=== PATIENT | male | born 1945 | race Caucasian/White ===

== ENCOUNTER 2022-09-25 13:14 | Outpatient (OUT) | payer MEDICARE, SELFPAY ==
--- NOTE | 2022-09-25 13:17 | XR_ITS ---
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 KIDNEY/URETER - LEFT: No visible renal or ureteral calcifications. PELVIS: No visible ureteral stone. Stable small pelvic calcifications compatible with phleboliths. BOWEL: No abnormal dilation or deviation. BONES: No acute abnormality. OTHER: Negative. No abnormal gaseous collections. XR/XR abdomen 1V IMPRESSION: 1. No appreciable urinary tract calculi. Electronically authenticated by: TANIA SAXENA Date: 09/26/2022 07:18
== END 2022-09-25 13:15 | disposition home or self-care (01) ==
LOC: RAD 13:14
PROVIDERS: PCP Family Medicine; Visit Provider Urology
DX: N40.1 Benign prostatic hyperplasia with lower urinary tract symptoms (principal); N20.0 Calculus of kidney; R31.29 Other microscopic hematuria
CPT/HCPCS: 74018

== ENCOUNTER 2022-10-09 09:36 | Outpatient (OUT) | payer MEDICARE, SELFPAY ==
[2022-10-09 09:55] LABS: Estimated GFR (African America >60 (>=60); Estimated GFR (Non-African Ame >60 (>=60)
--- NOTE | 2022-10-09 09:56 | CT_ITS ---
[address] [address] Patient Name: JD APODACA MRN: [id number] date: 1945 Sex: M Assigned Patient Location: LAB Current Patient Location: LAB Accession/Order Number: [id number] Exam Date: 10/09/2022 10:06 Report Date: 10/09/2022 11:46 At the request of: JANET OSCAR Procedure: CT abdomen pelvis wo/w con EXAM: CT abdomen pelvis wo/w con HISTORY: BPH With Urinary Obstruction N40.1, Kidney Stone N20.0 COMPARISON: None. TECHNIQUE: Axial CT images were obtained of the abdomen and pelvis without and with intravenous contrast. Postcontrast images were obtained in the delayed phase. Multiplanar reconstructions were performed. ABDOMEN/PELVIS FINDINGS: Lower Chest: Unremarkable. Liver: Hepatic steatosis is present. The liver is enlarged measuring 20 cm in craniocaudal dimension. Biliary/Gallbladder: Unremarkable. Pancreas: Unremarkable. Spleen: Unremarkable. Adrenal Glands: Unremarkable. Kidneys: A couple tiny cystic lesions are present in the kidneys bilaterally that are too small to characterize, but most likely represent small cysts. No renal calculus or hydronephrosis is identified. Gastrointestinal/Peritoneum: No acute abnormality. Moderate colonic diverticulosis is present. The appendix is unremarkable. No free air or free fluid. Vascular: Mild scattered atherosclerotic calcifications are present. Lymph Nodes: No enlarged lymph nodes by CT size criteria. Pelvic Organs: Unremarkable. Bladder: The bladder appears diffusely thick-walled, however, evaluation is limited due to nondistention. Bones: No acute osseous abnormality. Moderate degenerative disc disease is present at L5-S1. Otherwise mild multilevel degenerative changes are present. Soft tissues: Unremarkable. CT/CT abdomen pelvis wo/w con IMPRESSION: 1. Mild diffuse bladder wall thickening, which is limited in evaluation due to nondistention. Cystitis or chronic bladder outlet obstruction are possible considerations. 2. Hepatic steatosis and hepatomegaly. 3. Moderate colonic diverticulosis. Electronically authenticated by: LOI HAINES Date: 10/09/2022 11:46
== END 2022-10-09 09:37 | disposition home or self-care (01) ==
LOC: LAB 09:37
PROVIDERS: PCP Family Medicine; Visit Provider Urology
DX: N40.1 Benign prostatic hyperplasia with lower urinary tract symptoms (principal); N20.0 Calculus of kidney; R31.29 Other microscopic hematuria
CPT/HCPCS: 36415; 74178; 82565; 84520; Q9967

== ENCOUNTER 2022-10-22 15:47 | Emergency (ER) | payer MEDICARE, SELFPAY ==
[2022-10-22 15:54] VITALS: BP 171/96; PULSE 102; RESP 20; TEMP 36.6; O2SAT 98; BMI 24.3
--- NOTE | 2022-10-22 15:57 | PC.NURSE ---
Pt has a dried area of blood to scrotum that he noticed started bleeding in the shower. Pt state this has happened in the past. States no known injury. Pt had a paper towel in underwear to catch blood and none was noted on towel.
--- NOTE | 2022-10-22 16:01 | ED.GENADUL1 ---
HPI - General Adult General Chief complaint: Skin/Abscess/Foreign Body Stated complaint: RECTAL BLEED Time Seen by Provider: 10/22/22 15:52 Source: patient Mode of arrival: walk-in Limitations: no limitations History of Present Illness HPI narrative: patient is a 77-year-old male who presents to the emergency department for bleeding from his scrotum that he noted in the shower just prior to arrival. He denies any pain, he is able to urinate normally. He has no abdominal pain, fevers, vomiting. He states he has not had any injuries that he is aware of. Bleeding has stopped at this time. Related Data Home Medications Medication Instructions Recorded Confirmed amlodipine 2.5 mg tablet 2.5 mg PO DAILY 10/22/22 10/22/22 hydrochlorothiazide 12.5 mg tablet 12.5 mg PO DAILY 10/22/22 10/22/22 lisinopril 20 mg tablet 20 mg PO DAILY 10/22/22 10/22/22 potassium citrate 15 mEq (1,620 15 meq PO BID 10/22/22 10/22/22 mg) tablet,extended release Previous Rx's Medication Instructions Recorded mupirocin 2 % topical ointment 1 applic topical BID #15 grams 10/22/22 Allergies Allergy/AdvReac Type Severity Reaction Status Date / Time No Known Drug Allergies Allergy Verified 10/22/22 15:50 Review of Systems ROS Constitutional Denies: fever or chills Ears, nose, mouth, and throat Denies: throat pain Cardiovascular Denies: chest pain Respiratory Denies: shortness of breath or cough Gastrointestinal Denies: nausea or vomiting Genitourinary Denies: painful urination Musculoskeletal Denies: back pain Integumentary/Breast Denies: rash Allergic/Immunologic Denies: hives Exam Narrative Exam Narrative: Gen.: Awake, alert, in no distress Head: Normocephalic, atraumatic ENT: Moist mucous membranes Respiratory: No respiratory distress Gastrointestinal: Abdomen is soft, nondistended and nontender to palpation : scrotum examined with Arsen giang RN at bedside throughout the duration of the exam. Small scabbed area noted to the scrotum, inferior aspect on the right. No deep lacerations or active bleeding noted. Scrotum with multiple skin tags and skin moles Extremities: Moves extremities equally, no injuries noted Psych: Normal mood and affect Neuro: No focal neuro deficit Skin: Warm, dry, intact Constitutional Vital Signs, click to edit/add: Last Vital Signs Temp 97.9 F 10/22/22 15:54 Pulse 102 H 10/22/22 15:54 Resp 20 10/22/22 15:54 BP 171/96 H 10/22/22 15:54 Pulse Ox 98 10/22/22 15:54 O2 Del Method Room Air 10/22/22 15:54 Course Vital Signs Vital signs: Vital Signs Temperature 97.9 F 10/22/22 15:54 Pulse Rate 102 H 10/22/22 15:54 Respiratory Rate 20 10/22/22 15:54 Blood Pressure 171/96 H 10/22/22 15:54 Pulse Oximetry 98 10/22/22 15:54 Oxygen Delivery Method Room Air 10/22/22 15:54 Temperature 97.9 F 10/22/22 15:54 Pulse Rate 102 H 10/22/22 15:54 Respiratory Rate 20 10/22/22 15:54 Blood Pressure 171/96 H 10/22/22 15:54 Pulse Oximetry 98 10/22/22 15:54 Oxygen Delivery Method Room Air 10/22/22 15:54 Medical Decision Making MDM Narrative Medical decision making narrative: wound care encouraged for home with antibiotic ointment prescribed. No indication for suture repair, no active bleeding in the Emergency Room. Patient given education and reassurance. Reexamined by attending physician prior to discharge. Medical Records Medical records reviewed: Yes I reviewed the patient's medical records Discharge Plan Discharge Chief Complaint: Skin/Abscess/Foreign Body Clinical Impression: Scrotal bleeding Patient Disposition: Home, Self-Care Time of Disposition Decision: 16:05 Condition: Good Prescriptions / Home Meds: New mupirocin 2 % ointment 1 applic topical BID Qty: 15 0RF No Action amlodipine 2.5 mg tablet 2.5 mg PO DAILY hydrochlorothiazide 12.5 mg tablet 12.5 mg PO DAILY lisinopril 20 mg tablet 20 mg PO DAILY potassium citrate 15 mEq tablet extended release 15 meq PO BID Instructions: Abrasion (ED) Stand Alone Forms: Portal Instructions Referrals: VICTOR M BONNER [Primary Care Provider] - 1 week
== END 2022-10-22 16:32 | disposition home or self-care (01) ==
PROVIDERS: Emergency Provider Emergency Medicine; PCP Family Medicine
DX: N50.89 Other specified disorders of the male genital organs (principal); Z79.899 Other long term (current) drug therapy
CPT/HCPCS: 99283

== ENCOUNTER 2023-04-23 10:43 | Outpatient (OUT) | payer MEDICARE, SELFPAY ==
[2023-04-23 11:13] LABS: Creatinine Urine Random 41.74 mg/dL (20.00-300.00); Microalbum Creatinine Ratio Ur 31.1 mg/g (0.0-29.9); Microalbumin Urine Random <1.3 mg/dL (<=30.0)
[2023-04-23 11:27] LABS: Basophils Percent Auto 0.7 % (0.2-2.0); Eosinophils Absolute Auto 0.1 10^3/uL (0.0-0.7); Eosinophils Percent Auto 1.9 % (0.9-7.0); Hematocrit 43.4 % (42.0-54.0); Hemoglobin 14.6 g/dL (14.0-18.0); Immature Granulocytes Abs Auto 0.04 10^3/uL (0.00-0.03); Immature Granulocytes Pct Auto 0.7 % (0.0-0.5); Lymphocytes Absolute Auto 1.9 10^3/uL (1.2-3.8); Lymphocytes Percent Auto 32.8 % (20.5-60.0); Mean Corpuscular HGB Conc 33.6 g/dL (29.9-35.2); Mean Corpuscular Hemoglobin 32.2 pg (25.9-34.0); Mean Corpuscular Volume 95.6 fL (80.0-94.0); Mean Platelet Volume 9.3 fL (9.5-13.5); Monocytes Absolute Auto 0.5 10^3/uL (0.3-0.8); Monocytes Percent Auto 8.1 % (1.7-12.0); Neutrophils Absolute Auto 3.2 10^3/uL (1.4-6.5); Neutrophils Percent Auto 55.8 % (43.0-75.0); Platelet Count 252 10^3/uL (150-450); Red Blood Count 4.54 10^6/uL (4.70-6.10); White Blood Count 5.8 10^3/uL (4.0-11.0)
[2023-04-23 11:45] LABS: Alanine Aminotransferase 30 U/L (16-63); Albumin Globulin Ratio 1.1; Albumin Level 3.8 g/dL (3.4-5.0); Alkaline Phosphatase 76 U/L (46-116); Anion Gap 10.8; Aspartate Amino Transferase 21 U/L (15-37); BUN Creatinine Ratio 12.1; Bilirubin Total 1.8 mg/dL (0.2-1.0); Calcium 8.5 mg/dL (8.5-10.1); Carbon Dioxide 30.7 mmol/L (21.0-32.0); Chloride 102 mmol/L (98-107); Chol HDL Ratio 3.2; Cholesterol 213 mg/dL (<=200); Estimated GFR (African America >60 (>=60); Estimated GFR (Non-African Ame >60 (>=60); Globulin 3.6 g/dL; Glucose 94 mg/dL (74-106); HDL Cholesterol 67 mg/dL (40-60); Potassium 3.5 mmol/L (3.5-5.1); Sodium 140 mmol/L (136-145); Total Protein 7.4 g/dL (6.4-8.2); Triglycerides 98 mg/dL (<=150); VLDL CHOLESTEROL 19.6 mg/dL
== END 2023-04-23 10:44 | disposition home or self-care (01) ==
LOC: LAB 10:43
PROVIDERS: PCP Family Medicine; Visit Provider Family Medicine
DX: Z00.00 Encounter for general adult medical examination without abnormal findings (principal); I10 Essential (primary) hypertension; E78.2 Mixed hyperlipidemia
CPT/HCPCS: 36415; 80053; 80061; 82043; 82570; 85025

== ENCOUNTER 2023-08-26 13:08 | Outpatient (OUT) | payer MEDICARE, SELFPAY ==
[2023-08-26 13:34] LABS: Basophils Absolute Auto 0.1 10^3/uL (0.0-0.1); Basophils Percent Auto 0.9 % (0.2-2.0); Eosinophils Absolute Auto 0.1 10^3/uL (0.0-0.7); Eosinophils Percent Auto 1.1 % (0.9-7.0); Immature Granulocytes Abs Auto 0.03 10^3/uL (0.00-0.03); Immature Granulocytes Pct Auto 0.6 % (0.0-0.5); Lymphocytes Absolute Auto 1.5 10^3/uL (1.2-3.8); Lymphocytes Percent Auto 28.2 % (20.5-60.0); Mean Corpuscular Hemoglobin 32.7 pg (25.9-34.0); Mean Corpuscular Volume 93.5 fL (80.0-94.0); Mean Platelet Volume 9.3 fL (9.5-13.5); Monocytes Absolute Auto 0.4 10^3/uL (0.3-0.8); Neutrophils Absolute Auto 3.3 10^3/uL (1.4-6.5); Neutrophils Percent Auto 61.2 % (43.0-75.0); Platelet Count 234 10^3/uL (150-450); Red Blood Count 4.28 10^6/uL (4.70-6.10); Red Cell Distribution Width 13.6 % (11.0-15.0); White Blood Count 5.4 10^3/uL (4.0-11.0)
[2023-08-26 14:03] LABS: Alanine Aminotransferase 38 U/L (16-63); Albumin Globulin Ratio 1.3; Albumin Level 3.7 g/dL (3.4-5.0); Alkaline Phosphatase 65 U/L (46-116); Anion Gap 10.9; Aspartate Amino Transferase 27 U/L (15-37); BUN Creatinine Ratio 11.3; Bilirubin Total 1.4 mg/dL (0.2-1.0); Calcium 8.6 mg/dL (8.5-10.1); Carbon Dioxide 30.2 mmol/L (21.0-32.0); Chloride 102 mmol/L (98-107); Estimated GFR (African America >60 (>=60); Estimated GFR (Non-African Ame >60 (>=60); Globulin 2.9 g/dL; Glucose 137 mg/dL (74-106); Potassium 3.1 mmol/L (3.5-5.1); Sodium 140 mmol/L (136-145); Total Protein 6.6 g/dL (6.4-8.2)
== END 2023-08-26 13:09 | disposition home or self-care (01) ==
LOC: LAB 13:11
PROVIDERS: PCP Family Medicine; Visit Provider Internal Medicine Rheumatology
DX: M19.90 Unspecified osteoarthritis, unspecified site (principal); Z51.81 Encounter for therapeutic drug level monitoring
CPT/HCPCS: 36415; 80053; 85025

== ENCOUNTER 2023-10-20 09:09 | Outpatient (OUT) | payer MEDICARE, SELFPAY ==
--- OUTSIDE RECORDS SUMMARY | 2023-10-20 09:28 | XMS_ITS | CCD ---
Author Organization [facility] Care Team Providers [employer] Name Role Phone ZEUS BONNER Primary Care Physician [phone] KAILEY, DR DOW Primary Care Unavailable CELESTINA, DR GONZALES Admitting Unavailable CELESTINA, DR GONZALES Consulting Unavailable CELESTINA, DR GONZALES Attending Unavailable ODESSA, DR TANIA Zhang Consulting Unavailable RUSSELL DALEY Admitting Unavailable RUSSELL DALEY Consulting Unavailable RUSSELL DALEY Attending Unavailable KAILEY, DR DOW Primary Care Unavailable Christian Raymond Jr Admitting Unavailable Christian Raymond Jr Attending Zeus Wilson Primary Care Unavailable Zeus Bonner DO Unavailable Zeus Bonner DO Primary Care Provider [phone] JR. RAYMOND GEORGE C Attending Unavaila ZEUS Judd Attending Unavailable KATHERINE ROTH Attending Unavailable JR. MARY, CHRISTIAN Egan Attending Unavaila lor RAYMOND JR., CHRISTIAN Egan Referring Unavaila ZEUS Judd Attending ZEUS Wilson Referring Unavailable KATHERINE ROTH Attending Unavailable JR. MARY, CHRISTIAN Egan Attending Unavaila lor RAYMOND JR., CHRISTIAN Egan Referring Unavaila lor RAYMOND JR., CHRISTIAN Egan Referring Unavaila Buddy Carrizales Attending Unavailable Buddy JACOBO Attending Unavailable Allergies Allergy Classification Reported Allergen(s) Allergy Type Date of Onset Reaction(s) Facility (1 source) Meperidine Drug Allergy 12-09-2013 [facility] Repository (1 source) Nalbuphine Drug Allergy 12-09-2013 [facility] Repository Medications Current Medications Medication Drug Class(es) Dates Sig (Normalized) Sig (Original) amLODIPine 2.5 mg oral tablet (5 sources) Dihydropyridine Calcium Channel Monae Start: 09-27-2019 take 1 tablet by mouth once daily amLODIPine (Norvasc) 2.5 MG tablet Indications: Primary hypertension (CMS/HCC) TAKE 1 TABLET BY MOUTH ONCE A DAY 90 tablet 3 12/30/2022 Active Aspirin (4 sources) Platelet Aggregation Inhibitor, Nonsteroidal Anti-inflammatory Drug Start: 09-27-2019 aspirin Refills(s) 0 Start Date: 09/27/19 Status: Ordered aspirin 81 MG EC tablet 1 (one) time each day at the same time. 0 Active gabapentin 300 mg oral capsule (3 sources) Anti-epileptic Agent Start: 03-27-2023 take 1 capsule by mouth every eight hours gabapentin (Neurontin) 300 MG capsule Indications: Neuropathy TAKE 1 CAPSULE BY MOUTH EVERY 8 HOURS 270 capsule 3 03/27/2023 Active Start: 10-04-2022 gabapentin 300 mg Cap Refills(s) 0 Start Date: 10/04/22 Status: Ordered hydroCHLOROthiazide 12.5 mg oral tablet (5 sources) Thiazide Diuretic Start: 09-27-2019 take 12.5 mg by mouth once daily hydrochlorothiazide 12.5 mg, Oral, Daily, Refills(s) 0 Start Date: 09/27/19 Status: Ordered ivermectin 5 mg/ml topical lotion (1 source) Antiparasitic, Pediculicide Start: 02-27-2023 Ivermectin 0.5 % lotion lisinopril 20 mg oral tablet (5 sources) Angiotensin Converting Enzyme Inhibitor Start: 09-02-2022 take 1 tablet by mouth once daily lisinopril 20 mg Tab 20 mg = 1 tab(s), Oral, Daily Start Date: 10/15/22 Status: Ordered Start: 09-27-2019 take 10 mg by mouth once daily lisinopril 10 mg, Oral, Daily, Refills(s) 0 Start Date: 09/27/19 Status: Ordered minocycline 50 mg oral capsule (1 source) Tetracycline-class Drug Start: 02-27-2023 take 1 capsule by mouth once daily minocycline 50 MG capsule Indications: Other rosacea Take 1 capsule, by mouth, once daily, 30 days 90 capsule 3 02/27/2023 Active triamcinolone acetonide 1 mg/ml topical cream (1 source) Corticosteroid Start: 11-01-2021 triamcinolone (Kenalog) 0.1 % cream APPLY TO AFFECTED AREA TWICE A DAY NEEDED 0 11/01/2021 Active Completed/Discontinued Medications Medication Drug Class(es) Dates Sig (Normalized) Sig (Original) potassium citrate 15 meq extended release oral tablet (5 sources) Start: 02-03-2023 take 1 tablet by mouth twice daily potassium citrate 15 mEq oral tablet, extended release 15 mEq = 1 tab(s), Oral, BID, dosage increase, # 180 tab(s), Refills(s) 3, Pharmacy: [facility], 170, cm, 10/15/22 13:53:00 EDT, Height/Length Dosing, 71, kg, 10/15/22 13:53:00 EDT, Weight Dosing Start Date: 02/03/23 Status: Ordered Start: 09-28-2021 take 1 tablet by enoch th twice daily potassium citrate 15 mEq oral tablet, extended release 15 mEq = 1 tab(s), Oral, BID, # 200 tab(s), Refills(s) 11, [facility] 170, cm, 09/28/21 10:35:00 EDT, Height/Length Dosing, 71.4, kg, 09/28/21 10:35:00 EDT, Weight Dosing Start Date: 09/28/21 Status: Ordered Urocit-K 15 15 M EQ (1620 MG) ER tablet every 12 (twelve) hours. 0 Active Problems Active Problems Problem Classification Problem Date Documented Da te Episodic/Chronic Calculus of urinary tract (14 sources) Kidney stone; Translations: [Calculus of kidney] Onset: 09-20-2021 Episodic Disorders of lipid metabolism (2 sources) Hyperlipidemia, unspecified; Translations: [Hyperlipidemia] Onset: 03-13-2022 11-25-2022 Chronic Essential hypertension (9 sources) Hypertensive disorder; Translations: [Essential (primary) hypertension] Onset: 03-05-2022 09-23-2019 Chronic Genitourinary symptoms and ill-defined conditions (13 sources) Microscopic hematuria; Translations: [Other microscopic hematuria] Onset: 09-24-2021 Episodic Hyperplasia of prostate (8 sources) Benign prostatic hypertrophy with outflow obstruction; Translations: [Benign prostatic hyperplasia with lower urinary tract symptoms] Onset: 09-24-2021 Chronic Osteoarthritis (1 source) Arthritis of left hip; Translations: [Unilateral primary osteoarthritis, left hip] Onset: 11-25-2022 11-25-2022 Chronic Other diseases of bladder and urethra (4 sources) Urethral stricture 09-23-2019 Episodic Other diseases of kidney and ureters (3 sources) Cyst of kidney 10-14-2022 Episodic Other diseases of kidney and ureters (2 sources) Acquired renal cyst without neoplastic change; Translations: [Cyst of kidney, acquired] Onset: 10-14-2022 Episodic Other inflammatory condition of skin (1 source) Rosacea; Translations: [Rosacea, unspecified] Onset: 11-25-2022 11-25-2022 Chronic Other male genital disorders (1 source) 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; Translations: [Vascular disorders of male genital organs] Onset: 10-17-2023 Chronic Other male genital disorders (1 source) Hemorrhage of scrotum 10-17-2023 Chronic Other nervous system disorders (1 source) Cervical myelopathy; Translations: [Disease of spinal cord, unspecified] Onset: 11-25-2022 11-25-2022 Chronic Other screening for suspected conditions (not mental disorders or infectious disease) (1 source) Encounter for screening for malignant neoplasm of prostate; Translations: [ENC SCREEN MALIG NEOPLASM PROSTATE] Onset: 03-13-2022 Episodic Spondylosis; intervertebral disc disorders; other back problems (1 source) Cervical spondylosis; Translations: [Spondylosis without myelopathy or radiculopathy, cervical region] Onset: 11-25-2022 11-25-2022 Chronic Spondylosis; intervertebral disc disorders; other back problems (1 source) Radiculopathy, lumbar region; Translations: [Radiculopathy, lumbar region] Onset: 04-17-2022 Episodic Past or Other Problems Problem Classification Problem Date Documented Da te Episodic/Chronic Mood disorders (1 source) Mood disorders Onset: 04-17-2023 04-17-2023 Results Test Name Value Interpretation Reference Range Facility Ambulatory Visit Summaryon 0 10-17-2023 Ambulatory Visit Summary Ambulatory Visit Summary JD APODACA :1945 Visit Date:10/17/2023 Ambulatory Visit Instructions Your Diagnosis BPH with urinary obstruction Gross hematuria History of kidney stones Bladder stones Bilateral renal cysts Scrotal bleeding Tests Performed XR Abdomen 1 View -- Results Pending -- Please visit your patient portal for your results or contact your primary care physician. Your Care Team Attending Physician - Buddy JACOBO MD Primary Care Physician - ZEUS BONNER DO This Is Your Medications List potassium citrate (potassium citrate 15 mEq oral tablet, extended release) Contact prescribing physician if questions or concerns amlodipine hydrochlorothiazide lisinopril (lisinopril 20 mg Tab) Procedures Performed Cystoscopy (10/15/2022), Transurethral incision of bladder neck (02/22/2015), Cystoscopy (03/22/2014), Transurethral resection of prostate (12/16/2013), Laser ablation of prostate (08/04/2012), Cystoscopy (05/26/2012), Urodynamics (05/06/2012), Cystoscopy (09/06/2008), Colonoscopy, Ts - Tonsillectomy. Discharge Vitals Heart Rate (Peripheral) 74 Respiratory Rate 16 Blood Pressure 133/81 Height 170 cm Height 67 in Weight 68.3 kg Weight 150.26 lb BMI 23.63 What to do next You Need to Schedule the Following Appointments Follow Up with Buddy JACOBO MD, URL When: Where: [address] [place] [address]- Medications What How Much When Instructions Unchanged potassium citrate (potassium citrate 15 mEq oral tablet, extended release) 1 Tablets By Mouth 2 times a day dosage increase Unchanged amlodipine 2.5 Milligram By Mouth Every day Contact prescribing physician if questions or concerns Unchanged hydrochlorothiazide 12.5 Milligram By Mouth Every day Contact prescribing physician if questions or concerns Unchanged lisinopril (lisinopril 20 mg Tab) 1 Tablets By Mouth Every day Contact prescribing physician if questions or concerns Allergies No Known Allergies Problems Ongoing - Any problem that you are currently receiving treatment for. Bilateral renal cysts Bladder stones BPH with urinary obstruction Gross hematuria History of kidney stones Hypertension Scrotal bleeding Urethral stricture Weak urinary stream Patient Survey You may receive a survey via text or e-mail asking about your office visit. Please share your experience with us by completing your survey. We appreciate your feedback and thank you for choosing us for your care. Education Materials Benign Prostatic Hyperplasia Benign prostatic hyperplasia (BPH) is an enlarged prostate gland that is caused by the normal aging process. The prostate may get bigger as a man gets older. The condition is not caused by cancer. The prostate is a walnut-sized gland that is involved in the production of semen. It is located in front of the rectum and below the bladder. The bladder stores urine. The urethra carries stored urine out of the body. An enlarged prostate can press on the urethra. This can make it harder to pass urine. The buildup of urine in the bladder can cause infection. Back pressure and infection may progress to bladder damage and kidney (renal) failure. What are the causes? This condition is part of the normal aging process. However, not all men develop problems from this condition. If the prostate enlarges away from the urethra, urine flow will not be blocked. If it enlarges toward the urethra and compresses it, there will be problems passing urine. What increases the risk? This condition is more likely to develop in men older than 50 years. What are the signs or symptoms? Symptoms of this condition include: ? Getting up often during the night to urinate. ? Needing to urinate frequently during the day. ? Difficulty starting urine flow. ? Decrease in size and strength of your urine stream. ? Leaking (dribbling) after urinating. ? Inability to pass urine. This needs immediate treatment. ? Inability to completely empty your bladder. ? Pain when you pass urine. This is more common if there is also an infection. ? Urinary tract infection (UTI). How is this diagnosed? This condition is diagnosed based on your medical history, a physical exam, and your symptoms. Tests will also be done, such as: ? A post-void bladder scan. This measures any amount of urine that may remain in your bladder after you finish urinating. ? A digital rectal exam. In a rectal exam, your health care provider checks your prostate by putting a lubricated, gloved finger into your rectum to feel the back of your prostate gland. This exam detects the size of your gland and any abnormal lumps or growths. ? An exam of your urine (urinalysis). ? A prostate specific antigen (PSA) screening. This is a blood test used to screen for prostate cancer. ? An ultrasound. This test uses sound wav (more content not included)... Normal [facility] Urology Office/Clinic Noteon 10-17-2023 Urology Office/Clinic Note Urology Office/Clinic Note Chief Complaint 1yr HPI Staff 1yr DX: Gross Hematuria, BPH, Hx of Kidney Stones & BL Renal Cysts *Potassium Citrate 15 mEq. Denies urinary sx. Did have bleeding from scrotum last yr. Did get checked out at ER. DC'd home w/abx. Denies visible blood in urine since last encounter. Denies flank pain. No other concerns at this time. Last PSA 02/11/18- 1.08 History of Present Illness Tests reviewed: reviewed UA & PSA. I have reviewed the previous health record information and history for this patient from Dr. Jacobo. I have reviewed and verified the staff HPI to be accurate for this encounter. There have been no associated fever, chills, flank pain, or blood in the urine. Denies any urinary infections since last encounter. Review of Systems PHQ Score Initial Depression Screen Score: 0 SCORE ROS - Provider Constitutional: denies weight loss, denies hot flashes. Eyes: denies eye problems. Gastrointestinal: denies nausea, denies vomiting. Cardiovascular: denies chest pain or angina. Integumentary: no dryness Musculoskeletal: denies musculoskeletal symptoms. ENMT: denies otolaryngeal symptoms. Respiratory: no shortness of breath. Heme/Lymph: denies easy bleeding tendency, denies easy bruising tendency. Psychiatric: no confusion, no anxiety. Genitourinary: See HPI. Physical Exam Vitals & Measurements HR: 74(Peripheral) RR: 16 BP: 133/81 HT: 67 in HT: 170 cm WT: 68.3 kg WT: 150.26 lb BMI: 23.63 General Appearance: alert, no distress, well nourished, well developed male. Assessment/Plan 1. BPH with urinary obstruction (N40.1: Benign prostatic hyperplasia with lower urinary tract symptoms) PSA: 2018 - 1.18 10/02/20 - 1.1 03/05/22 - 1.0 S/p TURP 2013. S/p cysto 10/15/22 ~moderate regrowth, L side crossing over to the R. Neovascularity in the prostate, possible source of blood. UA today neg. Not taking any BPH meds. Nocturia 2x but states he sleeps for a long period of time. No urinary concerns. Discussed Finasteride if pt would have another episode of gross hematuria. Will hold off at this time. -Cont sx monitoring 2. Gross hematuria (R31.0: Gross hematuria) Painless gross hematuria around 02/2022. [1] CT AP w/wo con 10/09/22 - A couple tiny cystic lesions bilaterally, too small to characterize, likely represent small cysts. Neg for stones and hydro. Mild diffuse bladder wall thickening, limited eval due to nondistension. Cystitis or chronic COLEMAN are possible considerations. S/p cysto 10/15/22 ~No tumors. Severe trabeculation. UA today neg. Denies recurrence of gross hematuria. 3. History of kidney stones (Z87.442: Personal history of urinary calculi) KUB 09/20/21 - Stable right nephrolithiasis. DANTE 10/09/20 - Two nonobstructing stones, 4 mm and 6 mm. KUB 09/25/22 - Neg for stones. CT AP w/wo con 10/09/22 - Neg for stones and hydro. Taking Potassium Citrate 15 mEq. States he stopped it for 1 wk due to not feeling well from another medication/arthritis. Restarted it and has not had any issues. Denies pain or passage of stones since last visit. -KUB in 12 mos 4. Bladder stones (N21.0: Calculus in bladder) S/p cysto 10/15/22 ~2 tiny yellow stones on bladder base. 5. Bilateral renal cysts (N28.1: Cyst of kidney, acquired) CT AP w/wo con 10/09/22 - A couple tiny cystic lesions bilaterally, too small to characterize, likely represent small cysts. Simple cysts do not require surveillance. 6. Scrotal bleeding (N50.1: Vascular disorders of male genital organs) Reports he had bleeding from his scrotum last year. Subsequently presented to the ER. He was discharged home with abx. No recurrence. States he has spots on his scrotum, similar to blood blisters which was what was bleeding. Follow-up With When Contact Information CELESTINA VIDAL, Buddy Zhang, URL [address] [place] [address]- Additional Instructions: 1 year w/ KUB Patient Education Benign Prostatic Hyperplasia I, Marina Barclay, personally scribed for Dr. Jacobo on 10/17/2023 12:03:19. . Documentation recorded by the scribe, Marina Barclay, accurately reflects the services(s) I performed and decisions made by me. Authenticated by Dr. Jacobo on 10/17/2023 12:04:50. Problem List/Past Medical History Ongoing Bilateral renal cysts Bladder stones BPH with urinary obstruction Gross hematuria History of kidney stones Hypertension Scrotal bleeding Urethral stricture Weak urinary stream Historical No qualifying data Procedure/Surgical History Cystoscopy (10/15/2022), Transurethral incision of bladder neck (02/22/2015), Cystoscopy (03/22/2014), Transurethral resection of prostate (12/16/2013), Laser ablation of prostate (08/04/2012), Cystoscopy (05/26/2012), Urodynamics (05/06/2012), Cystoscopy (09/06/2008), Colonoscopy, Ts - Tonsillectomy. Medications amlodipine, 2.5 mg, Oral, Daily hydrochl (more content not included)... Normal [facility] Comment on above: Result Comment: Elec tronically Signed By: Buddy JACOBO MD\.br\Date and Time Signed: 10/17/23 12:04 EDT\.br\Electronically Co-Signed By: Marina Barclay.br\Date and Time Co-Signed: 10/17/23 12:03 EDT MR LUMBAR SPINE WO CONTRASTo n 10-09-2023 MR LUMBAR SPINE WO CONTRAST EXAM: MR LUMBAR SPINE WO CONTRAST History: Low back pain with radiculopathy Technique: Multiplanar multisequence MRI of the lumbar spine was obtained without intravenous contrast. Comparison: Lumbar spine radiographs September 29, 2023 Findings: The conus medullaris ends normally. Minimal levocurvature. Straightening of the lumbar lordosis. The vertebral body heights are well maintained. There is no aggressive bone marrow signal abnormality. An intraosseous hemangioma is identified within the vertebral body of L2 and L3. Disc desiccation throughout the lumbar spine. Moderate intervertebral disc height loss at L5-S1 and mild intervertebral disc height loss elsewhere throughout the lumbar spine. L1-L2: Small disc bulge. No neural foraminal or spinal canal stenosis. L2-L3: Small disc bulge with tiny central annular fissure. No neural foraminal or spinal canal stenosis. L3-L4: Small disc bulge. No neural foraminal or spinal canal stenosis. L4-L5: Small disc bulge eccentric to the left. Mild facet arthropathy. Ligamentum flavum thickening. Mild spinal canal stenosis. Mild right and moderate left neural foraminal stenosis. L5-S1: Small disc bulge eccentric to the left with suspected left central/left foraminal disc protrusion. Moderate facet arthropathy. Postsurgical changes of posterior decompression. Mild right and severe left neural foraminal stenosis. No spinal canal stenosis. Visualized paravertebral soft tissues appear within normal limits. Although incompletely visualized on the coronal T2 sequence, the liver measures greater than 20 cm. A hyperintense T2 structure of the right kidney measuring approximately 1 cm most likely a cyst. IMPRESSION: Degenerative changes of the lumbar spine as detailed. Hepatomegaly. ELECTRONICALLY SIGNED BY: Solis Quinones DO Normal Not Available TB MICROALB CREAT RATIO RAN DOMon 04-23-2023 CREATININE URINE RANDOM 41.74 mg/dL 20.00 - 300.00 mg/dL [facility] Interpretation and review of laboratory results Abnormal [facility] MICROALBUM CREATININE RATIO UR 31.1 mg/g High 0.0 - 29.9 mg/g [facility] Comment on above: NO MICROALBUMINURIA 0-29 MG/G CLINICAL MICROALBUMINURIA 30-300 MG/G MACROALBUMINURIA >300 MG/G MICROALBUMIN URINE RANDOM <1.3 NINF - 30.0 mg/dL [facility] XR pre/post mri xrayon 04-17 XR pre/post mri xray [facility] [address] MRI Report Signed Patient: Jd Apodaca MR#: [id number] : 1945 Acct:[id number] Age/Sex: 77 / M ADM Date: 04/17/22 Loc: [facility] Room: Type: [facility] Attending Dr: Christian Raymond Jr, DO Copies to: Christian Raymond Jr, DO Ordering Provider: Christian Raymond Jr, DO Date of Service: 04/17/22 MR/MR lumbar spine wo con: M54.16 ([id number]) XR/XR pre/post mri xray: LUMBAR MRI MR lumbar spine wo con, XR pre/post mri xray 04/17/2022 11:00 AM SIGNS AND SYMPTOMS: Radiculopathy and left hip, previous lumbar surgery, low back pain PROTOCOL: Multiplanar multisequence MR images of the lumbar spine were obtained without IV contrast. Frontal and lateral radiograph the lumbar spine were obtained. COMPARISON: 03/13/2018 FINDINGS: Radiograph the lumbar spine: There is a mild levoconvex curvature. There is moderate disc height loss at L5-S1 with minimal intervertebral disc height loss throughout otherwise. There is no fracture or subluxation. The visualized sacroiliac joints are preserved. MRI lumbar spine: The bones of the lumbar spine are in anatomic alignment. Disc height loss is as noted above. There is preservation of vertebral body heights. Benign-appearing hemangiomas are noted at L2 and L3. The conus terminates at the inferior endplate of the L1 vertebral body level. No epidural or paraspinous fluid collection is appreciated. Simple cysts are noted in the renal cortices requiring no further follow-up. At T12-L1: There is a normal disc, central canal, and neural foramen. At L1-L2: There is a broad-based disc bulge with mild spinal canal narrowing. No significant neural foraminal narrowing. At L2-L3: There is a broad-based disc bulge with facet hypertrophy. There is mild spinal canal narrowing without significant neural foraminal narrowing. At L3-L4: There is a mild broad-based disc bulge with facet hypertrophy left greater than right. There is mild left neural foraminal narrowing. At L4-L5: There is a circumferential disc bulge with facet hypertrophy and bilateral facet effusions. There is moderate bilateral neural foraminal narrowing with moderate spinal canal narrowing. At L5-S1: There is a circumferential disc bulge with facet hypertrophy. There is evidence of prior left hemilaminotomy. There is severe left neural foraminal narrowing with mass effect on the exiting left L5 nerve roots. There is also mild spinal canal stenosis with mild mass effect on the traversing left S1 nerve roots. This is slightly worse when compared to the prior exam. MR/MR lumbar spine wo con IMPRESSION: At L5-S1: There is a circumferential disc bulge with facet hypertrophy. There is evidence of prior left hemilaminotomy. There is severe left neural foraminal narrowing with mass effect on the exiting left L5 nerve roots. There is also mild spinal canal stenosis with mild mass effect on the traversing left S1 nerve roots. This is slightly worse when compared to the prior exam. At L4-L5: There is a circumferential disc bulge with facet hypertrophy and bilateral facet effusions. There is moderate bilateral neural foraminal narrowing with moderate spinal canal narrowing. Impression dictated by: Baltazar Mcdermott M.D.04/17/2022 1:38 PM Dictation Location: [place] [address] Transcribed By: NIRAV 04/17/22 1338 Dictated By: Baltazar Mcdermott II, MD 04/17/22 1329 Signed By: 04/17/22 1338 Normal [facility] PSA, FREE AND TOTAL RATIOon 03-06-2022 % Free PSA 22.0 % Normal [facility] Comment on above: Result Comment: The table below lists the probability of prostate cancer for men with non-suspicious NIESHA results and total PSA between 4 and 10 ng/mL, by patient age (Kwan et al, RUSH 1998, [id number]). % Free PSA 50-64 yr 65-75 yr 0.00-10.00% 56% 55% 10.01-15.00% 24% 35% 15.01-20.00% 17% 23% 20.01-25.00% 10% 20% >25.00% 5% 9% Please note: Kwan et al did not make specific recommendations regarding the use of percent free PSA for any other population of men. Performed By: #### P SAFREE #### [facility] [address] [address] [address] Magalie Ceron Prostate specific Ag [Mass/Vol] 1.0 ng/mL Normal 0.0-4.0 [facility] Comment on above: Result Comment: Joseph PORTILLO methodology. . According to the [employer], Serum PSA should decrease and remain at undetectable levels after radical prostatectomy. The AUA defines biochemical recurrence as an initial PSA value 0.2 ng/mL or greater followed by a subsequent confirmatory PSA value 0.2 ng/mL or greater. Values obtained with different assay methods or kits cannot be used interchangeably. Results cannot be interpreted as absolute evidence of the presence or absence of malignant disease. Performed By: #### P SAFREE #### [facility] [address] [address] [address] Magalie Ceron PSA, Free 0.22 ng/mL Normal N/A [facility] Comment on above: Result Comment: Roch yamilet ECLIA methodology. Performed By: #### P SAFREE #### [facility] [address] [address] [address] Magalie Ceron CBC AUTO DIFFon 03-05-2022 BASO # 0.1 103/ul Normal 0.0-0.1 [facility] Comment on above: Performed By: #### C BC #### [facility] [address] [address] [address] Magalie Ceron Basophils/100 WBC (Bld) 0.8 % Normal 0.2-2.0 [facility] Comment on above: Performed By: #### C BC #### [facility] [address] [address] [address] Magalie Ceron EO # 0.1 103/ul Normal 0.0-0.7 [facility] Comment on above: Performed By: #### C BC #### [facility] [address] [address] [address] Magalie Ceron Eosinophils/100 WBC (Bld) 1.5 % Normal 0.9-7.0 [facility] Comment on above: Performed By: #### C BC #### [facility] [address] [address] [address] Magalie Ceron Erythrocyte distribution width (RBC) [Ratio] 13.5 % Normal 11.0-15.0 [facility] Comment on above: Performed By: #### C BC #### [facility] [address] [address] [address] Magalie Ceron Hematocrit (Bld) [Volume fraction] 43.7 % Normal 42.0-54.0 [facility] Comment on above: Performed By: #### C BC #### [facility] [address] [address] [address] Magalie Ceron Hemoglobin (Bld) [Mass/Vol] 15.1 g/dL Normal 14.0-18.0 [facility] Comment on above: Performed By: #### C BC #### [facility] [address] [address] [address] Magalie Ceron IG # 0.04 10e3/ul Critically high 0.00-0.03 [facility] Comment on above: Performed By: #### C BC #### [facility] [address] [place] [address] Dr. Magalie Ceron IG % 0.6 % Critically high 0.0-0.5 [facility] Comment on above: Performed By: #### C BC #### [facility] [address] [place] [address] Dr. Magalie Ceron LYMPH # 2.6 103/ul Normal 1.2-3.8 [facility] Comment on above: Performed By: #### C BC #### [facility] [address] [place] [address] Dr. Magalie Ceron Lymphocytes/100 WBC (Bld) 35.5 % Normal 20.5-60.0 [facility] Comment on above: Performed By: #### C BC #### [facility] [address] [place] [address] Dr. Magalie Ceron MANUAL DIFF REQ NO Normal [facility] Comment on above: Performed By: #### C BC #### [facility] [address] [place] [address] Dr. Magalie Ceron MCH (RBC) [Entitic mass] 31.8 pg Normal 25.9-34.0 [facility] Comment on above: Performed By: #### C BC #### [facility] [address] [place] [address] Dr. Magalie Ceron MCHC (RBC) [Mass/Vol] 34.6 g/dL Normal 29.9-35.2 [facility] Comment on above: Performed By: #### C BC #### [facility] [address] [place] [address] Dr. Magalie Ceron MCV (RBC) [Entitic vol] 92.0 fL Normal 80.0-94.0 [facility] Comment on above: Performed By: #### C BC #### [facility] [address] [place] [address] Dr. Magalie Ceron MONO # 0.7 103/ul Normal 0.3-0.8 [facility] Comment on above: Performed By: #### C BC #### [facility] [address] [address] [address] Magalie Ceron Monocytes/100 WBC (Bld) 9.3 % Normal 1.7-12.0 [facility] Comment on above: Performed By: #### C BC #### [facility] [address] [address] [address] Magalie Ceron NEUT # 3.8 103/ul Normal 1.4-6.5 [facility] Comment on above: Performed By: #### C BC #### [facility] [address] [address] [address] Magalie Ceron Neutrophils/100 WBC (Bld) 52.3 % Normal 43.0-75.0 [facility] Comment on above: Performed By: #### C BC #### [facility] [address] [place] [address] Dr. Magalie Ceron Platelet mean volume (Bld) [Entitic vol] 8.8 fL Critically low 9.5-13.5 [facility] Comment on above: Performed By: #### C BC #### [facility] [address] [place] [address] Dr. Magalie Ceron PLT 308 103/ul Normal 150-450 [facility] Comment on above: Performed By: #### C BC #### [facility] [address] [place] [address] Dr. Magalie Ceron RBC 4.75 106/ul Normal 4.70-6.10 [facility] Comment on above: Performed By: #### C BC #### [facility] [address] [place] [address] Dr. Magalie Ceron WBC 7.2 103/ul Normal 4.0-11.0 [facility] Comment on above: Performed By: #### C BC #### [facility] [address] [place] [address] Dr. Magalie Ceron LIPID PROFILEon 03-05-2022 CHOL-HDL RATIO NORM SEE BELOW Normal [facility] Comment on above: Result Comment: 3.3 - 4.4 LOW RISK 4.4 - 7.1 AVERAGE RISK 7.1 - 11.0 MODERATE RISK >11.0 HIGH RISK Performed By: #### C MP, LIPID #### [facility] [address] [address] [address] Magalie Ceron Cholesterol [Mass/Vol] 216 mg/dL Critically high <=200 [facility] Comment on above: Performed By: #### C MP, LIPID #### [facility] [address] [address] [address] Magalie Ceron Cholesterol in HDL [Mass/Vol] 53 mg/dL Normal 40-60 [facility] Comment on above: Performed By: #### C MP, LIPID #### [facility] [address] [address] [address] Magalie Ceron Cholesterol in LDL [Mass/Vol] 118.0 mg/dL Normal [facility] Comment on above: Performed By: #### C MP, LIPID #### [facility] [address] [place] [address] Dr. Magalie Ceron Cholesterol.total/C holesterol in HDL [Mass ratio] 4.1 {ratio} Normal [facility] Comment on above: Performed By: #### C MP, LIPID #### [facility] [address] [address] [address] Magalie Ceron HDL NORMAL > or = 60 mg/dl - LO W CARDIOVASCULAR RISK <40 mg/dl - HIGH CARDIOVASCULAR RISK Normal [facility] Comment on above: Performed By: #### C MP, LIPID #### [facility] [address] [address] [address] Magalie Ceron LDL CALC NORMAL SEE BELOW Normal [facility] Comment on above: Result Comment: <100 mg/dl OPTIMAL 100 - 129 mg/dl NEAR OR ABOVE OPTIMAL 130 - 159 mg/dl BORDERLINE HIGH 160 - 189 mg/dl HIGH >190 mg/dl VERY HIGH Performed By: #### C MP, LIPID #### [facility] [address] [place] [address] Dr. Magalie Ceron Triglyceride [Mass/Vol] 225 mg/dL Critically high <=150 [facility] Comment on above: Performed By: #### C MP, LIPID #### [facility] [address] [address] [address] Magalie Ceron VLDL CALC 45.0 mg/dL Normal [facility] Comment on above: Performed By: #### C MP, LIPID #### [facility] [address] [address] [address] Magalie Ceron MICROALB CREAT RATIO RANDOMo n 03-05-2022 mALB <1.3 Normal <=30.0 [facility] Comment on above: Performed By: #### M CRR #### [facility] [address] [address] [address] Magalie Ceron MALB CR RATIO 13.5 mg/g Normal 0.0-29.9 [facility] Comment on above: Performed By: #### M CRR #### [facility] [address] [address] [address] Magalie Ceron MALB CR RATIO RANGE SEE BELOW Normal [facility] Comment on above: Result Comment: NO M ICROALBUMINURIA 0-29 MG/G CLINICAL MICROALBUMINURIA 30-300 MG/G MACROALBUMINURIA >300 MG/G Performed By: #### M CRR #### [facility] [address] [address] [address] Magalie Ceron URINE CREAT 96.12 mg/dL Normal 20.00-300.00 [facility] Comment on above: Performed By: #### M CRR #### [facility] [address] [address] [address] Magalie Ceron PROF 14(COMP METB)on 022 Albumin [Mass/Vol] 4.1 g/dL Normal 3.4-5.0 [facility] Comment on above: Performed By: #### C MP, LIPID #### [facility] [address] [address] [address] Magalie Ceron Albumin/Globulin [Mass ratio] 1.2 {ratio} Normal [facility] Comment on above: Performed By: #### C MP, LIPID #### [facility] [address] [address] [address] Magalie Ceron ALP [Catalytic activity/Vol] 73 U/L Normal 46-116 [facility] Comment on above: Performed By: #### C MP, LIPID #### [facility] [address] [address] [address] Magalie Ceron ALT [Catalytic activity/Vol] 34 U/L Normal 16-63 [facility] Comment on above: Performed By: #### C MP, LIPID #### [facility] [address] [address] [address] Magalie Ceron Anion gap [Moles/Vol] 9.2 mmol/L Normal [facility] Comment on above: Performed By: #### C MP, LIPID #### [facility] [address] [address] [address] Magalie Ceron AST [Catalytic activity/Vol] 25 U/L Normal 15-37 [facility] Comment on above: Performed By: #### C MP, LIPID #### [facility] [address] [address] [address] Magalie Ceron Bilirubin [Mass/Vol] 1.6 mg/dL Critically high 0.2-1.0 [facility] Comment on above: Performed By: #### C MP, LIPID #### [facility] [address] [address] [address] Magalie Ceron Calcium [Mass/Vol] 8.9 mg/dL Normal 8.5-10.1 [facility] Comment on above: Performed By: #### C MP, LIPID #### [facility] [address] [address] [address] Magalie Ceron Chloride [Moles/Vol] 100 mmol/L Normal 98-107 [facility] Comment on above: Performed By: #### C MP, LIPID #### [facility] [address] [address] [address] Magalie Ceron CO2 [Moles/Vol] 32.5 mmol/L Critically high 21.0-32.0 [facility] Comment on above: Performed By: #### C MP, LIPID #### [facility] [address] [address] [address] Magalie Ceron Creatinine [Mass/Vol] 0.96 mg/dL Normal 0.70-1.30 [facility] Comment on above: Performed By: #### C MP, LIPID #### [facility] [address] [address] [address] Magalie Ceron EGFR-AF VINCENTIAN >60 Normal >=60 [facility] Comment on above: Performed By: #### C MP, LIPID #### [facility] [address] [address] [address] Magalie Ceron EGFR-NON AF VINCENTIAN >60 Normal >=60 [facility] Comment on above: Performed By: #### C MP, LIPID #### [facility] [address] [address] [address] Magalie Ceron Globulin (S) [Mass/Vol] 3.3 g/dL Normal [facility] Comment on above: Performed By: #### C MP, LIPID #### [facility] [address] [address] [address] Magalie Ceron Glucose [Mass/Vol] 88 mg/dL Normal 74-106 [facility] Comment on above: Performed By: #### C MP, LIPID #### [facility] [address] [address] [address] Magalie Ceron Potassium [Moles/Vol] 3.7 mmol/L Normal 3.5-5.1 [facility] Comment on above: Performed By: #### C MP, LIPID #### [facility] [address] [address] [address] Magalie Ceron Protein [Mass/Vol] 7.4 g/dL Normal 6.4-8.[address] [facility] Comment on above: Performed By: #### C MP, LIPID #### [facility] [address] [address] [address] Magalie Ceron Sodium [Moles/Vol] 138 mmol/L Normal 136-[address] [facility] Comment on above: Performed By: #### C MP, LIPID #### [facility] [address] [address] [address] Magalie Ceron Urea nitrogen [Mass/Vol] 11.0 mg/dL Normal 7.0-18.0 [facility] Comment on above: Performed By: #### C MP, LIPID #### [facility] [address] [place], [place] [address] Dr. Magalie Ceron Urea nitrogen/Creatinine [Mass ratio] 11.5 mg/mg Normal [facility] Comment on above: Performed By: #### C MP, LIPID #### [facility] [address] [place], [place] [address] Dr. Magalie Ceron XR KUB 1 VIEWon 09-20-2021 XR KUB 1 VIEW EXAMINATION: XR KUB 1 VIEW HISTORY: Kidney stone follow-up COMPARISON: XR KUB 09/21/2020 FINDINGS: KIDNEY/URETER - RIGHT: Several tiny calcifications project over right kidney. KIDNEY/URETER - LEFT: No visible renal or ureteral calcifications. PELVIS: No visible ureteral calcifications. Left pelvic calcifications favor phleboliths. BOWEL: No abnormal dilation or deviation. BONES: No acute abnormality. OTHER: Negative. No abnormal gaseous collections. IMPRESSION: 1. Right nephrolithiasis. Electronically authenticated by: TANIA SAXENA Date: 2021-09-20 17:32 Normal [facility] BMP Standardon 11-25-2019 eGFR Non AA >60 [facility] Comment on above: Performed By: #### 1 [id number], [id number], [id number] #### [facility] (DEFAULT) [address] [place] [id number] eGFR AA >60 [facility] Comment on above: Result Comment: Car [employer]ocker ernesto Kidney disease could be indicated at eGFRs of less than 60 ml/min/1.73m2. Kidney Failure is indicated at less than 15 ml/min/1.73m2 Performed By: #### 1 [id number], [id number], [id number] #### [facility] (DEFAULT) [address] [place] [address] Anion gap [Moles/Vol] 15.0 mmol/L Normal 5.0-19.0 [facility] Comment on above: Performed By: #### 1 [id number], [id number], [id number] #### [facility] (DEFAULT) [address] [place] [address] Calcium [Mass/Vol] 8.8 mg/dL Low 8.9-10.3 [facility] Comment on above: Performed By: #### 1 [id number], [id number], [id number] #### [facility] (DEFAULT) [address] [place] [address] Chloride [Moles/Vol] 99 mmol/L Low 101-111 [facility] Comment on above: Performed By: #### 1 [id number], [id number], [id number] #### [facility] (DEFAULT) [address] [place] [address]65 CO2 [Moles/Vol] 26 mmol/L Normal 21-32 [facility] Comment on above: Performed By: #### 1 [id number], [id number], [id number] #### [facility] (DEFAULT) [address] [place] [address] Creatinine [Mass/Vol] 0.81 mg/dL Low 0.90-1.30 [facility] Comment on above: Performed By: #### 1 [id number], [id number], [id number] #### [facility] (DEFAULT) [address] [place] [address] Glucose [Mass/Vol] 93.0 mg/dL Normal 74.0-118.0 [facility] Comment on above: Performed By: #### 1 [id number], [id number], [id number] #### [facility] (DEFAULT) [address] [place] [address]703 Osmolality [Osmolality] 274 mOsm/L [facility] Comment on above: Performed By: #### 1 [id number], [id number], [id number] #### [facility] (DEFAULT) [address] [place] [address] Potassium [Moles/Vol] 3.4 mmol/L Low 3.6-5.1 [facility] Comment on above: Performed By: #### 1 [id number], [id number], [id number] #### [facility] (DEFAULT) [address] [place] [address] Sodium [Moles/Vol] 137.0 mmol/L Normal 136.0-144.0 [facility] Comment on above: Performed By: #### 1 [id number], [id number], [id number] #### [facility] (DEFAULT) [address] [place] [address] Urea nitrogen [Mass/Vol] 13 mg/dL Normal 8-26 [facility] Comment on above: Performed By: #### 1 [id number], [id number], [id number] #### [facility] (DEFAULT) [address] [place] [address] Urea nitrogen/Creatinine [Mass ratio] 16.0 mg/mg Normal 4.6-16.2 [facility] Comment on above: Performed By: #### 1 [id number], [id number], [id number] #### [facility] (DEFAULT) [address] [place] [address] Lipid Panel Standardon 11-24 Cholesterol [Mass/Vol] 218.0 mg/dL High 66.0-200.0 [facility] Comment on above: Result Comment: Laura rable - Less than 200 mg/dL Borderline high risk - 200-239 mg/dL High risk - 240 mg/dL and over. Performed By: #### 1 [id number], [id number], [id number] #### [facility] (DEFAULT) [address] [place] [address] Cholesterol in HDL [Mass/Vol] 47 mg/dL Normal 40-71 [facility] Comment on above: Result Comment: High risk - <40 mg/dL. Performed By: #### 1 [id number], [id number], [id number] #### [facility] (DEFAULT) [address] [place] [address] Cholesterol in LDL [Mass/Vol] 137 mg/dL High 1-100 [facility] Comment on above: Result Comment: Opti mal - Less than 100 mg/dL Borderline high risk - 130-159 mg/dL High risk - 160-189 mg/dL. Performed By: #### 1 [id number], [id number], [id number] #### [facility] (DEFAULT) [address] [place] [address] Cholesterol.total/C holesterol in HDL [Mass ratio] 4.6 {ratio} High 0.0-4.5 [facility] Comment on above: Performed By: #### 1 [id number], [id number], [id number] #### [facility] (DEFAULT) [address] [place] [address] Triglyceride [Mass/Vol] 172.0 mg/dL High 0.0-150.0 [facility] Comment on above: Performed By: #### 1 [id number], [id number], [id number] #### [facility] (DEFAULT) [address] [place] [address] VLDL. 34 mg/dL Normal 5-40 [facility] Comment on above: Performed By: #### 1 [id number], [id number], [id number] #### [facility] (DEFAULT) [address] [place] [address] SARS-CoV-2 (COVID-19) IgG An tibodies(Noon 11-25-2019 Employed in healthcare? No [facility] Comment on above: Performed By: #### 1 [id number], [id number], [id number] #### [facility] (DEFAULT) [address] [place] [address] Group care resident? No [facility] Comment on above: Performed By: #### 1 [id number], [id number], [id number] #### [facility] (DEFAULT) [address] [place] [address] Hospitalized due to COVID-19? No [facility] Comment on above: Performed By: #### 1 [id number], [id number], [id number] #### [facility] (DEFAULT) [address] [place] [address] In ICU? No [facility] Comment on above: Performed By: #### 1 [id number], [id number], [id number] #### [facility] (DEFAULT) [address] [place] [address] status? Not [facility] Comment on above: Performed By: #### 1 [id number], [id number], [id number] #### [facility] (DEFAULT) [address] [place] [address] SARS-CoV-2 (COVID-19) IgG Abs Non-Reactive Normal Non-Reactive [facility] Comment on above: Result Comment: Test results should be interpreted in light of the total clinical presentation of the patient, including: symptoms, clinical history, data from additional tests, and other appropriate information. Detects IgG Abs 14-20 days post infection (varies by individual) Equivocal Results: retest in 1-2 weeks Positive Results may be due to past or present infection with [id number] coronavirus strains, such as coronavirus HKU1, NL63, OC43, or 229E. Performed By: #### 1 [id number], [id number], [id number] #### [facility] (DEFAULT) [address] [place] [address] Symptomatic as defined by CDC? No [facility] Comment on above: Performed By: #### 1 [id number], [id number], [id number] #### [facility] (DEFAULT) [address] [place] [address] Vital Signs Date Time Vital Sign Value Performing Clinician Octavio jacques 10-17-2023 11:02-0400 Blood Pressure Location Buddy JACOBO [facility] 10-17-2023 11:02-0400 Diastolic blood pressure 81 mm[Hg] Buddy JACOBO [facility] 10-17-2023 11:02-0400 Heart rate 74 /min Buddy JACOBO [facility] 10-17-2023 11:02-0400 Respiratory rate 16 /min Buddy JACOBO [facility] 10-17-2023 11:02-0400 Systolic blood pressure 133 mm[Hg] Buddy JACOBO [facility] 10-15-2022 13:45-0400 Blood Pressure Location Buddy JACOBO [facility] 10-15-2022 13:45-0400 Diastolic blood pressure 87 mm[Hg] Buddy JACOBO [facility] 10-15-2022 13:45-0400 Heart rate 91 /min Buddy JACOBO [facility] 10-15-2022 13:45-0400 Systolic blood pressure 150 mm[Hg] Buddyriley JACOBO [facility] 09-28-2021 10:27-0400 Blood Pressure Location Buddy JACOBO [facility] 09-28-2021 10:27-0400 Diastolic blood pressure 81 mm[Hg] Buddy JACOBO [facility] 09-28-2021 10:27-0400 Heart rate 70 /min Buddy JACOBO [facility] 09-28-2021 10:27-0400 Respiratory rate 16 /min Buddy JACOBO [facility] 09-28-2021 10:27-0400 Systolic blood pressure 123 mm[Hg] Buddy JACOBO [facility] Encounters Encounter Date Encounter Type Care Provider Facility Start: 10-18-2024 ambulatory Buddy Nolani ty:[facility] Start: 10-17-2023 End: 10-17-2023 ambulatory Buddy JACOBO Facility:[facility] Start: 10-17-2023 End: 10-17-2023 Patient encounter procedure Buddy JACOBO [facility] Start: 10-09-2023 End: 10-09-2023 ambulatory JR., CHRISTIAN Egan STEPCARLO Not Available Start: 09-29-2023 End: 09-29-2023 ambulatory JR., CHRISTIAN RAYMOND Not Available Start: 06-26-2023 End: 06-26-2023 ambulatory ZEUS BONNER Not Available Start: 05-30-2023 End: 05-30-2023 ambulatory JR. CHRISTIAN Egan STEPCARLO Not Available Start: 05-06-2023 End: 05-06-2023 ambulatory KATHERINE A FELTER Not Available Start: 04-23-2023 Clinisync Result Encounter Zeus Bonner DO Work Phone: [facility] External Department Unsolicited Start: 04-23-2023 Clinisync Result Encounter Zeus Bonner DO Work Phone: [facility] External Department Unsolicited Start: 04-17-2023 End: 04-17-2023 ambulatory ZEUS VENCESER Not Available Start: 03-24-2023 End: 03-24-2023 ambulatory JR. CHRISTIAN Egan STEPCARLO Not Available Start: 02-27-2023 End: 02-27-2023 ambulatory KATHERINE A FELTER Not Available Start: 10-15-2022 End: 10-15-2022 Patient encounter procedure Buddy JACOBO [facility] Start: 04-17-2022 End: 04-17-2022 ambulatory Christian Raymond Jr Facility:[facility] Start: 03-05-2022 End: 03-06-2022 ambulatory RUSSELL DALEY Facility: Start: 09-28-2021 End: 09-28-2021 Patient encounter procedure Buddy JACOBO [facility] Start: 09-20-2021 End: 09-21-[address] ZEUS BONNER Facility:H1 Procedures Date Procedure Procedure Detail Performing Clinician Start: 04-23-2023 [facility] MICROALB CREAT R ATIO RANDOM Zeus Bonner DO Work Phone: Start: 10-15-2022 Cystoscopy Buddy OLVERA Start: 02-22-2015 Transurethral incisi on of bladder neck Buddy JACOBO Start: 03-22-2014 Cystoscopy Buddy OLVERA Start: 12-16-2013 Transurethral prostatectomy Buddy JACOBO Start: 08-04-2012 Laser ablation of prostate Buddy JACOBO Start: 05-26-2012 Cystoscopy Buddy OLVERA Start: 05-06-2012 Urodynamic studies Shellyr triston JACOBO Start: 09-06-2008 Cystoscopy Buddy OLVERA Colonoscopy Buddy JACOBO Colonoscopy Buddy JACOBO Tonsillectomy Buddy JACOBO Tonsillectomy Buddy JACOBO Plan of Treatment Date Care Activity Detail Author Start: 05-30-2023 End: 05-30-2023 Patient encounter procedure 05/30/2023 10:30 AM EDT Office Visit [facility] [address] [place] [address] Jr. Christian Raymond, [address] [place] [address] [facility] Start: 05-06-2023 End: 05-06-2023 Patient encounter procedure 05/06/2023 10:50 AM EST Office Visit [facility] [address] [place] [id number] Katherine Roth APRN-[employer]PERVISOR [address] [place] [address] [facility] Start: 03-04-2023 Medicare Annual Well ness (AWV) Medicare Annual Wellness (AWV) [facility] Start: 11-15-2022 Influenza vaccination Influenza Vacc ine (#1) [facility] Immunizations Immunization Date Immunization Notes Care Provider Fa cility 02-21-2022 Moderna Bivalent Coleman ster Vaccination Zeus Bonner DO Work Phone: [facility] 02-21-2022 SARS-CoV-2 (COVID-19 ) [id number] Buddy JACOBO [facility] 01-11-2021 SARS-CoV-2 (COVID-19 ) mRNA BNT-162b2 vax Buddy JACOBO [facility] 12-20-2020 influenza virus vacc ine, unspecified formulation uBddy JACOBO [facility] 12-20-2020 influenza, injectabl e, quadrivalent, contains preservative Zeus Bonner DO Work Phone: [facility] 05-03-2020 SARS-CoV-2 (COVID-19 ) mRNA BNT-162b2 vax Buddy JACOBO [facility] Comment on above: Result Comment: 2022: [id number] 04-12-2020 SARS-CoV-2 (COVID-19 ) mRNA BNT-162b2 vax Buddy JACOBO [facility] Comment on above: Result Comment: 2022: [id number] 12-20-2019 influenza virus vacc ine, unspecified formulation [employer] [facility] 12-20-2019 Seasonal, quadrivale nt, recombinant, injectable influenza vaccine, preservative free Zeus Bonner DO Work Phone: [facility] 01-12-2018 influenza virus vacc ine, unspecified formulation [employer] [facility] 01-12-2018 influenza, injectabl e, quadrivalent, preservative free Zeus Kailey DO Work Phone: [facility] 01-08-2017 influenza, seasonal, injectable, preservative free Zeus Kailey DO Work Phone: [facility] 12-24-2016 influenza virus vacc ine, unspecified formulation [employer] [facility] 12-24-2016 seasonal influenza, intradermal, preservative free Zeus Kailey DO Work Phone: [facility] 01-29-2016 pneumococcal polysaccharide vaccine, 23 valent Zeus Kailey DO Work Phone: [facility] 12-20-2015 influenza virus vacc ine, unspecified formulation Buddy JACOBO [facility] 12-20-2015 influenza, injectabl e, quadrivalent, preservative free Zeus Kailey DO Work Phone: [facility] 02-01-2015 pneumococcal conjuga te vaccine, 13 valent Zeus Venceser DO Work Phone: [facility] 01-09-2015 influenza, seasonal, injectable, preservative free Zeus Kailey DO Work Phone: [facility] Payers Date Payer Category Payer Self-pay 2022 Unknown AARP AARP [id number] 2022-Present [address] [place] [address] [id number] 2009 Medicare MEDICARE MEDICAR E PART B [id number] 2009-[place] [address] [place] [address] Medicare [id number] 2009 Unknown [id number] 1959 Medicare [id number] 1945 Unknown [id number] 1945 Unknown [id number] 1945 Unknown [id number] [id number] 1945 Unknown [id number] [id number] 1945 Unknown [id number] [id number] 1945 Unknown [id number] 2.16.840.1.165070.3.579.2.1259 1945 Unknown [id number] [id number] 1945 Unknown [id number] 2.16.840.1.281158.3.579.2.1259 1945 Unknown [id number] 2.16.840.1.061693.3.579.2.1259 1945 Unknown [id number] 2.16.840.1.856464.3.579.2.1259 1945 Unknown [id number] 2.16.840.1.526676.3.579.2.1259 1945 Unknown [id number] 2.16.840.1.485110.3.579.2.1259 1945 Unknown [id number] 2.16.840.1.221546.3.579.2.1259 1945 Unknown [id number] [id number] 1945 Unknown [id number] [id number] Unknown [id number] Social History Date Type Detail Facility Start: 09-29-2020 End: 10-17-2023 Tobacco smoking status Never smoked tobacco (finding) [facility] Start: 04-10-2023 End: 04-17-2023 Sex Assigned At Male [facility] Tobacco smoking status Never [facility] [place] Start: 04-17-2023 Tobacco use and exposure Smokeless tobacco non-user [facility] Start: 04-17-2023 Alcohol intake Lifetime non-d almas (finding) [facility] Start: 04-10-2023 End: 04-17-2023 History of Social function [facility] Within the last year , have you been afraid of your partner or ex-partner? No [facility] Are you now , , , , never or living with a partner? Never [facility] How often to you hav e a drink containing alcohol? Never [facility] Do you feel stress - tense, restless, nervous, or anxious, or unable to sleep at night because your mind is troubled all the time - these days [OSQ] Not at all [facility] (I/We) worried whether (my/our) food would run out before (I/we) got money to buy more. Never true [facility] Start: 01-11-2023 Alcohol Comment caffeine: soda [facility] Start: 1945 Sex Assigned At Male [facility] Start: 08-22-2022 Gender identity Identifies as male gender (finding) [facility] Start: 08-22-2022 Sexual orientation Heterosexual (carlos borrero) [facility] NEGATED: Highlighted rowStart: NINF History of tobacco use Passive smoker [facility] Functional Status Date Assessment Result Facility 10-17-2023 Functional Status N/A [facility] 10-15-2022 Functional Status N/A [facility] [place] 09-28-2021 Functional Status N/A [facility] Hospital Discharge instructions 10-17-2023 Note Date & Type Note Facility 10-17-2023 Hospital Discharge instructions Patient Education 10/17/2023 11:58:51 Benign Prostatic Hyperplasia Benign Prostatic Hyperplasia Benign prostatic hyperplasia (BPH) is an enlarged prostate gland that is caused by the normal aging process. The prostate may get bigger as a man gets older. The condition is not caused by cancer. The prostate is a walnut-sized gland that is involved in the production of semen. It is located in front of the rectum and below the bladder. The bladder stores urine. The urethra carries stored urine out of the body. An enlarged prostate can press on the urethra. This can make it harder to pass urine. The buildup of urine in the bladder can cause infection. Back pressure and infection may progress to bladder damage and kidney (renal) failure. What are the causes? This condition is part of the normal aging process. However, not all men develop problems from this condition. If the prostate enlarges away from the urethra, urine flow will not be blocked. If it enlarges toward the urethra and compresses it, there will be problems passing urine. What increases the risk? This condition is more likely to develop in men older than 50 years. What are the signs or symptoms? Symptoms of this condition include: Getting up often during the night to urinate. Needing to urinate frequently during the day. Difficulty starting urine flow. Decrease in size and strength of your urine stream. Leaking (dribbling) after urinating. Inability to pass urine. This needs immediate treatment. Inability to completely empty your bladder. Pain when you pass urine. This is more common if there is also an infection. Urinary tract infection (UTI). How is this diagnosed? This condition is diagnosed based on your medical history, a physical exam, and your symptoms. Tests will also be done, such as: A post-void bladder scan. This measures any amount of urine that may remain in your bladder after you finish urinating. A digital rectal exam. In a rectal exam, your health care provider checks your prostate by putting a lubricated, gloved finger into your rectum to feel the back of your prostate gland. This exam detects the size of your gland and any abnormal lumps or growths. An exam of your urine (urinalysis). A prostate specific antigen (PSA) screening. This is a blood test used to screen for prostate cancer. An ultrasound. This test uses sound waves to electronically produce a picture of your prostate gland. Your health care provider may refer you to a specialist in kidney and prostate diseases (urologist). How is this treated? Once symptoms begin, your health care provider will monitor your condition (active surveillance or watchful waiting). Treatment for this condition will depend on the severity of your condition. Treatment may include: Observation and yearly exams. This may be the only treatment needed if your condition and symptoms are mild. Medicines to relieve your symptoms, including: ?Medicines to shrink the prostate. ?Medicines to relax the muscle of the prostate. Surgery in severe cases. Surgery may include: ?Prostatectomy. In this procedure, the prostate tissue is removed completely through an open incision or with a laparoscope or robotics. ?Transurethral resection of the prostate (TURP). In this procedure, a tool is inserted through the opening at the tip of the penis (urethra). It is used to cut away tissue of the inner core of the prostate. The pieces are removed through the same opening of the penis. This removes the blockage. ?Transurethral incision (TUIP). In this procedure, small cuts are made in the prostate. This lessens the prostate's pressure on the urethra. ?Transurethral microwave thermotherapy (TUMT). This procedure uses microwaves to create heat. The heat destroys and removes a small amount of prostate tissue. ?Transurethral needle ablation (TUNA). This procedure uses radio frequencies to destroy and remove a small amount of prostate tissue. ?Interstitial laser coagulation (ILC). This procedure uses a laser to destroy and remove a small amount of prostate tissue. ?Transurethral electrovaporization (TUVP). This procedure uses electrodes to destroy and remove a small amount of prostate tissue. ?Prostatic urethral lift. This procedure inserts an implant to push the lobes of the prostate away from the urethra. Follow these instructions at home: Take nsye-aqn-ncmkgjr and prescription medicines only as told by your health care provider. Monitor your symptoms for any changes. Contact your health care provider with any changes. Avoid drinking large amounts of liquid before going to bed or out in public. Avoid or reduce how much caffeine or alcohol you drink. Give yourself time when you urinate. Keep all follow-up visits. This is important. Contact a health care provider if: You have unexplained back pain. Your symptoms do not get better with treatment. You develop side effects from the medicine you are taking. Your urine becomes very dark or has a bad smell. Your lower abdomen becomes distended and you have trouble passing urine. Get help right away if: You have a fever or chills. You suddenly cannot urinate. You feel light-headed or very dizzy, or you faint. There are large amounts of blood or clots in your urine. Your urinary problems become hard to manage. You develop moderate to severe low back or flank pain. The flank is the side of your body between the ribs and the hip. These symptoms may be an emergency. Get help right away. Call 911. Do not wait to see if the symptoms will go away. Do not drive yourself to the hospital. Summary Benign prostatic hyperplasia (BPH) is an enlarged prostate that is caused by the normal aging process. It is not caused by cancer. An enlarged prostate can press on the urethra. This can make it hard to pass urine. This condition is more likely to develop in men older than 50 years. Get help right away if you suddenly cannot urinate. This information is not intended to replace advice given to you by your health care provider. Make sure you discuss any questions you have with your health care provider. Document Revised: 09/19/2021 Document Reviewed: 09/19/2021 Elsevier Patient Education 2022 [employer] Follow Up Care 10/15/2022 14:25:03 With:CELESTINA VIDAL, Buddy Zhang, URL Address: [address] [place] [address]- When: Unknown [facility] Clinical Note 10-17-2023 Note Date & Type Note Facility 10-17-2023 Note Patient Education Urology Benign Prostatic Hyperplasia Benign prostatic hyperplasia (BPH) is an enlarged prostate gland that is caused by the normal aging process. The prostate may get bigger as a man gets older. The condition is not caused by cancer. The prostate is a walnut-sized gland that is involved in the production of semen. It is located in front of the rectum and below the bladder. The bladder stores urine. The urethra carries stored urine out of the body. An enlarged prostate can press on the urethra. This can make it harder to pass urine. The buildup of urine in the bladder can cause infection. Back pressure and infection may progress to bladder damage and kidney (renal) failure. What are the causes? This condition is part of the normal aging process. However, not all men develop problems from this condition. If the prostate enlarges away from the urethra, urine flow will not be blocked. If it enlarges toward the urethra and compresses it, there will be problems passing urine. What increases the risk? This condition is more likely to develop in men older than 50 years. What are the signs or symptoms? Symptoms of this condition include: ? Getting up often during the night to urinate. ? Needing to urinate frequently during the day. ? Difficulty starting urine flow. ? Decrease in size and strength of your urine stream. ? Leaking (dribbling) after urinating. ? Inability to pass urine. This needs immediate treatment. ? Inability to completely empty your bladder. ? Pain when you pass urine. This is more common if there is also an infection. ? Urinary tract infection (UTI). How is this diagnosed? This condition is diagnosed based on your medical history, a physical exam, and your symptoms. Tests will also be done, such as: ? A post-void bladder scan. This measures any amount of urine that may remain in your bladder after you finish urinating. ? A digital rectal exam. In a rectal exam, your health care provider checks your prostate by putting a lubricated, gloved finger into your rectum to feel the back of your prostate gland. This exam detects the size of your gland and any abnormal lumps or growths. ? An exam of your urine (urinalysis). ? A prostate specific antigen (PSA) screening. This is a blood test used to screen for prostate cancer. ? An ultrasound. This test uses sound waves to electronically produce a picture of your prostate gland. Your health care provider may refer you to a specialist in kidney and prostate diseases (urologist). How is this treated? Once symptoms begin, your health care provider will monitor your condition (active surveillance or watchful waiting). Treatment for this condition will depend on the severity of your condition. Treatment may include: ? Observation and yearly exams. This may be the only treatment needed if your condition and symptoms are mild. ? Medicines to relieve your symptoms, including: ? Medicines to shrink the prostate. ? Medicines to relax the muscle of the prostate. ? Surgery in severe cases. Surgery may include: ? Prostatectomy. In this procedure, the prostate tissue is removed completely through an open incision or with a laparoscope or robotics. ? Transurethral resection of the prostate (TURP). In this procedure, a tool is inserted through the opening at the tip of the penis (urethra). It is used to cut away tissue of the inner core of the prostate. The pieces are removed through the same opening of the penis. This removes the blockage. ? Transurethral incision (TUIP). In this procedure, small cuts are made in the prostate. This lessens the prostate's pressure on the urethra. ? Transurethral microwave thermotherapy (TUMT). This procedure uses microwaves to create heat. The heat destroys and removes a small amount of prostate tissue. ? Transurethral needle ablation (TUNA). This procedure uses radio frequencies to destroy and remove a small amount of prostate tissue. ? Interstitial laser coagulation (ILC). This procedure uses a laser to destroy and remove a small amount of prostate tissue. ? Transurethral electrovaporization (TUVP). This procedure uses electrodes to destroy and remove a small amount of prostate tissue. ? Prostatic urethral lift. This procedure inserts an implant to push the lobes of the prostate away from the urethra. Follow these instructions at home: ? Take gdlx-msc-ylezfph and prescription medicines only as told by your health care provider. ? Monitor your symptoms for any changes. Contact your health care provider with any changes. ? Avoid drinking large amounts of liquid before going to bed or out in public. ? Avoid or reduce how much caffeine or alcohol you drink. ? Give yourself time when you urinate. ? Keep all follow-up visits. This is important. Contact a health care provider if: ? You have unexplained back pain. ? Your symptoms do not get better with treatment. ? You develop side effec (more content not included)... [facility] Hospital Discharge instructions 10-15-2022 Note Date & Type Note Facility 10-15-2022 Hospital Discharg e instructions Patient Education 10/15/2022 14:00:05 Dietary Guidelines to Help Prevent Kidney Stones Dietary Guidelines to Help Prevent Kidney Stones Kidney stones are deposits of minerals and salts that form inside your kidneys. Your risk of developing kidney stones may be greater depending on your diet, your lifestyle, the medicines you take, and whether you have certain medical conditions. Most people can lower their chances of developing kidney stones by following the instructions below. Your dietitian may give you more specific instructions depending on your overall health and the type of kidney stones you tend to develop. What are tips for following this plan? Reading food labels Choose foods with no salt added or low-salt labels. Limit your salt (sodium) intake to less than 1,500 mg a day. Choose foods with calcium for each meal and snack. Try to eat about 300 mg of calcium at each meal. Foods that contain 200 500 mg of calcium a serving include: ?8 oz (237 mL) of milk, brkkadu-hppguvglomcp-psimy milk, and calcium-fortifiedfruit juice. Calcium-fortified means that calcium has been added to these drinks. ?8 oz (237 mL) of kefir, yogurt, and soy yogurt. ?4 oz (114 g) of tofu. ?1 oz (28 g) of cheese. ?1 cup (150 g) of dried figs. ?1 cup (91 g) of cooked broccoli. ?One 3 oz (85 g) can of sardines or mackerel. Most people need 1,000 1,500 mg of calcium a day. Talk to your dietitian about how much calcium is recommended for you. Shopping Buy plenty of fresh fruits and vegetables. Most people do not need to avoid fruits and vegetables, even if these foods contain nutrients that may contribute to kidney stones. When shopping for convenience foods, choose: ?Whole pieces of fruit. ?Pre-made salads with dressing on the side. ?Low-fat fruit and yogurt smoothies. Avoid buying frozen meals or prepared deli foods. These can be high in sodium. Look for foods with live cultures, such as yogurt and kefir. Choose high-fiber grains, such as whole-wheat breads, oat bran, and wheat cereals. Cooking Do not add salt to food when cooking. Place a salt shaker on the table and allow each person to add his or her own salt to taste. Use vegetable protein, such as beans, textured vegetable protein (TVP), or tofu, instead of meat in pasta, casseroles, and soups. Meal planning Eat less salt, if told by your dietitian. To do this: ?Avoid eating processed or pre-made food. ?Avoid eating fast food. Eat less animal protein, including cheese, meat, poultry, or fish, if told by your dietitian. To do this: ?Limit the number of times you have meat, poultry, fish, or cheese each week. Eat a diet free of meat at least 2 days a week. ?Eat only one serving each day of meat, poultry, fish, or seafood. ?When you prepare animal protein, cut pieces into small portion sizes. For most meat and fish, one serving is about the size of the palm of your hand. Eat at least five servings of fresh fruits and vegetables each day. To do this: ?Keep fruits and vegetables on hand for snacks. ?Eat one piece of fruit or a handful of berries with breakfast. ?Have a salad and fruit at lunch. ?Have two kinds of vegetables at dinner. Limit foods that are high in a substance called oxalate. These include: ?Spinach (cooked), rhubarb, beets, sweet potatoes, and Panamanian chard. ?Peanuts. ?Potato chips, slovak fries, and baked potatoes with skin on. ?Nuts and nut products. ?Chocolate. If you regularly take a diuretic medicine, make sure to eat at least 1 or 2 servings of fruits or vegetables that are high in potassium each day. These include: ?Avocado. ?Banana. ?Chandler, prune, carrot, or tomato juice. ?Baked potato. ?Cabbage. ?Beans and split peas. Lifestyle Drink enough fluid to keep your urine pale yellow. This is the most important thing you can do. Spread your fluid intake throughout the day. If you drink alcohol: ?Limit how much you use to: ?0 1 drink a day for women who are not . ?0 2 drinks a day for men. ?Be aware of how much alcohol is in your drink. In the [place] one drink equals one 12 oz bottle of beer (355 mL), one 5 oz glass of wine (148 mL), or one 1 oz glass of hard liquor (44 mL). Lose weight if told by your health care provider. Work with your dietitian to find an eating plan and weight loss strategies that work best for you. General information Talk to your health care provider and dietitian about taking daily supplements. You may be told the following depending on your health and the cause of your kidney stones: ?Not to take supplements with vitamin C. ?To take a calcium supplement. ?To take a daily probiotic supplement. ?To take other supplements such as magnesium, fish oil, or vitamin B6. Take tylv-zzu-hkgyyqw and prescription medicines only as told by your health care provider. These include supplements. What foods should I limit? Limit your intake of the following foods, or eat them as told by your dietitian. Vegetables Spinach. Rhubarb. Beets. Canned vegetables. Pickles. Olives. Baked potatoes with skin. Grains Wheat bran. Baked goods. Salted crackers. Cereals high in sugar. Meats and other proteins Nuts. Nut butters. Large portions of meat, poultry, or fish. Salted, precooked, or cured meats, such as sausages, meat loaves, and hot dogs. Dairy Cheese. Beverages Regular soft drinks. Regular vegetable juice. Seasonings and condiments Seasoning blends with salt. Salad dressings. Soy sauce. Ketchup. Barbecue sauce. Other foods Canned soups. Canned pasta sauce. Casseroles. Pizza. Lasagna. Frozen meals. Potato chips. Kiswahili fries. The items listed above may not be a complete list of foods and beverages you should limit. Contact a dietitian for more information. What foods should I avoid? Talk to your dietitian about specific foods you should avoid based on the type of kidney stones you have and your overall health. Fruits Grapefruit. The item listed above may not be a complete list of foods and beverages you should avoid. Contact a dietitian for more information. Summary Kidney stones are deposits of minerals and salts that form inside your kidneys. You can lower your risk of kidney stones by making changes to your diet. The most important thing you can do is drink enough fluid. Drink enough fluid to keep your urine pale yellow. Talk to your dietitian about how much calcium you should have each day, and eat less salt and animal protein as told by your dietitian. This information is not intended to replace advice given to you by your health care provider. Make sure you discuss any questions you have with your health care provider. Document Revised: 11/12/2021 Document Reviewed: 11/12/2021 [employer] Patient Education 2022 [employer] SRO. Follow Up Care 10/08/2022 11:09:42 With:CELESTINA VIDAL, Buddy Zhang, URL Address: [facility] [address] , [place] [address]- When: Unknown [facility] Discharge instructions 09-28-2021 Note Date & Type Note Facility 09-28-2021 Hospital Discharg e instructions Patient Education 09/28/2021 10:58:48 Kidney Stones, Xgyw-xg-Aorr Kidney Stones Kidney stones are rock-like masses that form inside of the kidneys. Kidneys are organs that make pee (urine). A kidney stone may move into other parts of the urinary tract, including: The tubes that connect the kidneys to the bladder (ureters). The bladder. The tube that carries urine out of the body (urethra). Kidney stones can cause very bad pain and can block the flow of pee. The stone usually leaves your body (passes) through your pee. You may need to have a doctor take out the stone. What are the causes? Kidney stones may be caused by: A condition in which certain glands make too much parathyroid hormone (primary hyperparathyroidism). A buildup of a type of crystals in the bladder made of a chemical called uric acid. The body makes uric acid when you eat certain foods. Narrowing (stricture) of one or both of the ureters. A kidney blockage that you were born with. Past surgery on the kidney or the ureters, such as gastric bypass surgery. What increases the risk? You are more likely to develop this condition if: You have had a kidney stone in the past. You have a family history of kidney stones. You do not drink enough water. You eat a diet that is high in protein, salt (sodium), or sugar. You are overweight or very overweight (obese). What are the signs or symptoms? Symptoms of a kidney stone may include: Pain in the side of the belly, right below the ribs (flank pain). Pain usually spreads (radiates) to the groin. Needing to pee often or right away (urgently). Pain when going pee (urinating). Blood in your pee (hematuria). Feeling like you may vomit (nauseous). Vomiting. Fever and chills. How is this treated? Treatment depends on the size, location, and makeup of the kidney stones. The stones will often pass out of the body through peeing. You may need to: Drink more fluid to help pass the stone. In some cases, you may be given fluids through an IV tube put into one of your veins at the hospital. Take medicine for pain. Make changes in your diet to help keep kidney stones from coming back. Sometimes, medical procedures are needed to remove a kidney stone. This may involve: A procedure to break up kidney stones using a beam of light (laser) or shock waves. Surgery to remove the kidney stones. Follow these instructions at home: Medicines Take avdv-hjx-bdonqfo and prescription medicines only as told by your doctor. Ask your doctor if the medicine prescribed to you requires you to avoid driving or using heavy machinery. Eating and drinking Drink enough fluid to keep your pee pale yellow. You may be told to drink at least 8 10 glasses of water each day. This will help you pass the stone. If told by your doctor, change your diet. This may include: ?Limiting how much salt you eat. ?Eating more fruits and vegetables. ?Limiting how much meat, poultry, fish, and eggs you eat. Follow instructions from your doctor about eating or drinking restrictions. General instructions Collect pee samples as told by your doctor. You may need to collect a pee sample: ?24 hours after a stone comes out. ?8 12 weeks after a stone comes out, and every 6 12 months after that. Strain your pee every time you pee (urinate), for as long as told. Use the strainer that your doctor recommends. Do not throw out the stone. Keep it so that it can be tested by your doctor. Keep all follow-up visits as told by your doctor. This is important. You may need follow-up tests. How is this prevented? To prevent another kidney stone: Drink enough fluid to keep your pee pale yellow. This is the best way to prevent kidney stones. Eat healthy foods. Avoid certain foods as told by your doctor. You may be told to eat less protein. Stay at a healthy weight. Where to find more information National Kidney Foundation (NKF): www.kidney.org [facility] Foundation (UCF): www.urologyhealth.org Contact a doctor if: You have pain that gets worse or does not get better with medicine. Get help right away if: You have a fever or chills. You get very bad pain. You get new pain in your belly (abdomen). You pass out (faint). You cannot pee. Summary Kidney stones are rock-like masses that form inside of the kidneys. Kidney stones can cause very bad pain and can block the flow of pee. The stones will often pass out of the body through peeing. Drink enough fluid to keep your pee pale yellow. This information is not intended to replace advice given to you by your health care provider. Make sure you discuss any questions you have with your health care provider. Document Released: 08/19/2008 Document Revised: 07/20/2019 Document Reviewed: 07/20/2019 [employer] Patient Education 2020 [employer]ENT[employer] SRO. 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 [facility] Evaluation + Plan note Note Date & Type Note Facility Evaluation + Plan note Future Appointments Appointment Date:10/04/2022 10:15:00 AM Scheduled Provider:Buddy JACOBO MD Location:[facility] Appointment Type:URO Office Visit [facility] Evaluation + Plan note Note Date & Type Note Facility Evaluation + Plan note Future Appointments Appointment Date:10/17/2023 11:00:00 AM Scheduled Provider:Buddy JACOBO MD Location:[facility] Appointment Type:URO Office Visit [facility] Evaluation + Plan note Note Date & Type Note Facility Evaluation + Plan note Future Appointments Appointment Date:10/18/2024 10:45:00 AM Scheduled Provider:Buddy JACOBO MD Location:[facility] Appointment Type:URO Office Visit [facility] Hospital course Narrative Note Date & Type Note Facility Hospital course Narrative No data available for this section [facility] Hospital Discharge instructions Note Date & Type Note Facility Hospital Discharge instructions No data available for this section [facility] Progress note Note Date & Type Note Facility Progress note No data available for this section [facility] Summary Purpose Family History No Family History Records FoundNo Family History Records FoundNo Family History Records FoundNo Family History Records Found No data available for this section No Family History Records Found Advance Directives No Advanced Directives Records FoundNo Advanced Directives Records FoundNo Advanced Directives Records FoundNo Advanced Directives Records FoundNo Advanced Directives Records Found Additional Source Comments (unrecognized sect ion and content) No Status Records FoundNo Status Records FoundNo Status Records FoundNo Status Records FoundNo Status Records Found INFORMATION SOURCE (unrecogn ized section and content) DATE CREATED AUTHOR 11/26/2019 [facility] DATE CREATED AUTHOR AUTHOR'S ORGANIZ ATION 03/29/2022 [facility] DATE CREATED AUTHOR AUTHOR'S ORGANIZ ATION 05/25/2022 [facility] DATE CREATED AUTHOR AUTHOR'S ORGANIZ ATION 10/13/2023 [facility] EPIC DATE CREATED AUTHOR AUTHOR'S ORGANIZ ATION 10/19/2023 [facility] Care Team (unrecognized sect ion and content) [employer] Relationship Specialty Start Date End Date Zeus Bonner DO [address] [place] [address] PCP - ACO Reach 08/08/22 Zeus Bonner DO [address] [place] [address] PCP - General Family Medicine 07/23/22 FOR RECORDS PERTAINING TO PATIENTS WHO ARE OR HAVE BEEN ENROLLED IN A CHEMICAL DEPENDENCY/SUBSTANCEABUSE PROGRAM, SOME INFORMATION MAY BE OMITTED. This clinical summary was aggregated from multiple sources. Caution should be exercised in using it in the provision of clinical care. This summary normalizes information from multiple sources, and as a consequence, information in this document may materially change the coding, format and clinical context of patient data. In addition, data may be omitted in some cases. CLINICAL DECISIONS SHOULD BE BASED ON THE PRIMARY CLINICAL RECORDS. [facility] [employer] [facility]. provides no warranty or guarantee of the accuracy or completeness of information in this document.
[2023-10-20 09:30] LABS: Basophils Percent Auto 0.7 % (0.2-2.0); Eosinophils Absolute Auto 0.1 10^3/uL (0.0-0.7); Eosinophils Percent Auto 1.7 % (0.9-7.0); Hematocrit 41.4 % (42.0-54.0); Hemoglobin 14.7 g/dL (14.0-18.0); Immature Granulocytes Abs Auto 0.03 10^3/uL (0.00-0.03); Immature Granulocytes Pct Auto 0.6 % (0.0-0.5); Lymphocytes Absolute Auto 1.8 10^3/uL (1.2-3.8); Lymphocytes Percent Auto 32.3 % (20.5-60.0); Mean Corpuscular HGB Conc 35.5 g/dL (29.9-35.2); Mean Corpuscular Hemoglobin 33.3 pg (25.9-34.0); Mean Corpuscular Volume 93.9 fL (80.0-94.0); Mean Platelet Volume 9.2 fL (9.5-13.5); Monocytes Absolute Auto 0.4 10^3/uL (0.3-0.8); Monocytes Percent Auto 7.9 % (1.7-12.0); Neutrophils Absolute Auto 3.1 10^3/uL (1.4-6.5); Neutrophils Percent Auto 56.8 % (43.0-75.0); Platelet Count 233 10^3/uL (150-450); Red Blood Count 4.41 10^6/uL (4.70-6.10); Red Cell Distribution Width 13.3 % (11.0-15.0); White Blood Count 5.5 10^3/uL (4.0-11.0)
[2023-10-20 09:43] LABS: Anion Gap 13.5; Calcium 8.4 mg/dL (8.5-10.1); Carbon Dioxide 27.9 mmol/L (21.0-32.0); Chloride 102 mmol/L (98-107); Estimated GFR (African America >60 (>=60); Estimated GFR (Non-African Ame >60 (>=60); Glucose 99 mg/dL (74-106); Potassium 3.4 mmol/L (3.5-5.1); Sodium 140 mmol/L (136-145)
== END 2023-10-20 09:10 | disposition home or self-care (01) ==
LOC: LAB 09:11
PROVIDERS: PCP Family Medicine; Visit Provider Internal Medicine Rheumatology
DX: D64.9 Anemia, unspecified (principal); Z51.81 Encounter for therapeutic drug level monitoring; M19.90 Unspecified osteoarthritis, unspecified site
CPT/HCPCS: 36415; 80048; 85025

== ENCOUNTER 2023-11-26 13:16 | Outpatient (OUT) | payer MEDICARE, SELFPAY ==
--- NOTE | 2023-11-26 | XR_ITS ---
[facility] [place] [id number] Patient Name: JD APODACA MRN: [id number] date: 1945 Sex: M Assigned Patient Location: RAD Current Patient Location: Accession/Order Number: [id number] Exam Date: 11/26/2023 13:33 Report Date: 11/28/2023 04:45 At the request of: NON-STAFF PHYSICIAN Procedure: XR lumbar spine min 4V EXAMINATION: XR lumbar spine min 4V HISTORY: Lumbar pain, M54.50 COMPARISON: CT abdomen pelvis 10/09/2022 FINDINGS: BONES: Mild left convex curvature lumbar spine. No fracture or spondylolisthesis; no change in alignment during flexion and extension. DISC SPACES: L5-S1 moderate-marked narrowing. PARASPINOUS: Negative. No paraspinous abnormality is seen. OTHER: Negative. XR/XR lumbar spine min 4V IMPRESSION: 1. L5-S1 moderate to marked degenerative disc disease, stable to minimally progressed. Electronically authenticated by: TANIA SAXENA Date: 11/28/2023 04:45
--- OUTSIDE RECORDS SUMMARY | 2023-11-26 13:32 | XMS_ITS | CCD ---
Author Organization [facility] Care Team Providers Care Political Researcher Name Role Phone ZEUS BONNER Primary Care Physician [phone] KAILEY, DR DOW Primary Care Unavailable CELESTINA, DR GONZALES Admitting Unavailable CELESTINA, DR GONZALES Consulting Unavailable CELESTINA, DR GONZALES Attending Unavailable ZIDIAN, DR TANIA Zhang Consulting Unavailable RUSSELL DALEY Admitting Unavailable THUY, RUSSELL Consulting Unavailable RUSSELL DALEY Attending Unavailable KAILEY, DR DOW Primary Care Unavailable Christian Raymond Jr Admitting Unavailable Christian Raymond Jr, Paul Primary Care Unavailable Zeus Bonner DO Unavailable Zeus Bonner DO Primary Care Provider Buddy JACOBO Attending Unavailable Buddy JACOBO Attending Unavailable JR. AMRY, CHRISTIAN Egan Attending Unavaila ZEUS Judd Attending Unavailable KATHERINE GARNER Attending Unavailable JR. MARY, CHRISTIAN Egan Attending Unavaila lor RAYMOND JR., CHRISTIAN Egan Referring Unavaila ZEUS Judd Attending Unavailable ZEUS BONNER Referring Unavailable JR. MARY, CHRISTIAN Egan Attending Unavaila lor RAYMOND JR., CHRISTIAN Egan Referring Unavaila ble JR. MARY, CHRISTIAN Egan Referring Unavaila ble JR. MARY, CHRISTIAN Egan Attending Unavaila KATHERINE Salinas Attending Unavailable Allergies Allergy Classification Reported Allergen(s) Allergy Type Date of Onset Reaction(s) Facility (1 source) Meperidine Drug Allergy 12-09-2013 [facility] (1 source) Nalbuphine Drug Allergy 12-09-2013 [facility] Medications Current Medications Medication Drug Class(es) [...] increase, # 180 tab(s), Refills(s) 3, Pharmacy: [facility], 170, cm, 10/15/22 13:53:00 EDT, Height/Length Dosing, 71, kg, 10/15/22 13:53:00 EDT, Weight Dosing Start Date: 02/03/23 Status: Ordered Start: 09-28-2021 take 1 tablet by enoch th twice daily potassium citrate 15 mEq oral tablet, extended release 15 mEq = 1 tab(s), Oral, BID, # 200 tab(s), Refills(s) 11, Pharmacy: [facility] ([facility]), 170, cm, [...] Schedule the Following Appointments Follow Up with CELESTINA VIDAL, Buddy Zhang, MAYURI When: Where: [address] [place] [address]- Medications What How Much When Instructions Unchanged [...] wav (more content not included)... Normal [facility] Urology Office/Clinic Noteon 10-17-2023 Urology [...] Contact Information CELESTINA VIDAL, Buddy Zhang, URL [address] [place] [address]- Additional Instructions: 1 year w/ KUB Patient [...] Daily hydrochl (more content not included)... Normal [facility] Comment on above: Result Comment: Elec tronically [...] as detailed. Hepatomegaly. ELECTRONICALLY SIGNED BY: Solis Quinones, Normal Not Available [facility] MICROALB CREAT RATIO RAN DOMon 04-23-2023 CREATININE URINE RANDOM 41.74 mg/dL 20.00 - 300.00 mg/dL [facility] Interpretation and review of laboratory results Abnormal [facility] MICROALBUM CREATININE RATIO UR 31.1 mg/g High 0.0 - 29.9 mg/g [facility] Comment on above: NO MICROALBUMINURIA 0-29 MG/G CLINICAL MICROALBUMINURIA 30-300 MG/G MACROALBUMINURIA >300 MG/G MICROALBUMIN URINE RANDOM <1.3 NINF - 30.0 mg/dL [facility] XR pre/post mri xrayon 04-17 XR pre/post mri xray [facility] [place] [address] MRI Report Signed Patient: Jd Apodaca MR#: [id number] : 1945 Acct:[id number] Age/Sex: 77 / M ADM Date: 04/17/22 Loc: [facility] Room: Type: [facility] Attending Dr: Christian Raymond Jr, DO Copies to: Christian Raymond Jr, DO Ordering Provider: Christian Raymond Jr, DO Date of Service: 04/17/22 MR/MR lumbar spine wo con: M54.16 ([id number]) XR/XR pre/post mri xray: LUMBAR MRI MR [...] Baltazar Mcdermott M.D.04/17/2022 1:38 PM Dictation Location: [place] [address] Transcribed By: NIRAV 04/17/22 1338 Dictated By: Baltazar Mcdermott II, MD 04/17/22 1329 Signed By: 04/17/22 1338 Normal [facility] PSA, FREE AND TOTAL RATIOon 03-06-2022 % Free PSA 22.0 % Normal [facility] Comment on above: Result Comment: The [...] men. Performed By: #### P SAFREE #### [facility] [address] [place] [address] [address] Magalie Ceron Prostate specific Ag [Mass/Vol] 1.0 ng/mL Normal 0.0-4.0 [facility] Comment on above: Result Comment: Joseph PORTILLO methodology. . According to the [employer], Serum PSA should decrease and [...] disease. Performed By: #### P SAFREE #### [facility] [address] [place] [address] [address] Magalie Ceron PSA, Free 0.22 ng/mL Normal N/A [facility] Comment on above: Result Comment: Joseph PORTILLO methodology. Performed By: #### P SAFREE #### [facility] [address] [place] [address] Dr. Magalie Ceron CBC AUTO DIFFon 03-05-2022 BASO # 0.1 103/ul Normal 0.0-0.1 [facility] Comment on above: Performed By: #### C BC #### [facility] [address] [place] [address] Dr. Magalie Ceron Basophils/100 WBC (Bld) 0.8 % Normal 0.2-2.0 [facility] Comment on above: Performed By: #### C BC #### [facility] [address] [place] [address] Dr. Magalie Ceron EO # 0.1 103/ul Normal 0.0-0.7 [facility] Comment on above: Performed By: #### C BC #### [facility] [address] [place] [address] Dr. Magalie Ceron Eosinophils/100 WBC (Bld) 1.5 % Normal 0.9-7.0 [facility] Comment on above: Performed By: #### C BC #### [facility] [address] [place] [address] Dr. Magalie Ceron Erythrocyte distribution width (RBC) [Ratio] 13.5 % Normal 11.0-15.0 [facility] Comment on above: Performed By: #### C BC #### [facility] [address] [place] [address] Dr. Magalie Ceron Hematocrit (Bld) [Volume fraction] 43.7 % Normal 42.0-54.0 [facility] Comment on above: Performed By: #### C BC #### [facility] [address] [place] [address] Dr. Magalie Ceron Hemoglobin (Bld) [Mass/Vol] 15.1 g/dL Normal 14.0-18.0 [facility] Comment on above: Performed By: #### C BC #### [facility] [address] [place] [address] Dr. Magalie Ceron IG # 0.04 10e3/ul Critically high 0.00-0.03 [facility] Comment on above: Performed By: #### C BC #### [facility] [address] [place] [address] Dr. Magalie Ceron IG % 0.6 % Critically high 0.0-0.5 [facility] Comment on above: Performed By: #### C BC #### [facility] [address] [place] [address] Dr. Magalie Ceron LYMPH # 2.6 103/ul Normal 1.2-3.8 [facility] Comment on above: Performed By: #### C BC #### [facility] [address] [place] [address] Dr. Magalie Ceron Lymphocytes/100 WBC (Bld) 35.5 % Normal 20.5-60.0 [facility] Comment on above: Performed By: #### C BC #### [facility] [address] [place] [address] Dr. Magalie Ceron MANUAL DIFF REQ NO Normal [facility] Comment on above: Performed By: #### C BC #### [facility] [address] [place] [address] Dr. Magalie Ceron MCH (RBC) [Entitic mass] 31.8 pg Normal 25.9-34.0 [facility] Comment on above: Performed By: #### C BC #### [facility] [address] [place] [address] Dr. Magalie Ceron MCHC (RBC) [Mass/Vol] 34.6 g/dL Normal 29.9-35.2 [facility] Comment on above: Performed By: #### C BC #### [facility] [address] [place] [address] Dr. Magalie Ceron MCV (RBC) [Entitic vol] 92.0 fL Normal 80.0-94.0 [facility] Comment on above: Performed By: #### C BC #### [facility] [address] [place] [address] Dr. Magalie Ceron MONO # 0.7 103/ul Normal 0.3-0.8 [facility] Comment on above: Performed By: #### C BC #### [facility] [address] [place] [address] [address] Magalie Creon Monocytes/100 WBC (Bld) 9.3 % Normal 1.7-12.0 [facility] Comment on above: Performed By: #### C BC #### [facility] [address] [place] [address] [address] Magalie Ceron NEUT # 3.8 103/ul Normal 1.4-6.5 [facility] Comment on above: Performed By: #### C BC #### [facility] [address] [address] [address] Magalie Ceron Neutrophils/100 WBC (Bld) 52.3 % Normal 43.0-75.0 [facility] Comment on above: Performed By: #### C BC #### [facility] [address] [place] [address] Dr. Magalie Ceron Platelet mean volume (Bld) [Entitic vol] 8.8 fL Critically low 9.5-13.5 [facility] Comment on above: Performed By: #### C BC #### [facility] [address] [place] [address] Dr. Magalie Ceron PLT 308 103/ul Normal 150-450 [facility] Comment on above: Performed By: #### C BC #### [facility] [address] [place] [address] Dr. Magalie Ceron RBC 4.75 106/ul Normal 4.70-6.10 [facility] Comment on above: Performed By: #### C BC #### [facility] [address] [place] [address] Dr. Magalie Ceron WBC 7.2 103/ul Normal 4.0-11.0 [facility] Comment on above: Performed By: #### C BC #### [facility] [address] [place] [address] Dr. Magalie Ceron LIPID PROFILEon 03-05-2022 CHOL-HDL RATIO NORM SEE BELOW Normal [facility] Comment on above: Result Comment: 3.3 - 4.4 LOW RISK 4.4 - 7.1 AVERAGE RISK 7.1 - 11.0 MODERATE RISK >11.0 HIGH RISK Performed By: #### C MP, LIPID #### [facility] [address] [place] [address] [address] Magalie Ceron Cholesterol [Mass/Vol] 216 mg/dL Critically high <=200 [facility] Comment on above: Performed By: #### C MP, LIPID #### [facility] [address] [address] [address] Magalie Ceron Cholesterol in HDL [Mass/Vol] 53 mg/dL Normal 40-60 [facility] Comment on above: Performed By: #### C MP, LIPID #### [facility] [address] [place] [address] Dr. Magalie Ceron Cholesterol in LDL [Mass/Vol] 118.0 mg/dL Normal [facility] Comment on above: Performed By: #### C MP, LIPID #### [facility] [address] [address] [address] Magalie Ceron Cholesterol.total/C holesterol in HDL [Mass ratio] 4.1 {ratio} Normal [facility] Comment on above: Performed By: #### C MP, LIPID #### [facility] [address] [place] [address] Dr. Magalie Ceron HDL NORMAL > or = 60 mg/dl - LO W CARDIOVASCULAR RISK <40 mg/dl - HIGH CARDIOVASCULAR RISK Normal [facility] Comment on above: Performed By: #### C MP, LIPID #### [facility] [address] [place] [address] Dr. Magalie Ceron LDL CALC NORMAL SEE BELOW Normal [facility] Comment on above: Result Comment: <100 mg/dl OPTIMAL 100 - 129 mg/dl NEAR OR ABOVE OPTIMAL 130 - 159 mg/dl BORDERLINE HIGH 160 - 189 mg/dl HIGH >190 mg/dl VERY HIGH Performed By: #### C MP, LIPID #### [facility] [address] [place] [address] Dr. Magalie Ceron Triglyceride [Mass/Vol] 225 mg/dL Critically high <=150 [facility] Comment on above: Performed By: #### C MP, LIPID #### [facility] [address] [address] [address] Magalie Ceron VLDL CALC 45.0 mg/dL Normal [facility] Comment on above: Performed By: #### C MP, LIPID #### [facility] [address] [address] [address] Magalie Ceron MICROALB CREAT RATIO RANDOMo n 03-05-2022 mALB <1.3 Normal <=30.0 [facility] Comment on above: Performed By: #### M CRR #### [facility] [address] [place] [address] Dr. Magalie PEDRAZAB CR RATIO 13.5 mg/g Normal 0.0-29.[address] [facility] Comment on above: Performed By: #### M CRR #### [facility] [address] [place] [address] Dr. Magalie Ceron MALB CR RATIO RANGE SEE BELOW Normal [facility] Comment on above: Result Comment: NO M ICROALBUMINURIA 0-29 MG/G CLINICAL MICROALBUMINURIA 30-300 MG/G MACROALBUMINURIA >300 MG/G Performed By: #### M CRR #### [facility] [address] [place] [address] Dr. Magalie Ceron URINE CREAT 96.12 mg/dL Normal 20.00-300.[address] [facility] Comment on above: Performed By: #### M CRR #### [facility] [address] [place] [address] Dr. Magalie Ceron PROF 14(COMP METB)on 022 Albumin [Mass/Vol] 4.1 g/dL Normal 3.4-5.0 [facility] Comment on above: Performed By: #### C MP, LIPID #### [facility] [address] [place] [address] Dr. Magalie Ceron Albumin/Globulin [Mass ratio] 1.2 {ratio} Normal [facility] Comment on above: Performed By: #### C MP, LIPID #### [facility] [address] [place] [address] Dr. Magalie Ceron ALP [Catalytic activity/Vol] 73 U/L Normal 46-116 [facility] Comment on above: Performed By: #### C MP, LIPID #### [facility] [address] [address] [address] Magalie Ceron ALT [Catalytic activity/Vol] 34 U/L Normal 16-63 [facility] Comment on above: Performed By: #### C MP, LIPID #### [facility] [address] [address] [address] Magalie Ceron Anion gap [Moles/Vol] 9.2 mmol/L Normal [facility] Comment on above: Performed By: #### C MP, LIPID #### [facility] [address] [place] [address] Dr. Magalie Ceron AST [Catalytic activity/Vol] 25 U/L Normal 15-37 [facility] Comment on above: Performed By: #### C MP, LIPID #### [facility] [address] [address] [address] Magalie Ceron Bilirubin [Mass/Vol] 1.6 mg/dL Critically high 0.2-1.0 [facility] Comment on above: Performed By: #### C MP, LIPID #### [facility] [address] [place] [address] Dr. Magalie Ceron Calcium [Mass/Vol] 8.9 mg/dL Normal 8.5-10.1 [facility] Comment on above: Performed By: #### C MP, LIPID #### [facility] [address] [address] [address] Magalie Ceron Chloride [Moles/Vol] 100 mmol/L Normal 98-107 [facility] Comment on above: Performed By: #### C MP, LIPID #### [facility] [address] [address] [address] Magalie Ceron CO2 [Moles/Vol] 32.5 mmol/L Critically high 21.0-32.0 [facility] Comment on above: Performed By: #### C MP, LIPID #### [facility] [address] [place] [address] Dr. Magalie Ceron Creatinine [Mass/Vol] 0.96 mg/dL Normal 0.70-1.30 [facility] Comment on above: Performed By: #### C MP, LIPID #### [facility] [address] [place] [address] Dr. Magalie Ceron EGFR-AF LAO >60 Normal >=60 [facility] Comment on above: Performed By: #### C MP, LIPID #### [facility] [address] [address] [address] Magalie Ceron EGFR-NON AF LAO >60 Normal >=60 [facility] Comment on above: Performed By: #### C MP, LIPID #### [facility] [address] [place] [address] Dr. Magalie Ceron Globulin (S) [Mass/Vol] 3.3 g/dL Normal [facility] Comment on above: Performed By: #### C MP, LIPID #### [facility] [address] [place] [address] Dr. Magalie Ceron Glucose [Mass/Vol] 88 mg/dL Normal 74-106 [facility] Comment on above: Performed By: #### C MP, LIPID #### [facility] [address] [place] [address] Dr. Magalie Ceron Potassium [Moles/Vol] 3.7 mmol/L Normal 3.5-5.1 [facility] Comment on above: Performed By: #### C MP, LIPID #### [facility] [address] [place] [address] Dr. Magalie Ceron Protein [Mass/Vol] 7.4 g/dL Normal 6.4-8.2 [facility] Comment on above: Performed By: #### C MP, LIPID #### [facility] [address] [place] [address] Dr. Magalie Ceron Sodium [Moles/Vol] 138 mmol/L Normal 136-145 [facility] Comment on above: Performed By: #### C MP, LIPID #### [facility] [address] [place] [address] Dr. Magalie Ceron Urea nitrogen [Mass/Vol] 11.0 mg/dL Normal 7.0-18.0 [facility] Comment on above: Performed By: #### C MP, LIPID #### [facility] [address] [place], [place] [address] Dr. Magalie Ceron Urea nitrogen/Creatinine [Mass ratio] 11.5 mg/mg Normal [facility] Comment on above: Performed By: #### C MP, LIPID #### [facility] [address] [place], [place] [address] Dr. Magalie Ceron XR KUB 1 VIEWon [...] by: TANIA SAXENA Date: 2021-09-20 17:32 Normal [facility] BMP Standardon 11-25-2019 eGFR Non AA >60 [facility] Comment on above: Performed By: #### 1 [id number], [id number], [id number] #### [facility] (DEFAULT) [address] [place] [address] 41792 eGFR AA >60 [facility] Comment on above: Result Comment: Lead Instructor/Flight Attendant ernesto Kidney disease could be indicated at eGFRs of less than 60 ml/min/1.73m2. Kidney Failure is indicated at less than 15 ml/min/1.73m2 Performed By: #### 1 [id number], [id number], [id number] #### [facility] (DEFAULT) [address] [place] [address] Anion gap [Moles/Vol] 15.0 mmol/L Normal 5.0-19.0 [facility] Comment on above: Performed By: #### 1 [id number], [id number], [id number] #### [facility] (DEFAULT) [address] [place] [address] Calcium [Mass/Vol] 8.8 mg/dL Low 8.9-10.3 [facility] Comment on above: Performed By: #### 1 [id number], [id number], [id number] #### [facility] (DEFAULT) [address] [place] [address] 04789 Chloride [Moles/Vol] 99 mmol/L Low 101-111 [facility] Comment on above: Performed By: #### 1 [id number], [id number], [id number] #### [facility] (DEFAULT) [address] [place] [address]28 CO2 [Moles/Vol] 26 mmol/L Normal 21-32 [facility] Comment on above: Performed By: #### 1 [id number], [id number], [id number] #### [facility] (DEFAULT) [address] [place] [address]578 Creatinine [Mass/Vol] 0.81 mg/dL Low 0.90-1.30 [facility] Comment on above: Performed By: #### 1 [id number], [id number], [id number] #### [facility] (DEFAULT) [address] [place] [address] 77782 Glucose [Mass/Vol] 93.0 mg/dL Normal 74.0-118.0 [facility] Comment on above: Performed By: #### 1 [id number], [id number], [id number] #### [facility] (DEFAULT) [address] [place] [address]3830 Osmolality [Osmolality] 274 mOsm/L [facility] Comment on above: Performed By: #### 1 [id number], [id number], [id number] #### [facility] (DEFAULT) [address] [place] [address] Potassium [Moles/Vol] 3.4 mmol/L Low 3.6-5.1 [facility] Comment on above: Performed By: #### 1 [id number], [id number], [id number] #### [facility] (DEFAULT) [address] [place] [address] Sodium [Moles/Vol] 137.0 mmol/L Normal 136.0-144.0 [facility] Comment on above: Performed By: #### 1 [id number], [id number], [id number] #### [facility] (DEFAULT) [address] [place] [address] 28863 Urea nitrogen [Mass/Vol] 13 mg/dL Normal 8-26 [facility] Comment on above: Performed By: #### 1 [id number], [id number], [id number] #### [facility] (DEFAULT) [address] [place] [address] 68675 Urea nitrogen/Creatinine [Mass ratio] 16.0 mg/mg Normal 4.6-16.2 [facility] Comment on above: Performed By: #### 1 [id number], [id number], [id number] #### [facility] (DEFAULT) [address] [place] [address]65 Lipid Panel Standardon 11-24 Cholesterol [Mass/Vol] 218.0 mg/dL High 66.0-200.0 [facility] Comment on above: Result Comment: Laura rable - Less than 200 mg/dL Borderline high risk - 200-239 mg/dL High risk - 240 mg/dL and over. Performed By: #### 1 [id number], [id number], [id number] #### [facility] (DEFAULT) [address] [place] [address] Cholesterol in HDL [Mass/Vol] 47 mg/dL Normal 40-71 [facility] Comment on above: Result Comment: High risk - <40 mg/dL. Performed By: #### 1 [id number], [id number], [id number] #### [facility] (DEFAULT) [address] [place] [address] 35795 Cholesterol in LDL [Mass/Vol] 137 mg/dL High 1-100 [facility] Comment on above: Result Comment: Opti mal - Less than 100 mg/dL Borderline high risk - 130-159 mg/dL High risk - 160-189 mg/dL. Performed By: #### 1 [id number], [id number], [id number] #### [facility] (DEFAULT) [address] [place] [address] Cholesterol.total/C holesterol in HDL [Mass ratio] 4.6 {ratio} High 0.0-4.5 [facility] Comment on above: Performed By: #### 1 [id number], [id number], [id number] #### [facility] (DEFAULT) [address] [place] [address] Triglyceride [Mass/Vol] 172.0 mg/dL High 0.0-150.0 [facility] Comment on above: Performed By: #### 1 [id number], [id number], [id number] #### [facility] (DEFAULT) [address] [place] [address] VLDL. 34 mg/dL Normal 5-40 [facility] Comment on above: Performed By: #### 1 [id number], [id number], [id number] #### [facility] (DEFAULT) [address] [place] [address] SARS-CoV-2 (COVID-19) IgG An tibodies(Noon 11-25-2019 Employed in healthcare? No [facility] Comment on above: Performed By: #### 1 [id number], [id number], [id number] #### [facility] (DEFAULT) [address] [place] [address] Group care resident? No [facility] Comment on above: Performed By: #### 1 [id number], [id number], [id number] #### [facility] (DEFAULT) [address] [place] [address] Hospitalized due to COVID-19? No [facility] Comment on above: Performed By: #### 1 [id number], [id number], [id number] #### [facility] (DEFAULT) [address] [place] [address] In ICU? No [facility] Comment on above: Performed By: #### 1 [id number], [id number], [id number] #### [facility] (DEFAULT) [address] [place] [address] status? Not [facility] Comment on above: Performed By: #### 1 [id number], [id number], [id number] #### [facility] (DEFAULT) [address] [place] [address] SARS-CoV-2 (COVID-19) IgG Abs Non-Reactive Normal Non-Reactive [facility] Comment on above: Result Comment: Test results should be interpreted in light of the total clinical presentation of the patient, including: symptoms, clinical history, data from additional tests, and other appropriate information. Detects IgG Abs 14-20 days post infection (varies by individual) Equivocal Results: retest in 1-2 weeks Positive Results may be due to past or present infection with kif-SKVY-NjB-2 coronavirus strains, such as coronavirus HKU1, NL63, OC43, or 229E. Performed By: #### 1 [id number] #### [facility] (DEFAULT) [address] [place] [address] Symptomatic as defined by CDC? No [facility] Comment on above: Performed By: #### 1 [id number], [id number], [id number] #### [facility] (DEFAULT) [address] [place] [address] Vital Signs Date Time Vital Sign Value Performing Clinician Octavio jacques 10-17-2023 11:02-0400 Blood Pressure Location Buddy JACOBO [facility] 10-17-2023 11:02-0400 Diastolic blood pressure 81 mm[Hg] Buddy JACOBO [facility] 10-17-2023 11:02-0400 Heart rate 74 /min Buddy JACOBO [facility] 10-17-2023 11:02-0400 Respiratory rate 16 /min Buddy JACOBO [facility] 10-17-2023 11:02-0400 Systolic blood pressure 133 mm[Hg] Buddy JACOBO [facility] 10-15-2022 13:45-0400 Blood Pressure Location Buddy JACOBO [facility] 10-15-2022 13:45-0400 Diastolic blood pressure 87 mm[Hg] Buddy JACOBO [facility] 10-15-2022 13:45-0400 Heart rate 91 /min Buddy JACOBO [facility] 10-15-2022 13:45-0400 Systolic blood pressure 150 mm[Hg] Buddy JACOBO [facility] 09-28-2021 10:27-0400 Blood Pressure Location Buddy JACOBO [facility] 09-28-2021 10:27-0400 Diastolic blood pressure 81 mm[Hg] Buddy JACOBO [facility] 09-28-2021 10:27-0400 Heart rate 70 /min Buddy JACOBO [facility] 09-28-2021 10:27-0400 Respiratory rate 16 /min Buddy JACOBO [facility] 09-28-2021 10:27-0400 Systolic blood pressure 123 mm[Hg] Buddy JACOBO [facility] Encounters Encounter Date Encounter Type Care Provider Facility Start: 10-18-2024 ambulatory Buddy R CELESTINA Nolani ty:[facility] Start: 10-29-2023 End: 10-29-2023 ambulatory CHRISTIAN DE LA GARZA Not Available Start: 10-17-2023 End: 10-17-2023 ambulatory Buddy Leatha CELESTINA Facility:[facility] Start: 10-17-2023 End: 10-17-2023 Patient encounter procedure Buddy R CELESTINA [facility] Start: 10-09-2023 End: 10-09-2023 ambulatory .CHRISTIAN Not Available Start: 09-29-2023 End: 09-29-2023 ambulatory CHRISTIAN DE LA GARZA Not Available Start: 06-26-2023 End: 06-26-2023 ambulatory ZEUS BONNER Not Available Start: 05-30-2023 End: 05-30-2023 ambulatory JR.CHRISTIAN Not Available Start: 05-06-2023 End: 05-06-2023 ambulatory KATHERINE A FELTER Not Available Start: 04-23-2023 Clinisync Result Encounter Zeus Bonner DO Work Phone: [facility] Unsolicited Start: 04-23-2023 Clinisync Result Encounter Zeus Bonner DO Work Phone: [facility] Unsolicited Start: 04-17-2023 End: 04-17-2023 ambulatory ZEUS BONNER Not Available Start: 03-24-2023 End: 03-24-2023 ambulatory JR.CHRISTIAN Not Available Start: 02-27-2023 End: 02-27-2023 ambulatory KATHERINE A FELTER Not Available Start: 10-15-2022 End: 10-15-2022 Patient encounter procedure Buddy R CELESTINA [facility] Start: 04-17-2022 End: 04-17-2022 ambulatory Christian Raymond Jr Facility:[facility] Start: 03-05-2022 End: 03-06-2022 ambulatory RUSSELL DALEY Facility:[facility] Start: 09-28-2021 End: 09-28-2021 Patient encounter procedure Buddy JACOBO [facility] Start: 09-20-2021 End: 09-21-[address] ZEUS BONNER Facility:[facility] Procedures Date Procedure Procedure Detail Performing Clinician Start: 04-23-2023 [facility] MICROALB CREAT R ATIO RANDOM Zeus Bonner DO Work Phone: Start: 10-15-2022 Cystoscopy Buddyriley OLVERA Start: 02-22-2015 Transurethral incisi on of bladder neck Buddy JACOBO Start: 03-22-2014 Cystoscopy Buddy OLVERA Start: 12-16-2013 Transurethral prostatectomy Buddy JACOBO Start: 08-04-2012 Laser ablation of prostate Buddy JACOBO Start: 05-26-2012 Cystoscopy Buddy OLVERA Start: 05-06-2012 Urodynamic studies Vic triston JACOBO Start: 09-06-2008 Cystoscopy Buddy OLVERA Colonoscopy Buddy JACOBO Colonoscopy Buddy JACOBO Tonsillectomy Buddy JACOBO Tonsillectomy Buddy JACOBO Plan of Treatment Date Care Activity Detail Author Start: 05-30-2023 End: 05-30-2023 Patient encounter procedure 05/30/2023 10:30 AM EDT Office Visit [facility] [address] [place] [address] Jr. Christian Raymond DO [address] [place] [address] [facility] Start: 05-06-2023 End: 05-06-2023 Patient encounter procedure 05/06/2023 10:50 AM EST Office Visit [facility] [address] [place] [id number] Shayluis eduardo Katherine Fontaine, TRANSPORTATION ASSISTANT-MAGNETOMETER OPERATOR [address] [place] [address] [facility] Start: 03-04-2023 Medicare Annual Well ness (AWV) Medicare Annual Wellness (AWV) [facility] Start: 11-15-2022 Influenza vaccination Influenza Vacc ine (#1) [facility] Immunizations Immunization Date Immunization Notes Care Provider Fa cility 02-21-2022 Moderna Bivalent Coleman ster Vaccination Zeus Bonner DO Work Phone: [facility] 02-21-2022 SARS-CoV-2 (COVID-19 ) [id number] Buddy JACOBO [facility] 01-11-2021 SARS-CoV-2 (COVID-19 ) mRNA BNT-162b2 vax Buddy JACOBO [facility] 12-20-2020 influenza virus vacc ine, unspecified formulation Buddy JACOBO [facility] 12-20-2020 influenza, injectabl e, quadrivalent, contains preservative Zeus Bonner DO Work Phone: [facility] 05-03-2020 SARS-CoV-2 (COVID-19 ) mRNA BNT-162b2 vax Buddy JACOBO [facility] Comment on above: Result Comment: 2022: [id number] 04-12-2020 SARS-CoV-2 (COVID-19 ) mRNA BNT-162b2 vax Buddy JACOBO [facility] Comment on above: Result Comment: 2022: [id number] 12-20-2019 influenza virus vacc ine, unspecified formulation Buddy JACOBO [facility] 12-20-2019 Seasonal, quadrivale nt, recombinant, injectable influenza vaccine, preservative free Zeus Kailey DO Work Phone: [facility] 01-12-2018 influenza virus vacc ine, unspecified formulation Buddy [employer] [facility] 01-12-2018 influenza, injectabl e, quadrivalent, preservative free Zeus Kailey DO Work Phone: [facility] 01-08-2017 influenza, seasonal, injectable, preservative free Zeus Kailey DO Work Phone: [facility] 12-24-2016 influenza virus vacc ine, unspecified formulation Buddy JACOBO [facility] 12-24-2016 seasonal influenza, intradermal, preservative free Zeus Kailey DO Work Phone: [facility] 01-29-2016 pneumococcal polysaccharide vaccine, 23 valent Zeus Kailey DO Work Phone: [facility] 12-20-2015 influenza virus vacc ine, unspecified formulation Buddyriley JACOBO [facility] 12-20-2015 influenza, injectabl e, quadrivalent, preservative free Zeus Kailey DO Work Phone: [facility] 02-01-2015 pneumococcal conjuga te vaccine, 13 valent Zeus Kailey DO Work Phone: [facility] 01-09-2015 influenza, seasonal, injectable, preservative free Zues Kailey DO Work Phone: [facility] Payers Date Payer Category Payer Self-pay 2023 Unknown AARP AARP [id number] 2022-Present [address] [place] [address] [id number] 2009 Medicare MEDICARE MEDICAR E PART B [id number] 2009-Present [address] [address] [place] [address] Medicare [id number] 2009 Unknown [id number] 1959 Medicare [id number] 1945 Unknown [id number] 1945 Unknown [id number] 2.16.840.1.289306.3.579.2.593 1945 Unknown [id number] 2.16.840.1.729958.3.579.2.727 1945 Unknown [id number] 2.16.840.1.973842.3.579.2.727 1945 Unknown [id number] 2.16.840.1.799798.3.579.2.1259 1945 Unknown [id number] 2.16.840.1.053144.3.579.2.1259 1945 Unknown [id number] 2.16.840.1.438520.3.579.2.1259 1945 Unknown [id number] 2.16.840.1.760057.3.579.2.1259 1945 Unknown [id number] 2.16.840.1.038859.3.579.2.1259 1945 Unknown [id number] 2.16.840.1.622585.3.579.2.1259 1945 Unknown [id number] 2.16.840.1.661301.3.579.2.1259 1945 Unknown [id number] 2.16.840.1.852706.3.579.2.1259 1945 Unknown [id number] 2.16.840.1.798308.3.579.2.1259 1945 Unknown [id number] 2.16.840.1.696093.3.579.2.1259 1945 Unknown [id number] 2.16.840.1.097362.3.579.2.1259 1945 Unknown [id number] 2.16.840.1.589253.3.579.2.125 Unknown [id number] 2.16.840.1.615599.3.579.2.531 Social History Date Type Detail Facility Start: 09-29-2020 End: 10-17-2023 Tobacco smoking status Never smoked tobacco (finding) [facility] Start: 04-10-2023 End: 04-17-2023 Sex Assigned At Male [facility] Tobacco smoking status Never [facility] [place] Start: 04-17-2023 Tobacco use and exposure Smokeless [...] [facility] Start: 08-22-2022 Sexual orientation Heterosexual (fin ding) [facility] NEGATED: Highlighted rowStart: NINF History of tobacco use Passive smoker [facility] Functional Status Date Assessment Result Facility 10-17-2023 Functional Status N/A [facility] 10-15-2022 Functional Status N/A [facility] 09-28-2021 Functional Status N/A [facility] Hospital Discharge instructions 10-17-2023 Note Date & [...] urethra. Follow these instructions at home: Take twbm-bxo-mhajrdu and prescription medicines only as told by [...] provider. Document Revised: 09/19/2021 Document Reviewed: 09/19/2021 Buru Buru Patient Education 2022 [employer]. Follow Up Care 10/15/2022 14:25:03 With:CELESTINA VIDAL, Buddy Zhang, URL Address: [address] [place], [place] [id number]- When: Unknown [facility] 10-17-2023 Note Date & Type [...] Follow these instructions at home: ? Take oeww-esc-whxpjrr and prescription medicines only as told by [...] develop side effec (more content not included)... [facility] Discharge instructions 10-15-2022 Note Date & [...] include: ?8 oz (237 mL) of milk, ajnmseh-lcetaiwqwjtt-xvncb milk, and calcium-fortifiedfruit juice. Calcium-fortified means that [...] ?Spinach (cooked), rhubarb, beets, sweet potatoes, and Tongan chard. ?Peanuts. ?Potato chips, japanese fries, and baked potatoes with skin on. ?Nuts and nut products. ?Chocolate. If you regularly take a diuretic medicine, make sure to eat at least 1 or 2 servings of fruits or vegetables that are high in potassium each day. These include: ?Avocado. ?Banana. ?[place], prune, carrot, or tomato juice. ?Baked potato. [...] magnesium, fish oil, or vitamin B6. Take mpkc-uyt-uvebxjr and prescription medicines only as told by [...] Casseroles. Pizza. Lasagna. Frozen meals. Potato chips. Moroccan fries. The items listed above may not [...] provider. Document Revised: 11/12/2021 Document Reviewed: 11/12/2021 [employer]u Buru Patient Education 2022 [employer]. Follow Up Care 10/08/2022 11:09:42 With:CELESTINA VIDAL, Buddy Zhang, URL Address: [facility] [address] [place] [address]- When: Unknown [facility] Discharge instructions 09-28-2021 Note Date & Type Note Facility 09-28-2021 Hospital Discharg e instructions Patient Education 09/28/2021 10:58:48 Kidney Stones, Vlip-gg-Vzvh Kidney Stones Kidney stones are rock-like masses [...] Follow these instructions at home: Medicines Take zjkg-xuo-ubftevj and prescription medicines only as told by [...] 08/19/2008 Document Revised: 07/20/2019 Document Reviewed: 07/20/2019 Buru Buru Patient Education 2020 [employer]. Follow Up Care 09/29/2020 11:24:43 With:Buddy JACOBO MD, URL Address: [address] [place] [address] When:Within 1 Year(s) Comments:alejandra/ DAWSON [facility] Evaluation + Plan note Note Date & Type Note Facility Evaluation + Plan note Future Appointments Appointment Date:10/04/2022 10:15:00 AM Scheduled Provider:Buddy JACOBO MD Location:[facility] Appointment Type:URO Office Visit [facility] Evaluation + Plan note Note Date & Type Note Facility Evaluation + Plan note Future Appointments Appointment Date:10/17/2023 11:00:00 AM Scheduled Provider:Buddy JACOBO MD Location:[facility] Appointment Type:URO Office Visit [facility] Evaluation + Plan note Note Date & Type Note Facility Evaluation + Plan note Future Appointments Appointment Date:10/18/2024 10:45:00 AM Scheduled Provider:Buddy JACOBO MD Location:[facility] Appointment Type:URO Office Visit [facility] Hospital course Narrative Note Date & Type Note Facility Hospital course Narrative No data available for this section [facility] Hospital Discharge instructions Note Date & Type Note Facility Hospital Discharge instructions No data available for this section [facility] Progress note Note Date & Type Note Facility Progress note No data available for this section [facility] Summary Purpose Family History No Family History Records FoundNo Family History Records FoundNo Family History Records Found No data available for this section No Family History Records FoundNo Family History Records Found Advance Directives No Advanced Directives Records FoundNo Advanced Directives Records FoundNo Advanced Directives Records FoundNo Advanced Directives Records FoundNo Advanced Directives Records Found Additional Source Comments (unrecognized sect ion and content) No Status Records FoundNo Status Records FoundNo Status Records FoundNo Status Records FoundNo Status Records Found INFORMATION SOURCE (unrecogn ized section and content) DATE CREATED AUTHOR 11/26/2019 [facility] DATE CREATED AUTHOR AUTHOR'S ORGANIZ ATION 03/29/2022 [facility] DATE CREATED AUTHOR AUTHOR'S ORGANIZ ATION 05/25/2022 [facility] DATE CREATED AUTHOR AUTHOR'S ORGANIZ ATION 10/19/2023 [facility] DATE CREATED AUTHOR AUTHOR'S CASTRO ELIAS 10/31/2023 [facility] Care Team (unrecognized sect ion and content) Political Researcher Relationship Specialty Start Date End Date Zeus Bonner DO [address] [place] [address] PCP - ACO Reach 08/08/22 Zeus Bonner DO [address] [place] [address] PCP - General Family Medicine 07/23/22 FOR [...] BE BASED ON THE PRIMARY CLINICAL RECORDS. [employer] provides no warranty or guarantee of the accuracy or completeness of information in this document.
== END 2023-11-26 13:17 | disposition home or self-care (01) ==
LOC: RAD 13:21
PROVIDERS: PCP Family Medicine
DX: M54.50 Low back pain, unspecified (principal); M51.36 Other intervertebral disc degeneration, lumbar region
CPT/HCPCS: 72110

== ENCOUNTER 2023-12-22 13:22 | Outpatient (OUT) | payer MEDICARE, SELFPAY ==
--- OUTSIDE RECORDS SUMMARY | 2023-12-22 13:38 | XMS_ITS | CCD ---
Author Organization [facility] Care Team Providers Care Sales Marketing Name Role Phone ZEUS BONNER Primary Care Physician KAILEY, DR DOW Primary Care Unavailable CELESTINA, DR GONZALES Admitting Unavailable CELESTINA, DR GONZALES Consulting Unavailable CELESTINA, DR GONZALES Attending Unavailable ZIEBER, DR TANIA Zhang Consulting Unavailable CHELSEY DALEY Admitting Unavailable CHELSEY DALEY Consulting Unavailable CHELSEY DALEY Attending Unavailable KAILEY, DR DOW Primary Care Unavailable Christian Raymond Jr Admitting Unavailable Christian Raymond Jr Attending Zeus Wilson Primary Care Unavailable Zeus Bonner DO Unavailable Zeus Bonner DO Primary Care Provider Buddy JACOBO Attending Unavailable Buddy JACOBO Attending Unavailable Ludmila MARKETING COMMUNITY LIAISON, Chelsey L Unavailable JR. RAYMOND GEORGE C Attending Unavaila ZEUS Judd Attending Unavailable KATHERINE ROTH Attending Unavailable JR. MARY, CHRISTIAN Egan Attending Unavaila lor RAYMOND JR., CHRISITAN Egan Referring Unavaila ZEUS Judd Attending Unavailable ZEUS BONNER Referring Unavailable JR. RAYMOND GEORGE C Attending Unavaila ble JR. MARY, CHRISTIAN Egan Referring Unavaila ble JR. MARY, CHRISTIAN Egan Referring Unavaila ble JR. MARY, CHRISTIAN Egan Attending Unavaila ble EVGENY, PRATIK Attending Unavailable LUIS, SELVON F Referring Unavailable EVGENY, PRATIK Attending Unavailable LUIS, SELVON F Referring Unavailable KIMBERLY DOCKERY Attending Unavailable LUIS, SELVON F Referring Unavailable KATHERINE ROTH Attending Unavailable Allergies Allergy Classification Reported Allergen(s) Allergy Type Date of Onset Reaction(s) Facility (1 source) Meperidine Drug Allergy 12-09-2013 [facility] Repository (1 source) Nalbuphine Drug Allergy 12-09-2013 [facility] Medications Current Medications Medication Drug Class(es) Dates Sig (Normalized) Sig (Original) amLODIPine 2.5 mg oral tablet (7 sources) Dihydropyridine Calcium Channel Mnoae Start: 09-27-2019 take 1 tablet by mouth [...] day at the same time. 0 Active erythromycin 20 mg/ml topical solution (2 sources) Macrolide, Macrolide Antimicrobial Start: 06-26-2023 End: 06-25-2024 erythromycin with Ethanol (Theramycin) 2 % external solution Indications: Rosacea Apply topically 2 (two) times a day 60 mL 2 06/26/2023 06/25/2024 Active gabapentin 300 mg oral capsule (3 sources) Anti-epileptic Agent Start: 03-27-2023 take 1 capsule by mouth every eight hours gabapentin (Neurontin) 300 MG capsule Indications: Neuropathy TAKE 1 CAPSULE BY MOUTH EVERY 8 HOURS 270 capsule 3 03/27/2023 Active Start: 10-04-2022 gabapentin 300 mg Cap Refills(s) 0 Start Date: 10/04/22 Status: Ordered hydroCHLOROthiazide 12.5 mg oral tablet (7 sources) Thiazide Diuretic Start: 09-27-2019 take 1 tablet by mouth once daily hydroCHLOROthiazide (HYDRODiuril) 12.5 MG tablet Indications: Primary hypertension (CMS/HCC) TAKE 1 TABLET BY MOUTH ONCE DAILY 90 tablet 3 10/13/2023 Active ivermectin 5 mg/ml topical lotion (3 sources) Antiparasitic, Pediculicide Start: 02-27-2023 Ivermectin 0.5 % lotion 02/27/2023 Active lisinopril 20 mg oral tablet (7 sources) Angiotensin Converting Enzyme Inhibitor Start: 09-02-2022 take 1 tablet by mouth in the morning lisinopril 20 MG tablet Indications: Primary hypertension (CMS/HCC) TAKE 1 TABLET BY MOUTH IN THE MORNING 90 tablet 3 10/13/2023 Active Start: 09-27-2019 take 10 mg by mouth [...] Active triamcinolone acetonide 1 mg/ml topical cream (3 sources) Corticosteroid Start: 11-01-2021 triamcinolone (Kenalog) 0.1 % cream APPLY TO AFFECTED AREA TWICE A DAY NEEDED 11/01/2021 Active Completed/Discontinued Medications Medication Drug Class(es) Dates Sig (Normalized) Sig (Original) potassium citrate 15 meq extended release oral tablet (5 sources) Start: 02-03-2023 take 1 tablet by mouth twice daily potassium citrate 15 mEq oral tablet, extended release 15 mEq = 1 tab(s), Oral, BID, dosage increase, # 180 tab(s), Refills(s) 3, Pharmacy: [facility], 170, cm, 10/15/22 13:53:00 EDT, Height/Length Dosing, 71, kg, 10/15/22 13:53:00 EDT, Weight Dosing Start Date: 02/03/23 Status: Ordered Start: 09-28-2021 take 1 tablet by enoch th twice daily potassium citrate 15 mEq oral tablet, extended release 15 mEq = 1 tab(s), Oral, BID, # 200 tab(s), Refills(s) 11, Pharmacy: [facility] ([facility]), 170, cm, [...] Onset: 09-20-2021 Episodic Disorders of lipid metabolism (4 sources) Hyperlipidemia, unspecified; Translations: [Hyperlipidemia] Onset: 03-13-2022 11-25-2022 Chronic Essential hypertension (11 sources) Hypertensive disorder; Translations: [Essential (primary) hypertension] Onset: 03-05-2022 09-23-2019 Chronic Genitourinary symptoms and ill-defined conditions (13 sources) Microscopic hematuria; Translations: [Other microscopic hematuria] Onset: 09-24-2021 Episodic Hyperplasia of prostate (8 sources) Benign prostatic hypertrophy with outflow obstruction; Translations: [Benign prostatic hyperplasia with lower urinary tract symptoms] Onset: 09-24-2021 Chronic Osteoarthritis (3 sources) Arthritis of left hip; Translations: [Unilateral primary [...] 10-14-2022 Episodic Other inflammatory condition of skin (3 sources) Rosacea; Translations: [Rosacea, unspecified] Onset: 11-25-2022 11-25-2022 Chronic Other male genital disorders (1 source) 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; Translations: [Vascular disorders of male genital organs] Onset: 10-17-2023 Chronic Other male genital disorders (1 source) Hemorrhage of scrotum 10-17-2023 Chronic Other nervous system disorders (3 sources) Cervical myelopathy; Translations: [Disease of spinal cord, unspecified] Onset: 11-25-2022 11-25-2022 Chronic Other screening for suspected conditions (not mental disorders or infectious disease) (1 source) Encounter for screening for malignant neoplasm of prostate; Translations: [ENC SCREEN MALIG NEOPLASM PROSTATE] Onset: 03-13-2022 Episodic Spondylosis; intervertebral disc disorders; other back problems (3 sources) Cervical spondylosis; Translations: [Spondylosis without myelopathy or radiculopathy, cervical region] Onset: 11-25-2022 11-25-2022 Chronic Spondylosis; intervertebral disc disorders; other back problems (4 sources) Radiculopathy, lumbar region; Translations: [Spinal stenosis of lumbar region] Onset: 04-17-2022 12-10-2023 Episodic Past or Other Problems Problem Classification Problem Date Documented Da te Episodic/Chronic Mood disorders (3 sources) Mood disorders Onset: 04-17-2023 04-17-2023 Results Test [...] with Buddy JACOBO MD, URL When: Where: [address] [place] [address]- Medications What How Much When Instructions Unchanged [...] wav (more content not included)... Normal [facility] Urology Office/Clinic Noteon 10-17-2023 Urology [...] was bleeding. Follow-up With When Contact Information Buddy JACOBO MD, URL [address] [place] [address]- Additional Instructions: 1 year w/ KUB Patient Education Benign Prostatic Hyperplasia I, Marina Barclay, personally scribed for Dr. Jacobo on 10/17/2023 12:03:19. . Documentation recorded by the scribeMarina, accurately reflects the services(s) I performed and [...] Daily hydrochl (more content not included)... Normal [facility] Comment on above: Result Comment: Elec tronically Signed By: Buddy JACOBO MD\.br\Date and Time Signed: 10/17/23 12:04 EDT\.br\Electronically Co-Signed By: Marina Barclay\.br\Date and Time Co-Signed: 10/17/23 12:03 EDT MR [...] detailed. Hepatomegaly. ELECTRONICALLY SIGNED BY: Solis Quinones, DO Normal Not Available [facility] MICROALB CREAT RATIO RAN DOMon 04-23-2023 CREATININE URINE RANDOM 41.74 mg/dL 20.00 - 300.00 mg/dL [facility] Interpretation and review of laboratory results Abnormal [facility] MICROALBUM CREATININE RATIO UR 31.1 mg/g High 0.0 - 29.9 mg/g [facility] Comment on above: NO MICROALBUMINURIA 0-29 MG/G CLINICAL MICROALBUMINURIA 30-300 MG/G MACROALBUMINURIA >300 MG/G MICROALBUMIN URINE RANDOM <1.3 NINF - 30.0 mg/dL [facility] XR pre/post mri xrayon 04-17 XR pre/post mri xray [facility] [place] [address] MRI Report Signed Patient: Jd Apodaca MR#: [id number] : 1945 Acct:[id number] Age/Sex: 77 / M ADM Date: 04/17/22 Loc: [facility] Room: Type: [facility] CLI Attending Dr: Christian Raymond Jr DO Copies to: Christian Raymond Jr, DO Ordering Provider: Christian Raymond Jr, DO Date of Service: 04/17/22 MR/MR lumbar spine wo con: M54.16 ([id number]) XR/XR pre/post mri xray: LUMBAR MRI MR [...] Baltazar Mcdermott M.D.04/17/2022 1:38 PM Dictation Location: [place] [address] Transcribed By: [facility] 04/17/22 1338 Dictated By: Baltazar Mcdermott II, MD 04/17/22 1329 Signed By: 04/17/22 1338 Normal [facility] PSA, FREE AND TOTAL RATIOon 03-06-2022 % Free PSA 22.0 % Normal [facility] Comment on above: Result Comment: The [...] men. Performed By: #### P SAFREE #### [facility] [address] [place] [address] Dr. Magalie Ceron Prostate specific Ag [Mass/Vol] 1.0 ng/mL Normal 0.0-4.0 [facility] Comment on above: Result Comment: Joseph woodard ECLBROCK methodology. . According to the [employer], Serum PSA should decrease and [...] disease. Performed By: #### P SAFREE #### [facility] [address] [place] [address] Dr. Magalie Ceron PSA, Free 0.22 ng/mL Normal N/A [facility] Comment on above: Result Comment: Joesph MERCADOIA methodology. Performed By: #### P SAFREE #### [facility] [address] [place] [address] Dr. Magalie Ceron CBC AUTO DIFFon 03-05-2022 BASO # 0.1 103/ul Normal 0.0-0.1 [facility] Comment on above: Performed By: #### C BC #### [facility] [address] [place] [address] Dr. Magalie Ceron Basophils/100 WBC (Bld) 0.8 % Normal 0.2-2.0 [facility] Comment on above: Performed By: #### C BC #### [facility] [address] [place] [address] Dr. Magalie Ceron EO # 0.1 103/ul Normal 0.0-0.7 [facility] Comment on above: Performed By: #### C BC #### [facility] [address] [place] [address] Dr. Magalie Ceron Eosinophils/100 WBC (Bld) 1.5 % Normal 0.9-7.0 [facility] Comment on above: Performed By: #### C BC #### [facility] [address] [place] [address] Dr. Magalie Ceron Erythrocyte distribution width (RBC) [Ratio] 13.5 % Normal 11.0-15.0 [facility] Comment on above: Performed By: #### C BC #### [facility] [address] [place] [address] Dr. Magalie Ceron Hematocrit (Bld) [Volume fraction] 43.7 % Normal 42.0-54.0 [facility] Comment on above: Performed By: #### C BC #### [facility] [address] [place] [address] Dr. Magalie Ceron Hemoglobin (Bld) [Mass/Vol] 15.1 g/dL Normal 14.0-18.0 [facility] Comment on above: Performed By: #### C BC #### [facility] [address] [place] [address] Dr. Magalie Ceron IG # 0.04 10e3/ul Critically high 0.00-0.03 [facility] Comment on above: Performed By: #### C BC #### [facility] [address] [place] [address] Dr. Magalie Ceron IG % 0.6 % Critically high 0.0-0.5 [facility] Comment on above: Performed By: #### C BC #### [facility] [address] [place] [address] Dr. Magalie Ceron LYMPH # 2.6 103/ul Normal 1.2-3.8 [facility] Comment on above: Performed By: #### C BC #### [facility] [address] [place] [address] Dr. Magalie Ceron Lymphocytes/100 WBC (Bld) 35.5 % Normal 20.5-60.0 [facility] Comment on above: Performed By: #### C BC #### [facility] [address] [place] [address] Dr. Magalie Ceron MANUAL DIFF REQ NO Normal [facility] Comment on above: Performed By: #### C BC #### [facility] [address] [place] [address] Dr. Magalie Ceron MCH (RBC) [Entitic mass] 31.8 pg Normal 25.9-34.0 [facility] Comment on above: Performed By: #### C BC #### [facility] [address] [place] [address] [address] Magalie Ceron MCHC (RBC) [Mass/Vol] 34.6 g/dL Normal 29.9-35.2 [facility] Comment on above: Performed By: #### C BC #### [facility] [address] [place] [address] [address] Magalie Ceron MCV (RBC) [Entitic vol] 92.0 fL Normal 80.0-94.0 [facility] Comment on above: Performed By: #### C BC #### [facility] [address] [place] [address] [address] Magalie Ceron MONO # 0.7 103/ul Normal 0.3-0.8 [facility] Comment on above: Performed By: #### C BC #### [facility] [address] [place] [address] Dr. Magalie Ceron Monocytes/100 WBC (Bld) 9.3 % Normal 1.7-12.0 [facility] Comment on above: Performed By: #### C BC #### [facility] [address] [place] [address] Dr. Magalie Ceron NEUT # 3.8 103/ul Normal 1.4-6.5 [facility] Comment on above: Performed By: #### C BC #### [facility] [address] [place] [address] Dr. Magalie Ceron Neutrophils/100 WBC (Bld) 52.3 % Normal 43.0-75.0 [facility] Comment on above: Performed By: #### C BC #### [facility] [address] [place] [address] Dr. Magalie Ceron Platelet mean volume (Bld) [Entitic vol] 8.8 fL Critically low 9.5-13.5 [facility] Comment on above: Performed By: #### C BC #### [facility] [address] [place] [address] Dr. Magalie Ceron PLT 308 103/ul Normal 150-450 [facility] Comment on above: Performed By: #### C BC #### [facility] [address] [place] [address] [address] Magalie Ceron RBC 4.75 106/ul Normal 4.70-6.10 [facility] Comment on above: Performed By: #### C BC #### [facility] [address] [place] [address] [address] Magalie Ceron WBC 7.2 103/ul Normal 4.0-11.0 [facility] Comment on above: Performed By: #### C BC #### [facility] [address] [place] [address] [address] Magalie Ceron LIPID PROFILEon 03-05-2022 CHOL-HDL RATIO NORM SEE BELOW Normal [facility] Comment on above: Result Comment: 3.3 - 4.4 LOW RISK 4.4 - 7.1 AVERAGE RISK 7.1 - 11.0 MODERATE RISK >11.0 HIGH RISK Performed By: #### C MP, LIPID #### [facility] [address] [place] [address] Dr. Magalie Ceron Cholesterol [Mass/Vol] 216 mg/dL Critically high <=200 [facility] Comment on above: Performed By: #### C MP, LIPID #### [facility] [address] [place] [address] [address] Magalie Ceron Cholesterol in HDL [Mass/Vol] 53 mg/dL Normal 40-60 [facility] Comment on above: Performed By: #### C MP, LIPID #### [facility] [address] [place] [address] [address] Magalie Ceron Cholesterol in LDL [Mass/Vol] 118.0 mg/dL Normal [facility] Comment on above: Performed By: #### C MP, LIPID #### [facility] [address] [place] [address] [address] Magalie Ceron Cholesterol.total/C holesterol in HDL [Mass ratio] 4.1 {ratio} Normal [facility] Comment on above: Performed By: #### C MP, LIPID #### [facility] [address] [place] [address] Dr. Magalie Ceron HDL NORMAL > or = 60 mg/dl - LO W CARDIOVASCULAR RISK <40 mg/dl - HIGH CARDIOVASCULAR RISK Normal [facility] Comment on above: Performed By: #### C MP, LIPID #### [facility] [address] [place] [address] [address] Magalie Ceron LDL CALC NORMAL SEE BELOW Normal [facility] Comment on above: Result Comment: <100 mg/dl OPTIMAL 100 - 129 mg/dl NEAR OR ABOVE OPTIMAL 130 - 159 mg/dl BORDERLINE HIGH 160 - 189 mg/dl HIGH >190 mg/dl VERY HIGH Performed By: #### C MP, LIPID #### [facility] [address] [place] [address] [address] Magalie Ceron Triglyceride [Mass/Vol] 225 mg/dL Critically high <=150 [facility] Comment on above: Performed By: #### C MP, LIPID #### [facility] [address] [place] [address] [address] Magalie Ceron VLDL CALC 45.0 mg/dL Normal [facility] Comment on above: Performed By: #### C MP, LIPID #### [facility] [address] [place] [address] [address] Magalie Ceron MICROALB CREAT RATIO RANDOMo n 03-05-2022 mALB <1.3 Normal <=30.0 [facility] Comment on above: Performed By: #### M CRR #### [facility] [address] [place] [address] [address] Magalie Ceron MALB CR RATIO 13.5 mg/g Normal 0.0-29.9 [facility] Comment on above: Performed By: #### M CRR #### [facility] [address] [place] [address] [address] Magalie Ceron MALB CR RATIO RANGE SEE BELOW Normal [facility] Comment on above: Result Comment: NO M ICROALBUMINURIA 0-29 MG/G CLINICAL MICROALBUMINURIA 30-300 MG/G MACROALBUMINURIA >300 MG/G Performed By: #### M CRR #### [facility] [address] [place] [address] [address] Magalie Ceron URINE CREAT 96.12 mg/dL Normal 20.00-300.00 [facility] Comment on above: Performed By: #### M CRR #### [facility] [address] [place] [address] [address] Magalie Ceron PROF 14(COMP METB)on 022 Albumin [Mass/Vol] 4.1 g/dL Normal 3.4-5.0 [facility] Comment on above: Performed By: #### C MP, LIPID #### [facility] [address] [place] [address] Dr. Magalie Ceron Albumin/Globulin [Mass ratio] 1.2 {ratio} Normal [facility] Comment on above: Performed By: #### C MP, LIPID #### [facility] [address] [place] [address] Dr. Magalie Ceron ALP [Catalytic activity/Vol] 73 U/L Normal 46-116 [facility] Comment on above: Performed By: #### C MP, LIPID #### [facility] [address] [place] [address] Dr. Magalie Ceron ALT [Catalytic activity/Vol] 34 U/L Normal 16-63 [facility] Comment on above: Performed By: #### C MP, LIPID #### [facility] [address] [place] [address] [address] Magalie Ceron Anion gap [Moles/Vol] 9.2 mmol/L Normal [facility] Comment on above: Performed By: #### C MP, LIPID #### [facility] [address] [place] [address] [address] Magalie Ceron AST [Catalytic activity/Vol] 25 U/L Normal 15-37 [facility] Comment on above: Performed By: #### C MP, LIPID #### [facility] [address] [place] [address] [address] Magalie Ceron Bilirubin [Mass/Vol] 1.6 mg/dL Critically high 0.2-1.0 [facility] Comment on above: Performed By: #### C MP, LIPID #### [facility] [address] [place] [address] Dr. Magalie Ceron Calcium [Mass/Vol] 8.9 mg/dL Normal 8.5-10.1 [facility] Comment on above: Performed By: #### C MP, LIPID #### [facility] [address] [place] [address] [address] Magalie Ceron Chloride [Moles/Vol] 100 mmol/L Normal 98-107 [facility] Comment on above: Performed By: #### C MP, LIPID #### [facility] [address] [place] [address] [address] Magalie Ceron CO2 [Moles/Vol] 32.5 mmol/L Critically high 21.0-32.0 [facility] Comment on above: Performed By: #### C MP, LIPID #### [facility] [address] [place] [address] [address] Magalie Ceron Creatinine [Mass/Vol] 0.96 mg/dL Normal 0.70-1.30 [facility] Comment on above: Performed By: #### C MP, LIPID #### [facility] [address] [place] [address] Dr. Magalie Ceron EGFR-AF BURKINAN >60 Normal >=60 [facility] Comment on above: Performed By: #### C MP, LIPID #### [facility] [address] [place] [address] [address] Magalie Ceron EGFR-NON AF BURKINAN >60 Normal >=60 [facility] Comment on above: Performed By: #### C MP, LIPID #### [facility] [address] [address] [address] Magalie Ceron Globulin (S) [Mass/Vol] 3.3 g/dL Normal [facility] Comment on above: Performed By: #### C MP, LIPID #### [facility] [address] [place] [address] Dr. Magalie Ceron Glucose [Mass/Vol] 88 mg/dL Normal 74-106 [facility] Comment on above: Performed By: #### C MP, LIPID #### [facility] [address] [address] [address] Magalie Ceron Potassium [Moles/Vol] 3.7 mmol/L Normal 3.5-5.1 [facility] Comment on above: Performed By: #### C MP, LIPID #### [facility] [address] [place] [address] [address] Magalie Ceron Protein [Mass/Vol] 7.4 g/dL Normal 6.4-8.2 [facility] Comment on above: Performed By: #### C MP, LIPID #### [facility] [address] [address] [address] Magalie Ceron Sodium [Moles/Vol] 138 mmol/L Normal 136-145 [facility] Comment on above: Performed By: #### C MP, LIPID #### [facility] [address] [place] [address] [address] Magalie Ceron Urea nitrogen [Mass/Vol] 11.0 mg/dL Normal 7.0-18.0 [facility] Comment on above: Performed By: #### C MP, LIPID #### [facility] [address] [address] [address] Magalie Ceron Urea nitrogen/Creatinine [Mass ratio] 11.5 mg/mg Normal [facility] Comment on above: Performed By: #### C MP, LIPID #### [facility] [address] [address] [address] Magalie Ceron XR KUB 1 VIEWon [...] by: TANIA SAXENA Date: 2021-09-20 17:32 Normal [facility] BMP Standardon 11-25-2019 eGFR Non AA >60 [facility] Comment on above: Performed By: #### 1 [id number], [id number], [id number] #### [facility] (DEFAULT) [address] [place] [address] eGFR AA >60 [facility] Comment on above: Result Comment: Associate Director Of Sales ernesto Kidney disease could be indicated at eGFRs of less than 60 ml/min/1.73m2. Kidney Failure is indicated at less than 15 ml/min/1.73m2 Performed By: #### 1 [id number], [id number], [id number] #### [facility] (DEFAULT) [address] [place] [address] Anion gap [Moles/Vol] 15.0 mmol/L Normal 5.0-19.0 [facility] Comment on above: Performed By: #### 1 [id number], [id number], [id number] #### [facility] (DEFAULT) [address] [place] [address] Calcium [Mass/Vol] 8.8 mg/dL Low 8.9-10.3 [facility] Comment on above: Performed By: #### 1 [id number], [id number], [id number] #### [facility] (DEFAULT) [address] [place] [address] Chloride [Moles/Vol] 99 mmol/L Low 101-111 [facility] Comment on above: Performed By: #### 1 [id number], [id number], [id number] #### [facility] (DEFAULT) [address] [place] [address] CO2 [Moles/Vol] 26 mmol/L Normal 21-32 [facility] Comment on above: Performed By: #### 1 [id number], [id number], [id number] #### [facility] (DEFAULT) [address] [place] [address] 63270 Creatinine [Mass/Vol] 0.81 mg/dL Low 0.90-1.30 [facility] Comment on above: Performed By: #### 1 [id number], [id number], [id number] #### [facility] (DEFAULT) [address] [place] [address] 64604 Glucose [Mass/Vol] 93.0 mg/dL Normal 74.0-118.0 [facility] Comment on above: Performed By: #### 1 [id number], [id number], [id number] #### [facility] (DEFAULT) [address] [place] [address] 46652 Osmolality [Osmolality] 274 mOsm/L [facility] Comment on above: Performed By: #### 1 [id number], [id number], [id number] #### [facility] (DEFAULT) [address] [place] [address] 86648 Potassium [Moles/Vol] 3.4 mmol/L Low 3.6-5.1 [facility] Comment on above: Performed By: #### 1 [id number], [id number], [id number] #### [facility] (DEFAULT) [address] [place] [address] 54963 Sodium [Moles/Vol] 137.0 mmol/L Normal 136.0-144.0 [facility] Comment on above: Performed By: #### 1 [id number], [id number], [id number] #### [facility] (DEFAULT) [address] [place] [address] 48766 Urea nitrogen [Mass/Vol] 13 mg/dL Normal 8-26 [facility] Comment on above: Performed By: #### 1 [id number], [id number], [id number] #### [facility] (DEFAULT) [address] [place] [address] 54781 Urea nitrogen/Creatinine [Mass ratio] 16.0 mg/mg Normal 4.6-16.2 [facility] Comment on above: Performed By: #### 1 [id number], [id number], [id number] #### [facility] (DEFAULT) [address] [place] [address] 45935 Lipid Panel Standardon 11-24 Cholesterol [Mass/Vol] 218.0 mg/dL High 66.0-200.0 [facility] Comment on above: Result Comment: Laura rable - Less than 200 mg/dL Borderline high risk - 200-239 mg/dL High risk - 240 mg/dL and over. Performed By: #### 1 [id number], [id number], [id number] #### [facility] (DEFAULT) [address] [place] [address] 53622 Cholesterol in HDL [Mass/Vol] 47 mg/dL Normal 40-71 [facility] Comment on above: Result Comment: High risk - <40 mg/dL. Performed By: #### 1 [id number], [id number], [id number] #### [facility] (DEFAULT) [address] [place] [address] 58655 Cholesterol in LDL [Mass/Vol] 137 mg/dL High 1-100 [facility] Comment on above: Result Comment: Opti mal - Less than 100 mg/dL Borderline high risk - 130-159 mg/dL High risk - 160-189 mg/dL. Performed By: #### 1 [id number], [id number], [id number] #### [facility] (DEFAULT) [address] [place] [address] 54812 Cholesterol.total/C holesterol in HDL [Mass ratio] 4.6 {ratio} High 0.0-4.5 [facility] Comment on above: Performed By: #### 1 [id number], [id number], [id number] #### [facility] (DEFAULT) [address] [place] [address] 89535 Triglyceride [Mass/Vol] 172.0 mg/dL High 0.0-150.0 [facility] Comment on above: Performed By: #### 1 [id number], [id number], [id number] #### [facility] (DEFAULT) [address] [place] [address] 42071 VLDL. 34 mg/dL Normal 5-40 [facility] Comment on above: Performed By: #### 1 [id number], [id number], [id number] #### [facility] (DEFAULT) [address] [place] [address] 85569 SARS-CoV-2 (COVID-19) IgG An tibodies(Noon 11-25-2019 Employed in healthcare? No [facility] Comment on above: Performed By: #### 1 [id number], [id number], [id number] #### [facility] (DEFAULT) [address] [place] [address] 47987 Group care resident? No [facility] Comment on above: Performed By: #### 1 [id number], [id number], [id number] #### [facility] (DEFAULT) [address] [place] [address] Hospitalized due to COVID-19? No [facility] Comment on above: Performed By: #### 1 [id number], [id number], [id number] #### [facility] (DEFAULT) [address] [place] [address] In ICU? No [facility] Comment on above: Performed By: #### 1 [id number], [id number], [id number] #### [facility] (DEFAULT) [address] [place] [address] status? Not [facility] Comment on above: Performed By: #### 1 [id number], [id number], [id number] #### [facility] (DEFAULT) [address] [place] [address] SARS-CoV-2 (COVID-19) IgG Abs Non-Reactive Normal Non-Reactive [facility] Comment on above: Result Comment: Test results should be interpreted in light of the total clinical presentation of the patient, including: symptoms, clinical history, data from additional tests, and other appropriate information. Detects IgG Abs 14-20 days post infection (varies by individual) Equivocal Results: retest in 1-2 weeks Positive Results may be due to past or present infection with gdj-LOLF-EzI-2 coronavirus strains, such as coronavirus HKU1, NL63, OC43, or 229E. Performed By: #### 1 [id number], [id number], [id number] #### [facility] (DEFAULT) [address] [place] [address] Symptomatic as defined by CDC? No [facility] Comment on above: Performed By: #### 1 [id number], [id number], [id number] #### [facility] (DEFAULT) [address] [place] [address] 84696 Vital Signs Date Time Vital Sign Value Performing Clinician Octavio jacques 10-17-2023 11:02-0400 Blood Pressure Location Buddy JACOBO [facility] 10-17-2023 11:02-0400 Diastolic blood pressure 81 mm[Hg] Buddy JACOBO [facility] 10-17-2023 11:02-0400 Heart rate 74 /min Buddy JACOBO [facility] 10-17-2023 11:02-0400 Respiratory rate 16 /min Buddy JACOBO [facility] 10-17-2023 11:02-0400 Systolic blood pressure 133 mm[Hg] Buddy JACOBO [facility] 10-15-2022 13:45-0400 Blood Pressure Location Buddy JACOBO [facility] 10-15-2022 13:45-0400 Diastolic blood pressure 87 mm[Hg] Buddy JACOBO [facility] 10-15-2022 13:45-0400 Heart rate 91 /min Buddy JACOBO [facility] 10-15-2022 13:45-0400 Systolic blood pressure 150 mm[Hg] Buddy JACOBO [facility] 09-28-2021 10:27-0400 Blood Pressure Location Buddy JACOBO [facility] 09-28-2021 10:27-0400 Diastolic blood pressure 81 mm[Hg] Buddy JACOBO [facility] 09-28-2021 10:27-0400 Heart rate 70 /min Buddy JACOBO [facility] 09-28-2021 10:27-0400 Respiratory rate 16 /min Buddy JACOBO [facility] 09-28-2021 10:27-0400 Systolic blood pressure 123 mm[Hg] Buddy JACOBO [facility] Encounters Encounter Date Encounter Type Care Provider Facility Start: 10-18-2024 [address] [facility] [facility] Start: 12-18-2023 End: 12-18-2023 ambulatory KIMBERLY DOCKERY Not Available Start: 12-16-2023 End: 12-16-2023 ambulatory Pratik Evgeny PT [facility] Comment on above: Spinal stenosis of l umbar region without neurogenic claudication (Primary Dx) Start: 12-16-2023 End: 12-16-2023 Bamboo flowsheet Pratik Evgeny PT [facility] Start: 12-16-2023 End: 12-16-2023 Bamboo flowsheet Pratik Evgeny PT [facility] Start: 12-10-2023 End: 12-10-2023 ambulatory PRATIK EVGENY Not Available Start: 10-29-2023 End: 10-29-2023 ambulatory CHRISTIAN DE LA GARZA Not Available Start: 10-17-2023 End: 10-17-2023 ambulatory Buddy JACOBO Facility:[facility] Start: 10-17-2023 End: 10-17-2023 Patient encounter procedure Buddy JACOBO [facility] Start: 10-09-2023 End: 10-09-2023 ambulatory CHRISTIAN DE LA GARZA Not Available Start: 09-29-2023 End: 09-29-2023 ambulatory CHRISTIAN DE LA GARZA Not Available Start: 06-26-2023 End: 06-26-2023 ambulatory ZEUS BONNER Not Available Start: 05-30-2023 End: 05-30-2023 ambulatory CHRISTIAN DE LA GARZA Not Available Start: 05-06-2023 End: 05-06-2023 ambulatory KATHERINE Fontaine FELTER Not Available Start: 04-23-2023 Clinisync Result Encounter Zeus Bonner DO Work Phone: [facility] Unsolicited Start: 04-23-2023 Clinisync Result Encounter Zeus Bonner DO Work Phone: [facility] Unsolicited Start: 04-17-2023 End: 04-17-2023 ambulatory ZEUS BONNER Not Available Start: 03-24-2023 End: 03-24-2023 ambulatory CHRISTIAN DE LA GARZA STEPCARLO Not Available Start: 02-27-2023 End: 02-27-2023 ambulatory KATHERINE Fontaine FELTER Not Available Start: 10-15-2022 End: 10-15-2022 Patient encounter procedure Buddy JACOBO [facility] Start: 04-17-2022 End: 04-17-2022 ambulatory Christian Raymond Jr Facility:[facility] Start: 03-05-2022 End: 03-06-2022 ambulatory CHELSEY DALEY Facility:[facility] Start: 09-28-2021 End: 09-28-2021 Patient encounter procedure Buddy JACOBO [facility] Start: 09-20-2021 End: 09-21-[address] ZEUS BONNER Facility:[facility] Procedures Date Procedure Procedure Detail Performing Clinician Start: 04-23-2023 [facility] KEVIN Bonner DO Work Phone: Start: 10-15-2022 Cystoscopy Buddy OLVERA Start: 02-22-2015 Transurethral incisi on of bladder neck Buddy JACOBO Start: 03-22-2014 Cystoscopy Buddy OLVERA Start: 12-16-2013 Transurethral prostatectomy Buddy JACOBO Start: 08-04-2012 Laser ablation of prostate Buddy JACOBO Start: 05-26-2012 Cystoscopy Buddy OLVERA Start: 05-06-2012 Urodynamic studies Vic JACOBO Start: 09-06-2008 Cystoscopy Buddy OLVERA Colonoscopy Buddy JACOBO Colonoscopy Buddy JACOBO Tonsillectomy Buddy JACOBO Tonsillectomy Buddy JACOBO Plan of Treatment Date Care Activity Detail Author Start: 05-06-2024 End: 05-06-2024 Patient encounter procedure 05/06/2024 10:40 AM EST Office Visit [facility] [address] [place] [address] Katherine Roth, AUTOMOTIVE DRIVABILITY TECHNICIAN-LOG CLERK [address] [place] [address] [facility] Start: 04-17-2024 Medicare Annual Well ness (AWV) Medicare Annual Wellness (AWV) [facility] Start: 01-08-2024 End: 01-08-2024 ambulatory 01/08/2024 2:30 PM EDT Treatment [facility] [address] [place] [address] Kimberly Dockery PTA [facility] Start: 01-06-2024 End: 01-06-2024 ambulatory 01/06/2024 2:30 PM EDT Treatment [facility] [address] [place] [address] Pratik Pepper, PT [facility] Start: 01-01-2024 End: 01-01-2024 ambulatory 01/01/2024 2:30 PM EDT Treatment [facility] [address] [place] [address] Kimberly Dockery, HOUSEKEEPING WORKER [facility] Start: 12-30-2023 End: 12-30-2023 ambulatory 12/30/2023 2:30 PM EDT Treatment [facility] [address] [place] [address] Pratik Pepper, PT [facility] Start: 12-25-2023 End: 12-25-2023 ambulatory 12/25/2023 1:30 PM EDT Treatment [facility] [address] [place] [address] Kimberly Dockery, HOUSEKEEPING WORKER [facility] Start: 12-23-2023 End: 12-23-2023 ambulatory 12/23/2023 2:30 PM EDT Treatment [facility] [address] [place] [address] Pratik Pepper, PT [facility] Start: 12-18-2023 End: 12-18-2023 ambulatory 12/18/2023 2:30 PM EDT Treatment [facility] [address] [place] [address] Kimberly Dockery, HOUSEKEEPING WORKER [facility] Start: 12-16-2023 End: 12-16-2023 ambulatory 12/16/2023 2:30 PM EDT Treatment [facility] [address] [place] [address] Pratik Pepper, PT Arrived [facility] Comment on above: Arrived Start: 11-16-2023 Influenza vaccination [facility] Start: 05-30-2023 End: 05-30-2023 Patient encounter procedure 05/30/2023 10:30 AM EDT Office Visit [facility] [address] [place] [address] Jr. Christian Raymond, DO [address] [place] [address] [facility] Start: 05-06-2023 End: 05-06-2023 Patient encounter procedure 05/06/2023 10:50 AM EST Office Visit [facility] [address] [place] [address] Katherine Roth, AUTOMOTIVE DRIVABILITY TECHNICIAN-LOG CLERK [address] [place] [address] [facility] Start: 03-04-2023 Medicare Annual Well ness (AWV) Medicare Annual Wellness (AWV) [facility] Start: 11-15-2022 Influenza vaccination Influenza Vacc ine (#1) [facility] Immunizations Immunization Date Immunization Notes Care Provider Fa scott 02-21-2022 Moderna Bivalent Coleman ster Vaccination Zeus Bonner DO Work Phone: [facility] 02-21-2022 SARS-CoV-2 (COVID-19 ) [id number] Buddy JACOBO [facility] 01-11-2021 SARS-CoV-2 (COVID-19 ) mRNA BNT-162b2 vax Buddy JACOBO [facility] 12-20-2020 influenza virus vacc ine, unspecified formulation Buddy JACOBO [facility] 12-20-2020 influenza, injectabl e, quadrivalent, contains preservative Zeus Bonner DO Work Phone: [facility] 05-03-2020 SARS-CoV-2 (COVID-19 ) mRNA BNT-162b2 vax Buddy JACOBO [facility] Comment on above: Result Comment: 2022: [id number] 04-12-2020 SARS-CoV-2 (COVID-19 ) mRNA BNT-162b2 vax Buddy JACOBO [facility] Comment on above: Result Comment: 2022: [id number] 12-20-2019 influenza virus vacc ine, unspecified formulation Buddy JACOBO [facility] 12-20-2019 Seasonal, quadrivale nt, recombinant, injectable influenza vaccine, preservative free Zeus Bonner DO Work Phone: [facility] 01-12-2018 influenza virus vacc ine, unspecified formulation Buddy JACOBO [facility] 01-12-2018 influenza, injectabl e, quadrivalent, preservative free Zeus Bonner DO Work Phone: [facility] 01-08-2017 influenza, seasonal, injectable, preservative free Zeus Bonner DO Work Phone: [facility] 12-24-2016 influenza virus vacc ine, unspecified formulation Buddy JACOBO [facility] 12-24-2016 seasonal influenza, intradermal, preservative free Zeus Bonner DO Work Phone: [facility] 01-29-2016 pneumococcal polysaccharide vaccine, 23 valent Zeus Bonner DO Work Phone: [facility] 12-20-2015 influenza virus vacc ine, unspecified formulation Buddy JACOBO [facility] 12-20-2015 influenza, injectabl e, quadrivalent, preservative free Zeus Bonner DO Work Phone: [facility] 02-01-2015 pneumococcal conjuga te vaccine, 13 valent Zeus Bonner DO Work Phone: [facility] 01-09-2015 influenza, seasonal, injectable, preservative free Zeus Kailey DO Work Phone: [facility] Payers Date Payer Category Payer Self-pay 2022 Unknown AARP AARP [id number] 2022-Present [address] [place] [address] [id number] 2009 Medicare MEDICARE MEDICAR E PART B [id number] 2009-Present [address] [address] [place] [address] Medicare [id number] 2009 Unknown [id number] 1959 Medicare [id number] 1945 Unknown [id number] [id number]3 1945 Unknown [id number] 2.16.840.1.609139.3.579.2.593 1945 Unknown [id number] 2.16.840.1.829111.3.579.2.727 1945 Unknown [id number] 2.16.840.1.236858.3.579.2.727 1945 Unknown [id number] 2.16.840.1.897774.3.579.2.1259 1945 Unknown [id number] 2.16.840.1.493887.3.579.2.1259 1945 Unknown [id number] 2.16.840.1.374706.3.579.2.1259 1945 Unknown [id number] 2.16.840.1.286409.3.579.2.1259 1945 Unknown [id number] 2.16.840.1.176923.3.579.2.1259 1945 Unknown [id number] 2.16.840.1.925977.3.579.2.1259 1945 Unknown [id number] 2.16.840.1.226565.3.579.2.1259 1945 Unknown [id number] 2.16.840.1.799733.3.579.2.1259 1945 Unknown [id number] 2.16.840.1.279034.3.579.2.1259 1945 Unknown [id number] 2.16.840.1.590198.3.579.2.1259 1945 Unknown [id number] 2.16.840.1.206723.3.579.2.1259 1945 Unknown [id number] 2.16.840.1.803794.3.579.2.1259 1945 Unknown [id number] 2.16.840.1.715219.3.579.2.1259 1945 Unknown [id number] 2.16.840.1.861005.3.579.2.1259 1945 Unknown [id number] 2.16.840.1.175340.3.579.2.1259 Unknown [id number] 2.16.840.1.871640.3.579.2.531 Social History Date Type Detail Facility Start: 09-29-2020 End: 04-17-2023 Tobacco smoking status Never smoked tobacco (finding) [facility] Start: 04-10-2023 End: 04-17-2023 Sex Assigned At Male [facility] Tobacco smoking status Never [facility] [place] Start: 04-17-2023 Tobacco use and exposure Smokeless tobacco non-user [facility] Start: 04-17-2023 End: 10-29-2023 Alcohol intake Lifetime non-drinker (finding) [facility] Start: 04-10-2023 End: 04-17-2023 History of [...] Gender identity Identifies as male gender (finding) [facility] Start: 08-22-2022 Sexual orientation Heterosexual (fin ding) [facility] NEGATED: Highlighted rowStart: NINF History of tobacco use Passive smoker [facility] Functional Status Date Assessment Result Facility 10-17-2023 Functional Status N/A [facility] 10-15-2022 Functional Status N/A [facility] 09-28-2021 Functional Status N/A [facility] Clinical Notes 09-28-2021 to 12-16-2023 Pratik Pepper, PT - 12/16/2023 2:30 PM EDT Note Date & Type Note Facility 12-16-2023 History of Present illness Narrative Images from the original note were not included. Physical Therapy Physical Therapy Treatment Visit Patient Name: Jd Apodaca Today's Date: 12/16/2023 Encounter Diagnoses Name Primary? Spinal stenosis of lumbar region without neurogenic claudication Yes Visit number: 2 Started session 5' early Supervised time: 45 min Total time: 55 min Imaging: EXAM: MR LUMBAR SPINE WO CONTRAST Findings: The conus medullaris ends normally. Minimal [...] neural foraminal stenosis. No spinal canal stenosis. Precautions: lower back surgery posterior decompression done in 2019. Subjective Pain: 3-06/24 low back Overall progress: Compliant with HEP. Pt says he feels more flexible and more loose but the pain is still present. More L sided than R sided. Treatment: Therapeutic Exercise: per grid for improving lumbar/LE ROM, hip strength, and core stability x45' supervised Modalities: MHP to low back post session 10' Assessment/Plan Good tolerance to first PT session. Focused on lumbar ROM and light core/hip stability exercises. Minor discomfort with HS s; pt tracing HS muscle and somewhat into his back when showing where the pain was with this exercise. Pt needing education to reduce intensity for clams, bridges, and PPT in order to lessen his pain. Most of pt's pain seems to be on the L side today in his lumbar. Assess 24 hr response and progress as able with lumbar ROM, core strength, and hip strength. documented in this encounter [facility] 10-17-2023 Hospital Discharge instructions Patient Education 10/17/2023 [...] urethra. Follow these instructions at home: Take dvqx-zss-ussiumh and prescription medicines only as told by [...] provider. Document Revised: 09/19/2021 Document Reviewed: 09/19/2021 [employer] Patient Education 2022 [employer]. Follow Up Care 10/15/2022 14:25:03 With:CELESTINA VIDAL, Buddy Zhang, URL Address: [address] [place] [address]- When: Unknown [facility] 10-17-2023 Note Patient Education Urology Benign Prostatic [...] Follow these instructions at home: ? Take xlof-roo-sttzwgz and prescription medicines only as told by [...] develop side effec (more content not included)... [facility] 10-15-2022 Hospital Discharge instructions Patient Education 10/15/2022 14:00:05 Dietary Guidelines [...] include: ?8 oz (237 mL) of milk, gqnnwxk-mpfvvywxjlnc-xqihp milk, and calcium-fortifiedfruit juice. Calcium-fortified means that [...] ?Spinach (cooked), rhubarb, beets, sweet potatoes, and Gu[place] chard. ?Peanuts. ?Potato chips, serbian fries, and baked potatoes with skin on. ?Nuts and nut products. ?Chocolate. If you regularly take a diuretic medicine, make sure to eat at least 1 or 2 servings of fruits or vegetables that are high in potassium each day. These include: ?Avocado. ?Banana. ?[place], prune, carrot, or tomato juice. ?Baked potato. [...] magnesium, fish oil, or vitamin B6. Take eono-oos-evmgjww and prescription medicines only as told by [...] Casseroles. Pizza. Lasagna. Frozen meals. Potato chips. [place] fries. The items listed above may not [...] provider. Document Revised: 11/12/2021 Document Reviewed: 11/12/2021 Elsevier Patient Education 2022 [employer]. Follow Up Care 10/08/2022 11:09:42 With:CELESTINA VIDAL, Buddy Zhang, URL Address: [facility] [address] [place] [address]- When: Unknown [facility] 07-15-2022 Hospital Discharge instructions Patient Education 09/28/2021 10:58:48 Kidney Stones, Njeb-iu-Idih Kidney Stones Kidney stones are rock-like masses [...] Follow these instructions at home: Medicines Take hxwh-vmi-ijjkpnp and prescription medicines only as told by [...] 08/19/2008 Document Revised: 07/20/2019 Document Reviewed: 07/20/2019 ElseSTWA Patient Education 2020 [employer]. 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 [facility] [employer] Evaluation + Plan note Future Appointments Appointment Date:10/04/2022 10:15:00 AM Scheduled Provider:Buddy JACOBO MD Location:[facility] Appointment Type:URO Office Visit [facility] [employer] Evaluation + Plan note Future Appointments Appointment Date:10/17/2023 11:00:00 AM Scheduled Provider:Buddy JACOBO MD Location:[facility] Appointment Type:URO Office Visit [facility] [place] Evaluation + Plan note Future Appointments Appointment Date:10/18/2024 10:45:00 AM Scheduled Provider:Buddy JACOBO MD Location:[facility] Appointment Type:URO Office Visit [facility] Portal [employer] Evaluation note Diagnosis Spinal stenosis of lumbar region without neurogenic claudication- Primary documented in this encounter [facility] Narrative No data available for this section [facility] No data available for this section [facility] [employer] progress note No data available for this section [facility] Purpose Family History No Family History [...] section and content) DATE CREATED AUTHOR 11/26/2019 [facility] DATE CREATED AUTHOR AUTHOR'S ORGANIZ ATION 03/29/2022 [facility] DATE CREATED AUTHOR AUTHOR'S ORGANIZ ATION 05/25/2022 [facility] DATE CREATED AUTHOR AUTHOR'S ORGANIZ ATION 10/19/2023 [facility] DATE CREATED AUTHOR AUTHOR'S ORGANIZ ATION 12/20/2023 [facility] EPIC Care Team (unrecognized sect ion and content) Sales Marketing Relationship Specialty Start Date End Date Zeus Bonner, [address] [place] [address] PCP - ACO Reach 08/08/22 Zeus Bonner, [address] [place] [address] PCP - General Family Medicine 07/23/22 Sales Marketing Relationship Specialty Start Date End Date Zeus Bonner DO [address] [place] [address] PCP - ACO Reach 08/08/22 Zeus Bonner, [address] [place] [address] PCP - General Family Medicine 07/23/22 Chelsey Daley NP [address] [place] [address] Nurse Practitioner Family Medicine 06/06/23 Sales Marketing Relationship Specialty Start Date End Date Zeus Bonner, DO [address] [place] [address] PCP - ACO Reach 08/08/22 Zeus Bonner DO [address] [place] [address] PCP - General Family Medicine 07/23/22 Chelsey Daley NP [address] [place] [address] Nurse Practitioner Family Medicine 06/06/23 Reason for Visit (unrecogniz ed section and content) Specialty Diagnoses / Procedures Referred By Contlexii t Referred To Contact Physical Therapy Diagnoses Low back pain, unspecified Procedures [place] PHYSICAL THERAPY EVALUATION LOW COMPLEX 20 MINS Ajay Guido MD [facility] [place] [address] Pratik Pepper, BILLY Referral ID Status Reason Start Date Expiration Date V isits Requested Visits Authorized [id number] Authorized 12/03/2023 05/31/2024 30 30 FOR RECORDS PERTAINING TO PATIENTS WHO ARE [...] BE BASED ON THE PRIMARY CLINICAL RECORDS. [email or web address] provides no warranty or guarantee of the accuracy or completeness of information in this document.
--- NOTE | 2023-12-22 15:49 | P.CN_ITS ---
Consult Note: HPI Data of Consult Patient: new to practice Consult date: 12/22/23 Requesting Physician: Jessica Murguia MD Primary Care Provider: VICTOR M BONNER Consult Narrative Reason for consult: low back pain Narrative: 78yom who presents for evaluation. longstanding low back pain for many years. increased with standing and ambulation. mri reviewed, significant for facet arthropathy in lower lumbar spine. has completed physical therapy 6 weeks and continues in a series of provider directed home exercises for >6 weeks, without lasting benefit. uses otc meds as needed. cc:: CC: Jessica Murguia MD Review of Systems ROS Status of ROS 10 or more systems reviewed and unremark able except as noted in history and below Meds Home Medications and Allergies Home Medications ?Medication ?Instructions ?Recorded ?Confirmed ?Type amlodipine 2.5 mg tablet 2.5 mg PO DAILY 10/22/22 12/22/23 History hydrochlorothiazide 12.5 mg tablet 12.5 mg PO DAILY 10/22/22 12/22/23 History lisinopril 20 mg tablet 20 mg PO DAILY 10/22/22 12/22/23 History mupirocin 2 % topical ointment 1 applic topical BID #15 grams 10/22/22 Rx potassium citrate 15 mEq (1,620 15 meq PO BID 10/22/22 12/22/23 History mg) tablet,extended release erythromycin with ethanol 2 % topical 12/22/23 History topical solution Allergies Allergy/AdvReac Type Severity Reaction Status Date / Time No Known Drug Allergies Allergy Verified 10/22/22 15:50 Exam Narrative Exam Narrative: Psych-alert and oriented x 3. Attentive and appropriate, constitutionally no rmal, displays normal mood and affect per situation.? There are no obvious deficits in memory, reasoning, or intellect.? Skin-no obvious rashes, bruising, erythema noted to the patient's area of pain. Extremities- extremities are warm with minimal edema and palpable pulses. Lumbar-no significant tenderness to palpation noted in the lumbar spine and paraspinal musculature.? Pain is elicited with extension, and lateral rotation of the lumbar spine. Range of motion is slightly diminished with these motions due to pain. Facet loading maneuvers are positive bilaterally and do appear to be concordant with the patient's normal complaints of pain.? Coordination remains intact.? Gait remains non-antalgic. Assessment and Plan Assessment and Plan (1) Lumbar spondylosis: Plan 78yom who presents for evaluation. failed conservative measures, as noted. imaging reviewed, as noted. given symptoms and imaging, prudent to attempt diagnostic bilateral l4-5, l5-s1 medial branch blocks under fluoroscopic guidance with intention of proceeding to radiofrequency ablation. he is in agreement. meds reviewed, no changes. follow up after procedure.
== END 2023-12-22 13:23 | disposition home or self-care (01) ==
LOC: PM 13:23
PROVIDERS: PCP Family Medicine; Visit Provider Anesthesiology
DX: M47.816 Spondylosis without myelopathy or radiculopathy, lumbar region (principal)
CPT/HCPCS: G0463

== ENCOUNTER 2024-01-05 09:35 | Day surgery (SDC) | payer MEDICARE, SELFPAY ==
--- OUTSIDE RECORDS SUMMARY | 2024-01-05 09:55 | XMS_ITS | CCD ---
Author Organization [facility] Care Team Providers Care Mix Chemist Name Role Phone ZEUS BONNER Primary Care Physician KAILEY, DR DOW Primary Care Unavailable CELESTINA, DR GONZALES Admitting Unavailable CELESTINA, DR GONZALES Consulting Unavailable CELESTINA, DR GONZALES Attending Unavailable ZIEBER, DR TANIA Zhang Consulting Unavailable CHELSEY DALEY Admitting Unavailable CHELSEY DALEY Consulting Unavailable CHELSEY DALEY Attending Unavailable KAILEY, DR DOW Primary Care Unavailable Christian Raymond Jr Admitting Unavailable Christian Raymond Jr Attending Unavailable Zeus Bonner Primary Care Unavailable Zeus Bonner DO Unavailable Zeus Bonner DO Primary Care Provider Buddy JACOBO Attending Unavailable Buddy JACOBO Attending Unavailable Ludmila BOBBIN WINDER TENDER, Chelsey L Unavailable Blade VIDAL, Jessica Casas Attending Unavailable JR. RAYMOND GEORGE C Attending Unavaila ZEUS Judd Attending Unavailable KATHERINE ROTH Attending Unavailable JR. RAYMOND GEORGE C Attending Unavaila lor RAYMOND JR., CHRISTIAN Egan Referring Unavaila ZEUS Judd Attending Unavailable ZEUS BONNER Referring Unavailable JR. RAYMOND GEORGE C Attending Unavaila ble STEPJR. CARLO, CHRISTIAN Egan Referring Unavaila ble STEPJR. CARLO, CHRISTIAN Egan Referring Unavaila ble STEPJR. CARLO, CHRISTIAN Egan Attending Unavaila ble EVGENY, PRATIK Attending Unavailable LUIS, SELVON F Referring Unavailable EVGENY, PRATIK Attending Unavailable LUIS, SELVON F Referring Unavailable GUZIKKIMBERLY Attending Unavailable LUIS, SELVON F Referring Unavailable KATHERINE ROTH Attending Unavailable EVGENY, PRATIK Attending Unavailable LUIS, SELVON F Referring Unavailable GUZIKKIMBERLY Attending Unavailable LUIS, SELVON F Referring Unavailable KIMBERLY DOCKERY Attending Unavailable BENJAMIN GUIDO Referring Unavailable KIMBERLY DOCKERY Attending Unavailable BENJAMIN GUIDO Referring Unavailable Allergies Allergy Classification Reported Allergen(s) Allergy Type Date of Onset Reaction(s) Facility (1 source) Meperidine Drug Allergy 12-09-2013 [facility] (1 source) Nalbuphine Drug Allergy 12-09-2013 [facility] Medications Current Medications Medication Drug Class(es) Dates Sig (Normalized) Sig (Original) amLODIPine 2.5 mg oral tablet (17 sources) Dihydropyridine Calcium Channel Monae Start: 09-27-2019 [...] 0 Active erythromycin 20 mg/ml topical solution (12 sources) Macrolide, Macrolide Antimicrobial Start: 06-26-2023 End: [...] Status: Ordered hydroCHLOROthiazide 12.5 mg oral tablet (17 sources) Thiazide Diuretic Start: 09-27-2019 take 1 tablet by mouth once daily hydroCHLOROthiazide (HYDRODiuril) 12.5 MG tablet Indications: Primary hypertension (CMS/HCC) TAKE 1 TABLET BY MOUTH ONCE DAILY 90 tablet 3 10/13/2023 Active ivermectin 5 mg/ml topical lotion (13 sources) Antiparasitic, Pediculicide Start: 02-27-2023 Ivermectin 0.5 % lotion 02/27/2023 Active lisinopril 20 mg oral tablet (17 sources) Angiotensin Converting Enzyme Inhibitor Start: 09-02-2022 [...] Active triamcinolone acetonide 1 mg/ml topical cream (13 sources) Corticosteroid Start: 11-01-2021 triamcinolone (Kenalog) 0.1 [...] Start: 09-28-2021 take 1 tablet by enoch twice daily potassium citrate 15 mEq oral tablet, extended release 15 mEq = 1 tab(s), Oral, BID, # 200 tab(s), Refills(s) 11, Pharmacy: [facility] ([facility]), 170, cm, [...] Onset: 09-20-2021 Episodic Disorders of lipid metabolism (14 sources) Hyperlipidemia, unspecified; Translations: [Hyperlipidemia] Onset: 03-13-2022 11-25-2022 Chronic Essential hypertension (20 sources) Hypertensive disorder; Translations: [Essential (primary) hypertension] Onset: 03-05-2022 09-23-2019 Chronic Genitourinary symptoms and ill-defined conditions (13 sources) Microscopic hematuria; Translations: [Other microscopic hematuria] Onset: 09-24-2021 Episodic Hyperplasia of prostate (8 sources) Benign prostatic hypertrophy with outflow obstruction; Translations: [Benign prostatic hyperplasia with lower urinary tract symptoms] Onset: 09-24-2021 Chronic Osteoarthritis (13 sources) Arthritis of left hip; Translations: [Unilateral [...] 10-14-2022 Episodic Other inflammatory condition of skin (13 sources) Rosacea; Translations: [Rosacea, unspecified] Onset: 11-25-2022 11-25-2022 Chronic Other male genital disorders (1 source) 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; Translations: [Vascular disorders of male genital organs] Onset: 10-17-2023 Chronic Other male genital disorders (1 source) Hemorrhage of scrotum 10-17-2023 Chronic Other nervous system disorders (13 sources) Cervical myelopathy; Translations: [Disease of spinal cord, unspecified] Onset: 11-25-2022 11-25-2022 Chronic Other screening for suspected conditions (not mental disorders or infectious disease) (1 source) Encounter for screening for malignant neoplasm of prostate; Translations: [ENC SCREEN MALIG NEOPLASM PROSTATE] Onset: 03-13-2022 Episodic Spondylosis; intervertebral disc disorders; other back problems (13 sources) Cervical spondylosis; Translations: [Spondylosis without myelopathy or radiculopathy, cervical region] Onset: 11-25-2022 11-25-2022 Chronic Spondylosis; intervertebral disc disorders; other back problems (19 sources) Radiculopathy, lumbar region; Translations: [Spinal stenosis of lumbar region] Onset: 04-17-2022 12-10-2023 Episodic Past or Other Problems Problem Classification Problem Date Documented Da te Episodic/Chronic Mood disorders (13 sources) Mood disorders Onset: 04-17-2023 04-17-2023 Results [...] Follow Up with CELESTINA VIDAL, Buddy Zhang, URL When: Where: [address] [id number]- Medications What How Much When Instructions Unchanged [...] sound wav (more content not included)... Normal [facility] Urology Office/Clinic Noteon 10-17-2023 Urology [...] Contact Information CELESTINA VIDAL, Buddy Zhang, URL [facility] [place] [id number]- Additional Instructions: 1 year w/ KUB Patient [...] Daily hydrochl (more content not included)... Normal [facility] Comment on above: Result Comment: Elec tronically Signed By: Buddy JACOBO MD\.br\Date and Time Signed: 10/17/23 12:04 EDT\.br\Electronically Co-Signed By: Marina Barclay.fior\Date and Time Co-Signed: 10/17/23 12:03 EDT MR [...] Normal Not Available [facility] MICROALB CREAT RATIO MINO Wren 04-23-2023 CREATININE URINE RANDOM 41.74 mg/dL 20.00 - 300.00 mg/dL [facility] Interpretation and review of laboratory results Abnormal [facility] MICROALBUM CREATININE RATIO UR 31.1 mg/g High 0.0 - 29.9 mg/g [facility] Comment on above: NO MICROALBUMINURIA 0-29 MG/G CLINICAL MICROALBUMINURIA 30-300 MG/G MACROALBUMINURIA >300 MG/G MICROALBUMIN URINE RANDOM <1.3 NINF - 30.0 mg/dL [facility] XR pre/post mri xrayon 04-17 XR pre/post mri xray [facility] [place] [address] [place], [place] [id number] MRI Report Signed Patient: Jd Apodaca MR#: [id number] : 1945 Acct:[id number] Age/Sex: 77 / M ADM Date: 04/17/22 [facility] Room: Type: REG CLI Attending Dr: Christian Raymond Jr, DO Copies to: Christian Raymond Jr, DO Ordering Provider: Christian Raymond Jr, DO Date of Service: 04/17/22 MR/MR lumbar spine wo con: [id number] ([id number]) XR/XR pre/post mri xray: LUMBAR MRI MR [...] Baltazar Mcdermott M.D.04/17/2022 1:38 PM Dictation Location: [place] [address] Transcribed By: [facility] 04/17/22 1338 Dictated By: Baltazar Mcdermott II, MD 04/17/22 1329 Signed By: 04/17/22 1338 Normal [facility] PSA, FREE AND TOTAL RATIOon 03-06-2022 % Free PSA 22.0 % Normal [facility] Comment on above: Result Comment: The table [...] men. Performed By: #### P SAFREE #### [facility] [address] [place] [address] Dr. Magalie Ceron Prostate specific Ag [Mass/Vol] 1.0 ng/mL Normal 0.0-4.0 [facility] Comment on above: Result Comment: Joseph PORTILLO methodology. . According to the [employer], Serum PSA should decrease and [...] disease. Performed By: #### P SAFREE #### [facility] [address] [place] [address] Dr. Magalie Ceron PSA, Free 0.22 ng/mL Normal N/A [facility] Comment on above: Result Comment: Joseph woodard ECLIA methodology. Performed By: #### P SAFREE #### [facility] [address] [place] [address] Dr. Magalie Ceron CBC AUTO DIFFon 03-05-2022 BASO # 0.1 103/ul Normal 0.0-0.1 [facility] Comment on above: Performed By: #### C BC #### [facility] [address] [place] [address] Dr. Magalie Ceron Basophils/100 WBC (Bld) 0.8 % Normal 0.2-2.0 [facility] Comment on above: Performed By: #### C BC #### [facility] [address] [place] [address] Dr. Magalie Ceron EO # 0.1 103/ul Normal 0.0-0.7 [facility] Comment on above: Performed By: #### C BC #### [facility] [address] [place] [address] Dr. Magalie Ceron Eosinophils/100 WBC (Bld) 1.5 % Normal 0.9-7.0 [facility] Comment on above: Performed By: #### C BC #### [facility] [address] [place] [address] Dr. Magalie Ceron Erythrocyte distribution width (RBC) [Ratio] 13.5 % Normal 11.0-15.0 [facility] Comment on above: Performed By: #### C BC #### [facility] [address] [place] [address] Dr. Magalie Ceron Hematocrit (Bld) [Volume fraction] 43.7 % Normal 42.0-54.0 [facility] Comment on above: Performed By: #### C BC #### [facility] [address] [place] [address] Dr. Magalie Ceron Hemoglobin (Bld) [Mass/Vol] 15.1 g/dL Normal 14.0-18.0 [facility] Comment on above: Performed By: #### C BC #### [facility] [address] [place] [address] Dr. Magalie Ceron IG # 0.04 10e3/ul Critically high 0.00-0.03 [facility] Comment on above: Performed By: #### C BC #### [facility] [address] [place] [address] Dr. Magalie Ceron IG % 0.6 % Critically high 0.0-0.5 [facility] Comment on above: Performed By: #### C BC #### [facility] [address] [place] [address] Dr. Magalie Ceron LYMPH # 2.6 103/ul Normal 1.2-3.8 [facility] Comment on above: Performed By: #### C BC #### [facility] [address] [place] [address] Dr. Magalie Ceron Lymphocytes/100 WBC (Bld) 35.5 % Normal 20.5-60.0 [facility] Comment on above: Performed By: #### C BC #### [facility] [address] [place] [address] Dr. Magalie Ceron MANUAL DIFF REQ NO Normal [facility] Comment on above: Performed By: #### C BC #### [facility] [address] [place] [address] Dr. Magalie Ceron MCH (RBC) [Entitic mass] 31.8 pg Normal 25.9-34.0 [facility] Comment on above: Performed By: #### C BC #### [facility] [address] [place] [address] Dr. Magalie Ceron MCHC (RBC) [Mass/Vol] 34.6 g/dL Normal 29.9-35.2 [facility] Comment on above: Performed By: #### C BC #### [facility] [address] [place] [address] Dr. Magalie Ceron MCV (RBC) [Entitic vol] 92.0 fL Normal 80.0-94.0 [facility] Comment on above: Performed By: #### C BC #### [facility] [address] [place] [address] Dr. Magalie Ceron MONO # 0.7 103/ul Normal 0.3-0.8 [facility] Comment on above: Performed By: #### C BC #### [facility] [address] [place] [address] Dr. Magalie Ceron Monocytes/100 WBC (Bld) 9.3 % Normal 1.7-12.0 [facility] Comment on above: Performed By: #### C BC #### [facility] [address] [place] [address] Dr. Magalie Ceron NEUT # 3.8 103/ul Normal 1.4-6.5 [facility] Comment on above: Performed By: #### C BC #### [facility] [address] [place] [address] Dr. Magalie Ceron Neutrophils/100 WBC (Bld) 52.3 % Normal 43.0-75.0 [facility] Comment on above: Performed By: #### C BC #### [facility] [address] [place] [address] Dr. Magalie Ceron Platelet mean volume (Bld) [Entitic vol] 8.8 fL Critically low 9.5-13.5 [facility] Comment on above: Performed By: #### C BC #### [facility] [address] [place] [address] Dr. Magalie Ceron PLT 308 103/ul Normal 150-450 [facility] Comment on above: Performed By: #### C BC #### [facility] [address] [place] [address] Dr. Magalie Ceron RBC 4.75 106/ul Normal 4.70-6.10 [facility] Comment on above: Performed By: #### C BC #### [facility] [address] [place] [address] Dr. Magalie Ceron WBC 7.2 103/ul Normal 4.0-11.0 [facility] Comment on above: Performed By: #### C BC #### [facility] [address] [place] [address] Dr. Magalie Ceron LIPID PROFILEon 03-05-2022 CHOL-HDL RATIO NORM SEE BELOW Normal [facility] Comment on above: Result Comment: 3.3 - 4.4 LOW RISK 4.4 - 7.1 AVERAGE RISK 7.1 - 11.0 MODERATE RISK >11.0 HIGH RISK Performed By: #### C MP, LIPID #### [facility] [address] [place] [address] Dr. Magalie Ceron Cholesterol [Mass/Vol] 216 mg/dL Critically high <=200 [facility] Comment on above: Performed By: #### C MP, LIPID #### [facility] [address] [place] [address] Dr. Magalie Ceron Cholesterol in HDL [Mass/Vol] 53 mg/dL Normal 40-60 [facility] Comment on above: Performed By: #### C MP, LIPID #### [facility] [address] [place] [address] Dr. Magalie Ceron Cholesterol in LDL [Mass/Vol] 118.0 mg/dL Normal [facility] Comment on above: Performed By: #### C MP, LIPID #### [facility] [address] [place] [address] Dr. Magalie Ceron Cholesterol.total/C holesterol in HDL [Mass ratio] 4.1 {ratio} Normal [facility] Comment on above: Performed By: #### C MP, LIPID #### [facility] [address] [address] [address] Magalie Ceron HDL NORMAL > or = 60 mg/dl - LO W CARDIOVASCULAR RISK <40 mg/dl - HIGH CARDIOVASCULAR RISK Normal [facility] Comment on above: Performed By: #### C MP, LIPID #### [facility] [address] [address] [address] Magalie Ceron LDL CALC NORMAL SEE BELOW Normal [facility] Comment on above: Result Comment: <100 mg/dl OPTIMAL 100 - 129 mg/dl NEAR OR ABOVE OPTIMAL 130 - 159 mg/dl BORDERLINE HIGH 160 - 189 mg/dl HIGH >190 mg/dl VERY HIGH Performed By: #### C MP, LIPID #### [facility] [address] [address] [address] Magalie Ceron Triglyceride [Mass/Vol] 225 mg/dL Critically high <=150 [facility] Comment on above: Performed By: #### C MP, LIPID #### [facility] [address] [address] [address] Magalie Ceron VLDL CALC 45.0 mg/dL Normal [facility] Comment on above: Performed By: #### C MP, LIPID #### [facility] [address] [address] [address] Magalie Ceron MICROALB CREAT RATIO RANDOMo n 03-05-2022 mALB <1.3 Normal <=30.0 [facility] Comment on above: Performed By: #### M CRR #### [facility] [address] [address] [address] Magalie Ceron MALB CR RATIO 13.5 mg/g Normal 0.0-29.9 [facility] Comment on above: Performed By: #### M CRR #### [facility] [address] [address] [address] Magalie Ceron MALB CR RATIO RANGE SEE BELOW Normal [facility] Comment on above: Result Comment: NO M ICROALBUMINURIA 0-29 MG/G CLINICAL MICROALBUMINURIA 30-300 MG/G MACROALBUMINURIA >300 MG/G Performed By: #### M CRR #### [facility] [address] [place] [address] Dr. Magalie Ceron URINE CREAT 96.12 mg/dL Normal 20.00-300.00 [facility] Comment on above: Performed By: #### M CRR #### [facility] [address] [place] [address] Dr. Magalie Ceron PROF 14(COMP METB)on 022 Albumin [Mass/Vol] 4.1 g/dL Normal 3.4-5.0 [facility] Comment on above: Performed By: #### C MP, LIPID #### [facility] [address] [place] [address] Dr. Magalie Ceron Albumin/Globulin [Mass ratio] 1.2 {ratio} Normal [facility] Comment on above: Performed By: #### C MP, LIPID #### [facility] [address] [place] [address] Dr. Magalie Ceron ALP [Catalytic activity/Vol] 73 U/L Normal 46-116 [facility] Comment on above: Performed By: #### C MP, LIPID #### [facility] [address] [place] [address] Dr. Magalie Ceron ALT [Catalytic activity/Vol] 34 U/L Normal 16-63 [facility] Comment on above: Performed By: #### C MP, LIPID #### [facility] [address] [place] [address] Dr. Magalie Ceron Anion gap [Moles/Vol] 9.2 mmol/L Normal [facility] Comment on above: Performed By: #### C MP, LIPID #### [facility] [address] [place] [address] Dr. Magalie Ceron AST [Catalytic activity/Vol] 25 U/L Normal 15-37 [facility] Comment on above: Performed By: #### C MP, LIPID #### [facility] [address] [place] [address] Dr. Magalie Ceron Bilirubin [Mass/Vol] 1.6 mg/dL Critically high 0.2-1.0 [facility] Comment on above: Performed By: #### C MP, LIPID #### [facility] [address] [place] [address] Dr. Magalie Ceron Calcium [Mass/Vol] 8.9 mg/dL Normal 8.5-10.1 [facility] Comment on above: Performed By: #### C MP, LIPID #### [facility] [address] [place] [address] Dr. Magalie Ceron Chloride [Moles/Vol] 100 mmol/L Normal 98-107 [facility] Comment on above: Performed By: #### C MP, LIPID #### [facility] [address] [place] [address] Dr. Magalie Ceron CO2 [Moles/Vol] 32.5 mmol/L Critically high 21.0-32.0 [facility] Comment on above: Performed By: #### C MP, LIPID #### [facility] [address] [place] [address] Dr. Magalie Ceron Creatinine [Mass/Vol] 0.96 mg/dL Normal 0.70-1.30 [facility] Comment on above: Performed By: #### C MP, LIPID #### [facility] [address] [place] [address] Dr. Magalie Ceron EGFR-AF GEORGIAN >60 Normal >=60 [facility] Comment on above: Performed By: #### C MP, LIPID #### [facility] [address] [place] [address] Dr. Magalie Ceron EGFR-NON AF GEORGIAN >60 Normal >=60 [facility] Comment on above: Performed By: #### C MP, LIPID #### [facility] [address] [place] [address] Dr. Magalie Ceron Globulin (S) [Mass/Vol] 3.3 g/dL Normal [facility] Comment on above: Performed By: #### C MP, LIPID #### [facility] [address] [place] [address] Dr. Magalie Ceron Glucose [Mass/Vol] 88 mg/dL Normal 74-106 [facility] Comment on above: Performed By: #### C MP, LIPID #### [facility] [address] [address] [address] Magalie Ceron Potassium [Moles/Vol] 3.7 mmol/L Normal 3.5-5.1 [facility] Comment on above: Performed By: #### C MP, LIPID #### [facility] [address] [place] [address] Dr. Magalie Ceron Protein [Mass/Vol] 7.4 g/dL Normal 6.4-8.2 [facility] Comment on above: Performed By: #### C MP, LIPID #### [facility] [address] [place] [address] Dr. Magalie Ceron Sodium [Moles/Vol] 138 mmol/L Normal 136-145 [facility] Comment on above: Performed By: #### C MP, LIPID #### [facility] [address] [place] [address] Dr. Magalie Ceron Urea nitrogen [Mass/Vol] 11.0 mg/dL Normal 7.0-18.0 [facility] Comment on above: Performed By: #### C MP, LIPID #### [facility] [address] [place] [address] Dr. Magalie Ceron Urea nitrogen/Creatinine [Mass ratio] 11.5 mg/mg Normal [facility] Comment on above: Performed By: #### C MP, LIPID #### [facility] [address] [place] [address] Dr. Magalie Ceron XR KUB 1 VIEWon [...] 1. Right nephrolithiasis. Electronically authenticated by: TANIA Ventura: 2021-09-20 17:32 [facility] 11-[facility]-2019 eGFR Non AA >60 [facility] Comment on above: Performed By: #### 1 [id number], [id number], [id number] #### [facility] (DEFAULT) [address] [place] [address] eGFR AA >60 [facility] Comment on above: Result Comment: [employer] ernesto Kidney disease could be indicated at eGFRs of less than 60 ml/min/1.73m2. Kidney Failure is indicated at less than 15 ml/min/1.73m2 Performed By: #### 1 [id number], [id number], [id number] #### [facility] (DEFAULT) [address] [place] [address] Anion gap [Moles/Vol] 15.0 mmol/L Normal 5.0-19.0 [facility] Comment on above: Performed By: #### 1 [id number], [id number], [id number] #### [facility] (DEFAULT) [address] [place] [address] Calcium [Mass/Vol] 8.8 mg/dL Low 8.9-10.3 [facility] Comment on above: Performed By: #### 1 [id number], [id number], [id number] #### [facility] (DEFAULT) [address] [place] [address] Chloride [Moles/Vol] 99 mmol/L Low 101-111 [facility] Comment on above: Performed By: #### 1 [id number], [id number], [id number] #### [facility] (DEFAULT) [address] [place] [address] CO2 [Moles/Vol] 26 mmol/L Normal 21-32 [facility] Comment on above: Performed By: #### 1 [id number], [id number], [id number] #### [facility] (DEFAULT) [address] [place] [address] Creatinine [Mass/Vol] 0.81 mg/dL Low 0.90-1.30 [facility] Comment on above: Performed By: #### 1 [id number], [id number], [id number] #### [facility] (DEFAULT) [address] [place] [address] Glucose [Mass/Vol] 93.0 mg/dL Normal 74.0-118.0 [facility] Comment on above: Performed By: #### 1 [id number], [id number], [id number] #### [facility] (DEFAULT) [address] [place] [address] 71685 Osmolality [Osmolality] 274 mOsm/L [facility] Comment on above: Performed By: #### 1 [id number], [id number], [id number] #### [facility] (DEFAULT) [address] [place] [address] 22149 Potassium [Moles/Vol] 3.4 mmol/L Low 3.6-5.1 [facility] Comment on above: Performed By: #### 1 [id number], [id number], [id number] #### [facility] (DEFAULT) [address] [place] [address] 87008 Sodium [Moles/Vol] 137.0 mmol/L Normal 136.0-144.0 [facility] Comment on above: Performed By: #### 1 [id number], [id number], [id number] #### [facility] (DEFAULT) [address] [place] [address] 53434 Urea nitrogen [Mass/Vol] 13 mg/dL Normal 8-26 [facility] Comment on above: Performed By: #### 1 [id number], [id number], [id number] #### [facility] (DEFAULT) [address] [place] [address] 97490 Urea nitrogen/Creatinine [Mass ratio] 16.0 mg/mg Normal 4.6-16.2 [facility] Comment on above: Performed By: #### 1 [id number], [id number], [id number] #### [facility] (DEFAULT) [address] [place] [address] 31771 Lipid Panel Standardon 11-24 Cholesterol [Mass/Vol] 218.0 mg/dL High 66.0-200.0 [facility] Comment on above: Result Comment: Laura rable - Less than 200 mg/dL Borderline high risk - 200-239 mg/dL High risk - 240 mg/dL and over. Performed By: #### 1 [id number], [id number], [id number] #### [facility] (DEFAULT) [address] [place] [address] 94232 Cholesterol in HDL [Mass/Vol] 47 mg/dL Normal 40-71 [facility] Comment on above: Result Comment: High risk - <40 mg/dL. Performed By: #### 1 [id number], [id number], [id number] #### [facility] (DEFAULT) [address] [place] [address] 13786 Cholesterol in LDL [Mass/Vol] 137 mg/dL High 1-100 [facility] Comment on above: Result Comment: Opti mal - Less than 100 mg/dL Borderline high risk - 130-159 mg/dL High risk - 160-189 mg/dL. Performed By: #### 1 [id number], [id number], [id number] #### [facility] (DEFAULT) [address] [place] [address] 59867 Cholesterol.total/C holesterol in HDL [Mass ratio] 4.6 {ratio} High 0.0-4.5 [facility] Comment on above: Performed By: #### 1 [id number], [id number], [id number] #### [facility] (DEFAULT) [address] [place] [address] 72997 Triglyceride [Mass/Vol] 172.0 mg/dL High 0.0-150.0 [facility] Comment on above: Performed By: #### 1 [id number], [id number], [id number] #### [facility] (DEFAULT) [address] [place] [address] 77629 VLDL. 34 mg/dL Normal 5-40 [facility] Comment on above: Performed By: #### 1 [id number], [id number], [id number] #### [facility] (DEFAULT) [address] [place] [address] 16082 SARS-CoV-2 (COVID-19) IgG An tibodies(Noon 11-25-2019 Employed in healthcare? No [facility] Comment on above: Performed By: #### 1 [id number], [id number], [id number] #### [facility] (DEFAULT) [address] [place] [address] Group care resident? No [facility] Comment on above: Performed By: #### 1 [id number], [id number], [id number] #### [facility] (DEFAULT) [address] [place] [address] Hospitalized due to COVID-19? [address] [facility] Comment on above: Performed By: #### 1 [id number], [id number], [id number] #### [facility] (DEFAULT) [address] [place] [address] In ICU? No [facility] Comment on above: Performed By: #### 1 [id number], [id number], [id number] #### [facility] (DEFAULT) [address] [place] [address] status? Not [facility] Comment on above: Performed By: #### 1 [id number], [id number], [id number] #### [facility] (DEFAULT) [address] [place] [address] SARS-CoV-2 (COVID-19) IgG Abs Non-Reactive Normal Non-Reactive [facility] Comment on above: Result Comment: Test results should be interpreted in light of the total clinical presentation of the patient, including: symptoms, clinical history, data from additional tests, and other appropriate information. Detects IgG Abs 14-20 days post infection (varies by individual) Equivocal Results: retest in 1-2 weeks Positive Results may be due to past or present infection with ilp-MPZN-RcJ-2 coronavirus strains, such as coronavirus HKU1, NL63, OC43, or 229E. Performed By: #### 1 [id number], [id number], [id number] #### [facility] (DEFAULT) [address] [place] [address] Symptomatic as defined by CDC? No [facility] Comment on above: Performed By: #### 1 [id number], [id number], [id number] #### [facility] (DEFAULT) [address] [place] [address] Vital Signs Date Time Vital Sign Value Performing Clinician Octavio jacques 10-17-2023 11:02-0400 Blood Pressure Location Buddy AJCOBO [facility] 10-17-2023 11:02-0400 Diastolic blood pressure 81 mm[Hg] Buddy JACOBO [facility] 10-17-2023 11:02-0400 Heart rate 74 /min Buddy JACOBO [facility] 10-17-2023 11:02-0400 Respiratory rate 16 /min Buddy JACOBO [facility] 10-17-2023 11:02-0400 Systolic blood pressure 133 mm[Hg] Buddy JACOBO [facility] 10-15-2022 13:45-0400 Blood Pressure Location Buddy JACOBO [facility] 10-15-2022 13:45-0400 Diastolic blood pressure 87 mm[Hg] Buddy JACOBO [facility] 10-15-2022 13:45-0400 Heart rate 91 /min Buddy JACOBO [facility] 10-15-2022 13:45-0400 Systolic blood pressure 150 mm[Hg] Buddy JACOBO [facility] 09-28-2021 10:27-0400 Blood Pressure Location Buddy JACOBO [facility] 09-28-2021 10:27-0400 Diastolic blood pressure 81 mm[Hg] Buddy JACOBO [facility] 09-28-2021 10:27-0400 Heart rate 70 /min Buddy JACOBO [facility] 09-28-2021 10:27-0400 Respiratory rate 16 /min Buddy JACOBO [facility] 09-28-2021 10:27-0400 Systolic blood pressure 123 mm[Hg] Buddy JACOBO [facility] Encounters Encounter Date Encounter Type Care Provider Facility Start: 10-18-2024 ambulatory Buddy JACOBO Facili ty:[facility] [place] Start: 01-01-2024 End: 01-01-2024 ambulatory KIMBERLY DOCKERY Not Available Comment on above: Spinal stenosis of l umbar region without neurogenic claudication (Primary Dx) Start: 01-01-2024 End: 01-01-2024 Bamboo flowsheet Kimberly Guzik EARLY BREASTFEEDING CARE SPECIALIST [facility] Start: 01-01-2024 End: 01-01-2024 Bamboo flowsheet Kimberly Guzik EARLY BREASTFEEDING CARE SPECIALIST [facility] Start: 12-30-2023 End: 12-30-2023 ambulatory KIMBERLY DOCKERY [facility] Comment on above: Spinal stenosis of l umbar region without neurogenic claudication (Primary Dx) Start: 12-30-2023 End: 12-30-2023 Bamboo flowsheet Kimberly Guzik EARLY BREASTFEEDING CARE SPECIALIST [facility] Start: 12-30-2023 End: 12-30-2023 Bamboo flowsheet Kimberly Guzik EARLY BREASTFEEDING CARE SPECIALIST [facility] Start: 12-25-2023 End: 12-25-2023 Bamboo flowsheet Kimberly Guzik EARLY BREASTFEEDING CARE SPECIALIST [facility] Start: 12-25-2023 End: 12-25-2023 Bamboo flowsheet Kimberly Guzik EARLY BREASTFEEDING CARE SPECIALIST [facility] Start: 12-25-2023 End: 12-25-2023 ambulatory Kimberly Guzik EARLY BREASTFEEDING CARE SPECIALIST [facility] Comment on above: Spinal stenosis of l umbar region without neurogenic claudication (Primary Dx) Start: 12-23-2023 End: 12-23-2023 ambulatory Pratik Mendota PT [facility] Comment on above: Spinal stenosis of l umbar region without neurogenic claudication (Primary Dx) Start: 12-23-2023 End: 12-23-2023 Bamboo flowsheet Pratik Mendota PT [facility] Start: 12-23-2023 End: 12-23-2023 Bamboo flowsheet Pratik Mendota PT [facility] Start: 12-22-2023 End: 12-22-2023 ambulatory Jessica Murguia MD Facility: [place] Start: 12-18-2023 End: 12-18-2023 ambulatory Kimberly Guzik EARLY BREASTFEEDING CARE SPECIALIST [facility] Comment on above: Spinal stenosis of l umbar region without neurogenic claudication (Primary Dx) Start: 12-18-2023 End: 12-18-2023 Bamboo flowsheet Kimberly Guzik EARLY BREASTFEEDING CARE SPECIALIST [facility] Start: 12-18-2023 End: 12-18-2023 Bamboo flowsheet Kimberly Guzik EARLY BREASTFEEDING CARE SPECIALIST [facility] Start: 12-16-2023 End: 12-16-2023 ambulatory Pratik Evgeny PT [facility] Comment on above: Spinal stenosis of l umbar region without neurogenic claudication (Primary Dx) Start: 12-16-2023 End: 12-16-2023 Bamboo flowsheet Pratik Mendota PT [facility] Start: 12-16-2023 End: 12-16-2023 Bamboo flowsheet Pratik Mendota PT [facility] Start: 12-10-2023 End: 12-10-2023 ambulatory PRATIK EVGENY Not Available Start: 10-29-2023 End: 10-29-2023 ambulatory JR., CHRISTIAN RAYMOND Not Available Start: 10-17-2023 End: 10-17-2023 ambulatory Buddy [facility] Start: 10-17-2023 End: 10-17-2023 Patient encounter procedure Buddy JACOBO [facility] Start: 10-09-2023 End: 10-09-2023 ambulatory JR., CHRISTIAN Egan STEPANIC Not Available Start: 09-29-2023 End: 09-29-2023 ambulatory JR.CHRISTIAN Jignesh STEPCARLO Not Available Start: 06-26-2023 End: 06-26-2023 ambulatory ZEUS VENCESER Not Available Start: 05-30-2023 End: 05-30-2023 ambulatory [...] Available Start: 03-24-2023 End: 03-24-2023 ambulatory JR.CHRISTIAN Jignesh STEPCARLO Not Available Start: 02-27-2023 End: 02-27-2023 ambulatory KATHERINE A FELTER Not Available Start: 10-15-2022 End: 10-15-2022 Patient encounter procedure Buddy JACOBO [facility] Start: 04-17-2022 End: 04-17-2022 ambulatory Christian Raymond Jr Facility:[facility] Start: 03-05-2022 End: 03-06-2022 ambulatory CHELSEY DALEY Facility: Start: 09-28-2021 End: 09-28-2021 Patient encounter procedure Buddy JACOBO [facility] [place] Start: 09-20-2021 End: 09-21-[address] ZEUS BONNER Facility:[facility] Procedures Date Procedure Procedure Detail Performing Clinician Start: 04-23-2023 [facility] Zeus Bonner DO Work Phone: Start: 10-15-2022 Cystoscopy Buddy OLVERA Start: 02-22-2015 Transurethral incisi on of bladder neck Buddy JACOBO Start: 03-22-2014 Cystoscopy Buddy OLVERA Start: 12-16-2013 Transurethral prostatectomy Buddy JACOBO Start: 08-04-2012 Laser ablation of prostate Buddy JACOBO Start: 05-26-2012 Cystoscopy Buddy OLVERA Start: 05-06-2012 Urodynamic studies Shellyr cristobalpaula JACOBO Start: 09-06-2008 Cystoscopy Buddy OLVERA Colonoscopy Buddy JACOBO Colonoscopy Buddy JACOBO Tonsillectomy Buddy JACOBO Tonsillectomy Buddy JACOBO Plan of Treatment Date Care Activity Detail Author Start: 05-06-2024 End: 05-06-2024 Patient encounter procedure 05/06/2024 10:40 AM EST Office Visit [facility] [address] [place] [address] Katherine Roth APRN-GEOCHEMICAL LABORATORY TECHNICIAN [address] [place] [address] [facility] Start: 04-17-2024 Medicare Annual Well ness (AWV) Medicare Annual Wellness (AWV) [facility] Start: 01-08-2024 End: 01-08-2024 ambulatory 01/08/2024 2:30 PM EDT Treatment [facility] [address] [place] [phone] Kimberly Dockery, EARLY BREASTFEEDING CARE SPECIALIST [facility] Start: 01-06-2024 End: 01-06-2024 ambulatory 01/06/2024 2:30 PM EDT Treatment [facility] [address] [place] [phone] Pratik Pepper, PT [facility] Start: 01-01-2024 End: 01-01-2024 ambulatory [facility] Comment on above: Arrived Start: 12-30-2023 End: 12-30-2023 ambulatory [facility] Comment on above: Arrived Start: 12-25-2023 End: 12-25-2023 ambulatory [facility] Comment on above: Arrived Start: 12-23-2023 End: 12-23-2023 ambulatory [facility] Comment on above: Spinal stenosis of l umbar region without neurogenic claudication (Primary Dx) Start: 12-18-2023 End: 12-18-2023 ambulatory [facility] Comment on above: Arrived Start: 12-16-2023 End: 12-16-2023 ambulatory 12/16/2023 2:30 PM EDT Treatment [facility] [address] [place] [phone] Pratik Pepper, PT Arrived [facility] Comment on above: Arrived Start: 11-16-2023 Influenza vaccination Influenza Vacc ine (#1) [facility] Start: 05-30-2023 End: 05-30-2023 Patient encounter procedure 05/30/2023 10:30 AM EDT Office Visit [facility] [address] [place] [phone] Jr. Christian Raymond, DO [address] [facility] [address] [place] [address] [facility] Start: 05-06-2023 End: 05-06-2023 Patient encounter procedure 05/06/2023 10:50 AM EST Office Visit [facility] [address] [place] [phone] Katherine RothRAPHAELN-GEOCHEMICAL LABORATORY TECHNICIAN [address] [place] [address] [facility] Start: 03-04-2023 Medicare Annual Well ness (AWV) Medicare Annual Wellness (AWV) [facility] Start: 11-15-2022 Influenza vaccination Influenza Vacc ine (#1) [facility] Immunizations Immunization Date Immunization Notes Care Provider Fa cility 02-21-2022 Moderna Bivalent Coleman ster Vaccination Zeus Bonner DO Work Phone: [facility] 02-21-2022 SARS-CoV-2 (COVID-19 ) [id number] Buddy JACOBO [facility] 01-11-2021 SARS-CoV-2 (COVID-19 ) mRNA BNT-162b2 vax Buddy JACOBO [facility] 12-20-2020 influenza virus vacc ine, unspecified formulation Buddy JACOBO [facility] 12-20-2020 influenza, injectabl e, quadrivalent, contains preservative Zeus Bonner DO Work Phone: [facility] 05-03-2020 SARS-CoV-2 (COVID-19 ) mRNA BNT-162b2 vax Buddy JACOBO [facility] Comment on above: Result Comment: 2022: [id number] 04-12-2020 SARS-CoV-2 (COVID-19 ) mRNA BNT-162b2 vax Buddy JACOBO [facility] Comment on above: Result Comment: 2022: [id number] 12-20-2019 influenza virus vacc ine, unspecified formulation Buddy JACOBO [facility] 12-20-2019 Seasonal, quadrivale nt, recombinant, injectable influenza vaccine, preservative free Zeus Bonner DO Work Phone: [facility] 01-12-2018 influenza virus vacc ine, unspecified formulation Buddy JACOBO [facility] 01-12-2018 influenza, injectabl e, quadrivalent, preservative free Zeus Kailey DO Work Phone: [facility] 01-08-2017 influenza, seasonal, injectable, preservative free Zeus Kailey DO Work Phone: [facility] 12-24-2016 influenza virus vacc ine, unspecified formulation Buddyriley JACOBO [facility] 12-24-2016 seasonal influenza, intradermal, preservative free Zeus Kailey DO Work Phone: [facility] 01-29-2016 pneumococcal polysaccharide vaccine, 23 valent Zeus Venceser DO Work Phone: [facility] 12-20-2015 influenza virus vacc ine, unspecified formulation Buddy JACOBO [facility] 12-20-2015 influenza, injectabl e, quadrivalent, preservative free Zeus Kailey DO Work Phone: [facility] 02-01-2015 pneumococcal conjuga te vaccine, 13 valent Zeus Kailey DO Work Phone: [facility] 01-09-2015 influenza, seasonal, injectable, preservative free Zeus Kailey DO Work Phone: [facility] Payers Date Payer Category Payer Self-pay 2022 Private Health Insurance [employer] mber [id number] 2022 Unknown [id number] 2009 Medicare [id number] 2009 Unknown [id number] 1959 Medicare [id number] 1945 Unknown [id number] 2.16.840.1.568382.3.579.2 .593 1945 Unknown [id number] 2.16.840.1.957180.3.579.2 .593 1945 Unknown [id number] 2.16.840.1.247285.3.579.2 .727 1945 Unknown [id number] 2.16.840.1.822976.3.579.2 .727 1945 Unknown [id number] 2.16.840.1.472481.3.579.2 .196 1945 Unknown [id number] 2.16.840.1.253622.3.579.2 .1259 1945 Unknown [id number] 2.16.840.1.950072.3.579.2 .1259 1945 Unknown [id number] 2.16.840.1.099192.3.579.2 .1259 1945 Unknown [id number] 2.16.840.1.854327.3.579.2 .1259 1945 Unknown [id number] 2.16.840.1.922576.3.579.2 .1259 1945 Unknown [id number] 2.16.840.1.220499.3.579.2 .1259 1945 Unknown [id number] 2.16.840.1.036198.3.579.2 .1259 1945 Unknown [id number] 2.16.840.1.264552.3.579.2 .1259 1945 Unknown [id number] 2.16.840.1.523979.3.579.2 .1259 1945 Unknown [id number] 2.16.840.1.660333.3.579.2 .1259 1945 Unknown [id number] 2.16.840.1.920388.3.579.2 .1259 1945 Unknown [id number] 2.16.840.1.058223.3.579.2 .1259 1945 Unknown [id number] 2.16.840.1.089160.3.579.2 .1259 1945 Unknown [id number] 2.16.840.1.760764.3.579.2 .1259 1945 Unknown [id number] 2.16.840.1.140890.3.579.2 .1259 1945 Unknown [id number] 2.16.840.1.814605.3.579.2 .1259 1945 Unknown [id number] 2.16.840.1.549068.3.579.2 .1259 1945 Unknown [id number] 2.16.840.1.498441.3.579.2 .1259 1945 Unknown [id number] 2.16.840.1.027454.3.579.2 .1259 Unknown [id number] 2.16.840.1.332509.3.579.2 .531 Social History Date Type Detail Facility Start: 09-29-2020 End: 04-17-2023 Tobacco smoking status Never smoked tobacco (finding) [facility] Start: 04-10-2023 End: 04-17-2023 Sex Assigned At Male [facility] Tobacco smoking status Never [facility] Start: 04-17-2023 Tobacco use and exposure Smokeless tobacco non-user [facility] Start: 04-17-2023 End: 10-29-2023 Alcohol intake Lifetime non-drinker (finding) [facility] Start: 04-10-2023 End: 04-17-2023 [...] 10-17-2023 Functional Status N/A [facility] 10-15-2022 Functional Status N/A [facility] 09-28-2021 Functional Status N/A [facility] Clinical Notes 09-28-2021 to 12-23-2023 Pratik Pepper, PT - 12/23/2023 2:30 PM EDTPratik Pepper, PT - 12/16/2023 2:30 PM EDT Note Date & Type Note Facility 12-23-2023 History of Present illness Narrative Physical Therapy Physical Therapy Treatment Visit Patient Name: Jd Apodaca Today's Date: 12/23/2023 Supervised Time: 50' Total Time: 50 ' Visit number: 07/14 Precautions: lower back surgery posterior decompression done in 2019. Subjective Pain: no number given. Says, I feel about the same. Overall progress: compliant with HEP. Arrives with cane but does not use it when he walks. No major changes since SOC. Pt is in talks with his pain doctor; he may schedule an appt soon. Started session 5' early Treatment: Therapeutic Exercise: x50' supervised per grid for improving lumbar/LE ROM, hip strength, and core stability Modalities: pt deferred heat today Assessment/Plan Good tolerance to session. Some small progressions made with core strength and hip strength. Still completed lumbar and LE stretching exercises to help reduce tension on lumbar spine and pelvis. Pt has not noticed any major changes in pain as of yet. Needing more verbal instruction through how to complete deadbugs; some fatigue noted after completion. Band added for clams. No increases in pain reported at any point during session. Continue to progress as tolerated. documented in this encounter [facility] 12-16-2023 History of Present illness Narrative Images [...] and hip strength. documented in this encounter [facility] 10-17-2023 Hospital Discharge instructions Patient Education 10/17/2023 [...] urethra. Follow these instructions at home: Take zmyu-dms-taetven and prescription medicines only as told by [...] provider. Document Revised: 09/19/2021 Document Reviewed: 09/19/2021 [employer] Patient Education 2022 [employer]. Follow Up Care 10/15/2022 14:25:03 With:CELESTINA VIDAL, Buddy Zhang, URL Address: [address] [place], [place] [id number]- When: Unknown [facility] 10-17-2023 Note Patient Education Urology Benign Prostatic [...] Follow these instructions at home: ? Take unpc-mvb-qsimhxt and prescription medicines only as told by [...] develop side effec (more content not included)... [facility] 10-15-2022 Hospital Discharge instructions Patient Education 10/15/2022 [...] include: ?8 oz (237 mL) of milk, uwsipqz-vlqmtksmalqt-wuunj milk, and calcium-fortifiedfruit juice. Calcium-fortified means that [...] ?Spinach (cooked), rhubarb, beets, sweet potatoes, and [place] Islander chard. ?Peanuts. ?Potato chips, yoruba fries, and baked potatoes with skin on. ?Nuts and nut products. ?Chocolate. If you regularly take a diuretic medicine, make sure to eat at least 1 or 2 servings of fruits or vegetables that are high in potassium each day. These include: ?Avocado. ?Banana. ?[place]rie, prune, carrot, or tomato juice. ?Baked potato. [...] magnesium, fish oil, or vitamin B6. Take ronc-jkv-afygsai and prescription medicines only as told by [...] Casseroles. Pizza. Lasagna. Frozen meals. Potato chips. Frisian fries. The items listed above may not [...] Document Reviewed: 11/12/2021 [employer] Patient Education 2022 [employer]. Follow Up Care 10/08/2022 11:09:42 With:CELESTINA VIDAL, Buddy Zhang, URL Address: [facility] [address] [place] [address]- When: Unknown [facility] 09-28-2021 Hospital Discharge instructions Patient Education 09/28/2021 10:58:48 Kidney Stones, Bynj-ah-Xxcs Kidney Stones Kidney stones are rock-like masses [...] Follow these instructions at home: Medicines Take rauq-ede-ahvinsq and prescription medicines only as told by [...] 08/19/2008 Document Revised: 07/20/2019 Document Reviewed: 07/20/2019 [employer] Patient Education 2019 [employer] Follow Up Care 09/29/2020 11:24:43 With:Buddy JACOBO MD, URL Address: [address] [place] [address] [place] [address]- When:Within 1 Year(s) Comments:w/ DAWSON [facility] Evaluation + Plan note Future Appointments Appointment Date:10/04/2022 10:15:00 AM Scheduled Provider:Buddy JACOBO MD Location:[facility] Appointment Type:URO Office Visit [facility] Evaluation + Plan note Future Appointments Appointment Date:10/17/2023 11:00:00 AM Scheduled Provider:Buddy JACOBO MD Location:[facility] Appointment Type:URO Office Visit [facility] Evaluation + Plan note Future Appointments Appointment Date:10/18/2024 10:45:00 AM Scheduled Provider:Buddy JACOBO MD Location:[facility] Appointment Type:URO Office Visit [facility] Evaluation note Diagnosis Spinal stenosis of lumbar region without neurogenic claudication- Primary [facility] Diagnosis Spinal stenosis of lumbar region without neurogenic claudication- Primary [facility] Diagnosis Spinal stenosis of lumbar region without neurogenic claudication- Primary [facility] Diagnosis Spinal stenosis of lumbar region without neurogenic claudication- Primary [facility] Narrative No data available for this section [facility] Hospital Discharge instructions No data available for this section [facility] progress note No data available for this section [facility] reason for visit Narrative* Rehabilitation - Outpatient (Routine) - Authorized Specialty Diagnoses / Procedures Referred By Jareth flower Referred To Contact Physical Therapy Diagnoses Low back pain, unspecified Procedures IN PHYSICAL THERAPY EVALUATION LOW COMPLEX 20 MINS Benjamin Guido MD [address] [place] [address] [place] [address] Phone: tel: fax: Pratik Pepper, PT Referral ID Status Reason Start Date Expiration Date V isits Requested Visits Authorized [id number] Authorized 12/03/2023 05/31/2024 30 30 [facility] Summary Purpose Family History No Family History [...] section and content) DATE CREATED AUTHOR 11/26/2019 [facility] DATE CREATED AUTHOR AUTHOR'S ORGANIZ ATION 03/29/2022 [facility] DATE CREATED AUTHOR AUTHOR'S ORGANIZ ATION 05/25/2022 [facility] DATE CREATED AUTHOR AUTHOR'S ORGANIZ ATION 10/19/2023 [facility] DATE CREATED AUTHOR AUTHOR'S ORGANIZ ATION 12/31/2023 [facility] DATE CREATED AUTHOR AUTHOR'S ORGANIZ ATION 01/01/2024 [facility] dical Specialists EPIC Care Team (unrecognized sect ion and content) Mix Chemist Relationship Specialty Start Date End Date Zeus Bonner DO [address] [place] [address] PCP - ACO Reach 08/08/22 Zeus Bonner DO [address] [place] [address] PCP - General Family Medicine 07/23/22 Mix Chemist Relationship Specialty Start Date End Date Zeus Bonner, DO [address] [place] [address] PCP - ACO Reach 08/08/22 Zeus Bonner, DO [address] [place] [address] PCP - General Family Medicine 07/23/22 Chelsey Daley, MAICOL [address] [place] [address] Nurse Practitioner Family Medicine 06/06/23 Mix Chemist Relationship Specialty Start Date End Date Zeus Bonner, [address] [place] [address] PCP - ACO Reach 08/08/22 Zeus Bonner, [address] [place] [address] PCP - General Family Medicine 07/23/22 Chelsey Daley BOBBIN WINDER TENDER [address] [place] [address] Nurse Practitioner Family Medicine 06/06/23 Mix Chemist Relationship Specialty Start Date End Date Zeus Bonner, [address] [place] [address] PCP - ACO Reach 08/08/22 Zeus Bonner, [address] [place] [address] PCP - General Family Medicine 07/23/22 Chelsey Daley, BOBBIN WINDER TENDER [address] [place] [address] Nurse Practitioner Family Medicine 06/06/23 Mix Chemist Relationship Specialty Start Date End Date Zeus Bonner, [address] [place] [address] PCP - ACO Reach 08/08/22 Zeus Bonner, DO [address] [place] [address] PCP - General Family Medicine 07/23/22 Chelsey Daley, BOBBIN WINDER TENDER [address] [place] [address] Nurse Practitioner Family Medicine 06/06/23 Mix Chemist Relationship Specialty Start Date End Date Zeus Bonner, [address] [place] [address] PCP - ACO Reach 08/08/22 Zeus Bonner, DO [address] [place] [address] PCP - General Family Medicine 07/23/22 Chelsey Daley, BOBBIN W[employer]ER TENDER [address] [place] [address] Nurse Practitioner Family Medicine 06/06/23 Mix Chemist Relationship Specialty Start Date End Date Zeus Bonner, [address] [place] [address] PCP - ACO Reach 08/08/22 Zeus Bonner, DO [address] [place] [address] PCP - General Family Medicine 07/23/22 Chelsey Daley NP [address] [place] [address] Nurse Practitioner Family Medicine 06/06/23 Mix Chemist Relationship Specialty Start Date End Date Zeus Bonner, DO [address] [place] [address] PCP - ACO Reach 08/08/22 Zeus Bonner, [address] [place] [address] PCP - General Family Medicine 07/23/22 Chelsey Daley, BOBBIN W[employer]ER TENDER [address] [place] [address] Nurse Practitioner Family Medicine 06/06/23 Mix Chemist Relationship Specialty Start Date End Date Zeus Bonner, [address] [place] [address] PCP - ACO Reach 08/08/22 Zeus Bonner, [address] [place] [address] PCP - General Family Medicine 07/23/22 Chelsey Daley NP [address] [place] [address] Nurse Practitioner Family Medicine 06/06/23 Reason for Visit (unrecogniz ed section and content) Specialty Diagnoses / Procedures Referred By Jareth t Referred To Contact Physical Therapy Diagnoses Low back pain, unspecified Procedures IN PHYSICAL THERAPY EVALUATION LOW COMPLEX 20 MINS Benjamin Guido MD [address] [place] [address] [place] [address] Pratik Pepper, BILLY Referral ID Status Reason Start Date Expiration Date V isits Requested Visits Authorized [id number] Authorized 12/03/2023 05/31/2024 30 30 FOR RECORDS [...] BE BASED ON THE PRIMARY CLINICAL RECORDS. [facility]. provides no warranty or guarantee of the accuracy or completeness of information in this document.
[2024-01-05 09:59] VITALS: BP 152/87; PULSE 92; TEMP 36.3; O2SAT 99
[2024-01-05 10:38] VITALS: BP 150/80; PULSE 91; O2SAT 98
[2024-01-05] MEDS: LIDOCAINE HCL 2% 400 MG/20 ML MDV INJ (10:40)
[2024-01-05] MEDS: BUPIVACAINE HCL 0.25% PF 25 MG/10 ML VIAL 8 ML INJ (10:40)
[2024-01-05 10:41] VITALS: BP 146/84; PULSE 86; O2SAT 96
--- NOTE | 2024-01-05 10:45 | W.PM.PROCNOT ---
Date of procedure: 01/05/24 Pre-op diagnosis: Pain due to lumbar spondylosis without myelopathy Post-op diagnosis: same as pre-op Procedure: Procedure: Bilateral L4-5, L5-S1 medial branch block Medications: Bupivacaine 0.25% 6cc The patient was seen and examined in the preoperative holding area.? An informed consent was obtained and placed on the chart.? The patient was brought to the medical procedure unit and placed in the prone position.? A timeout was completed verifying correct patient, procedure site, positioning, plan, and special equipment.? Using aseptic technique, the needle was placed at left L4. Under direct fluoroscopic visualization a Quincke-tipped spinal needle was advanced to the junction of the superior articulating process with the transverse process at the designated medial branch segment.? Preceded by negative aspiration, the above-mentioned injectate was placed in 1 mL aliquots.? The procedure was repeated at left L5, S1.? The needle was removed and insertion site was covered. The same procedure, at the same levels, was completed on the right side. The patient was taken to the postprocedural recovery area and monitored for an appropriate length of time before found suitable for discharge in the company of a responsible adult. Anesthesia: Local Surgeon: Jessica Murguia Pathology: none sent Condition: stable Disposition: no change
== END 2024-01-05 10:48 | disposition home or self-care (01) ==
LOC: SURGOUT 09:36
PROVIDERS: PCP Family Medicine; Visit Provider Anesthesiology
DX: M47.816 Spondylosis without myelopathy or radiculopathy, lumbar region (principal)
CPT/HCPCS: 64493; 64494; J0665

== ENCOUNTER 2024-01-07 14:51 | Outpatient (OUT) | payer MEDICARE, SELFPAY ==
--- OUTSIDE RECORDS SUMMARY | 2024-01-07 15:04 | XMS_ITS | CCD ---
Author Organization [facility] Care Team Providers Care Complex Care Nurse Practitioner Name Role Phone ZEUS BONNER Primary Care Physician [phone] KAILEY, DR DOW Primary Care Unavailable CELESTINA, DR OGNZALES Admitting Unavailable CELESTINA, DR GONZALES Consulting Unavailable CELESTINA, DR GONZALES Attending Unavailable ZIEBER, DR TANIA Zhang Consulting Unavailable CHELSEY DALEY Admitting Unavailable CHELSEY DALEY Consulting Unavailable CHELSEY DALEY Attending Unavailable KAILEY, DR DOW Primary Care Unavailable Christian Raymond Jr Admitting Unavailable Christian Raymond Jr Attending Unavailable Zeus Bonner Primary Care Unavailable Zeus Bonner DO Unavailable Zeus Bonner DO Primary Care Provider [phone] Buddy JACOBO Attending Unavailable Buddy JACOBO Attending Unavailable Ludmila STIFF STRAW HAT WASHER, Chelsey L Unavailable Blade VIDAL, Jessica Casas [...] STEPJR. CARLO, CHRISTIAN Egan Attending Unavaila ble MELISSA, PRATIK Attending Unavailable LUIS, SELVON F Referring Unavailable MELISSA, PRATIK Attending Unavailable LUIS, SELVON F Referring Unavailable GUZIKKIMBERLY Attending Unavailable LUIS, SELVON F Referring Unavailable KATHERINE ROTH Attending Unavailable MELISSA, PRATIK Attending Unavailable LUIS, SELVON F Referring Unavailable GUZIKKIMBERLY Attending Unavailable LUIS, SELVON F Referring Unavailable KIMBERLY DOCKERY Attending Unavailable BENJAMIN GUIDO Referring Unavailable KIMBERLY DOCKERY Attending Unavailable BENJAMIN GUIDO Referring Unavailable Allergies Allergy Classification Reported Allergen(s) Allergy Type Date of Onset Reaction(s) Facility (1 source) Meperidine Drug Allergy 12-09-2013 [facility] (1 source) Nalbuphine Drug Allergy 12-09-2013 [facility] Medications Current Medications Medication Drug Class(es) Dates Sig (Normalized) Sig (Original) amLODIPine 2.5 mg oral tablet (20 sources) Dihydropyridine Calcium Channel Monae Start: 09-27-2019 End: 2024 take 1 tablet by mouth once daily amLODIPine (Norvasc) 2.5 MG tablet Indications: Primary hypertension (CMS/HCC) TAKE 1 TABLET BY MOUTH ONCE DAILY 90 tablet 3 2024 Active Aspirin (4 sources) Platelet Aggregation Inhibitor, Nonsteroidal Anti-inflammatory Drug Start: 09-27-2019 aspirin Refills(s) 0 Start Date: 09/27/19 Status: Ordered aspirin 81 MG EC tablet 1 (one) time each day at the same time. 0 Active erythromycin 20 mg/ml topical solution (15 sources) Macrolide, Macrolide Antimicrobial Start: 06-26-2023 End: [...] Status: Ordered hydroCHLOROthiazide 12.5 mg oral tablet (20 sources) Thiazide Diuretic Start: 09-27-2019 take 1 tablet by mouth once daily hydroCHLOROthiazide (HYDRODiuril) 12.5 MG tablet Indications: Primary hypertension (CMS/HCC) TAKE 1 TABLET BY MOUTH ONCE DAILY 90 tablet 3 10/13/2023 Active ivermectin 5 mg/ml topical lotion (16 sources) Antiparasitic, Pediculicide Start: 02-27-2023 Ivermectin 0.5 % lotion 02/27/2023 Active lisinopril 20 mg oral tablet (20 sources) Angiotensin Converting Enzyme Inhibitor Start: 09-02-2022 [...] Active triamcinolone acetonide 1 mg/ml topical cream (16 sources) Corticosteroid Start: 11-01-2021 triamcinolone (Kenalog) 0.1 [...] increase, # 180 tab(s), Refills(s) 3, Pharmacy: [facility], 170, cm, 10/15/22 13:53:00 EDT, Height/Length Dosing, 71, kg, 10/15/22 13:53:00 EDT, Weight Dosing Start Date: 02/03/23 Status: Ordered Start: 09-28-2021 take 1 tablet by enoch twice daily potassium citrate 15 mEq oral tablet, extended release 15 mEq = 1 tab(s), Oral, BID, # 200 tab(s), Refills(s) 11, Pharmacy: [facility]), 170, cm, [...] Onset: 09-20-2021 Episodic Disorders of lipid metabolism (17 sources) Hyperlipidemia, unspecified; Translations: [Hyperlipidemia] Onset: 03-13-2022 11-25-2022 Chronic Essential hypertension (20 sources) Hypertensive disorder; Translations: [Essential (primary) hypertension] Onset: 03-05-2022 09-23-2019 Chronic Genitourinary symptoms and ill-defined conditions (13 sources) Microscopic hematuria; Translations: [Other microscopic hematuria] Onset: 09-24-2021 Episodic Hyperplasia of prostate (8 sources) Benign prostatic hypertrophy with outflow obstruction; Translations: [Benign prostatic hyperplasia with lower urinary tract symptoms] Onset: 09-24-2021 Chronic Osteoarthritis (16 sources) Arthritis of left hip; Translations: [Unilateral [...] 10-14-2022 Episodic Other inflammatory condition of skin (16 sources) Rosacea; Translations: [Rosacea, unspecified] Onset: 11-25-2022 11-25-2022 Chronic Other male genital disorders (1 source) 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; Translations: [Vascular disorders of male genital organs] Onset: 10-17-2023 Chronic Other male genital disorders (1 source) Hemorrhage of scrotum 10-17-2023 Chronic Other nervous system disorders (16 sources) Cervical myelopathy; Translations: [Disease of spinal cord, unspecified] Onset: 11-25-2022 11-25-2022 Chronic Other screening for suspected conditions (not mental disorders or infectious disease) (1 source) Encounter for screening for malignant neoplasm of prostate; Translations: [ENC SCREEN MALIG NEOPLASM PROSTATE] Onset: 03-13-2022 Episodic Spondylosis; intervertebral disc disorders; other back problems (16 sources) Cervical spondylosis; Translations: [Spondylosis without myelopathy or radiculopathy, cervical region] Onset: 11-25-2022 11-25-2022 Chronic Spondylosis; intervertebral disc disorders; other back problems (20 sources) Radiculopathy, lumbar region; Translations: [Spinal stenosis of lumbar region] Onset: 04-17-2022 12-10-2023 Episodic Past or Other Problems Problem Classification Problem Date Documented Da te Episodic/Chronic Mood disorders (16 sources) Mood disorders Onset: 04-17-2023 04-17-2023 Results [...] with Buddy JACOBO MD, URL When: Where: [address] [place] [address]- Medications What How Much When Instructions Unchanged [...] sound wav (more content not included)... Normal [facility] Urology Office/Clinic Noteon 10-17-2023 Urology Office/Clinic Note [...] Information CELESTINA VIDAL, Buddy Zhang, URL [address] [place] [address]- Additional Instructions: 1 year w/ KUB Patient [...] Daily hydrochl (more content not included)... Normal [facility] Comment on above: Result Comment: Elec tronically Signed By: Buddy JACOBO MD\.br\Date and Time Signed: 10/17/23 12:04 EDT\.br\Electronically Co-Signed By: Marina Barclay\Date and Time Co-Signed: 10/17/23 12:03 EDT MR [...] RANDOM 41.74 mg/dL 20.00 - 300.00 mg/dL [facility] Interpretation and review of laboratory results Abnormal [facility] MICROALBUM CREATININE RATIO UR 31.1 mg/g High 0.0 - 29.9 mg/g [facility] Comment on above: NO MICROALBUMINURIA 0-29 MG/G CLINICAL MICROALBUMINURIA 30-300 MG/G MACROALBUMINURIA >300 MG/G MICROALBUMIN URINE RANDOM <1.3 NINF - 30.0 mg/dL [facility] [place] [facility] XR pre/post mri xrayon 04-17 XR pre/post mri xray [facility] Main [place] [id number] MRI Report Signed Patient: Jd Apodaca MR#: [id number] : 1945 Acct:[id number] Age/Sex: 77 / M ADM Date: 04/17/22 Loc: [facility] Room: Type: [facility] Attending Dr: Christian Raymond Jr, DO Copies to: Christian Raymodn Jr, DO Ordering Provider: Christian Raymond Jr, DO Date of Service: 04/17/22 MR/MR lumbar spine wo con: M54.16 ([id number]) XR/XR pre/post mri xray: LUMBAR MRI MR [...] Baltazar Mcdermott M.D.04/17/2022 1:38 PM Dictation Location: [place] [address] Transcribed By: [facility] 04/17/22 1338 Dictated By: Baltazar Mcdermott II, MD 04/17/22 1329 Signed By: 04/17/22 1338 Normal [facility] PSA, FREE AND TOTAL RATIOon 03-06-2022 % Free PSA 22.0 % Normal [facility] Comment on above: Result Comment: The [...] men. Performed By: #### P SAFREE #### [facility] [address] [place] [address] Dr. Magalie Ceron Prostate specific Ag [Mass/Vol] 1.0 ng/mL Normal 0.0-4.0 [facility] Comment on above: Result Comment: Joseph PORTILLO methodology. . According to the [place], Serum PSA should decrease and [...] disease. Performed By: #### P SAFREE #### [facility] [address] [place] [address] Dr. Magalie Ceron PSA, Free 0.22 ng/mL Normal N/A [facility] Comment on above: Result Comment: Joseph PORTILLO methodology. Performed By: #### P SAFREE #### [facility] [address] [place] [address] Dr. Magalie Ceron CBC AUTO DIFFon 03-05-2022 BASO # 0.1 103/ul Normal 0.0-0.1 [facility] Comment on above: Performed By: #### C BC #### [facility] [address] [place] [address] Dr. Magalie Ceron Basophils/100 WBC (Bld) 0.8 % Normal 0.2-2.0 [facility] Comment on above: Performed By: #### C BC #### [facility] [address] [place] [address] Dr. Magalie Ceron EO # 0.1 103/ul Normal 0.0-0.7 [facility] Comment on above: Performed By: #### C BC #### [facility] [address] [place] [address] Dr. Magalie Ceron Eosinophils/100 WBC (Bld) 1.5 % Normal 0.9-7.0 [facility] Comment on above: Performed By: #### C BC #### [facility] [address] [place] [address] Dr. Magalie Ceron Erythrocyte distribution width (RBC) [Ratio] 13.5 % Normal 11.0-15.0 [facility] Comment on above: Performed By: #### C BC #### [facility] [address] [place] [address] Dr. Magalie Ceron Hematocrit (Bld) [Volume fraction] 43.7 % Normal 42.0-54.0 [facility] Comment on above: Performed By: #### C BC #### [facility] [address] [place] [address] Dr. Magalie Ceron Hemoglobin (Bld) [Mass/Vol] 15.1 g/dL Normal 14.0-18.0 [facility] Comment on above: Performed By: #### C BC #### [facility] [address] [place] [address] Dr. Magalie Ceron IG # 0.04 10e3/ul Critically high 0.00-0.03 [facility] Comment on above: Performed By: #### C BC #### [facility] [address] [place] [address] Dr. Magalie Ceron IG % 0.6 % Critically high 0.0-0.5 [facility] Comment on above: Performed By: #### C BC #### [facility] [address] [place] [address] Dr. Magalie Ceron LYMPH # 2.6 103/ul Normal 1.2-3.8 [facility] Comment on above: Performed By: #### C BC #### [facility] [address] [place] [address] Dr. Magalie Ceron Lymphocytes/100 WBC (Bld) 35.5 % Normal 20.5-60.0 [facility] Comment on above: Performed By: #### C BC #### [facility] [address] [place] [address] Dr. Magalie Ceron MANUAL DIFF REQ NO Normal [facility] Comment on above: Performed By: #### C BC #### [facility] [address] [place] [address] Dr. Magalie Ceron MCH (RBC) [Entitic mass] 31.8 pg Normal 25.9-34.0 [facility] Comment on above: Performed By: #### C BC #### [facility] [address] [place] [address] Dr. Magalie Ceron MCHC (RBC) [Mass/Vol] 34.6 g/dL Normal 29.9-35.2 [facility] Comment on above: Performed By: #### C BC #### [facility] [address] [place] [address] Dr. Magalie Ceron MCV (RBC) [Entitic vol] 92.0 fL Normal 80.0-94.0 [facility] Comment on above: Performed By: #### C BC #### [facility] [address] [place] [address] Dr. Magalie Ceron MONO # 0.7 103/ul Normal 0.3-0.8 [facility] Comment on above: Performed By: #### C BC #### [facility] [address] [place] [address] Dr. Magalie Ceron Monocytes/100 WBC (Bld) 9.3 % Normal 1.7-12.0 [facility] Comment on above: Performed By: #### C BC #### [facility] [address] [place] [address] Dr. Magalie Ceron NEUT # 3.8 103/ul Normal 1.4-6.5 [facility] Comment on above: Performed By: #### C BC #### [facility] [address] [place] [address] Dr. Magalie Ceron Neutrophils/100 WBC (Bld) 52.3 % Normal 43.0-75.0 [facility] Comment on above: Performed By: #### C BC #### [facility] [address] [place] [address] Dr. Magalie Ceron Platelet mean volume (Bld) [Entitic vol] 8.8 fL Critically low 9.5-13.5 [facility] Comment on above: Performed By: #### C BC #### [facility] [address] [place] [address] Dr. Magalie Ceron PLT 308 103/ul Normal 150-450 [facility] Comment on above: Performed By: #### C BC #### [facility] [address] [place] [address] [address] Magalie Ceron RBC 4.75 106/ul Normal 4.70-6.10 [facility] Comment on above: Performed By: #### C BC #### [facility] [address] [place] [address] Dr. Magalie Ceron WBC 7.2 103/ul Normal 4.0-11.0 [facility] Comment on above: Performed By: #### C BC #### [facility] [address] [place] [address] Dr. Magalie Ceron LIPID PROFILEon 03-05-2022 CHOL-HDL RATIO NORM SEE BELOW Normal [facility] Comment on above: Result Comment: 3.3 - 4.4 LOW RISK 4.4 - 7.1 AVERAGE RISK 7.1 - 11.0 MODERATE RISK >11.0 HIGH RISK Performed By: #### C MP, LIPID #### [facility] [address] [place] [address] Dr. Magalie Ceron Cholesterol [Mass/Vol] 216 mg/dL Critically high <=200 [facility] Comment on above: Performed By: #### C MP, LIPID #### [facility] [address] [place] [address] Dr. Magalie Ceron Cholesterol in HDL [Mass/Vol] 53 mg/dL Normal 40-60 [facility] Comment on above: Performed By: #### C MP, LIPID #### [facility] [address] [place] [address] Dr. Magalie Ceron Cholesterol in LDL [Mass/Vol] 118.0 mg/dL Normal [facility] Comment on above: Performed By: #### C MP, LIPID #### [facility] [address] [place] [address] Dr. Magalie Ceron Cholesterol.total/C holesterol in HDL [Mass ratio] 4.1 {ratio} Normal [facility] Comment on above: Performed By: #### C MP, LIPID #### [facility] [address] [place] [address] [address] Magalie Ceron HDL NORMAL > or = 60 mg/dl - LO W CARDIOVASCULAR RISK <40 mg/dl - HIGH CARDIOVASCULAR RISK Normal [facility] Comment on above: Performed By: #### C MP, LIPID #### [facility] [address] [place] [address] [address] Magalie Ceron LDL CALC NORMAL SEE BELOW Normal [facility] Comment on above: Result Comment: <100 mg/dl OPTIMAL 100 - 129 mg/dl NEAR OR ABOVE OPTIMAL 130 - 159 mg/dl BORDERLINE HIGH 160 - 189 mg/dl HIGH >190 mg/dl VERY HIGH Performed By: #### C MP, LIPID #### [facility] [address] [place] [address] [address] Magalie Ceron Triglyceride [Mass/Vol] 225 mg/dL Critically high <=150 [facility] Comment on above: Performed By: #### C MP, LIPID #### [facility] [address] [place] [address] [address] Magalie Ceron VLDL CALC 45.0 mg/dL Normal [facility] Comment on above: Performed By: #### C MP, LIPID #### [facility] [address] [place] [address] [address] Magalie Ceron MICROALB CREAT RATIO RANDOMo n 03-05-2022 mALB <1.3 Normal <=30.0 [facility] Comment on above: Performed By: #### M CRR #### [facility] [address] [place] [address] [address] Magalie Ceron MALB CR RATIO 13.5 mg/g Normal 0.0-29.9 [facility] Comment on above: Performed By: #### M CRR #### [facility] [address] [place] [address] [address] Magalie Ceron MALB CR RATIO RANGE SEE BELOW Normal [facility] Comment on above: Result Comment: NO M ICROALBUMINURIA 0-29 MG/G CLINICAL MICROALBUMINURIA 30-300 MG/G MACROALBUMINURIA >300 MG/G Performed By: #### M CRR #### [facility] [address] [place] [address] Dr. Magalie Ceron URINE CREAT 96.12 mg/dL Normal 20.00-300.00 [facility] Comment on above: Performed By: #### M CRR #### [facility] [address] [place] [address] [address] Magalie Ceron PROF 14(COMP METB)on 03-05- 022 Albumin [Mass/Vol] 4.1 g/dL Normal 3.4-5.0 [facility] Comment on above: Performed By: #### C MP, LIPID #### [facility] [address] [place] [address] Dr. Magalie Ceron Albumin/Globulin [Mass ratio] 1.2 {ratio} Normal [facility] Comment on above: Performed By: #### C MP, LIPID #### [facility] [address] [place] [address] Dr. Magalie Ceron ALP [Catalytic activity/Vol] 73 U/L Normal 46-116 [facility] Comment on above: Performed By: #### C MP, LIPID #### [facility] [address] [place] [address] Dr. Magalie Ceron ALT [Catalytic activity/Vol] 34 U/L Normal 16-63 [facility] Comment on above: Performed By: #### C MP, LIPID #### [facility] [address] [place] [address] Dr. Magalie Ceron Anion gap [Moles/Vol] 9.2 mmol/L Normal [facility] Comment on above: Performed By: #### C MP, LIPID #### [facility] [address] [place] [address] Dr. Magalie Ceron AST [Catalytic activity/Vol] 25 U/L Normal 15-37 [facility] Comment on above: Performed By: #### C MP, LIPID #### [facility] [address] [place] [address] Dr. Magalie Ceron Bilirubin [Mass/Vol] 1.6 mg/dL Critically high 0.2-1.0 [facility] Comment on above: Performed By: #### C MP, LIPID #### [facility] [address] [place] [address] Dr. Magalie Ceron Calcium [Mass/Vol] 8.9 mg/dL Normal 8.5-10.1 [facility] Comment on above: Performed By: #### C MP, LIPID #### [facility] [address] [place] [address] Dr. Magalie Ceron Chloride [Moles/Vol] 100 mmol/L Normal 98-107 [facility] Comment on above: Performed By: #### C MP, LIPID #### [facility] [address] [place] [address] Dr. Magalie Ceron CO2 [Moles/Vol] 32.5 mmol/L Critically high 21.0-32.0 [facility] Comment on above: Performed By: #### C MP, LIPID #### [facility] [address] [place] [address] Dr. Magalie Ceron Creatinine [Mass/Vol] 0.96 mg/dL Normal 0.70-1.30 [facility] Comment on above: Performed By: #### C MP, LIPID #### [facility] [address] [place] [address] Dr. Magalie Ceron EGFR-AF [place] >60 Normal >=60 [facility] Comment on above: Performed By: #### C MP, LIPID #### [facility] [address] [place] [address] Dr. Magalie Ceron EGFR-NON AF [place] >60 Normal >=60 [facility] Comment on above: Performed By: #### C MP, LIPID #### [facility] [address] [place] [address] Dr. Magalie Ceron Globulin (S) [Mass/Vol] 3.3 g/dL Normal [facility] Comment on above: Performed By: #### C MP, LIPID #### [facility] [address] [place] [address] Dr. Magalie Ceron Glucose [Mass/Vol] 88 mg/dL Normal 74-106 [facility] Comment on above: Performed By: #### C MP, LIPID #### [facility] [address] [place] [address] Dr. Magalie Ceron Potassium [Moles/Vol] 3.7 mmol/L Normal 3.5-5.1 [facility] Comment on above: Performed By: #### C MP, LIPID #### [facility] [address] [place] [address] Dr. Magalie Ceron Protein [Mass/Vol] 7.4 g/dL Normal 6.4-8.2 [facility] Comment on above: Performed By: #### C MP, LIPID #### [facility] [address] [place] [address] Dr. Magalie Ceron Sodium [Moles/Vol] 138 mmol/L Normal 136-145 [facility] Comment on above: Performed By: #### C MP, LIPID #### [facility] [address] [place] [address] Dr. Magalie Ceron Urea nitrogen [Mass/Vol] 11.0 mg/dL Normal 7.0-18.0 [facility] Comment on above: Performed By: #### C MP, LIPID #### [facility] [address] [place] [address] Dr. Magalie Ceron Urea nitrogen/Creatinine [Mass ratio] 11.5 mg/mg Normal [facility] Comment on above: Performed By: #### C MP, LIPID #### [facility] [address] [place] [address] Dr. Magalie Ceron XR KUB 1 VIEWon [...] by: TANIA SAXENA Date: 2021-09-20 17:32 Normal [facility] Standardon 11-25-2019 eGFR Non AA >60 [facility] Comment on above: Performed By: #### 1 [id number], [id number], [id number] #### [facility] (DEFAULT) [address] [place] [address] eGFR AA >60 [facility] Comment on above: Result Comment: Servicer ernesto Kidney disease could be indicated at eGFRs of less than 60 ml/min/1.73m2. Kidney Failure is indicated at less than 15 ml/min/1.73m2 Performed By: #### 1 [id number], [id number], [id number] #### [facility] (DEFAULT) [address] [place] [address] Anion gap [Moles/Vol] 15.0 mmol/L Normal 5.0-19.0 [facility] Comment on above: Performed By: #### 1 [id number], [id number], [id number] #### [facility] (DEFAULT) [address] [place] [address] Calcium [Mass/Vol] 8.8 mg/dL Low 8.9-10.3 [facility] Comment on above: Performed By: #### 1 [id number], [id number], [id number] #### [facility] (DEFAULT) [address] [place] [address]189 Chloride [Moles/Vol] 99 mmol/L Low 101-111 [facility] Comment on above: Performed By: #### 1 [id number], [id number], [id number] #### [facility] (DEFAULT) [address] [place] [address] 20204 CO2 [Moles/Vol] 26 mmol/L Normal 21-32 [facility] Comment on above: Performed By: #### 1 [id number], [id number], [id number] #### [facility] (DEFAULT) [address] [place] [address] Creatinine [Mass/Vol] 0.81 mg/dL Low 0.90-1.30 [facility] Comment on above: Performed By: #### 1 [id number], [id number], [id number] #### [facility] (DEFAULT) [address] [place] [address] 19994 Glucose [Mass/Vol] 93.0 mg/dL Normal 74.0-118.0 [facility] Comment on above: Performed By: #### 1 [id number], [id number], [id number] #### [facility] (DEFAULT) [address] [place] [address] Osmolality [Osmolality] 274 mOsm/L [facility] Comment on above: Performed By: #### 1 [id number], [id number], [id number] #### [facility] (DEFAULT) [address] [place] [address] Potassium [Moles/Vol] 3.4 mmol/L Low 3.6-5.1 [facility] Comment on above: Performed By: #### 1 [id number], [id number], [id number] #### [facility] (DEFAULT) [address] [place] [address] 14078 Sodium [Moles/Vol] 137.0 mmol/L Normal 136.0-144.0 [facility] Comment on above: Performed By: #### 1 [id number], [id number], [id number] #### [facility] (DEFAULT) [address] [place] [address] 58834 Urea nitrogen [Mass/Vol] 13 mg/dL Normal 8-26 [facility] Comment on above: Performed By: #### 1 [id number], [id number], [id number] #### [facility] (DEFAULT) [address] [place] [address] 70110 Urea nitrogen/Creatinine [Mass ratio] 16.0 mg/mg Normal 4.6-16.2 [facility] Comment on above: Performed By: #### 1 [id number], [id number], [id number] #### [facility] (DEFAULT) [address] [place] [address] Lipid Panel Standardon 11-24 Cholesterol [Mass/Vol] 218.0 mg/dL High 66.0-200.0 [facility] Comment on above: Result Comment: Laura rable - Less than 200 mg/dL Borderline high risk - 200-239 mg/dL High risk - 240 mg/dL and over. Performed By: #### 1 [id number], [id number], [id number] #### [facility] (DEFAULT) [address] [place] [id number] Cholesterol in HDL [Mass/Vol] 47 mg/dL Normal 40-71 [facility] Comment on above: Result Comment: High risk - <40 mg/dL. Performed By: #### 1 [id number], [id number], [id number] #### [facility] (DEFAULT) [address] [place] [address] 34292 Cholesterol in LDL [Mass/Vol] 137 mg/dL High 1-100 [facility] Comment on above: Result Comment: Opti mal - Less than 100 mg/dL Borderline high risk - 130-159 mg/dL High risk - 160-189 mg/dL. Performed By: #### 1 [id number], [id number], [id number] #### [facility] (DEFAULT) [address] [place] [address] 21551 Cholesterol.total/C holesterol in HDL [Mass ratio] 4.6 {ratio} High 0.0-4.5 [facility] Comment on above: Performed By: #### 1 [id number], [id number], [id number] #### [facility] (DEFAULT) [address] [place] [address]186 Triglyceride [Mass/Vol] 172.0 mg/dL High 0.0-150.0 [facility] Comment on above: Performed By: #### 1 [id number], [id number], [id number] #### [facility] (DEFAULT) [address] [place] [address]1810 VLDL. 34 mg/dL Normal 5-40 [facility] Comment on above: Performed By: #### 1 [id number], [id number], [id number] #### [facility] (DEFAULT) [address] [place] [address] SARS-CoV-2 (COVID-19) IgG An tibodies(Noon 11-25-2019 Employed in healthcare? No [facility] Comment on above: Performed By: #### 1 [id number], [id number], [id number] #### [facility] (DEFAULT) [address] [place] [address] Group care resident? No [facility] Comment on above: Performed By: #### 1 [id number], [id number], [id number] #### [facility] (DEFAULT) [address] [place] [address] Hospitalized due to COVID-19? No [facility] Comment on above: Performed By: #### 1 [id number], [id number], [id number] #### [facility] (DEFAULT) [address] [place] [address] In ICU? No [facility] Comment on above: Performed By: #### 1 [id number], [id number], [id number] #### [facility] (DEFAULT) [address] [place] [address] status? Not [facility] Comment on above: Performed By: #### 1 [id number], [id number], [id number] #### [facility] (DEFAULT) [address] [place] [address] SARS-CoV-2 (COVID-19) IgG Abs Non-Reactive Normal Non-Reactive [facility] Comment on above: Result Comment: Test results should be interpreted in light of the total clinical presentation of the patient, including: symptoms, clinical history, data from additional tests, and other appropriate information. Detects IgG Abs 14-20 days post infection (varies by individual) Equivocal Results: retest in 1-2 weeks Positive Results may be due to past or present infection with cii-EMVM-RgI-2 coronavirus strains, such as coronavirus HKU1, NL63, OC43, or 229E. Performed By: #### 1 [id number], [id number], [id number] #### [facility] (DEFAULT) [address] [place] [address] Symptomatic as defined by [facility]? No [facility] Comment on above: Performed By: #### 1 [id number], [id number], [id number] #### [facility] (DEFAULT) [address] [place] [address] Vital Signs Date Time Vital Sign Value Performing Clinician Octavio jacques 10-17-2023 11:02-0400 Blood Pressure Location Buddy JACOBO [facility] 10-17-2023 11:02-0400 Diastolic blood pressure 81 mm[Hg] Buddy JACOBO [facility] 10-17-2023 11:02-0400 Heart rate 74 /min Buddy JACOBO [facility] 10-17-2023 11:02-0400 Respiratory rate 16 /min Buddy JACOBO [facility] 10-17-2023 11:02-0400 Systolic blood pressure 133 mm[Hg] Buddy JACOBO [facility] 10-15-2022 13:45-0400 Blood Pressure Location Buddy JACOBO [facility] 10-15-2022 13:45-0400 Diastolic blood pressure 87 mm[Hg] Buddy JACOBO [facility] 10-15-2022 13:45-0400 Heart rate 91 /min Buddy JACOBO [facility] 10-15-2022 13:45-0400 Systolic blood pressure 150 mm[Hg] Buddy JACOBO [facility] 09-28-2021 10:27-0400 Blood Pressure Location Buddy JACOBO [facility] 09-28-2021 10:27-0400 Diastolic blood pressure 81 mm[Hg] Buddy JACOBO [facility] 09-28-2021 10:27-0400 Heart rate 70 /min Buddy JACOBO [facility] 09-28-2021 10:27-0400 Respiratory rate 16 /min Buddy JACOBO [facility] 09-28-2021 10:27-0400 Systolic blood pressure 123 mm[Hg] Buddy JACOBO [facility] Encounters Encounter Date Encounter Type Care Provider Facility Start: 10-18-2024 ambulatory Buddy Nolani ty:[facility] [place] Start: 01-06-2024 End: 01-06-2024 ambulatory Prat[place]ila [place] [facility] Comment on above: Spinal stenosis of l umbar region without neurogenic claudication (Primary Dx) Start: 01-06-2024 End: 01-06-2024 Bamboo flowsheet Pratik [place] PT [facility] Start: 01-06-2024 End: 01-06-2024 Bamboo flowsheet Pratik [place] [facility] Start: 01-04-2024 End: 2024 Refcuate Bonner DO Work Phone: [phone] Comment on above: Primary hypertension (CMS/HCC) Start: 01-01-2024 End: 01-01-2024 ambulatory KIMBERLY DOCKERY Not Available Comment on above: Spinal stenosis of l umbar region without neurogenic claudication (Primary Dx) Start: 01-01-2024 End: 01-01-2024 Bamboo flowsheet Kimberly Guzik ASSISTANT SOFTBALL COACH [facility] Start: 01-01-2024 End: 01-01-2024 Bamboo flowsheet Kimberly Guzik ASSISTANT SOFTBALL COACH [facility] Start: 12-30-2023 End: 12-30-2023 ambulatory KIMBERLY GUZIK [facility] Comment on above: Spinal stenosis of l umbar region without neurogenic claudication (Primary Dx) Start: 12-30-2023 End: 12-30-2023 Bamboo flowsheet Kimberly Guzik ASSISTANT SOFTBALL COACH [facility] Start: 12-30-2023 End: 12-30-2023 Bamboo flowsheet Kimberly Guzik ASSISTANT SOFTBALL COACH [facility] Start: 12-25-2023 End: 12-25-2023 Bamboo flowsheet Kimberly Guzik ASSISTANT SOFTBALL COACH [facility] Start: 12-25-2023 End: 12-25-2023 Bamboo flowsheet Kimberly Guzik ASSISTANT SOFTBALL COACH [facility] Start: 12-25-2023 End: 12-25-2023 ambulatory Kimberly Guzik ASSISTANT SOFTBALL COACH [facility] Comment on above: Spinal stenosis of l umbar region without neurogenic claudication (Primary Dx) Start: 12-23-2023 End: 12-23-2023 ambulatory Pratik [place] PT [facility] Comment on above: Spinal stenosis of l umbar region without neurogenic claudication (Primary Dx) Start: 12-23-2023 End: 12-23-2023 Bamboo flowsheet Pratik [place] PT [facility] Start: 12-23-2023 End: 12-23-2023 Bamboo flowsheet Pratik [place] PT [facility] Start: 12-22-2023 End: 12-22-2023 ambulatory Jessica Murguia MD Facility:[facility] [place] Start: 12-18-2023 End: 12-18-2023 ambulatory Kimberly Guzik ASSISTANT SOFTBALL COACH [facility] Comment on above: Spinal stenosis of l umbar region without neurogenic claudication (Primary Dx) Start: 12-18-2023 End: 12-18-2023 Bamboo flowsheet Kimberly Guzik ASSISTANT SOFTBALL COACH [facility] Start: 12-18-2023 End: 12-18-2023 Bamboo flowsheet Kimberly Dockery ASSISTANT SOFTBALL COACH [facility] Start: 12-16-2023 End: 12-16-2023 ambulatory Pratik Pepper PT [facility] Comment on above: Spinal stenosis of l umbar region without neurogenic claudication (Primary Dx) Start: 12-16-2023 End: 12-16-2023 Bamboo flowsheet Prat[facility]camila [place] [facility] Start: 12-16-2023 End: 12-16-2023 Bamboo flowsheet Pratikcamila [place] [facility] Start: 12-10-2023 End: 12-10-2023 ambulatory PRATIK PEPPER Not Available Start: 10-29-2023 End: 10-29-2023 ambulatory CHRISTIAN DE LA GARZA Not Available Start: 10-17-2023 End: 10-17-2023 ambulatory Buddy JACOBO Facility:[facility] Start: 10-17-2023 End: 10-17-2023 Patient encounter procedure Buddy JACOBO [facility] Start: 10-09-2023 End: 10-09-2023 ambulatory CHRISTIAN DE LA GARZA Not Available Start: 09-29-2023 End: 09-29-2023 ambulatory CHRISTIAN DE LA GARZA Not Available Start: 06-26-2023 End: 06-26-2023 ambulatory ZEUS BONNER Not Available Start: 05-30-2023 End: 05-30-2023 ambulatory CHRISTIAN DE LA GARZA Not Available Start: 05-06-2023 End: 05-06-2023 ambulatory KATHERINE ROTH Not Available Start: 04-23-2023 Clinisync Result Encounter Zeus Bonner DO Work Phone: [facility] Unsolicited Start: 04-23-2023 Clinisync Result Encounter Zeus Bonner DO Work Phone: [facility] Unsolicited Start: 04-17-2023 End: 04-17-2023 ambulatory ZEUS BONNER Not Available Start: 03-24-2023 End: 03-24-2023 ambulatory CHRISTIAN DE LA GARZA Not Available Start: 02-27-2023 End: 02-27-2023 ambulatory KATHERINE ROTH Not Available Start: 10-15-2022 End: 10-15-2022 Patient encounter procedure Buddy JACOBO [facility] Start: 04-17-2022 End: 04-17-2022 ambulatory Christian Raymond Jr Facility:[facility] Start: 03-05-2022 End: 03-06-2022 ambulatory CHELSEY DALEY Facility: Start: 09-28-2021 End: 09-28-2021 Patient encounter procedure Buddy JACOBO [facility] Start: 09-20-2021 End: 09-21-[address] ZEUS BONNER Facility:[facility] Procedures Date Procedure Procedure Detail Performing Clinician Start: 04-23-2023 [facility] R ATIO RANDOM Zeus Bonner DO Work [...] [address] [place] [address] Katherine Roth, DIELECTRIC EMBOSSING MACHINE OPERATOR-YARDER [address] [place] [address] [facility] Start: 04-17-2024 Medicare Annual Well ness (AWV) Medicare Annual Wellness (AWV) [facility] Start: 01-08-2024 End: 01-08-2024 ambulatory 01/08/2024 2:30 PM EDT Treatment [facility] [address] [place] [id number] Kimberly Dockery, ASSISTANT SOFTBALL COACH [facility] Start: 01-06-2024 End: 01-06-2024 ambulatory [facility] Comment on above: Arrived Start: 01-01-2024 End: 01-01-2024 ambulatory [facility] [...] [address] [place] [id number] Pratik Pepper, PT Arrived [facility] Comment on above: Arrived Start: 11-16-2023 Influenza vaccination Influenza Vacc ine (#1) [facility] Start: 05-30-2023 End: 05-30-2023 Patient encounter procedure 05/30/2023 10:30 AM EDT [facility] [address] [place] [address] Jr. Christian Raymond, DO [address] [place] [address] [facility] Start: 05-06-2023 End: 05-06-2023 Patient encounter procedure 05/06/2023 10:50 AM EST Office Visit [facility] [address] [place] [address] Katherine Roth, DIELECTRIC EMBOSSING MACHINE OPERATOR-YARDER [address] [place] [address] [facility] Start: 03-04-2023 Medicare Annual Well ness (AWV) Medicare Annual Wellness (AWV) [facility] Start: 11-15-2022 Influenza vaccination Influenza Vacc ine (#1) [facility] Immunizations Immunization Date Immunization Notes Care Provider Fa joe 02-21-2022 Moderna Bivalent Coleman ster Vaccination Zeus Bonner DO Work Phone: [facility] 02-21-2022 SARS-CoV-2 (COVID-19 ) [id number] Buddy JACOBO [facility] 01-11-2021 SARS-CoV-2 (COVID-19 ) mRNA BNT-162b2 vax Buddy JACOBO [facility] 12-20-2020 influenza virus vacc ine, unspecified formulation Buddy JACOBO [facility] 12-20-2020 influenza, injectabl e, quadrivalent, contains preservative Zeus Bonner DO Work Phone: [facility] 05-03-2020 SARS-CoV-2 (COVID-19 ) mRNA BNT-162b2 vax Buddy [place] [facility] Comment on above: Result Comment: 2022: [id number] 04-12-2020 SARS-CoV-2 (COVID-19 ) mRNA BNT-162b2 vax Buddy [place] [facility] Comment on above: Result Comment: 2022: [id number] 12-20-2019 influenza virus vacc ine, unspecified formulation [employer] [facility] 12-20-2019 Seasonal, quadrivale nt, recombinant, injectable influenza vaccine, preservative free Zeus Bonner DO Work Phone: [facility] 01-12-2018 influenza virus vacc ine, unspecified formulation [employer] [facility] 01-12-2018 influenza, injectabl e, quadrivalent, preservative free Ezus Kailey DO Work Phone: [facility] 01-08-2017 influenza, seasonal, injectable, preservative free Zeus Bonner DO Work Phone: [facility] 12-24-2016 influenza virus vacc ine, unspecified formulation [employer] [facility] 12-24-2016 seasonal influenza, intradermal, preservative free Zeus Bonner DO Work Phone: [facility] 01-29-2016 pneumococcal polysaccharide vaccine, 23 valent Zeus Kailey DO Work Phone: [facility] 12-20-2015 influenza virus vacc ine, unspecified formulation [employer] [facility] 12-20-2015 influenza, injectabl e, quadrivalent, preservative free Zeus Bonner DO Work Phone: [facility] 02-01-2015 pneumococcal conjuga te vaccine, 13 valent Zeus Bonner DO Work Phone: [facility] 01-09-2015 influenza, seasonal, injectable, preservative free Zeus Bonner DO Work Phone: [facility] Payers Date Payer Category Payer Self-pay 2022 Private Health Insurance [employer] [id number] 2022 Unknown [id number] 2009 Medicare [id number] 2009 Unknown [id number] 1959 Medicare [id number] 1945 Unknown [id number] 2.16.840.1.687731.3.579.2 .593 1945 Unknown [id number] 2.16.840.1.487527.3.579.2 .593 1945 Unknown [id number] 2.16.840.1.681467.3.579.2 .727 1945 Unknown [id number] 2.16.840.1.171294.3.579.2 .727 1945 Unknown [id number] 2.16.840.1.719677.3.579.2 .196 1945 Unknown [id number] 2.16.840.1.389646.3.579.2 .1259 1945 Unknown [id number] 2.16.840.1.930446.3.579.2 .1259 1945 Unknown [id number] 2.16.840.1.787294.3.579.2 .1259 1945 Unknown [id number] 2.16.840.1.380259.3.579.2 .1259 1945 Unknown [id number] 2.16.840.1.755436.3.579.2 .125 1945 Unknown [id number] 2.16.840.1.070771.3.579.2 .125 1945 Unknown [id number] 2.16.840.1.156394.3.579.2 .1259 1945 Unknown [id number] 2.16.840.1.820917.3.579.2 .125 1945 Unknown [id number] 2.16.840.1.343243.3.579.2 .1259 1945 Unknown [id number] 2.16.840.1.398253.3.579.2 .125 1945 Unknown [id number] 2.16.840.1.243965.3.579.2 .1259 1945 Unknown [id number] 2.16.840.1.498717.3.579.2 .125 1945 Unknown [id number] 2.16.840.1.489922.3.579.2 .1259 1945 Unknown [id number] 2.16.840.1.651085.3.579.2 .1259 1945 Unknown [id number] 2.16.840.1.209392.3.579.2 .1259 1945 Unknown [id number] 2.16.840.1.518589.3.579.2 .1259 1945 Unknown [id number] 2.16.840.1.972606.3.579.2 .1259 1945 Unknown [id number] 2.16.840.1.992538.3.579.2 .1259 1945 Unknown [id number] 2.16.840.1.142927.3.579.2 .1259 Unknown [id number] 2.16.840.1.269711.3.579.2 .531 Social History Date Type Detail Facility Start: 09-29-2020 End: 04-17-2023 Tobacco smoking status Never smoked tobacco (finding) [facility] Start: 04-10-2023 End: 04-17-2023 Sex Assigned At Male [facility] Tobacco smoking status Never [facility] [place] Start: 04-17-2023 Tobacco use [...] Start: 08-22-2022 Sexual orientation Heterosexual (carlos borrero) [facility] NEGATED: Highlighted rowStart: NINF History of tobacco use Passive smoker [facility] Functional Status Date Assessment Result Facility 10-17-2023 Functional Status N/A [facility] 10-15-2022 Functional Status N/A [facility] 09-28-2021 Functional Status N/A [facility] Clinical Notes 09-28-2021 to 01-06-2024 Pratik Pepper, PT - 01/06/2024 2:30 PM EDTPratik Pepper, PT - 12/23/2023 2:30 PM EDTPratik Pepper, PT - 12/16/2023 2:30 PM EDT Note Date & Type Note Facility 01-06-2024 History of Present illness Narrative Physical Therapy Physical Therapy Treatment Visit Patient Name: Jd Apodaca Today's Date: 01/06/2024 Supervised Time: 46' Total Time: 46' Visit number: 11/13 Precautions: lower back surgery posterior decompression done in 2019. Subjective Pain: 3.5/10 in B sides of lateral pelvis Overall progress: Pt did get a nerve block yesterday. Says it did help with his back pain but is still having pain in his hips/ lateral pelvis region. Pt says the pain has lessened since SOC. Overall he feels he can move better and quicker with less pain compared to before. Overall he feels he has made 50% improvement since SOC. He has been able to stand longer when doing the dishes, laundry, and vacuuming. He notes some difficulty with bending forward repetitively like when he has to brush his teeth. Treatment: Therapeutic Exercise: x46' supervised per grid for improving lumbar/LE ROM, hip strength, and core stability. Taking subjective/objective for PN. Modalities: Declined ice/MHP post session will do at home if needed. Assessment/Plan Pt to be compliant with HEP in order to make gains when not in therapy. GOAL MET Pt to improve lumbar ROM to WNL in all planes in 4-6 weeks so the pt can bend over to picker and sorter load and unload objects off the floor without difficulty. Progressing. Grossly 70-75% ROM all directions except extension (about 50% motion) Pt to improve B hip MMT to 4+/5 or better in 4-6 weeks to improve overall stability when walking. GOAL NEARLY MET Strength Right Quadriceps: 5/5. Hamstrin/5. Hip abductors: 4/5. Hip flexion: 4+/5. Left Quadriceps: 4+/5. Hamstrin+/5. Hip abductors: 4/5. Hip flexion: 4+/5. Pt to improve 5x STS score to 14 seconds or better in 4-6 weeks so the pt can improve efficiency with transfers. Minor progress made 5x STS: 24.29 seconds with some pain. Was 29.07 at [facility] Pt to report 1/10 resting pain in the next 4-6 weeks so the pt can complete all yardwork tasks with less difficulty. Progressing. Was 4-5/10 at IE. Back pain is now gone. Does report about a 3/10 pain in B lateral pelvis/hip regions Plan: Will continue to work on hip and core stability for another 2-3 weeks. If no improvement, will discharge and have pt return to his doctor for a follow up. documented in this encounter [facility] 12-23-2023 History of Present illness Narrative Physical [...] progress as tolerated. documented in this encounter [facility] 12-16-2023 History of Present illness Narrative [...] posterior decompression done in 2019. Subjective Pain: 3-4/10 low back Overall progress: Compliant with HEP. [...] and hip strength. documented in this encounter [facility] 10-17-2023 Hospital Discharge instructions Patient Education [...] urethra. Follow these instructions at home: Take lvib-cir-wzeitoy and prescription medicines only as told by [...] provider. Document Revised: 09/19/2021 Document Reviewed: 09/19/2021 [email or web address] Patient Education 2022 [email or web address] Follow Up Care 10/15/2022 14:25:03 With:CELESTINA VIDAL, Buddy Zhang, URL Address: [address] [place] [address]- When: Unknown [facility] 10-17-2023 Note Patient Education Urology Benign Prostatic [...] Follow these instructions at home: ? Take kiqa-wia-ifvusdt and prescription medicines only as told by [...] develop side effec (more content not included)... [facility] 10-15-2022 Hospital Discharge instructions Patient Education [...] include: ?8 oz (237 mL) of milk, bngcgpw-kvkagaczcsvq-zxfye milk, and calcium-fortifiedfruit juice. Calcium-fortified means that [...] ?Spinach (cooked), rhubarb, beets, sweet potatoes, and Cymraes chard. ?Peanuts. ?Potato chips, lithuanian fries, and baked potatoes with skin on. ?Nuts and nut products. ?Chocolate. If you regularly take a diuretic medicine, make sure to eat at least 1 or 2 servings of fruits or vegetables that are high in potassium each day. These include: ?Avocado. ?Banana. ?Brinson, prune, carrot, or tomato juice. ?Baked potato. [...] magnesium, fish oil, or vitamin B6. Take kncn-fwy-eewhwpl and prescription medicines only as told by [...] Casseroles. Pizza. Lasagna. Frozen meals. Potato chips. Malian fries. The items listed above may not [...] provider. Document Revised: 11/12/2021 Document Reviewed: 11/12/2021 [email or web address] Patient Education 2022 [employer]. Follow Up Care 10/08/2022 11:09:42 With:CELESTINA VIDAL, Buddy Zhang, URL Address: [facility] [address] [place] [address]- When: Unknown [facility] [place] 09-28-2021 Hospital Discharge instructions Patient Education 09/28/2021 10:58:48 Kidney Stones, Trtp-rr-Ppfx Kidney Stones Kidney stones are rock-like masses [...] Follow these instructions at home: Medicines Take tiyx-was-olyjhsr and prescription medicines only as told by [...] 08/19/2008 Document Revised: 07/20/2019 Document Reviewed: 07/20/2019 [email or web address] Patient Education 2020 [employer]. Follow Up Care 09/29/2020 11:24:43 With:Buddy JACOBO MD, URL Address: [address] [place] [address]- When:Within 1 Year(s) Comments:w/ DAWSON [facility] Evaluation + Plan note Future Appointments Appointment Date:10/04/2022 10:15:00 AM Scheduled Provider:Buddy JACOBO MD Location:[facility] Appointment Type:URO Office Visit [facility] Evaluation + Plan note Future Appointments Appointment Date:10/17/2023 11:00:00 AM Scheduled Provider:Buddy JACOBO MD Location:[facility] Appointment Type:URO Office Visit [facility] Evaluation + Plan note Future Appointments Appointment Date:10/18/2024 10:45:00 AM Scheduled Provider:Buddy JACOBO MD Location:[facility] Appointment Type:URO Office Visit [facility] Evaluation note Diagnosis Spinal stenosis of lumbar region without neurogenic claudication- Primary documented in this encounter [facility] HealthcareEvaluation note* Diagnosis Spinal stenosis of lumbar region without neurogenic claudication- Primary documented in this encounter [facility] HealthcareEvaluation note* Diagnosis Spinal stenosis of lumbar region without neurogenic claudication- Primary documented in this encounter [facility] HealthcareEvaluation note* Diagnosis Spinal stenosis of lumbar region without neurogenic claudication- Primary documented in this encounter [facility] HealthcareEvaluation note* Diagnosis Primary hypertension (CMS/HCC) Unspecified essential hypertension documented in this encounter [facility] HealthcareHospital course Narrative No data available for this section [facility] Discharge instructions No data available for this section [facility] progress note No data available for this section [facility] reason for visit Narrative* Rehabilitation - Outpatient (Routine) - Authorized Specialty Diagnoses / Procedures Referred By Jareth flower Referred To Contact Physical Therapy Diagnoses Low back pain, unspecified Procedures [place] PHYSICAL THERAPY EVALUATION LOW COMPLEX 20 MINS Benjamin Guido MD [facility] [place] [address] Phone: tel: fax: Pratik Pepper, BILLY Referral ID Status Reason Start Date Expiration Date V isits Requested Visits Authorized [id number] Authorized 12/03/2023 05/31/2024 30 30 [facility] [...] and content) DATE CREATED AUTHOR 11/26/2019 [facility] DATE CREATED AUTHOR AUTHOR'S ORGANIZ ATION 03/29/2022 [facility] DATE CREATED AUTHOR AUTHOR'S ORGANIZ ATION 05/25/2022 [facility] DATE CREATED AUTHOR AUTHOR'S ORGANIZ ATION 10/19/2023 [facility] DATE CREATED AUTHOR AUTHOR'S ORGANIZ ATION 12/31/2023 [facility] DATE CREATED AUTHOR AUTHOR'S ORGANIZ ATION 01/01/2024 [facility] Care Team (unrecognized sect ion and content) Complex Care Nurse Practitioner Relationship Specialty Start Date End Date Zeus Bonner, DO [address] [place] [address] PCP - ACO Reach 08/08/22 Zeus Bonner, DO [address] [place] [address] PCP - General Family Medicine 07/23/22 Complex Care Nurse Practitioner Relationship Specialty Start Date End Date Zeus Bonner, DO [address] [place] [address] PCP - ACO Reach 08/08/22 Zeus Bonner, DO [address] [place] [address] PCP - General Family Medicine 07/23/22 Chelsey Daley NP [address] [place] [address] Nurse Practitioner Family Medicine 06/06/23 Complex Care Nurse Practitioner Relationship Specialty Start Date End Date Zeus Bonner, [address] [place] [address] PCP - ACO Reach 08/08/22 Zeus Bonner DO [address] [place] [address] PCP - General Family Medicine 07/23/22 Chelsey Daley, [employer] [address] [place] [address] Nurse Practitioner Family Medicine 06/06/23 Complex Care Nurse Practitioner Relationship Specialty Start Date End Date Zeus Bonner DO [address] [place] [address] PCP - ACO Reach 08/08/22 Zeus Bonner DO [address] [place] [address] PCP - General Family Medicine 07/23/22 Chelsey Daley, [employer] [address] [place] [address] Nurse Practitioner Family Medicine 06/06/23 Complex Care Nurse Practitioner Relationship Specialty Start Date End Date Zeus Bonner DO [address] [place] [address] PCP - ACO Reach 08/08/22 Zeus Bonner DO [address] [place] [address] PCP - General Family Medicine 07/23/22 Chelsey Daley, [employer] [address] [place] [address] Nurse Practitioner Family Medicine 06/06/23 Complex Care Nurse Practitioner Relationship Specialty Start Date End Date Zeus Bonner, DO [address] [place] [address] PCP - ACO Reach 08/08/22 Zeus Bonner, DO [address] [place] [address] PCP - General Family Medicine 07/23/22 Chelsey Daley, [employer] [address] [place] [address] Nurse Practitioner Family Medicine 06/06/23 Complex Care Nurse Practitioner Relationship Specialty Start Date End Date Zeus Bonner, [address] [place] [address] PCP - ACO Reach 08/08/22 Zeus Bonner, DO [address] [place] [address] PCP - General Family Medicine 07/23/22 Chelsey Daley, [employer] [address] [place] [address] Nurse Practitioner Family Medicine 06/06/23 Complex Care Nurse Practitioner Relationship Specialty Start Date End Date Zeus Bonner, [address] [place] [address] PCP - ACO Reach 08/08/22 Zeus Bonner, DO [address] [place] [address] PCP - General Family Medicine 07/23/22 Chelsey Daley, [employer] [address] [place] [address] Nurse Practitioner Family Medicine 06/06/23 Complex Care Nurse Practitioner Relationship Specialty Start Date End Date Zeus Bonner, DO [address] [place] [address] PCP - ACO Reach 08/08/22 Zeus Bonner, DO [address] [place] [address] PCP - General Family Medicine 07/23/22 Chelsey Daley, [employer] [address] [place] [address] Nurse Practitioner Family Medicine 06/06/23 Complex Care Nurse Practitioner Relationship Specialty Start Date End Date Zeus Bonner, DO [address] [place] [address] PCP - ACO Reach 08/08/22 Zeus Bonner, [address] [place] [address] PCP - General Family Medicine 07/23/22 Chelsey Daley, [employer] [address] [place] [address] Nurse Practitioner Family Medicine 06/06/23 Complex Care Nurse Practitioner Relationship Specialty Start Date End Date Zeus Bonner, [address] [place] [address] PCP - ACO Reach 08/08/22 Zeus Bonner, [address] [place] [address] PCP - General Family Medicine 07/23/22 Chelsey Daley NP [address] [place] [address] Nurse Practitioner Family Medicine 06/06/23 Reason for Visit (unrecogniz ed section and content) Specialty Diagnoses / Procedures Referred By Contac t Referred To Contact Physical Therapy Diagnoses Low back pain, unspecified Procedures [place] PHYSICAL THERAPY EVALUATION LOW COMPLEX 20 MINS Benjamin Guido MD [address] [place] [address] [place] [address] Pratik Pepper PT Referral ID Status Reason Start Date Expiration Date V isits Requested Visits Authorized [id number] Authorized 12/03/2023 05/31/2024 30 30 Reason Comments Med Refill FOR RECORDS PERTAINING TO PATIENTS WHO ARE [...] BE BASED ON THE PRIMARY CLINICAL RECORDS. [employer] provides no warranty or guarantee of the accuracy or completeness of information in this document.
--- NOTE | 2024-01-07 15:20 | PM.CN ---
Consult Note: HPI Data of Consult Patient: new to practice Consult date: 12/22/23 Requesting Physician: Cira Zhou NP Primary Care Provider: VICTOR M BONNER Consult Narrative Reason for consult: low back pain Narrative: 78yom who presents for evaluation. longstanding low back pain for many years. increased with standing and ambulation. mri reviewed, significant for facet arthropathy and lumbar stenosis in lower lumbar spine. has completed physical therapy 6 weeks and continues in a series of provider directed home exercises for >6 weeks, without lasting benefit. uses otc meds as needed. recent bilateral L4-5 L5-S1 MBB #1 provided 50% improvement in pain and functional ability for 1 hour. cc:: CC: Cira Zhou NP Review of Systems ROS Status of ROS 10 or more systems reviewed and unremarkable except as noted in history and below Musculoskeletal Reports: back pain and joint pain PFSH PFSH Medical History (Updated 01/07/24 @ 15:21 by Cira Zhou NP) Osteoarthritis ?M19.90 - Unspecified osteoarthritis, unspecified site (ICD-10) TMJ (dislocation of temporomandibular joint) ?S03.00XA - Dislocation of jaw, unspecified side, initial encounter (ICD-10) Kidney stone ?N20.0 - Calculus of kidney (ICD-10) Enlarged prostate ?N40.0 - Benign prostatic hyperplasia without lower urinary tract symptoms (ICD-10) Hepatomegaly ?R16.0 - Hepatomegaly, not elsewhere classified (ICD-10) High cholesterol ?E78.00 - Pure hypercholesterolemia, unspecified (ICD-10) HTN (hypertension) ?I10 - Essential (primary) hypertension (ICD-10) Surgical History History of transurethral resection of prostate ?Z98.890 - Other specified postprocedural states (ICD-10) ?Z90.79 - Acquired absence of other genital organ(s) (ICD-10) History of back surgery ?Z98.890 - Other specified postprocedural states (ICD-10) Meds Home Medications and Allergies Home Medications ?Medication ?Instructions ?Recorded ?Confirmed ?Type amlodipine 2.5 mg tablet 2.5 mg PO DAILY 10/22/22 01/05/24 History hydrochlorothiazide 12.5 mg tablet 12.5 mg PO DAILY 10/22/22 01/05/24 History lisinopril 20 mg tablet 20 mg PO DAILY 10/22/22 01/05/24 History potassium citrate 15 mEq (1,620 15 meq PO BID 10/22/22 01/05/24 History mg) tablet,extended release erythromycin with ethanol 2 % topical 12/22/23 History topical solution minocycline 50 mg capsule mg 01/05/24 History Allergies Allergy/AdvReac Type Severity Reaction Status Date / Time No Known Drug Allergies Allergy Verified 01/05/24 10:06 Exam Narrative Exam Narrative: Psych-alert and oriented x 3. Attentive and appropriate, constitutionally normal, displays normal mood and affect per situation.? There are no obvious deficits in memory, reasoning, or intellect.? Skin-no obvious rashes, bruising, erythema noted to the patient's area of pain. Extremities- extremities are warm with minimal edema and palpable pulses. Lumbar-no significant tenderness to palpation noted in the lumbar spine and paraspinal musculature.? Pain is elicited with extension, and lateral rotation of the lumbar spine. left sij positive gil(patricks), gaenslens, thigh thrust, compression test, negative on the right Range of motion is slightly diminished with these motions due to pain. Facet loading maneuvers are positive bilaterally and do appear to be concordant with the patient's normal complaints of pain.? Coordination remains intact.? Gait remains non-antalgic. Results Additional Findings Additional findings: If on a controlled substance or opioids, I have checked an [place] report on this patient and there are no aberrancies noted in the prescribing history.??If on a controlled substance or opioid a drug screen was completed and reviewed within the last year, and if there has not been a drug screen completed we ordered one today to monitor higher risk, state monitored pain medication use. As part of providing excellent, safe, comprehensive care, the following was completed at our patient's visit: 1. A medication reconciliation and review to ensure accurate knowledge of current/active medications, including asking our patients to inform us about any [id number] medications or herbal remedies/nutritional supplements/alternative remedies. 2. A review to specifically ensure our patients have had annual screening for screening for depression, screening for tobacco use, and screening for unhealthy alcohol use. For concerning screenings had a discussion with the patient, provided patient education, and recommended follow-up with primary care provider when appropriate. If patient noted with a risk of falling, they received education on strength, gait, and balance training to prevent future risk of falling. Assessment and Plan Assessment and Plan (1) Sacroiliitis: (2) Lumbar stenosis with neurogenic claudication: (3) Lumbar spondylosis: Plan left SIJ injection under fluoroscopy, could consider bilateral L5-S1 TFESI if NC symptoms persist continue HEP as tolerated continue current medications f/u after injection
== END 2024-01-07 14:52 | disposition home or self-care (01) ==
LOC: PM 14:51
PROVIDERS: PCP Family Medicine; Visit Provider Nurse Practitioner
DX: M46.1 Sacroiliitis, not elsewhere classified (principal); M48.062 Spinal stenosis, lumbar region with neurogenic claudication; M47.816 Spondylosis without myelopathy or radiculopathy, lumbar region
CPT/HCPCS: G0463

== ENCOUNTER 2024-01-19 09:23 | Day surgery (SDC) | payer MEDICARE, SELFPAY ==
[2024-01-19 10:14] VITALS: BP 145/84; PULSE 94; TEMP 36.3; O2SAT 98
[2024-01-19 10:42] VITALS: BP 147/83; PULSE 100; O2SAT 98
[2024-01-19 10:44] VITALS: BP 143/83; PULSE 96; O2SAT 98
[2024-01-19] MEDS: BUPIVACAINE HCL 0.25% PF 25 MG/10 ML VIAL 2 ML INJ (10:45)
[2024-01-19] MEDS: TRIAMCINOLONE ACETONIDE 40 MG/ML VIAL INJ (10:46)
[2024-01-19] MEDS: IOHEXOL 240 MG/ML - 10 ML VIAL 24 MG INJ (10:46)
[2024-01-19] MEDS: LIDOCAINE HCL 2% 400 MG/20 ML MDV INJ (10:46)
--- NOTE | 2024-01-19 10:46 | W.PM.PROCNOT ---
Date of procedure: 01/19/24 Pre-op diagnosis: Pain due to left sacroiliitis Post-op diagnosis: same as pre-op Procedure: Procedure: Left sacroiliac joint injection Medications: Bupivacaine 0.25% 3cc, kenalog 40mg After informed consent was obtained, the patient was brought to the medical procedure unit and placed in the prone position, when a timeout was completed verifying correct patient, procedure, site, positioning, implant, and/or special equipment.? The skin overlying the area was prepped and draped in standard sterile fashion using alcohol.? A 25-gauge needle was inserted towards the left sacroiliac joint under direct fluoroscopic imaging.? Needle tip was advanced until the joint was encountered.? We instilled a total of 2 mL of solution.? Postoperatively needles were removed.? The patient tolerated the procedure well without complication.? The patient reported reduction in pain symptoms postoperatively. Anesthesia: Local Surgeon: Jessica Murguia Pathology: none sent Condition: stable Disposition: no change
== END 2024-01-19 10:50 | disposition home or self-care (01) ==
PROVIDERS: PCP Family Medicine; Visit Provider Anesthesiology
DX: M46.1 Sacroiliitis, not elsewhere classified (principal)
CPT/HCPCS: 27096; J0665; J3301; Q9966

== ENCOUNTER 2024-01-28 09:47 | Outpatient (OUT) | payer MEDICARE, SELFPAY ==
--- OUTSIDE RECORDS SUMMARY | 2024-01-28 09:56 | XMS_ITS | CCD ---
Author Organization [facility] Care Team Providers Care Shotweld Operator Name Role Phone ZEUS BONNER Primary Care [...] Attending Unavailable Buddy JACOBO Attending Unavailable Ludmila SENIOR PRODUCTION MANAGER, Chelsey L Unavailable JR. RAYMOND GEORGE C Attending Unavaila ZEUS Judd Attending Unavailable KATHERINE ROTH Attending Unavailable JR. MARY, CHRISTIAN Egan Attending Unavaila lor RAYMOND JR., CHRISTIAN Egan Referring Unavaila ZEUS Judd Attending Unavailable ZEUS BONNER Referring Unavailable JR. MARY, CHRISTIAN Egan Attending Unavaila lor RAYMOND JR., CHRISTIAN Egan Referring Unavaila ble JR. MARY, CHRISTIAN Egan Referring Unavaila lor RAYMOND JR., CHRISTIAN Egan Attending Unavaila ble EVGENY, PRATIK [...] Attending Unavailable LUIS, SELVON F Referring Unavailable EVGNEY, PRATIK Attending Unavailable LUIS, SELVON F Referring Unavailable KIMBERLY DOCKERY Attending Unavailable LUIS, SELVON F Referring Unavailable EVGENY, PRATIK Attending Unavailable LUIS, SELVON F Referring Unavailable Blade VIDAL, Jessica Casas Attending Unavailable Gishi VIDAL, Jessica Casas Attending Unavailable Gishi VIDAL, Jessica Casas Attending Unavailable Allergies Allergy Classification Reported Allergen(s) Allergy Type Date of Onset Reaction(s) Facility (1 source) Meperidine Drug Allergy 12-09-2013 [facility] (1 source) Nalbuphine Drug Allergy 12-09-2013 [facility] Medications Current Medications Medication Drug Class(es) [...] 0 Active erythromycin 20 mg/ml topical solution (19 sources) Macrolide, Macrolide Antimicrobial Start: 06-26-2023 End: [...] 10/13/2023 Active ivermectin 5 mg/ml topical lotion (20 sources) Antiparasitic, Pediculicide Start: 02-27-2023 Ivermectin 0.5 [...] Status: Ordered minocycline 50 mg oral capsule (3 sources) Tetracycline-class Drug Start: 01-19-2024 take 1 capsule by mouth once daily minocycline 50 MG capsule Indications: Other rosacea Take 1 capsule, by mouth, once daily 90 capsule 1 01/19/2024 Active Start: 02-27-2023 take 1 capsule by [facility] once daily minocycline 50 MG capsule Indications: Other rosacea Take 1 capsule, by mouth, once daily, 30 days 90 capsule 3 02/27/2023 Active triamcinolone acetonide 1 mg/ml topical cream (20 sources) Corticosteroid Start: 11-01-2021 triamcinolone (Kenalog) 0.1 [...] BID, # 200 tab(s), Refills(s) 11, Pharmacy: [id number]), 170, cm, [...] Onset: 09-20-2021 Episodic Disorders of lipid metabolism (20 sources) Hyperlipidemia, unspecified; Translations: [Hyperlipidemia] Onset: 03-13-2022 11-25-2022 Chronic Essential hypertension (20 sources) Hypertensive disorder; Translations: [Essential (primary) hypertension] Onset: 03-05-2022 09-23-2019 Chronic Genitourinary symptoms and ill-defined conditions (13 sources) Microscopic hematuria; Translations: [Other microscopic hematuria] Onset: 09-24-2021 Episodic Hyperplasia of prostate (8 sources) Benign prostatic hypertrophy with outflow obstruction; Translations: [Benign prostatic hyperplasia with lower urinary tract symptoms] Onset: 09-24-2021 Chronic Osteoarthritis (20 sources) Arthritis of left hip; Translations: [Unilateral [...] 10-14-2022 Episodic Other inflammatory condition of skin (20 sources) Rosacea; Translations: [Rosacea, unspecified] Onset: 11-25-2022 11-25-2022 Chronic Other male genital disorders (1 source) 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; Translations: [Vascular disorders of male genital organs] Onset: 10-17-2023 Chronic Other male genital disorders (1 source) Hemorrhage of scrotum 10-17-2023 Chronic Other nervous system disorders (20 sources) Cervical myelopathy; Translations: [Disease of spinal cord, unspecified] Onset: 11-25-2022 11-25-2022 Chronic Other screening for suspected conditions (not mental disorders or infectious disease) (1 source) Encounter for screening for malignant neoplasm of prostate; Translations: [ENC SCREEN MALIG NEOPLASM PROSTATE] Onset: 03-13-2022 Episodic Spondylosis; intervertebral disc disorders; other back problems (20 sources) Cervical spondylosis; Translations: [Spondylosis without myelopathy or radiculopathy, cervical region] Onset: 11-25-2022 11-25-2022 Chronic Spondylosis; intervertebral disc disorders; other back problems (20 sources) Radiculopathy, lumbar region; Translations: [Spinal stenosis of lumbar region] Onset: 04-17-2022 12-10-2023 Episodic Past or Other Problems Problem Classification Problem Date Documented Da te Episodic/Chronic Mood disorders (20 sources) Mood disorders Onset: 04-17-2023 04-17-2023 Results [...] Following Appointments Follow Up with CELESTINA VIDAL, MAYURI Knight When: Where: [address] [place] [address]- Medications What How Much When Instructions Unchanged [...] sound wav (more content not included)... Normal [facility] Urology Office/Clinic Noteon 10-17-2023 Urology Office/Clinic Note [...] other concerns at this time. Last PSA 18- 1.08 History of Present Illness Tests reviewed: [...] Information CELESTINA VIDAL, Buddy Zhang, URL [address] [place] [address]- Additional Instructions: 1 year w/ KUB Patient Education Benign Prostatic Hyperplasia Marina Jacobs, personally scribed for Dr. Jacobo on 10/17/2023 [...] as detailed. Hepatomegaly. ELECTRONICALLY SIGNED BY: Solis Quinonse DO Normal Not Available [facility] MICROALB CREAT RATIO RAN DOMon 04-23-2023 CREATININE URINE RANDOM 41.74 mg/dL 20.00 - 300.00 mg/dL [facility] Interpretation and review of laboratory results Abnormal [facility] MICROALBUM CREATININE RATIO UR 31.1 mg/g High 0.0 - 29.9 mg/g [facility] Comment on above: NO MICROALBUMINURIA 0-29 MG/G CLINICAL MICROALBUMINURIA 30-300 MG/G MACROALBUMINURIA >300 MG/G MICROALBUMIN URINE RANDOM <1.3 NINF - 30.0 mg/dL [facility] XR pre/post mri xrayon 04-17 XR pre/post mri xray [facility] [address] MRI Report Signed Patient: Jd Apodaca MR#: [id number] : 1945 Acct:[id number] Age/Sex: 77 / M ADM Date: 04/17/22 Loc: [facility] Room: Type: [facility] Attending Dr: Christian Raymond Jr, DO Copies to: Christian Raymond Jr, DO Ordering Provider: Christian Raymond Jr, DO Date of Service: 04/17/22 MR/MR lumbar spine wo con: M54.16 ([id number]) XR/XR pre/post mri xray: LUMBAR MRI MR [...] Baltazar Mcdermott M.D.04/17/2022 1:38 PM Dictation Location: [place] [address] Transcribed By: [facility] 04/17/22 1338 Dictated By: Baltazar Mcdermott II, MD 04/17/22 1329 Signed By: 02/01/23 1338 [facility] PSA, FREE AND TOTAL RATIOon 03-06-2022 % Free PSA 22.0 % Normal [facility] Comment on above: Result Comment: [...] men. Performed By: #### P SAFREE #### [facility] [address] [place] [address] Dr. Magalie Ceron Prostate specific Ag [Mass/Vol] 1.0 ng/mL Normal 0.0-4.0 [facility] Comment on above: Result Comment: Roch yamilet ECLIA methodology. . According to the [employer], Serum PSA should decrease and [...] disease. Performed By: #### P SAFREE #### [facility] [address] [place] [address] Dr. Magalie Ceron PSA, Free 0.22 ng/mL Normal N/A [facility] Comment on above: Result Comment: Roch e ECLIA methodology. Performed By: #### P SAFREE #### [facility] [address] [place] [address] Dr. Magalie Ceron CBC AUTO DIFFon 03-05-2022 BASO # 0.1 103/ul Normal 0.0-0.1 [facility] Comment on above: Performed By: #### C BC #### [facility] [address] [place], [place] [address] Dr. Magalie Ceron Basophils/100 WBC (Bld) 0.8 % Normal 0.2-2.0 [facility] Comment on above: Performed By: #### C BC #### [facility] [address] [place] [address] Dr. Magalie Ceron EO # 0.1 103/ul Normal 0.0-0.7 [facility] Comment on above: Performed By: #### C BC #### [facility] [address] [place] [address] Dr. Magalie Ceron Eosinophils/100 WBC (Bld) 1.5 % Normal 0.9-7.0 [facility] Comment on above: Performed By: #### C BC #### [facility] [address] [place] [address] Dr. Magalie Ceron Erythrocyte distribution width (RBC) [Ratio] 13.5 % Normal 11.0-15.0 [facility] Comment on above: Performed By: #### C BC #### [facility] [address] [place] [address] Dr. Magalie Ceron Hematocrit (Bld) [Volume fraction] 43.7 % Normal 42.0-54.0 [facility] Comment on above: Performed By: #### C BC #### [facility] [address] [place] [address] Dr. Magalie Ceron Hemoglobin (Bld) [Mass/Vol] 15.1 g/dL Normal 14.0-18.0 [facility] Comment on above: Performed By: #### C BC #### [facility] [address] [place] [address] Dr. Magalie Ceron IG # 0.04 10e3/ul Critically high 0.00-0.03 [facility] Comment on above: Performed By: #### C BC #### [facility] [address] [place] [address] Dr. Magalie Ceron IG % 0.6 % Critically high 0.0-0.5 [facility] Comment on above: Performed By: #### C BC #### [facility] [address] [place] [address] Dr. Magalie Ceron LYMPH # 2.6 103/ul Normal 1.2-3.8 [facility] Comment on above: Performed By: #### C BC #### [facility] [address] [place] [address] Dr. Magalie Ceron Lymphocytes/100 WBC (Bld) 35.5 % Normal 20.5-60.0 [facility] Comment on above: Performed By: #### C BC #### [facility] [address] [place] [address] Dr. Magalie Ceron MANUAL DIFF REQ NO Normal [facility] Comment on above: Performed By: #### C BC #### [facility] [address] [place] [address] Dr. Magalie Ceron MCH (RBC) [Entitic mass] 31.8 pg Normal 25.9-34.0 [facility] Comment on above: Performed By: #### C BC #### [facility] [address] [place] [address] Dr. Magalie Ceron MCHC (RBC) [Mass/Vol] 34.6 g/dL Normal 29.9-35.2 [facility] Comment on above: Performed By: #### C BC #### [facility] [address] [place] [address] Dr. Magalie Ceron MCV (RBC) [Entitic vol] 92.0 fL Normal 80.0-94.0 [facility] Comment on above: Performed By: #### C BC #### [facility] [address] [place] [address] Dr. Magalie Ceron MONO # 0.7 103/ul Normal 0.3-0.8 [facility] Comment on above: Performed By: #### C BC #### [facility] [address] [place] [address] Dr. Magalie Ceron Monocytes/100 WBC (Bld) 9.3 % Normal 1.7-12.0 [facility] Comment on above: Performed By: #### C BC #### [facility] [address] [place] [address] Dr. Magalie Ceron NEUT # 3.8 103/ul Normal 1.4-6.5 [facility] Comment on above: Performed By: #### C BC #### [facility] [address] [place] [address] Dr. Magalie Ceron Neutrophils/100 WBC (Bld) 52.3 % Normal 43.0-75.0 [facility] Comment on above: Performed By: #### C BC #### [facility] [address] [place] [address] Dr. Magalie Ceron Platelet mean volume (Bld) [Entitic vol] 8.8 fL Critically low 9.5-13.5 [facility] Comment on above: Performed By: #### C BC #### [facility] [address] [place] [address] Dr. Magalie Ceron PLT 308 103/ul Normal 150-450 [facility] Comment on above: Performed By: #### C BC #### [facility] [address] [place] [address] Dr. Magalie Ceron RBC 4.75 106/ul Normal 4.70-6.10 [facility] Comment on above: Performed By: #### C BC #### [facility] [address] [place] [address] Dr. Magalie Ceron WBC 7.2 103/ul Normal 4.0-11.0 [facility] Comment on above: Performed By: #### C BC #### [facility] [address] [place] [address] Dr. Magalie Ceron LIPID PROFILEon 03-05-2022 CHOL-HDL RATIO NORM SEE BELOW Normal [facility] Comment on above: Result Comment: 3.3 - 4.4 LOW RISK 4.4 - 7.1 AVERAGE RISK 7.1 - 11.0 MODERATE RISK >11.0 HIGH RISK Performed By: #### C MP, LIPID #### [facility] [address] [place] [address] Dr. Magalie Ceron Cholesterol [Mass/Vol] 216 mg/dL Critically high <=200 [facility] Comment on above: Performed By: #### C MP, LIPID #### [facility] [address] [place] [address] [address] Magalie Ceron Cholesterol in HDL [Mass/Vol] 53 mg/dL Normal 40-60 [facility] Comment on above: Performed By: #### C MP, LIPID #### [facility] [address] [place] [address] [address] Magalie Ceron Cholesterol in LDL [Mass/Vol] 118.0 mg/dL Normal [facility] Comment on above: Performed By: #### C MP, LIPID #### [facility] [address] [place] [address] [address] Magalie Ceron Cholesterol.total/C holesterol in HDL [Mass ratio] 4.1 {ratio} Normal [facility] Comment on above: Performed By: #### C MP, LIPID #### [facility] [address] [place] [address] Dr. Magalie Ceron HDL NORMAL > or = 60 mg/dl - LO W CARDIOVASCULAR RISK <40 mg/dl - HIGH CARDIOVASCULAR RISK Normal [facility] Comment on above: Performed By: #### C MP, LIPID #### [facility] [address] [place] [address] Dr. Magalie Ceron LDL CALC NORMAL SEE BELOW Normal [facility] Comment on above: Result Comment: <100 mg/dl OPTIMAL 100 - 129 mg/dl NEAR OR ABOVE OPTIMAL 130 - 159 mg/dl BORDERLINE HIGH 160 - 189 mg/dl HIGH >190 mg/dl VERY HIGH Performed By: #### C MP, LIPID #### [facility] [address] [place] [address] [address] Magalie Ceron Triglyceride [Mass/Vol] 225 mg/dL Critically high <=150 [facility] Comment on above: Performed By: #### C MP, LIPID #### [facility] [address] [place] [address] [address] Magalie Ceron VLDL CALC 45.0 mg/dL Normal [facility] Comment on above: Performed By: #### C MP, LIPID #### [facility] [address] [place] [address] Dr. Magalie Ceron MICROALB CREAT RATIO RANDOMo n 03-05-2022 mALB <1.3 Normal <=30.0 [facility] Comment on above: Performed By: #### M CRR #### [facility] [address] [place] [address] [address] Magalie SOLER CR RATIO 13.5 mg/g Normal 0.0-29.9 [facility] Comment on above: Performed By: #### M CRR #### [facility] [address] [place] [address] Dr. Magalie Ceron MALB CR RATIO RANGE SEE BELOW Normal [facility] Comment on above: Result Comment: NO M ICROALBUMINURIA 0-29 MG/G CLINICAL MICROALBUMINURIA 30-300 MG/G MACROALBUMINURIA >300 MG/G Performed By: #### M CRR #### [facility] [address] [place] [address] Dr. Magalie Ceron URINE CREAT 96.12 mg/dL Normal 20.00-300.00 [facility] Comment on above: Performed By: #### M CRR #### [facility] [address] [place] [address] Dr. Magalie Ceron PROF 14(COMP METB)on 022 Albumin [Mass/Vol] 4.1 g/dL Normal 3.4-5.0 [facility] Comment on above: Performed By: #### C MP, LIPID #### [facility] [address] [place] [address] Dr. Magalie Ceron Albumin/Globulin [Mass ratio] 1.2 {ratio} Normal [facility] Comment on above: Performed By: #### C MP, LIPID #### [facility] [address] [place] [address] Dr. Magalie Ceron ALP [Catalytic activity/Vol] 73 U/L Normal 46-116 [facility] Comment on above: Performed By: #### C MP, LIPID #### [facility] [address] [place] [address] Dr. Magalie Ceron ALT [Catalytic activity/Vol] 34 U/L Normal 16-63 [facility] Comment on above: Performed By: #### C MP, LIPID #### [facility] [address] [place] [address] [address] Magalie Ceron Anion gap [Moles/Vol] 9.2 mmol/L Normal [facility] Comment on above: Performed By: #### C MP, LIPID #### [facility] [address] [place] [address] [address] Magalie Ceron AST [Catalytic activity/Vol] 25 U/L Normal 15-37 [facility] Comment on above: Performed By: #### C MP, LIPID #### [facility] [address] [place] [address] [address] Magalie Ceron Bilirubin [Mass/Vol] 1.6 mg/dL Critically high 0.2-1.0 [facility] Comment on above: Performed By: #### C MP, LIPID #### [facility] [address] [place] [address] Dr. Magalie Ceron Calcium [Mass/Vol] 8.9 mg/dL Normal 8.5-10.1 [facility] Comment on above: Performed By: #### C MP, LIPID #### [facility] [address] [place] [address] Dr. Magalie Ceron Chloride [Moles/Vol] 100 mmol/L Normal 98-107 [facility] Comment on above: Performed By: #### C MP, LIPID #### [facility] [address] [place] [address] Dr. Magalie Ceron CO2 [Moles/Vol] 32.5 mmol/L Critically high 21.0-32.0 [facility] Comment on above: Performed By: #### C MP, LIPID #### [facility] [address] [place] [address] Dr. Magalie Ceron Creatinine [Mass/Vol] 0.96 mg/dL Normal 0.70-1.30 [facility] Comment on above: Performed By: #### C MP, LIPID #### [facility] [address] [place] [address] Dr. Magalie Ceron EGFR-AF DANISH >60 Normal >=60 [facility] Comment on above: Performed By: #### C MP, LIPID #### [facility] [address] [place] [address] [address] Magalie Ceron EGFR-NON AF DANISH >60 Normal >=60 [facility] Comment on above: Performed By: #### C MP, LIPID #### [facility] [address] [place] [address] [address] Magalie Ceron Globulin (S) [Mass/Vol] 3.3 g/dL Normal [facility] Comment on above: Performed By: #### C MP, LIPID #### [facility] [address] [place] [address] [address] Magalie Ceron Glucose [Mass/Vol] 88 mg/dL Normal 74-106 [facility] Comment on above: Performed By: #### C MP, LIPID #### [facility] [address] [place] [address] [address] Magalie Ceron Potassium [Moles/Vol] 3.7 mmol/L Normal 3.5-5.1 [facility] Comment on above: Performed By: #### C MP, LIPID #### [facility] [address] [place] [address] Dr. Magalie Ceron Protein [Mass/Vol] 7.4 g/dL Normal 6.4-8.2 [facility] Comment on above: Performed By: #### C MP, LIPID #### [facility] [address] [place] [address] Dr. Magalie Ceron Sodium [Moles/Vol] 138 mmol/L Normal 136-145 [facility] Comment on above: Performed By: #### C MP, LIPID #### [facility] [address] [place] [address] Dr. Magalie Ceron Urea nitrogen [Mass/Vol] 11.0 mg/dL Normal 7.0-18.0 [facility] Comment on above: Performed By: #### C MP, LIPID #### [facility] [address] [place] [address] Dr. Magalie Ceron Urea nitrogen/Creatinine [Mass ratio] 11.5 mg/mg Normal [facility] Comment on above: Performed By: #### C MP, LIPID #### [facility] [address] [place], [place] [address] Dr. Magalie Ceron XR KUB 1 VIEWon [...] by: TANIA SAXENA Date: 2021-09-20 17:32 Normal [facility] Standardon 11-25-2019 eGFR Non AA >60 [facility] Comment on above: Performed By: #### 1 [id number], [id number], [id number] #### [facility] (DEFAULT) [address] [place] [address]805 eGFR AA >60 [facility] Comment on above: Result Comment: [employer] Team Leader ernesto Kidney disease could be indicated at eGFRs of less than 60 ml/min/1.73m2. Kidney Failure is indicated at less than 15 ml/min/1.73m2 Performed By: #### 1 [id number], [id number], [id number] #### [facility] (DEFAULT) [address] [place] [address] 46469 Anion gap [Moles/Vol] 15.0 mmol/L Normal 5.0-19.0 [facility] Comment on above: Performed By: #### 1 [id number], [id number], [id number] #### [facility] (DEFAULT) [address] [place] [address]5966 Calcium [Mass/Vol] 8.8 mg/dL Low 8.9-10.3 [facility] Comment on above: Performed By: #### 1 [id number], [id number], [id number] #### [facility] (DEFAULT) [address] [place] [address] 59028 Chloride [Moles/Vol] 99 mmol/L Low 101-111 [facility] Comment on above: Performed By: #### 1 [id number], [id number], [id number] #### [facility] (DEFAULT) [address] [place] [address] 08442 CO2 [Moles/Vol] 26 mmol/L Normal 21-32 [facility] Comment on above: Performed By: #### 1 [id number], [id number], [id number] #### [facility] (DEFAULT) [address] [place] [address]369 Creatinine [Mass/Vol] 0.81 mg/dL Low 0.90-1.30 [facility] Comment on above: Performed By: #### 1 [id number], [id number], [id number] #### [facility] (DEFAULT) [address] [place] [address] 20050 Glucose [Mass/Vol] 93.0 mg/dL Normal 74.0-118.0 [facility] Comment on above: Performed By: #### 1 [id number], [id number], [id number] #### [facility] (DEFAULT) [address] [place] [address] 04785 Osmolality [Osmolality] 274 mOsm/L [facility] Comment on above: Performed By: #### 1 [id number], [id number], [id number] #### [facility] (DEFAULT) [address] [place] [address] 91040 Potassium [Moles/Vol] 3.4 mmol/L Low 3.6-5.1 [facility] Comment on above: Performed By: #### 1 [id number], [id number], [id number] #### [facility] (DEFAULT) [address] [place] [address] 47595 Sodium [Moles/Vol] 137.0 mmol/L Normal 136.0-144.0 [facility] Comment on above: Performed By: #### 1 [id number], [id number], [id number] #### [facility] (DEFAULT) [address] [place] [address] 84157 Urea nitrogen [Mass/Vol] 13 mg/dL Normal 8-26 [facility] Comment on above: Performed By: #### 1 [id number], [id number], [id number] #### [facility] (DEFAULT) [address] [place] [address] 86162 Urea nitrogen/Creatinine [Mass ratio] 16.0 mg/mg Normal 4.6-16.2 [facility] Comment on above: Performed By: #### 1 [id number], [id number], [id number] #### [facility] (DEFAULT) [address] [place] [address] 23661 Lipid Panel Standardon 11-24 Cholesterol [Mass/Vol] 218.0 mg/dL High 66.0-200.0 [facility] Comment on above: Result Comment: Laura rable - Less than 200 mg/dL Borderline high risk - 200-239 mg/dL High risk - 240 mg/dL and over. Performed By: #### 1 [id number], [id number], [id number] #### [facility] (DEFAULT) [address] [place] [address] 14667 Cholesterol in HDL [Mass/Vol] 47 mg/dL Normal 40-71 [facility] Comment on above: Result Comment: High risk - <40 mg/dL. Performed By: #### 1 [id number], [id number], [id number] #### [facility] (DEFAULT) [address] [place] [address] [id number] Cholesterol in LDL [Mass/Vol] 137 mg/dL High 1-100 [facility] Comment on above: Result Comment: Opti mal - Less than 100 mg/dL Borderline high risk - 130-159 mg/dL High risk - 160-189 mg/dL. Performed By: #### 1 [id number], [id number], [id number] #### [facility] (DEFAULT) [address] [place] [address] 87190 Cholesterol.total/C holesterol in HDL [Mass ratio] 4.6 {ratio} High 0.0-4.5 [facility] Comment on above: Performed By: #### 1 [id number], [id number], [id number] #### [facility] (DEFAULT) [address] [place] [address] 37065 Triglyceride [Mass/Vol] 172.0 mg/dL High 0.0-150.0 [facility] Comment on above: Performed By: #### 1 [id number], [id number], [id number] #### [facility] (DEFAULT) [address] [place] [address] VLDL. 34 mg/dL Normal 5-40 [facility] Comment on above: Performed By: #### 1 [id number], [id number], [id number] #### [facility] (DEFAULT) [address] [place] [address] SARS-CoV-2 (COVID-19) IgG An tibodies(Noon 11-25-2019 Employed in healthcare? No [facility] Comment on above: Performed By: #### 1 [id number], [id number], [id number] #### [facility] (DEFAULT) [address] [place] [address] Group care resident? No [facility] Comment on above: Performed By: #### 1 [id number], [id number], [id number] #### [facility] (DEFAULT) [address] [place] [address] Hospitalized due to COVID-19? No [facility] Comment on above: Performed By: #### 1 [id number], [id number], [id number] #### [facility] (DEFAULT) [address] [place] [address] In ICU? No [facility] Comment on above: Performed By: #### 1 [id number], [id number], [id number] #### [facility] (DEFAULT) [address] [place] [address] status? Not [facility] Comment on above: Performed By: #### 1 [id number], [id number], [id number] #### [facility] (DEFAULT) [address] [place] [address] SARS-CoV-2 (COVID-19) IgG Abs Non-Reactive Normal Non-Reactive [facility] Comment on above: Result Comment: Test results should be interpreted in light of the total clinical presentation of the patient, including: symptoms, clinical history, data from additional tests, and other appropriate information. Detects IgG Abs 14-20 days post infection (varies by individual) Equivocal Results: retest in 1-2 weeks Positive Results may be due to past or present infection with gfd-TMXR-LzX-2 coronavirus strains, such as coronavirus HKU1, NL63, OC43, or 229E. Performed By: #### 1 [id number], [id number], [id number] #### [facility] (DEFAULT) [address] [place] [address] Symptomatic as defined by [facility]? No [facility] Comment on above: Performed By: #### 1 [id number], [id number], [id number] #### [facility] (DEFAULT) [address] [place] [address] Vital Signs Date Time Vital Sign Value Performing Clinician Octavio jacques 10-17-2023 11:02-0400 Blood Pressure Location Buddy JACOBO [facility] 10-17-2023 11:02-0400 Diastolic blood pressure 81 mm[Hg] Buddy JACOBO [facility] 10-17-2023 11:02-0400 Heart rate 74 /min Buddy JACOBO [facility] 10-17-2023 11:02-0400 Respiratory rate 16 /min Buddy JACOBO [facility] 10-17-2023 11:02-0400 Systolic blood pressure 133 mm[Hg] Buddy JACOBO [facility] 10-15-2022 13:45-0400 Blood Pressure Location Buddy JACOBO [facility] 10-15-2022 13:45-0400 Diastolic blood pressure 87 mm[Hg] Buddy JACOBO [facility] 10-15-2022 13:45-0400 Heart rate 91 /min Buddy JACOBO [facility] 10-15-2022 13:45-0400 Systolic blood pressure 150 mm[Hg] Buddy JACOBO [facility] 09-28-2021 10:27-0400 Blood Pressure Location Buddy JACOBO [facility] 09-28-2021 10:27-0400 Diastolic blood pressure 81 mm[Hg] Buddy JACOBO [facility] 09-28-2021 10:27-0400 Heart rate 70 /min Buddy JACOBO [facility] 09-28-2021 10:27-0400 Respiratory rate 16 /min Buddy JACOBO [facility] 09-28-2021 10:27-0400 Systolic blood pressure 123 mm[Hg] Buddy JACOBO [facility] Encounters Encounter Date Encounter Type Care Provider Facility Start: 10-18-2024 ambulatory Buddy Suazo ty:[facility] [place] Start: 01-20-2024 End: 01-20-2024 Bamboo flowsheet Pratik Evgeny PT [facility] Start: 01-20-2024 End: 01-20-2024 Bamboo flowsheet Pratik Topsham PT [facility] Start: 01-20-2024 End: 01-20-2024 ambulatory Pratik Evgeny PT [facility] Comment on above: Spinal stenosis of l umbar region without neurogenic claudication (Primary Dx) Start: 01-19-2024 End: 01-19-2024 ambulatory Jessica Murguia MD Facility:[facility] Start: 01-13-2024 End: 01-13-2024 Bamboo flowsheet Kimberly Guzik CERTIFIED PHLEBOTOMY TECHNICIAN [facility] Start: 01-13-2024 End: 01-13-2024 Bamboo flowsheet Kimberly Guzik CERTIFIED PHLEBOTOMY TECHNICIAN [facility] Start: 01-13-2024 End: 01-13-2024 ambulatory Kimberly Guzik CERTIFIED PHLEBOTOMY TECHNICIAN [facility] Comment on above: Spinal stenosis of l umbar region without neurogenic claudication (Primary Dx) Start: 01-06-2024 End: 01-06-2024 Bamboo flowsheet Pratik Evgeny PT [facility] Start: 01-06-2024 End: 01-06-2024 Bamboo flowsheet Pratik Evgeny PT [facility] Start: 01-06-2024 End: 01-06-2024 ambulatory Pratik Evgeny PT [facility] Comment on above: Spinal stenosis of l umbar region without neurogenic claudication (Primary Dx) Start: 2024 End: 2024 ambulatory Jessica Murguia MD Facility:[facility] Start: 01-04-2024 End: 2024 Lady Bonner DO Work Phone: [phone] Comment on above: Primary hypertension (CMS/HCC) Start: 01-01-2024 End: 01-01-2024 ambulatory Kimberly Guzik CERTIFIED PHLEBOTOMY TECHNICIAN [facility] Comment on above: Spinal stenosis of l umbar region without neurogenic claudication (Primary Dx) Start: 01-01-2024 End: 01-01-2024 Bamboo flowsheet Kimberly Guzik CERTIFIED PHLEBOTOMY TECHNICIAN [facility] Start: 01-01-2024 End: 01-01-2024 Bamboo flowsheet Kimberly Guzik CERTIFIED PHLEBOTOMY TECHNICIAN [facility] Start: 12-30-2023 End: 12-30-2023 ambulatory Kimberly Guzik CERTIFIED PHLEBOTOMY TECHNICIAN [facility] Comment on above: Spinal stenosis of l umbar region without neurogenic claudication (Primary Dx) Start: 12-30-2023 End: 12-30-2023 Bamboo flowsheet Kimberly Guzik CERTIFIED PHLEBOTOMY TECHNICIAN [facility] Start: 12-30-2023 End: 12-30-2023 Bamboo flowsheet Kimberly Guzik CERTIFIED PHLEBOTOMY TECHNICIAN [facility] Start: 12-25-2023 End: 12-25-2023 Bamboo flowsheet Kimberly Guzik CERTIFIED PHLEBOTOMY TECHNICIAN [facility] Start: 12-25-2023 End: 12-25-2023 Bamboo flowsheet Kimberly Guzik CERTIFIED PHLEBOTOMY TECHNICIAN [facility] Start: 12-25-2023 End: 12-25-2023 ambulatory Kimberly Guzik CERTIFIED PHLEBOTOMY TECHNICIAN [facility] Comment on above: Spinal stenosis of l umbar region without neurogenic claudication (Primary Dx) Start: 12-23-2023 End: 12-23-2023 ambulatory Pratik Evgeny PT [facility] Comment on above: Spinal stenosis of l umbar region without neurogenic claudication (Primary Dx) Start: 12-23-2023 End: 12-23-2023 Bamboo flowsheet Pratik Evgeny PT [facility] Start: 12-23-2023 End: 12-23-2023 Bamboo flowsheet Pratik Evgeny PT [facility] Start: 12-22-2023 End: 12-22-2023 ambulatory Jessica Murguia MD Facility: [place] Start: 12-18-2023 End: 12-18-2023 ambulatory Kimberly Guzik CERTIFIED PHLEBOTOMY TECHNICIAN [facility] Comment on above: Spinal stenosis of l umbar region without neurogenic claudication (Primary Dx) Start: 12-18-2023 End: 12-18-2023 Bamboo flowsheet Kimberly Guzik CERTIFIED PHLEBOTOMY TECHNICIAN [facility] Start: 12-18-2023 End: 12-18-2023 Bamboo flowsheet Kimberly Guzik CERTIFIED PHLEBOTOMY TECHNICIAN [facility] Start: 12-16-2023 End: 12-16-2023 ambulatory Pratik Topsham PT [facility] Comment on above: Spinal stenosis of l umbar region without neurogenic claudication (Primary Dx) Start: 12-16-2023 End: 12-16-2023 Bamboo flowsheet Pratik Evgeny PT [facility] Start: 12-16-2023 End: 12-16-2023 Bamboo flowsheet Pratik Evgeny PT [facility] Start: 12-10-2023 End: 12-10-2023 ambulatory PRATIKCAMILA FRANCISEVGENY Not Available Start: 10-29-2023 End: 10-29-2023 ambulatory CHRISTIAN STEPCARLO Not Available Start: 10-17-2023 End: 10-17-2023 ambulatory Buddy JACOBO Facility:[facility] Start: 10-17-2023 End: 10-17-2023 Patient encounter procedure Buddy JACOBO [facility] Start: 10-09-2023 End: 10-09-2023 ambulatory CHRISTIAN STEPANIC Not Available Start: 09-29-2023 End: 09-29-2023 ambulatory .CHRISTIAN STEPANIC Not Available Start: 06-26-2023 End: 06-26-2023 ambulatory ZEUS VENCESER Not Available Start: 05-30-2023 End: 05-30-2023 ambulatory JR. CHRISTIAN Egan STEPANIC Not Available Start: 05-06-2023 End: 05-06-2023 ambulatory KATHERINE A FELTER Not Available Start: 04-23-2023 Clinisync Result Encounter Zeus Bonner DO Work Phone: [facility] Unsolicited Start: 04-23-2023 Clinisync Result Encounter Zeus Bonner DO Work Phone: [facility] Unsolicited Start: 04-17-2023 End: 04-17-2023 ambulatory ZEUS VENCESER Not Available Start: 03-24-2023 End: 03-24-2023 ambulatory .CHRISTIAN STEPANIC Not Available Start: 02-27-2023 End: 02-27-2023 ambulatory KATHERINE A FELTER Not Available Start: 10-15-2022 End: 10-15-2022 Patient encounter procedure Buddy JACOBO [facility] Start: 04-17-2022 End: 04-17-2022 ambulatory Christian Raymond Jr Facility:[facility] Start: 03-05-2022 End: 03-06-2022 ambulatory CHELSEY DALEY Facility: Start: 09-28-2021 End: 09-28-2021 Patient encounter procedure Buddy R JACOBO [facility] [place] Start: 09-20-2021 End: 09-21-[address] ZEUS BONNER Facility:[facility] Procedures Date Procedure Procedure Detail Performing Clinician Start: 04-23-2023 [facility]CRO[facility] SHITAL R SARAH RANDOM Zeus Bonner DO Work Phone: Start: 10-15-2022 Cystoscopy Buddy WA MADDYKade Start: 02-22-2015 Transurethral incisi on of bladder neck Buddyriley JACOBO Start: 03-22-2014 Cystoscopy Buddy GONZALEZ MADDYKade Start: 12-16-2013 Transurethral prostatectomy Buddyriley JACOBO Start: 08-04-2012 Laser ablation of prostate Buddyriley JACOBO Start: 05-26-2012 Cystoscopy Buddyriley CASTAÑEDAS Start: 05-06-2012 Urodynamic studies Patr triston JACOBO Start: 09-06-2008 Cystoscopy Buddy WA TERS Colonoscopy Buddy JACOBO Colonoscopy Buddy JACOBO Tonsillectomy Buddy JACOBO Tonsillectomy Buddy JACOBO Plan of Treatment Date Care Activity Detail Author Start: 05-06-2024 End: 05-06-2024 Patient encounter procedure 05/06/2024 10:40 AM EST Office Visit [facility] [address] [place] [address] Shayluis eduardo Katherine A, LICENSED WEIGHER-CMM TECHNICIAN [address] [place] [address] [facility] Start: 04-17-2024 Medicare Annual Well ness (AWV) Medicare Annual Wellness (AWV) [facility] Start: 01-27-2024 End: 01-27-2024 ambulatory 01/27/2024 2:30 PM EST Treatment [facility] [address] [place] [address] Pratik Pepper, PT [facility] Start: 01-22-2024 End: 01-22-2024 ambulatory 01/22/2024 1:30 PM EST Treatment [facility] [address] [place] [address] Pratik Pepper, PT [facility] Start: 01-20-2024 End: 01-20-2024 ambulatory [facility] Comment on above: Arrived Start: 01-13-2024 End: 01-13-2024 ambulatory 01/13/2024 1:30 PM EDT Treatment [facility] [address] [place] [address] Kimberly Dockery, ERWIN Spinal stenosis of lumbar region without neurogenic claudication (Primary Dx) [facility] Comment on above: Spinal stenosis of l umbar region without neurogenic claudication (Primary Dx) Start: 01-08-2024 End: 01-08-2024 ambulatory 01/08/2024 2:30 PM EDT Treatment [facility] [address] [place] [address] Kimberly Dockery, CERTIFIED PHLEBOTOMY TECHNICIAN [facility] Start: 01-06-2024 End: 01-06-2024 ambulatory [facility] Comment on above: Arrived Start: 01-01-2024 End: 01-01-2024 ambulatory [facility] Comment on above: Arrived Start: 12-30-2023 End: 12-30-2023 ambulatory [facility] Comment on above: Arrived Start: 12-25-2023 End: 12-25-2023 ambulatory [facility] Comment on above: Arrived Start: 12-23-2023 End: 12-23-2023 ambulatory [facility] Comment on above: Spinal stenosis of l umbar region without neurogenic claudication (Primary Dx) Start: 12-18-2023 End: 12-18-2023 ambulatory [facility] Comment on above: Arrived Start: 12-16-2023 End: 12-16-2023 ambulatory 12/16/2023 2:30 PM EDT Treatment [facility] [address] [place] [address] Pratik Pepper, PT Arrived [facility] Comment on above: Arrived Start: 11-16-2023 Influenza vaccination Influenza Vacc ine (#1) [facility] Start: 05-30-2023 End: 05-30-2023 Patient encounter procedure 05/30/2023 10:30 AM EDT Office Visit [facility] [address] [place] [address] Jr. Christian Raymond, [address] [facility] [address] [place], [place] [id number] [facility] Start: 05-06-2023 End: 05-06-2023 Patient encounter procedure 05/06/2023 10:50 AM EST Office Visit [facility] [address] [place] [address] Katherine Roth, LICENSED WEIGHER-CMM TECHNICIAN [address] [place], [place] [id number] [facility] Start: 03-04-2023 Medicare Annual Well ness (AWV) Medicare Annual Wellness (AWV) [facility] Start: 11-15-2022 Influenza vaccination Influenza Vacc ine (#1) [facility] Immunizations Immunization Date Immunization Notes Care Provider Fa cility 02-21-2022 Moderna Bivalent Coleman ster Vaccination Zeus Bonner DO Work Phone: [facility] 02-21-2022 SARS-CoV-2 (COVID-19 ) [id number] Buddy JACOBO [facility] 01-11-2021 SARS-CoV-2 (COVID-19 ) mRNA BNT-162b2 vax Buddy JACOBO [facility] 12-20-2020 influenza virus vacc ine, unspecified formulation Buddy Chumby [facility] 12-20-2020 influenza, injectabl e, quadrivalent, contains preservative Zeus Kailey DO Work Phone: [facility] 05-03-2020 SARS-CoV-2 (COVID-19 ) mRNA BNT-162b2 vax Buddy JACOBO [facility] Comment on above: Result Comment: 2022: [id number] 04-12-2020 SARS-CoV-2 (COVID-19 ) mRNA BNT-162b2 vax Buddy JACOBO [facility] Comment on above: Result Comment: 2022: [id number] 12-20-2019 influenza virus vacc ine, unspecified formulation Buddy JACOBO [facility] 12-20-2019 Seasonal, quadrivale nt, recombinant, injectable influenza vaccine, preservative free Zeus Bonner DO Work Phone: [facility] 01-12-2018 influenza virus vacc ine, unspecified formulation Buddy Chumby [facility] 01-12-2018 influenza, injectabl e, quadrivalent, preservative free Zeus Bonner DO Work Phone: [facility] 01-08-2017 influenza, seasonal, injectable, preservative free Zeus Bonner DO Work Phone: [facility] 12-24-2016 influenza virus vacc ine, unspecified formulation Buddy JACOBO [facility] 12-24-2016 seasonal influenza, intradermal, preservative free Zeus Bonner DO Work Phone: [facility] 01-29-2016 pneumococcal polysaccharide vaccine, 23 valent Zeus Bonner DO Work Phone: [facility] 12-20-2015 influenza virus vacc ine, unspecified formulation Buddy JACOBO [facility] 12-20-2015 influenza, injectabl e, quadrivalent, preservative free Zeus Bonner DO Work Phone: [facility] 02-01-2015 pneumococcal conjuga te vaccine, 13 valent Zeus Bonner DO Work Phone: [facility] 01-09-2015 influenza, seasonal, injectable, preservative free Zeus Bonner DO Work Phone: [facility] Payers Date Payer Category Payer Self-pay 2022 Private Health Insurance [employer] [place] [id number] 2022 Unknown [id number] 2009 Medicare [id number] .[id number] 2009 Unknown [id number] 1959 Medicare [id number] 1945 Unknown [id number] 2.16.840.1.209393.3.579.2 .593 1945 Unknown [id number] 2.16.840.1.712347.3.579.2 .593 1945 Unknown [id number] 2.16.840.1.817535.3.579.2 .727 1945 Unknown [id number] 2.16.840.1.788939.3.579.2 .727 1945 Unknown [id number] 2.16.840.1.565159.3.579.2 .1259 1945 Unknown [id number] 2.16.840.1.076769.3.579.2 .1259 1945 Unknown [id number] 2.16.840.1.033031.3.579.2 .1259 1945 Unknown [id number] 2.16.840.1.014989.3.579.2 .1259 1945 Unknown [id number] 2.16.840.1.053981.3.579.2 .1259 1945 Unknown [id number] 2.16.840.1.886872.3.579.2 .1259 1945 Unknown [id number] 2.16.840.1.505862.3.579.2 .1259 1945 Unknown [id number] 2.16.840.1.529653.3.579.2 .1259 1945 Unknown [id number] 2.16.840.1.499036.3.579.2 .1259 1945 Unknown [id number] 2.16.840.1.543981.3.579.2 .1259 1945 Unknown [id number] 2.16.840.1.993185.3.579.2 .1259 1945 Unknown [id number] 2.16.840.1.854700.3.579.2 .1259 1945 Unknown [id number] 2.16.840.1.085478.3.579.2 .1259 1945 Unknown [id number] 2.16.840.1.461434.3.579.2 .1259 1945 Unknown [id number] 2.16.840.1.630387.3.579.2 .1259 1945 Unknown [id number] 2.16.840.1.898222.3.579.2 .1259 1945 Unknown [id number] 2.16.840.1.340529.3.579.2 .125 1945 Unknown [id number] 2.16.840.1.234266.3.579.2 .1258 1945 Unknown [id number] 2.16.840.1.994317.3.579.2 .125 1945 Unknown [id number] 2.16.840.1.918252.3.579.2 .125 1945 Unknown [id number] 2.16.840.1.800733.3.579.2 .1259 1945 Unknown [id number] 2.16.840.1.517152.3.579.2 .1259 1945 Unknown [id number] 2.16.840.1.366000.3.579.2 .196 1945 Unknown [id number] 2.16.840.1.457315.3.579.2 .196 1945 Unknown [id number] 2.16.840.1.317360.3.579.2 .196 Unknown [id number] 2.16.840.1.847689.3.579.2 .531 Social History Date Type Detail Facility Start: 09-29-2020 End: 04-17-2023 Tobacco smoking status Never smoked tobacco (finding) [facility] Start: 04-10-2023 End: 04-17-2023 Sex Assigned At Male [facility] Tobacco smoking status Never [facility] Start: 04-17-2023 Tobacco use and exposure Smokeless [...] Functional Status N/A [facility] 10-15-2022 Functional Status N/A [facility] 09-28-2021 Functional Status N/A [facility] Clinical Notes 09-28-2021 to 01-20-2024 Pratik Pepper, PT - 01/20/2024 2:00 PM Owencamila Evgeny, PT - 01/06/2024 2:30 PM EDRosalind Pepper, PT - 12/23/2023 2:30 PM EDRosalind Pepper, PT - 12/16/2023 2:30 PM EDT Note Date & Type Note Facility 01-20-2024 History of Present illness Narrative Physical Therapy Physical Therapy Treatment Visit Patient Name: Jd Apodaca Today's Date: 01/20/2024 Supervised Time: 44' Total Time: 50' Visit number: 01/13 Started session 17' early Precautions: lower back surgery posterior decompression done in 2019. Subjective Pain: 3/10 in B sides of lateral pelvis. Overall progress: Pain still increases with excessive activity that involve a lot of trunk movement. He thinks he is getting stronger and more flexible each week. Treatment: Therapeutic Exercise: x44' supervised per grid for improving lumbar/LE ROM, BLE strength, and core stability. (6' unsupervised) Modalities: Declined ice/MHP post session will do at home if needed. Assessment/Plan Added more standing LE and core strengthening exercises to try and help improve pt's standing tolerance. Cues needed to correct squat form. Did not report any pain with standing exercises complete today. Assess 24 hr response and continue POC as tolerated. Can keep adding more standing based exercises to work on core and LE strength. Plan: Will continue to work on hip and core stability for another 1-2 weeks. If no improvement, will discharge and have pt return to his doctor for a follow up. 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 Progressing. [...] a follow up. documented in this encounter [facility] 12-23-2023 History of Present illness Narrative [...] progress as tolerated. documented in this encounter [facility] 12-16-2023 History of Present illness Narrative [...] and hip strength. documented in this encounter [facility] 10-17-2023 Hospital Discharge instructions Patient Education [...] urethra. Follow these instructions at home: Take vfqt-pgy-iscurzr and prescription medicines only as told by [...] provider. Document Revised: 09/19/2021 Document Reviewed: 09/19/2021 [employer] Patient Education 2022 Factual. Follow Up Care 10/15/2022 14:25:03 With:CELESTINA VIDAL, Buddy Zhang, URL Address: [address] [place], [place] [id number]- When: Unknown [facility] 10-17-2023 Note Patient Education Urology Benign Prostatic [...] Follow these instructions at home: ? Take gixc-dup-zaxvmuh and prescription medicines only as told by [...] develop side effec (more content not included)... [facility] 10-15-2022 Hospital Discharge instructions Patient Education 10/15/2022 [...] include: ?8 oz (237 mL) of milk, omscdij-inhvvhqnbggy-wjyuc milk, and calcium-fortifiedfruit juice. Calcium-fortified means that [...] ?Spinach (cooked), rhubarb, beets, sweet potatoes, and Puerto Rican chard. ?Peanuts. ?Potato chips, cypriot fries, and baked potatoes with skin on. ?Nuts and nut products. ?Chocolate. If you regularly take a diuretic medicine, make sure to eat at least 1 or 2 servings of fruits or vegetables that are high in potassium each day. These include: ?Avocado. ?Banana. ?Greenup, prune, carrot, or tomato juice. ?Baked potato. [...] magnesium, fish oil, or vitamin B6. Take youz-lju-snrkycp and prescription medicines only as told by [...] Casseroles. Pizza. Lasagna. Frozen meals. Potato chips. Greek fries. The items listed above may not [...] provider. Document Revised: 11/12/2021 Document Reviewed: 11/12/2021 [employer] Patient Education 2022 Factual. Follow Up Care 10/08/2022 11:09:42 With:CELESTINA VIDAL, Buddy Zhang, URL Address: [facility] [address] [place] [address]- When: Unknown [facility] 09-28-2021 Hospital Discharge instructions Patient Education 09/28/2021 10:58:48 Kidney Stones, Nglp-zo-Pdir Kidney Stones Kidney stones are rock-like masses [...] Follow these instructions at home: Medicines Take qvqe-jri-ikfmuqj and prescription medicines only as told by [...] 08/19/2008 Document Revised: 07/20/2019 Document Reviewed: 07/20/2019 [employer] Patient Education 2020 Factual. Follow Up Care 09/29/2020 11:24:43 With:CELESTINA VIDAL, Buddy Zhang, URL Address: [address] [place] [address] When:Within 1 Year(s) Comments:w/ DAWSON [facility] Estify Evaluation + Plan note Future Appointments Appointment Date:10/04/2022 10:15:00 AM Scheduled Provider:Buddy JACOBO MD Location:[facility] Appointment Type:URO Office Visit [facility] Estify Evaluation + Plan note Future Appointments Appointment Date:10/17/2023 11:00:00 AM Scheduled Provider:Buddy JACOBO MD Location:[facility] Appointment Type:URO Office Visit [facility] [facility] Evaluation + Plan note Future Appointments Appointment Date:10/18/2024 10:45:00 AM Scheduled Provider:Buddy JACOBO MD Location:[facility] Appointment Type:URO Office Visit [facility] Evaluation note Diagnosis Spinal stenosis of lumbar region without neurogenic claudication- Primary documented in this encounter [facility] Healthcare[facility]* Diagnosis Spinal stenosis of lumbar region without neurogenic claudication- Primary documented in this encounter [facility]* Diagnosis Spinal stenosis of lumbar region without neurogenic claudication- Primary documented in this encounter [facility] note* Diagnosis Spinal stenosis of lumbar region without neurogenic claudication- Primary documented in this encounter [facility] note* Diagnosis Primary hypertension (CMS/HCC) Unspecified essential hypertension documented in this encounter [facility] course Narrative No data available for this section [facility] Hospital Discharge instructions No data available for this section [facility] progress note No data available for this section [facility] reason for visit Narrative* Rehabilitation - Outpatient (Routine) - Authorized Specialty Diagnoses / Procedures Referred By Contac t Referred To Contact Physical Therapy Diagnoses Low back pain, unspecified Procedures RI PHYSICAL THERAPY EVALUATION LOW COMPLEX 20 MINS Ajay Guido MD [address] [place] [address] [place] [address] Phone: tel: fax: Pratik Pepper, BILLY Referral ID Status Reason Start Date Expiration Date V isits Requested Visits Authorized [id number] Authorized 12/03/2023 05/31/2024 30 30 [facility] [...] section and content) DATE CREATED AUTHOR 11/26/2019 [facility] DATE CREATED AUTHOR AUTHOR'S ORGANIZ ATION [facility]20[facility] DATE CREATED AUTHOR AUTHOR'S ORGANIZ ATION 05/25/2022 [facility] DATE CREATED AUTHOR AUTHOR'S ORGANIZ ATION 10/19/2023 [facility] DATE CREATED AUTHOR AUTHOR'S ORGANIZ ATION 01/22/2024 [facility] EPIC DATE CREATED AUTHOR AUTHOR'S ORGANIZ ATION 01/24/2024 [facility] Care Team (unrecognized sect ion and content) Shotweld Operator Relationship Specialty Start Date End Date Zeus oBnner DO [address] [place] [address] PCP - ACO Reach 08/08/22 Zeus Bonner DO [address] [place] [address] PCP - General Family Medicine 07/23/22 Shotweld Operator Relationship Specialty Start Date End Date Zeus Bonner DO [address] [place] [address] PCP - ACO Reach 08/08/22 Zeus Bonner, [address] [place] [address] PCP - General Family Medicine 07/23/22 Chelsey Daley, SENIOR PRODUCTION MANAGER [address] [place] [address] Nurse Practitioner Family Medicine 06/06/23 Shotweld Operator Relationship Specialty Start Date End Date Zeus Bonner DO [address] [place] [address] PCP - ACO Reach 08/08/22 Zeus Bonner, [address] [place] [address] PCP - General Family Medicine 07/23/22 Chelsey Daley, SENIOR PRODUCTION MANAGER [address] [place] [address] Nurse Practitioner Family Medicine 06/06/23 Shotweld Operator Relationship Specialty Start Date End Date Zeus Bonner DO [address] [place] [address] PCP - ACO Reach 08/08/22 Zeus Bonner, [address] [place] [address] PCP - General Family Medicine 07/23/22 Chelsey Daley, SENIOR PRODUCTION MANAGER [address] [place] [address] Nurse Practitioner Family Medicine 06/06/23 Shotweld Operator Relationship Specialty Start Date End Date Zeus Bonner, DO [address] [place] [address] PCP - ACO Reach 08/08/22 Zeus Bonner, DO [address] [place] [address] PCP - General Family Medicine 07/23/22 Chelsey Daley, SENIOR PRODUCTION MANAGER [address] [place] [address] Nurse Practitioner Family Medicine 06/06/23 Shotweld Operator Relationship Specialty Start Date End Date Zeus Bonner, DO [address] [place] [address] PCP - ACO Reach 08/08/22 Zeus Bonner, DO [address] [place] [address] PCP - General Family Medicine 07/23/22 Chelsey Daley, SENIOR PRODUCTION MANAGER [address] [place] [address] Nurse Practitioner Family Medicine 06/06/23 Shotweld Operator Relationship Specialty Start Date End Date Zeus Bonner, DO [address] [place] [address] PCP - ACO Reach 08/08/22 Zeus Bonner, DO [address] [place] [address] PCP - General Family Medicine 07/23/22 Chelsey Daley, SENIOR PRODUCTION MANAGER [address] [place] [address] Nurse Practitioner Family Medicine 06/06/23 Shotweld Operator Relationship Specialty Start Date End Date Zeus Bonner, DO [address] [place] [address] PCP - ACO Reach 08/08/22 Zeus Bonner, DO [address] [place] [address] PCP - General Family Medicine 07/23/22 Chelsey Daley NP [address] [place] [address] Nurse Practitioner Family Medicine 06/06/23 Shotweld Operator Relationship Specialty Start Date End Date Zeus Bonner, [address] [place] [address] PCP - ACO Reach 08/08/22 Zeus Bonner, [address] [place] [address] PCP - General Family Medicine 07/23/22 Chelsey Daley NP [address] [place] [address] Nurse Practitioner Family Medicine 06/06/23 Shotweld Operator Relationship Specialty Start Date End Date Zeus Bonner, [address] [place] [address] PCP - ACO Reach 08/08/22 Zeus Bonner, DO [address] [place] [address] PCP - General Family Medicine 07/23/22 Chelsey Daley, SENIOR PRODUCTION MANAGER [address] [place] [address] Nurse Practitioner Family Medicine 06/06/23 Shotweld Operator Relationship Specialty Start Date End Date Zeus Bonner, [address] [place] [address] PCP - ACO Reach 08/08/22 Zeus Bonner DO [address] [place] [address] PCP - General Family Medicine 07/23/22 Chelsey Daley, SENIOR PRODUCTION MANAGER [address] [place] [address] Nurse Practitioner [facility] Medicine 06/06/23 Reason for Visit (unrecogniz ed section and content) Specialty Diagnoses / Procedures Referred By Contac t Referred To Contact Physical Therapy Diagnoses Low back pain, unspecified Procedures RI PHYSICAL THERAPY EVALUATION LOW COMPLEX 20 MINS Ajay Guido MD [facility] [place] [address] [place] [address] Pratik Pepper, BILLY Referral ID Status Reason Start Date Expiration Date V isits Requested Visits Authorized [id number] Authorized 12/03/2023 05/31/2024 30 30 Reason Comments [...] BE BASED ON THE PRIMARY CLINICAL RECORDS. [employer] provides no warranty or guarantee of the accuracy or completeness of information in this document.
--- NOTE | 2024-01-28 10:11 | P.CN_ITS ---
Consult Note: HPI Data of Consult Patient: known to practice within the last 3 years Consult date: 12/22/23 Requesting Physician: Cira Zhou NP Primary Care Provider: VICTOR M BONNER Consult Narrative Reason for consult: hip pain Narrative: 78yom who presents for evaluation. longstanding low back pain for many years. increased with standing and ambulation. mri reviewed, significant for facet arthropathy and lumbar stenosis in lower lumbar spine. has completed physical therapy 6 weeks and continues in a series of provider directed home exercises for >6 weeks, without lasting benefit. uses otc meds as needed. recent left SIJ injection providing 75% improvement ongoing. continues to have moderate bilateral lateral hip pain. Pain increased with standing, walking, bending, activity. pain improved with sitting, lying, and sleep. denies loss of bowel/bladder. denies falls. cc:: CC: Cira Zhou NP Review of Systems ROS Status of ROS 10 or more systems reviewed and unremark able except as noted in history and below Musculoskeletal Reports: extremity pain and joint pain PFSH PFSH Medical History (Updated 01/28/24 @ 10:14 by Cira Zhou NP) Osteoarthritis ?M19.90 - Unspecified osteoarthritis, unspecified site (ICD-10) TMJ (dislocation of temporomandibular joint) ?S03.00XA - Dislocation of jaw, unspecified side, initial encounter (ICD-10) Kidney stone ?N20.0 - Calculus of kidney (ICD-10) Enlarged prostate ?N40.0 - Benign prostatic hyperplasia without lower urinary tract symptoms (ICD-10) Hepatomegaly ?R16.0 - Hepatomegaly, not elsewhere classified (ICD-10) High cholesterol ?E78.00 - Pure hypercholesterolemia, unspecified (ICD-10) HTN (hypertension) ?I10 - Essential (primary) hypertension (ICD-10) Surgical History History of transurethral resection of prostate ?Z98.890 - Other specified postprocedural states (ICD-10) ?Z90.79 - Acquired absence of other genital organ(s) (ICD-10) History of back surgery ?Z98.890 - Other specified postprocedural states (ICD-10) Meds Home Medications and Allergies Home Medications ?Medication ?Instructions ?Recorded ?Confirmed ?Type amlodipine 2.5 mg tablet 2.5 mg PO DAILY 10/22/22 01/19/24 History hydrochlorothiazide 12.5 mg tablet 12.5 mg PO DAILY 10/22/22 01/19/24 History lisinopril 20 mg tablet 20 mg PO DAILY 10/22/22 01/19/24 History potassium citrate 15 mEq (1,620 15 meq PO BID 10/22/22 01/19/24 History mg) tablet,extended release erythromycin with ethanol 2 % topical 12/22/23 History topical solution minocycline 50 mg capsule 50 mg PO 01/05/24 History Allergies Allergy/AdvReac Type Severity Reaction Status Date / Time No Known Drug Allergies Allergy Verified 01/19/24 10:15 Exam Constitutional Documenting provider has reviewed patient's vital signs: yes Common normals: no apparent distress, oriented x3, healthy appearing, alert and well nourished General appearance: cooperative HENMT Common normals: normocephalic, hearing grossly normal bilaterally and moist oral mucous membranes Head and scalp: normocephalic Eye Common normals: PERRL Pupil: PERRL Neck & C-Spine Common normals: full ROM General: normal visual inspection Chest Common normals: inspection of chest normal Respiratory Common normals: normal respiratory effort, no retractions and no use of accessory muscles Back & Pelvis Sacroiliac joints: SI joints normal Other: bilateral GTB tenderness, left greater than right left SIJ negative gil(patricks), gaenslens, thigh thrust, compression test Extremity Common normals: normal to inspection and full ROM Neuro Common normals: oriented x3, CN's II-XII intact bilaterally, moves all extremities, no focal motor deficits, no sensory deficits noted and deep tendon reflexes 2+ bilaterally Sensorium/orientation: alert Motor exam: strength 5/5 throughout and no movement abnormalities noted Psych Common normals: mental status grossly normal, thought process normal, cooperati ve, affect normal, speech normal and activity/motor behavior normal Speech: normal speech Thought process: normal thought process Results Additional Findings Additional findings: If on a controlled substance or opioids, I have checked an [place] report on this patient and there are no aberrancies noted in the prescribing history.??If on a controlled substance or opioid a drug screen was completed and reviewed within the last year, and if there has not been a drug screen completed we ordered one today to monitor higher risk, state monitored pain medication use. As part of providing excellent, safe, comprehensive care, the following was completed at our patient's visit: 1. A medication reconciliation and review to ensure accurate knowledge of current/active medications, including asking our patients to inform us about any uaff-kem-eemyvuk medications or herbal remedies/nutritional supplements/alternative remedies. 2. A review to specifically ensure our patients have had annual screening for screening for depression, screening for tobacco use, and screening for unhealthy alcohol use. For concerning screenings had a discussion with the patient, provided patient education, and recommended follow-up with primary care provider when appropriate. If patient noted with a risk of falling, they received education on strength, gait, and balance training to prevent future risk of falling. Assessment and Plan Assessment and Plan (1) Greater trochanteric bursitis of both hips: (2) Sacroiliitis: Plan bilateral GTB injection in office with Dr Murguia continue OTC medications continue HEP as tolerated
== END 2024-01-28 09:48 | disposition home or self-care (01) ==
LOC: PM 09:47
PROVIDERS: PCP Family Medicine; Visit Provider Nurse Practitioner
DX: M70.62 Trochanteric bursitis, left hip (principal); M70.61 Trochanteric bursitis, right hip; M46.1 Sacroiliitis, not elsewhere classified
CPT/HCPCS: G0463

== ENCOUNTER 2024-02-02 14:36 | Outpatient (OUT) | payer MEDICARE, SELFPAY ==
--- OUTSIDE RECORDS SUMMARY | 2024-02-02 14:58 | XMS_ITS | CCD ---
Author Organization [facility] Care Team Providers Care Pathology Manager Name Role Phone ZEUS BONNER Primary Care Physician KAILEY, DR DOW Primary Care Unavailable CELESTINA, DR GONZALES Admitting Unavailable CELESTINA, DR GONZALES Consulting Unavailable CELESTINA, DR GONZALES Attending Unavailable ODESSA, DR TANIA Zhang Consulting Unavailable CHELSEY DALEY Admitting Unavailable CHELSEY DALEY Consulting Unavailable CHELSEY DALEY Attending Unavailable KAILEY, DR DOW Primary Care Unavailable Christian Raymond Jr Admitting Unavailable Christian Raymond Jr Attending Unavailable Zeus Bonner Primary Care Unavailable Zeus Bonner DO Unavailable Zeus Bonner DO Primary Care Provider Buddy JACOBO Attending Unavailable Buddy JACOBO Attending Unavailable Ludmila ELECTROMECHANICAL TECHNOLOGIST, Chelsey L Unavailable Blade VIDAL, Jessica Casas Attending Unavailable Blade VIDAL, Jessica Casas Attending Unavailable Blade VIDAL, Jessica Casas Attending Unavailable JR. RAYMOND GEORGE C Attending Unavaila ZEUS Judd Attending Unavailable KATHERINE ROTH Attending Unavailable JR. RAYMOND GEORGE C Attending Unavaila lor RAYMOND JR., GEORGE C Referring Unavaila ZEUS Judd Attending Unavailable ZEUS [...] Attending Unavailable LUIS, SELVON F Referring Unavailable GUZIK, KIMBERLY Attending Unavailable LUIS, SELVON F Referring Unavailable EVGENY, PRATIK Attending Unavailable LUIS, SELVON F Referring Unavailable GUZIK, KIMBERLY Attending Unavailable LUIS, SELVON F Referring Unavailable EVGENY, PRATIK Attending Unavailable LUIS, SELVON F Referring Unavailable EVGENY, PRATIK Attending Unavailable LUIS, SELVON F Referring Unavailable Allergies Allergy Classification Reported Allergen(s) Allergy Type Date of Onset Reaction(s) Facility (1 source) Meperidine Drug Allergy 12-09-2013 [facility] (1 source) Nalbuphine Drug Allergy 12-09-2013 [facility] Medications Current Medications Medication Drug [...] Active Start: 02-27-2023 take 1 capsule by [facility] once daily minocycline 50 MG capsule Indications: [...] 3, Pharmacy: [facility], 170, cm, 08/01/23 13:53:00 EDT, Height/Length Dosing, 71, kg, 10/15/22 13:53:00 EDT, Weight Dosing Start Date: 02/03/23 Status: Ordered Start: 09-28-2021 take 1 tablet by enoch th twice daily potassium citrate 15 mEq oral tablet, extended release 15 mEq = 1 tab(s), Oral, BID, # 200 tab(s), Refills(s) 11, Pharmacy: [facility] ([facility]), 170, cm, [...] with CELESTINA VIDAL, MAYURI Knight When: Where: [address] [place] [address]- Medications What How Much When Instructions Unchanged [...] sound wav (more content not included)... Normal [facility] Urology Office/Clinic Noteon 10-17-2023 Urology Office/Clinic [...] When Contact Information CELESTINA VIDAL, Buddy Zhang, [address] [id number] [place] [address]- Additional Instructions: 1 year w/ KUB Patient [...] hydrochl (more content not included)... Normal [facility] Comment on above: Result Comment: Elec [...] BY: Solis Quinones DO Normal Not Available [facility] MICROALB CREAT RATIO RAN DOMon 04-23-2023 CREATININE URINE RANDOM 41.74 mg/dL 20.00 - 300.00 mg/dL [facility] Interpretation and review of laboratory results Abnormal [facility] MICROALBUM CREATININE RATIO UR 31.1 mg/g High 0.0 - 29.9 mg/g [facility] Comment on above: NO MICROALBUMINURIA 0-29 MG/G CLINICAL MICROALBUMINURIA 30-300 MG/G MACROALBUMINURIA >300 MG/G MICROALBUMIN URINE RANDOM <1.3 NINF - 30.0 mg/dL [facility] XR pre/post mri xrayon 04-17 XR pre/post mri xray [facility] [place] [address] MRI Report Signed Patient: Jd Apodaca MR#: [id number] : 1945 Acct:[id number] Age/Sex: 77 / M ADM Date: 04/17/22 Loc: [facility] Room: Type: [facility] Attending Dr: Christian Raymond Jr, DO Copies to: Christian Raymond Jr, DO Ordering Provider: Christian Raymond Jr, DO Date of Service: 04/17/22 MR/MR lumbar spine wo con: M54.16 ([id number]) XR/XR pre/post mri xray: LUMBAR MRI MR [...] Baltazar Mcdermott M.D.04/17/2022 1:38 PM Dictation Location: [place] [address] Transcribed By: [facility] 04/17/22 [id number] Dictated By: Baltazar Mcdermott II, MD 04/17/22 1329 Signed By: 04/17/22 1338 Normal [facility] PSA, FREE AND TOTAL RATIOon 03-06-2022 % Free PSA 22.0 % Normal [facility] Comment on above: Result Comment: [...] men. Performed By: #### P SAFREE #### [facility] [address] [place] [address] Dr. Magalie Ceron Prostate specific Ag [Mass/Vol] 1.0 ng/mL Normal 0.0-4.[address] [facility] Comment on above: Result Comment: Joseph woodard ECLIA methodology. . According to the [employer], Serum PSA should decrease and [...] disease. Performed By: #### P SAFREE #### [facility] [address] [place] [address] Dr. Magalie Ceron PSA, Free 0.22 ng/mL Normal N/A [facility] Comment on above: Result Comment: Joseph woodard ECLIA methodology. Performed By: #### P SAFREE #### [facility] [address] [place] [address] Dr. Magalie Ceron CBC AUTO DIFFon 03-05-2022 BASO # 0.1 103/ul Normal 0.0-0.[address] [facility] Comment on above: Performed By: #### C BC #### [facility] [address] [address] [address] Magalie Ceron Basophils/100 WBC (Bld) 0.8 % Normal 0.2-2.[address] [facility] Comment on above: Performed By: #### C BC #### [facility] [address] [address] [address] Magalie Ceron EO # 0.1 103/ul Normal 0.0-0.[address] [facility] Comment on above: Performed By: #### C BC #### [facility] [address] [place] [address] Dr. Magalie Ceron Eosinophils/100 WBC (Bld) 1.5 % Normal 0.9-7.[address] [facility] Comment on above: Performed By: #### C BC #### [facility] [address] [place] [address] Dr. Magalie Ceron Erythrocyte distribution width (RBC) [Ratio] 13.5 % Normal 11.0-15.[address] [facility] Comment on above: Performed By: #### C BC #### [facility] [address] [place] [address] Dr. Magalie Ceron Hematocrit (Bld) [Volume fraction] 43.7 % Normal 42.0-54.[address] [facility] Comment on above: Performed By: #### C BC #### [facility] [address] [place] [address] Dr. Magalie Ceron Hemoglobin (Bld) [Mass/Vol] 15.1 g/dL Normal 14.0-18.[address] [facility] Comment on above: Performed By: #### C BC #### [facility] [address] [place] [address] Dr. Magalie Ceron IG # 0.04 10e3/ul Critically high 0.00-0.03 [facility] Comment on above: Performed By: #### C BC #### [facility] [address] [place] [address] Dr. Magalie Ceron IG % 0.6 % Critically high 0.0-0.5 [facility] Comment on above: Performed By: #### C BC #### [facility] [address] [place] [address] Dr. Magalie Ceron LYMPH # 2.6 103/ul Normal 1.2-3.[address] [facility] Comment on above: Performed By: #### C BC #### [facility] [address] [place] [address] Dr. Magalie Ceron Lymphocytes/100 WBC (Bld) 35.5 % Normal 20.5-60.[address] [facility] Comment on above: Performed By: #### C BC #### [facility] [address] [place] [address] Dr. Magalie Ceron MANUAL DIFF REQ NO Normal [facility] Comment on above: Performed By: #### C BC #### [facility] [address] [place] [address] Dr. Magalie Ceron MCH (RBC) [Entitic mass] 31.8 pg Normal 25.9-34.[address] [facility] Comment on above: Performed By: #### C BC #### [facility] [address] [place] [address] Dr. Magalie Ceron MCHC (RBC) [Mass/Vol] 34.6 g/dL Normal 29.9-35.2 [facility] Comment on above: Performed By: #### C BC #### [facility] [address] [place] [address] Dr. Magalie Ceron MCV (RBC) [Entitic vol] 92.0 fL Normal 80.0-94.0 [facility] Comment on above: Performed By: #### C BC #### [facility] [address] [place] [address] Dr. Magalie Ceron MONO # 0.7 103/ul Normal 0.3-0.8 [facility] Comment on above: Performed By: #### C BC #### [facility] [address] [place] [address] Dr. Magalie Ceron Monocytes/100 WBC (Bld) 9.3 % Normal 1.7-12.[address] [facility] Comment on above: Performed By: #### C BC #### [facility] [address] [address] [address] Magalie Ceron NEUT # 3.8 103/ul Normal 1.4-6.5 [facility] Comment on above: Performed By: #### C BC #### [facility] [address] [place] [address] Dr. Magalie Ceron Neutrophils/100 WBC (Bld) 52.3 % Normal 43.0-75.[address] [facility] Comment on above: Performed By: #### C BC #### [facility] [address] [place] [address] Dr. Magalie Ceron Platelet mean volume (Bld) [Entitic vol] 8.8 fL Critically low 9.5-13.5 [facility] Comment on above: Performed By: #### C BC #### [facility] [address] [place] [address] Dr. Magalie Ceron PLT 308 103/ul Normal 150-450 [facility] Comment on above: Performed By: #### C BC #### [facility] [address] [place] [address] Dr. Magalie Ceron RBC 4.75 106/ul Normal 4.70-6.[address] [facility] Comment on above: Performed By: #### C BC #### [facility] [address] [place] [address] Dr. Magalie Ceron WBC 7.2 103/ul Normal 4.0-11.[address] [facility] Comment on above: Performed By: #### C BC #### [facility] [address] [place] [address] Dr. Magalie Ceron LIPID PROFILEon 03-05-2022 CHOL-HDL RATIO NORM SEE BELOW Normal [facility] Comment on above: Result Comment: 3.3 - 4.4 LOW RISK 4.4 - 7.1 AVERAGE RISK 7.1 - 11.0 MODERATE RISK >11.0 HIGH RISK Performed By: #### C MP, LIPID #### [facility] [address] [place] [address] Dr. Magalie Ceron Cholesterol [Mass/Vol] 216 mg/dL Critically high <=200 [facility] Comment on above: Performed By: #### C MP, LIPID #### [facility] [address] [address] [address] Magalie Ceron Cholesterol in HDL [Mass/Vol] 53 mg/dL Normal 40-[address] [facility] Comment on above: Performed By: #### C MP, LIPID #### [facility] [address] [address] [address] Magalie Ceron Cholesterol in LDL [Mass/Vol] 118.0 mg/dL Normal [facility] Comment on above: Performed By: #### C MP, LIPID #### [facility] [address] [address] [address] Magalie Ceron Cholesterol.total/C holesterol in HDL [Mass ratio] 4.1 {ratio} Normal [facility] Comment on above: Performed By: #### C MP, LIPID #### [facility] [address] [place] [address] Dr. Magalie Ceron HDL NORMAL > or = 60 mg/dl - LO W CARDIOVASCULAR RISK <40 mg/dl - HIGH CARDIOVASCULAR RISK Normal [facility] Comment on above: Performed By: #### C MP, LIPID #### [facility] [address] [address] [address] Magalie Ceron LDL CALC NORMAL SEE BELOW Normal [facility] Comment on above: Result Comment: <100 mg/dl OPTIMAL 100 - 129 mg/dl NEAR OR ABOVE OPTIMAL 130 - 159 mg/dl BORDERLINE HIGH 160 - 189 mg/dl HIGH >190 mg/dl VERY HIGH Performed By: #### C MP, LIPID #### [facility] [address] [address] [address] Magalie Ceron Triglyceride [Mass/Vol] 225 mg/dL Critically high <=150 [facility] Comment on above: Performed By: #### C MP, LIPID #### [facility] [address] [address] [address] Magalie Ceron VLDL CALC 45.0 mg/dL Normal [facility] Comment on above: Performed By: #### C MP, LIPID #### [facility] [address] [address] [address] Magalie Ceron MICROALB CREAT RATIO RANDOMo n 03-05-2022 mALB <1.3 Normal <=30.[address] [facility] Comment on above: Performed By: #### M CRR #### [facility] [address] [place] [address] Dr. Magalie Ceron MALB CR RATIO 13.5 mg/g Normal 0.0-29.9 [facility] Comment on above: Performed By: #### M CRR #### [facility] [address] [place] [address] Dr. Magalie Ceron MALB CR RATIO RANGE SEE BELOW Normal [facility] Comment on above: Result Comment: NO M ICROALBUMINURIA 0-29 MG/G CLINICAL MICROALBUMINURIA 30-300 MG/G MACROALBUMINURIA >300 MG/G Performed By: #### M CRR #### [facility] [address] [place] [address] Dr. Magalie Ceron URINE CREAT 96.12 mg/dL Normal 20.00-300.00 [facility] Comment on above: Performed By: #### M CRR #### [facility] [address] [place] [address] Dr. Magalie Ceron PROF 14(COMP METB)on 022 Albumin [Mass/Vol] 4.1 g/dL Normal 3.4-5.0 [facility] Comment on above: Performed By: #### C MP, LIPID #### [facility] [address] [place] [address] Dr. Magalie Ceron Albumin/Globulin [Mass ratio] 1.2 {ratio} Normal [facility] Comment on above: Performed By: #### C MP, LIPID #### [facility] [address] [place] [address] Dr. Magalie Ceron ALP [Catalytic activity/Vol] 73 U/L Normal 46-[address] [facility] Comment on above: Performed By: #### C MP, LIPID #### [facility] [address] [place] [address] Dr. Magalie Ceron ALT [Catalytic activity/Vol] 34 U/L Normal 16-[address] [facility] Comment on above: Performed By: #### C MP, LIPID #### [facility] [address] [address] [address] Magalie Ceron Anion gap [Moles/Vol] 9.2 mmol/L Normal [facility] Comment on above: Performed By: #### C MP, LIPID #### [facility] [address] [address] [address] Magalie Ceron AST [Catalytic activity/Vol] 25 U/L Normal 15-[address] [facility] Comment on above: Performed By: #### C MP, LIPID #### [facility] [address] [address] [address] Magalie Ceron Bilirubin [Mass/Vol] 1.6 mg/dL Critically high 0.2-1.[address] [facility] Comment on above: Performed By: #### C MP, LIPID #### [facility] [address] [address] [address] Magalie Ceron Calcium [Mass/Vol] 8.9 mg/dL Normal 8.5-10.1 [facility] Comment on above: Performed By: #### C MP, LIPID #### [facility] [address] [address] [address] Magalie Ceron Chloride [Moles/Vol] 100 mmol/L Normal 98-[address] [facility] Comment on above: Performed By: #### C MP, LIPID #### [facility] [address] [address] [address] Magalie Ceron CO2 [Moles/Vol] 32.5 mmol/L Critically high 21.0-32.[address] [facility] Comment on above: Performed By: #### C MP, LIPID #### [facility] [address] [address] [address] Magalie Ceron Creatinine [Mass/Vol] 0.96 mg/dL Normal 0.70-1.[address] [facility] Comment on above: Performed By: #### C MP, LIPID #### [facility] [address] [address] [address] Magalie Ceron EGFR-AF [place]TH [place]OREAN >60 Normal >=60 [facility] Comment on above: Performed By: #### C MP, LIPID #### [facility] [address] [address] [address] Magalie Ceron EGFR-NON AF [place]OREAN >60 Normal >=[address] [facility] Comment on above: Performed By: #### C MP, LIPID #### [facility] [address] [address] [address] Magalie Ceron Globulin (S) [Mass/Vol] 3.3 g/dL Normal [facility] Comment on above: Performed By: #### C MP, LIPID #### [facility] [address] [address] [address] Magalie Ceron Glucose [Mass/Vol] 88 mg/dL Normal 74-106 [facility] Comment on above: Performed By: #### C MP, LIPID #### [facility] [address] [place] [address] Dr. Magalie Ceron Potassium [Moles/Vol] 3.7 mmol/L Normal 3.5-5.[address] [facility] Comment on above: Performed By: #### C MP, LIPID #### [facility] [address] [place] [address] Dr. Magalie Ceron Protein [Mass/Vol] 7.4 g/dL Normal 6.4-8.2 [facility] Comment on above: Performed By: #### C MP, LIPID #### [facility] [address] [place] [address] Dr. Magalie Ceron Sodium [Moles/Vol] 138 mmol/L Normal 136-145 [facility] Comment on above: Performed By: #### C MP, LIPID #### [facility] [address] [address] [address] Magalie Ceron Urea nitrogen [Mass/Vol] 11.0 mg/dL Normal 7.0-18.[address] [facility] Comment on above: Performed By: #### C MP, LIPID #### [facility] [address] [place] [address] Dr. Magalie Ceron Urea nitrogen/Creatinine [Mass ratio] 11.5 mg/mg Normal [facility] Comment on above: Performed By: #### C MP, LIPID #### [facility] [address] [place], [place] [address] Dr. Magalie Ceron XR KUB 1 VIEWon [...] by: TANIA SAXENA Date: 2021-09-20 17:32 Normal [facility] Standardon 11-25-2019 eGFR Non AA >60 [facility] Comment on above: Performed By: #### 1 [id number], [id number], [id number] #### [facility] (DEFAULT) [address] [place] [address]34 eGFR AA >60 [facility] Comment on above: Result Comment: Valet Service Attendant ernesto Kidney disease could be indicated at eGFRs of less than 60 ml/min/1.73m2. Kidney Failure is indicated at less than 15 ml/min/1.73m2 Performed By: #### 1 [id number], [id number], [id number] #### [facility] (DEFAULT) [address] [place] [address] 99811 Anion gap [Moles/Vol] 15.0 mmol/L Normal 5.0-19.0 [facility] Comment on above: Performed By: #### 1 [id number], [id number], [id number] #### [facility] (DEFAULT) [address] [place] [address] 71284 Calcium [Mass/Vol] 8.8 mg/dL Low 8.9-10.3 [facility] Comment on above: Performed By: #### 1 [id number], [id number], [id number] #### [facility] (DEFAULT) [address] [place] [address] 14567 Chloride [Moles/Vol] 99 mmol/L Low 101-111 [facility] Comment on above: Performed By: #### 1 [id number], [id number], [id number] #### [facility] (DEFAULT) [address] [place] [address] 50165 CO2 [Moles/Vol] 26 mmol/L Normal 21-32 [facility] Comment on above: Performed By: #### 1 [id number], [id number], [id number] #### [facility] (DEFAULT) [address] [place] [address] 18144 Creatinine [Mass/Vol] 0.81 mg/dL Low 0.90-1.30 [facility] Comment on above: Performed By: #### 1 [id number], [id number], [id number] #### [facility] (DEFAULT) [address] [place] [address] 94007 Glucose [Mass/Vol] 93.0 mg/dL Normal 74.0-118.0 [facility] Comment on above: Performed By: #### 1 [id number], [id number], [id number] #### [facility] (DEFAULT) [address] [place] [address] 57958 Osmolality [Osmolality] 274 mOsm/L [facility] Comment on above: Performed By: #### 1 [id number], [id number], [id number] #### [facility] (DEFAULT) [address] [place] [address] 12745 Potassium [Moles/Vol] 3.4 mmol/L Low 3.6-5.1 [facility] Comment on above: Performed By: #### 1 [id number], [id number], [id number] #### [facility] (DEFAULT) [address] [place] [address] 45975 Sodium [Moles/Vol] 137.0 mmol/L Normal 136.0-144.0 [facility] Comment on above: Performed By: #### 1 [id number], [id number], [id number] #### [facility] (DEFAULT) [address] [place] [address] 44590 Urea nitrogen [Mass/Vol] 13 mg/dL Normal 8-26 [facility] Comment on above: Performed By: #### 1 [id number], [id number], [id number] #### [facility] (DEFAULT) [address] [place] [address] 14358 Urea nitrogen/Creatinine [Mass ratio] 16.0 mg/mg Normal 4.6-16.2 [facility] Comment on above: Performed By: #### 1 [id number], [id number], [id number] #### [facility] (DEFAULT) [address] [place] [address] 95678 Lipid Panel Standardon 11-24 Cholesterol [Mass/Vol] 218.0 mg/dL High 66.0-200.0 [facility] Comment on above: Result Comment: Laura rable - Less than 200 mg/dL Borderline high risk - 200-239 mg/dL High risk - 240 mg/dL and over. Performed By: #### 1 [id number], [id number], [id number] #### [facility] (DEFAULT) [address] [place] [address] 23766 Cholesterol in HDL [Mass/Vol] 47 mg/dL Normal 40-71 [facility] Comment on above: Result Comment: High risk - <40 mg/dL. Performed By: #### 1 [id number], [id number], [id number] #### [facility] (DEFAULT) [address] [place] [address] 46690 Cholesterol in LDL [Mass/Vol] 137 mg/dL High 1-100 [facility] Comment on above: Result Comment: Opti mal - Less than 100 mg/dL Borderline high risk - 130-159 mg/dL High risk - 160-189 mg/dL. Performed By: #### 1 [id number], [id number], [id number] #### [facility] (DEFAULT) [address] [place] [address] 85774 Cholesterol.total/C holesterol in HDL [Mass ratio] 4.6 {ratio} High 0.0-4.5 [facility] Comment on above: Performed By: #### 1 [id number], [id number], [id number] #### [facility] (DEFAULT) [address] [place] [address] Triglyceride [Mass/Vol] 172.0 mg/dL High 0.0-150.0 [facility] Comment on above: Performed By: #### 1 [id number], [id number], [id number] #### [facility] (DEFAULT) [address] [place] [address] VLDL. 34 mg/dL Normal 5-40 [facility] Comment on above: Performed By: #### 1 [id number], [id number], [id number] #### [facility] (DEFAULT) [address] [place] [address] SARS-CoV-2 (COVID-19) IgG An tibodies(Noon 11-25-2019 Employed in healthcare? No [facility] Comment on above: Performed By: #### 1 [id number], [id number], [id number] #### [facility] (DEFAULT) [address] [place] [address] Group care resident? No [facility] Comment on above: Performed By: #### 1 [id number], [id number], [id number] #### [facility] (DEFAULT) [address] [place] [address] Hospitalized due to COVID-19? No [facility] Comment on above: Performed By: #### 1 [id number], [id number], [id number] #### [facility] [facility] (DEFAULT) [address] [place] [address] In ICU? No [facility] Comment on above: Performed By: #### 1 [id number], [id number], [id number] #### [facility] (DEFAULT) [address] [place] [address] status? Not [facility] Comment on above: Performed By: #### 1 [id number], [id number], [id number] #### [facility] (DEFAULT) [address] [place] [address] SARS-CoV-2 (COVID-19) IgG Abs Non-Reactive Normal Non-Reactive [facility] Comment on above: Result Comment: Test results should be interpreted in light of the total clinical presentation of the patient, including: symptoms, clinical history, data from additional tests, and other appropriate information. Detects IgG Abs 14-20 days post infection (varies by individual) Equivocal Results: retest in 1-2 weeks Positive Results may be due to past or present infection with pri-BMFY-MuO-2 coronavirus strains, such as coronavirus HKU1, NL63, OC43, or 229E. Performed By: #### 1 [id number], [id number], [id number] #### [facility] (DEFAULT) [address] [place] [address] Symptomatic as defined by [facility]? No [facility] Comment on above: Performed By: #### 1 [id number], [id number], [id number] #### [facility] (DEFAULT) [address] [place] [address] Vital Signs Date Time Vital Sign Value Performing Clinician Octavio jacques 10-17-2023 11:02-0400 Blood Pressure Location Buddy JACOBO [facility] 10-17-2023 11:02-0400 Diastolic blood pressure 81 mm[Hg] Buddy JACOBO [facility] 10-17-2023 11:02-0400 Heart rate 74 /min Buddy JACOBO [facility] 10-17-2023 11:02-0400 Respiratory rate 16 /min Buddy JACOBO [facility] 10-17-2023 11:02-0400 Systolic blood pressure 133 mm[Hg] Buddy JACOBO [facility] 10-15-2022 13:45-0400 Blood Pressure Location Buddy JACOBO [facility] 10-15-2022 13:45-0400 Diastolic blood pressure 87 mm[Hg] Buddyriley JACOBO [facility] 10-15-2022 13:45-0400 Heart rate 91 /min Buddyriley JACOBO [facility] 10-15-2022 13:45-0400 Systolic blood pressure 150 mm[Hg] Buddyriley JACOBO [facility] 09-28-2021 10:27-0400 Blood Pressure Location Buddyriley JACOBO [facility] 09-28-2021 10:27-0400 Diastolic blood pressure 81 mm[Hg] Buddyriley JACOBO [facility] 09-28-2021 10:27-0400 Heart rate 70 /min Buddyriley JACOBO [facility] 09-28-2021 10:27-0400 Respiratory rate 16 /min Buddyriley JACOBO [facility] 09-28-2021 10:27-0400 Systolic blood pressure 123 mm[Hg] Buddyriley JACOBO [facility] Encounters Encounter Date Encounter Type Care Provider Facility Start: 10-18-2024 ambulatory Buddy Suazo ty:[facility] [place] Start: 01-27-2024 End: 01-27-2024 ambulatory PRATIK PEPPER Not Available Start: 01-20-2024 End: 01-20-2024 Bamboo flowsheet Pratik Pepper PT [facility] Start: 01-20-2024 End: 01-20-2024 Bamboo flowsheet Pratik Evgeny PT [facility] Start: 01-20-2024 End: 01-20-2024 ambulatory Pratik Evgeny PT [facility] Comment on above: Spinal stenosis of l umbar region without neurogenic claudication (Primary Dx) Start: 01-19-2024 End: 01-19-2024 ambulatory Jessica Murguia MD Facility: [place] Start: 01-13-2024 End: 01-13-2024 Bamboo flowsheet Kimberly Guzik DIRECTOR OF DISTRIBUTION [facility] Start: 01-13-2024 End: 01-13-2024 Bamboo flowsheet Kimberly Guzik DIRECTOR OF DISTRIBUTION [facility] Start: 01-13-2024 End: 01-13-2024 ambulatory Kimberly Guzik DIRECTOR OF DISTRIBUTION [facility] Comment on above: Spinal stenosis of l umbar region without neurogenic claudication (Primary Dx) Start: 01-06-2024 End: 01-06-2024 Bamboo flowsheet Pratik Haverhill PT [facility] Start: 01-06-2024 End: 01-06-2024 Bamboo flowsheet Pratik Haverhill PT [facility] Start: 01-06-2024 End: 01-06-2024 ambulatory Pratik Evgeny PT [facility] Comment on above: Spinal stenosis of l umbar region without neurogenic claudication (Primary Dx) Start: 2024 End: 2024 ambulatory Jessica Murguia MD Facility: [place] Start: 01-04-2024 End: 2024 Lady Bonner DO Work Phone: [phone] Comment on above: Primary hypertension (CMS/HCC) Start: 01-01-2024 End: 01-01-2024 ambulatory Kimberly Guzik DIRECTOR OF DISTRIBUTION [facility] Comment on above: Spinal stenosis of l umbar region without neurogenic claudication (Primary Dx) Start: 01-01-2024 End: 01-01-2024 Bamboo flowsheet Kimberly Guzik DIRECTOR OF DISTRIBUTION [facility] Start: 01-01-2024 End: 01-01-2024 Bamboo flowsheet Kimberly Guzik DIRECTOR OF DISTRIBUTION [facility] Start: 12-30-2023 End: 12-30-2023 ambulatory Kimberly Guzik DIRECTOR OF DISTRIBUTION [facility] Comment on above: Spinal stenosis of l umbar region without neurogenic claudication (Primary Dx) Start: 12-30-2023 End: 12-30-2023 Bamboo flowsheet Kimberly Guzik DIRECTOR OF DISTRIBUTION [facility] Start: 12-30-2023 End: 12-30-2023 Bamboo flowsheet Kimberly Guzik DIRECTOR OF DISTRIBUTION [facility] Start: 12-25-2023 End: 12-25-2023 Bamboo flowsheet Kimberly Guzik DIRECTOR OF DISTRIBUTION [facility] Start: 12-25-2023 End: 12-25-2023 Bamboo flowsheet Kimberly Guzik DIRECTOR OF DISTRIBUTION [facility] Start: 12-25-2023 End: 12-25-2023 ambulatory Kimberly Guzik DIRECTOR OF DISTRIBUTION [facility] Comment on above: Spinal stenosis of l umbar region without neurogenic claudication (Primary Dx) Start: 12-23-2023 End: 12-23-2023 ambulatory Pratik Evgeny PT [facility] Comment on above: Spinal stenosis of l umbar region without neurogenic claudication (Primary Dx) Start: 12-23-2023 End: 12-23-2023 Bamboo flowsheet Pratik Evgeny PT [facility] Start: 12-23-2023 End: 12-23-2023 Bamboo flowsheet Pratik Haverhill PT [facility] Start: 12-22-2023 End: 12-22-2023 ambulatory Jessica Murguia MD Facility:[facility] [place] Start: 12-18-2023 End: 12-18-2023 ambulatory Kimberly Guzik DIRECTOR OF DISTRIBUTION [facility] Comment on above: Spinal stenosis of l umbar region without neurogenic claudication (Primary Dx) Start: 12-18-2023 End: 12-18-2023 Bamboo flowsheet Kimberly Guzik DIRECTOR OF DISTRIBUTION [facility] Start: 12-18-2023 End: 12-18-2023 Bamboo flowsheet Kimberly Guzik DIRECTOR OF DISTRIBUTION [facility] Start: 12-16-2023 End: 12-16-2023 ambulatory Pratik Evgeny PT [facility] Comment on above: Spinal stenosis of l umbar region without neurogenic claudication (Primary Dx) Start: 12-16-2023 End: 12-16-2023 Bamboo flowsheet Pratik Griffinslow PT [facility] Start: 12-16-2023 End: 12-16-2023 Bamboo flowsheet Pratik Griffinslow PT [facility] Start: 12-10-2023 End: 12-10-2023 ambulatory PRATIK PEPPER Not Available Start: 10-29-2023 End: 10-29-2023 ambulatory .CHRISTIAN STEPANIC Not Available Start: 10-17-2023 End: 10-17-2023 ambulatory Buddy JACOBO Facility:[facility] Start: 10-17-2023 End: 10-17-2023 Patient encounter procedure Buddy JACOBO [facility] Start: 10-09-2023 End: 10-09-2023 ambulatory .CHRISTIAN STEPANIC Not Available Start: 09-29-2023 End: 09-29-2023 ambulatory CHRISTIAN DE LA GARZA STEPANIC Not Available Start: 06-26-2023 End: 06-26-2023 ambulatory ZEUS BONNER Not Available Start: 05-30-2023 End: 05-30-2023 ambulatory .CHRISTIAN STEPANIC Not Available Start: 05-06-2023 End: 05-06-2023 ambulatory KATHERINE TANNERER Not Available Start: 04-23-2023 Clinisync Result Encounter [...] encounter procedure Buddy JACOBO [facility] [place] Start: 04-17-2022 End: 04-17-2022 ambulatory Christian Raymond Facility:[facility] Start: 03-05-2022 End: 03-06-2022 ambulatory CHELSEY DALEY Facility: Start: 09-28-2021 End: 09-28-2021 Patient encounter procedure Buddy JACOBO [facility] [place] Start: 09-20-2021 End: 09-21-[address] ZEUS BONNER Facility:[facility] Procedures Date Procedure Procedure Detail Performing Clinician Start: 04-23-2023 [facility] MICROALB TENZINAT R ATIO RANDOM Zeus Bonner DO Work Phone: Start: 10-15-2022 Cystoscopy Buddy LISA OLVERA Start: 02-22-2015 Transurethral incisi on of bladder neck Buddy JACOBO Start: 03-22-2014 Cystoscopy Buddy GONZALEZ MADDYKade Start: 12-16-2013 Transurethral prostatectomy Buddyriley JACOBO Start: 08-04-2012 Laser ablation of prostate Buddy JACOBO Start: 05-26-2012 Cystoscopy Buddy GONZALEZ MADDYKade Start: 05-06-2012 Urodynamic studies Vic JACOBO Start: 09-06-2008 Cystoscopy Buddy OLVERA Colonoscopy Buddy JACOBO Colonoscopy Buddy JACOBO Tonsillectomy Buddy JACOBO Tonsillectomy Buddy JACOBO Plan of Treatment Date Care Activity Detail Author Start: 05-06-2024 End: 05-06-2024 Patient encounter procedure 05/06/2024 10:40 AM EST Office Visit [facility] [address] [place] [address] Katherine Roth, [employer] [address] [place] [address] [facility] Start: 04-17-2024 Medicare Annual Well ness (AWV) Medicare Annual Wellness (AWV) [facility] Start: 01-27-2024 End: 01-27-2024 ambulatory 01/27/2024 2:30 PM EST Treatment [facility] [address] [place] [address] Pratik Pepper, PT [facility] Start: 01-22-2024 End: 01-22-2024 ambulatory 01/22/2024 1:30 PM EST Treatment [facility] [address] [place] [address] Pratik Pepper, PT [facility] Start: 01-20-2024 End: 01-20-2024 ambulatory [facility] Comment on above: Arrived Start: 01-13-2024 End: 01-13-2024 ambulatory 01/13/2024 1:30 PM EDT Treatment [facility] [address] [place] [address] Kimberly Dockery, DIRECTOR OF DISTRIBUTION Spinal stenosis of lumbar region without neurogenic claudication (Primary Dx) [facility] Comment on above: Spinal stenosis of l umbar region without neurogenic claudication (Primary Dx) Start: 01-08-2024 End: 01-08-2024 ambulatory 01/08/2024 2:30 PM EDT Treatment [facility] [address] [place] [address] Kimberly Dockery, DIRECTOR OF DISTRIBUTION [facility] Start: 01-06-2024 End: 01-06-2024 [...] [address] [place] [phone] Pratik Pepper, PT Arrived [facility] Comment on above: Arrived Start: 11-16-2023 Influenza vaccination Influenza Vacc ine (#1) [facility] Start: 05-30-2023 End: 05-30-2023 Patient encounter procedure 05/30/2023 10:30 AM EDT Office Visit [facility] [address] [place] [phone] Jr. Christian Raymond, [address] [facility] [address] [place] [address] [facility] Start: 05-06-2023 End: 05-06-2023 Patient encounter procedure 05/06/2023 10:50 AM EST Office Visit [facility] [address] [place] [phone] Katherine Roth, [employer] [address] [place], [place] [id number] [facility] Start: 03-04-2023 Medicare Annual Well ness (AWV) Medicare Annual Wellness (AWV) [facility] Start: 11-15-2022 Influenza vaccination Influenza Vacc ine (#1) [facility] Immunizations Immunization Date Immunization Notes Care Provider Kateryna chavez 02-21-2022 Moderna Bivalent Coleman ster Vaccination Zeus Bonner DO Work Phone: [facility] 02-21-2022 SARS-CoV-2 (COVID-19 ) [id number] Buddy JACOBO [facility] 01-11-2021 SARS-CoV-2 (COVID-19 ) mRNA BNT-162b2 vax Buddy JACOBO [facility] 12-20-2020 influenza virus vacc ine, unspecified formulation Buddy JACOBO [facility] 12-20-2020 influenza, injectabl e, quadrivalent, contains preservative Zeus Bonner DO Work Phone: [facility] 05-03-2020 SARS-CoV-2 (COVID-19 ) mRNA BNT-162b2 vax Buddy JACOBO [facility] Comment on above: Result Comment: 2022: [id number] 04-12-2020 SARS-CoV-2 (COVID-19 ) mRNA BNT-162b2 vax Buddy JACOBO [facility] Comment on above: Result Comment: 2022: [id number] 12-20-2019 influenza virus vacc ine, unspecified formulation Buddy JACOBO [facility] 12-20-2019 Seasonal, quadrivale nt, recombinant, injectable influenza vaccine, preservative free Zeus Bonner DO Work Phone: [facility] 01-12-2018 influenza virus vacc ine, unspecified formulation Buddy JACOBO [facility] 01-12-2018 influenza, injectabl e, quadrivalent, preservative free Zeus Kailey DO Work Phone: [facility] 01-08-2017 influenza, seasonal, injectable, preservative free Zeus Kailey DO Work Phone: [facility] 12-24-2016 influenza virus vacc ine, unspecified formulation Buddy JACOBO [facility] 12-24-2016 seasonal influenza, intradermal, preservative free Zeus Kailey DO Work Phone: [facility] 01-29-2016 pneumococcal polysaccharide vaccine, 23 valent Zeus Kailey DO Work Phone: [facility] 12-20-2015 influenza virus vacc ine, unspecified formulation Buddy JACOBO [facility] 12-20-2015 influenza, injectabl e, quadrivalent, preservative free Zeus Kailey DO Work Phone: [facility] 02-01-2015 pneumococcal conjuga te vaccine, 13 valent Zeus Kailey DO Work Phone: [facility] 01-09-2015 influenza, seasonal, injectable, preservative free Zeus Kailey DO Work Phone: [facility] Payers Date Payer Category Payer Self-pay 2022 Private Health Insurance [employer] [place] [employer] [id number] 2022 Unknown [id number] 2009 Medicare [id number] .[id number] 2009 Unknown [id number] 1959 Medicare [id number] 1945 Unknown [id number] 2.16.840.1.171843.3.579.2 .593 1945 Unknown [id number] 2.16.840.1.266462.3.579.2 .593 1945 Unknown [id number] 2.16.840.1.318523.3.579.2 .727 1945 Unknown [id number] 2.16.840.1.438726.3.579.2 .727 1945 Unknown [id number] 2.16.840.1.906674.3.579.2 .196 1945 Unknown [id number] 2.16.840.1.692198.3.579.2 .196 1945 Unknown [id number] 2.16.840.1.449478.3.579.2 .196 1945 Unknown [id number] 2.16.840.1.551942.3.579.2 .1259 1945 Unknown [id number] 2.16.840.1.352627.3.579.2 .1259 1945 Unknown [id number] 2.16.840.1.447832.3.579.2 .1259 1945 Unknown [id number] 2.16.840.1.663926.3.579.2 .1259 1945 Unknown [id number] 2.16.840.1.599399.3.579.2 .1259 1945 Unknown [id number] 2.16.840.1.865550.3.579.2 .1259 1945 Unknown [id number] 2.16.840.1.107019.3.579.2 .1259 1945 Unknown [id number] 2.16.840.1.051195.3.579.2 .1259 1945 Unknown [id number] 2.16.840.1.228225.3.579.2 .1259 1945 Unknown [id number] 2.16.840.1.648277.3.579.2 .1259 1945 Unknown [id number] 2.16.840.1.286797.3.579.2 .1259 1945 Unknown [id number] 2.16.840.1.840058.3.579.2 .125 1945 Unknown [id number] 2.16.840.1.275754.3.579.2 .125 1945 Unknown [id number] 2.16.840.1.075812.3.579.2 .125 1945 Unknown [id number] 2.16.840.1.633316.3.579.2 .125 1945 Unknown [id number] 2.16.840.1.565502.3.579.2 .125 1945 Unknown [id number] 2.16.840.1.413743.3.579.2 .1259 1945 Unknown [id number] 2.16.840.1.391169.3.579.2 .1259 1945 Unknown [id number] 2.16.840.1.228926.3.579.2 .1259 1945 Unknown [id number] 2.16.840.1.495735.3.579.2 .1259 1945 Unknown [id number] 2.16.840.1.210040.3.579.2 .1259 1945 Unknown [id number] 2.16.840.1.681479.3.579.2 .1259 1945 Unknown [id number] 2.16.840.1.356099.3.579.2 .1259 Unknown [id number] 2.16.840.1.640551.3.579.2 .531 Social History Date Type Detail Facility Start: 09-29-2020 End: 04-17-2023 Tobacco smoking status Never smoked tobacco (finding) [facility] Start: 04-10-2023 End: 04-17-2023 Sex Assigned At Male [facility] Tobacco smoking status Never [facility] [place] Start: 04-17-2023 Tobacco use [...] Facility 10-17-2023 Functional Status N/A [facility] 10-15-2022 Functional Status N/A [facility] [place] 09-28-2021 Functional Status N/A [facility] [place] Clinical Notes 09-28-2021 to 01-20-2024 Pratik Pepper, PT - 01/20/2024 2:00 PM Avi Pepper, PT - 01/06/2024 2:30 PM EDRosalind Pepper, [...] a follow up. documented in this encounter 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 [...] a follow up. documented in this encounter [facility] 12-23-2023 History of Present illness Narrative Physical [...] progress as tolerated. documented in this encounter [facility] 12-16-2023 History of Present illness Narrative Images [...] and hip strength. documented in this encounter [facility] 10-17-2023 Hospital Discharge instructions Patient [...] urethra. Follow these instructions at home: Take bgwh-dhb-ienyovu and prescription medicines only as told by [...] provider. Document Revised: 09/19/2021 Document Reviewed: 09/19/2021 [employer] Patient Education 2022 [employer]Case[employer]. Follow Up Care 10/15/2022 14:25:03 With:CELESTINA VIDAL, Buddy Zhang, URL Address: [address] [place], [place] [address]- When: Unknown [facility] 10-17-2023 Note Patient Education Urology [...] Follow these instructions at home: ? Take lsev-dus-ygypwbu and prescription medicines only as told by [...] develop side effec (more content not included)... [facility] 10-15-2022 Hospital Discharge instructions Patient Education [...] include: ?8 oz (237 mL) of milk, pliybid-ljddfeeqkuvv-misgt milk, and calcium-fortifiedfruit juice. Calcium-fortified means that [...] ?Spinach (cooked), rhubarb, beets, sweet potatoes, and Surinamese chard. ?Peanuts. ?Potato chips, argentine fries, and baked potatoes with skin on. ?Nuts and nut products. ?Chocolate. If you regularly take a diuretic medicine, make sure to eat at least 1 or 2 servings of fruits or vegetables that are high in potassium each day. These include: ?Avocado. ?Banana. ?[place], prune, carrot, or tomato juice. ?Baked potato. [...] magnesium, fish oil, or vitamin B6. Take ahqn-waz-esbwfwz and prescription medicines only as told by [...] Casseroles. Pizza. Lasagna. Frozen meals. Potato chips. Bengali fries. The items listed above may not [...] provider. Document Revised: 11/12/2021 Document Reviewed: 11/12/2021 [employer] Patient Education 2022 AudioCaseFiles. Follow Up Care 10/08/2022 11:09:42 With:CELESTINA VIDAL, Buddy Zhang, URL Address: [facility] [address] [place] [address]- When: Unknown [facility] 09-28-2021 Hospital Discharge instructions Patient Education 09/28/2021 10:58:48 Kidney Stones, Pnjp-iq-Jwmt Kidney Stones Kidney stones are rock-like masses [...] Follow these instructions at home: Medicines Take ctcv-brm-plpszwu and prescription medicines only as told by [...] 08/19/2008 Document Revised: 07/20/2019 Document Reviewed: 07/20/2019 [employer] Patient Education 2019 [employer] Follow Up Care 09/29/2020 11:24:43 With:CELESTINA VIDAL, Buddy Zhang, URL Address: [address] [place] [address] [place] [address]- When:Within 1 Year(s) Comments:w/ DAWSON [facility] Evaluation + Plan note Future Appointments Appointment Date:10/04/2022 10:15:00 AM Scheduled Provider:Buddy JACOBO MD Location:[facility] Appointment Type:URO Office Visit [facility] [employer] Evaluation + Plan note Future Appointments Appointment Date:10/17/2023 11:00:00 AM Scheduled Provider:Buddy JACOBO MD Location:[facility] Appointment Type:URO Office Visit [facility] Evaluation + Plan note Future Appointments Appointment Date:10/18/2024 10:45:00 AM Scheduled Provider:Buddy JACOBO MD Location:[facility] Appointment Type:URO Office Visit [facility] Evaluation note Diagnosis Spinal stenosis [...] in this encounter [facility] Diagnosis Primary hypertension (CMS/HCC) Unspecified essential hypertension documented [facility] Narrative No data available for this section [facility] [employer] Hospital Discharge instructions No data available for this section [facility] progress note No data available for this section [facility] reason for visit Narrative* Rehabilitation - Outpatient (Routine) - Authorized Specialty Diagnoses / Procedures Referred By Jareth flower Referred To Contact Physical Therapy Diagnoses Low back pain, unspecified Procedures [place] PHYSICAL THERAPY EVALUATION LOW COMPLEX 20 MINS Ajay Guido MD [address] [place] [address] [place] [address] Phone: tel: fax: Pratik Pepper, PT Referral ID Status Reason Start Date Expiration Date V isits Requested Visits Authorized [id number] Authorized 12/03/2023 05/31/2024 30 30 [facility] [...] section and content) DATE CREATED AUTHOR 11/26/2019 [facility] DATE CREATED AUTHOR AUTHOR'S ORGANIZ ATION 03/29/2022 [facility] DATE CREATED AUTHOR AUTHOR'S ORGANIZ ATION 05/25/2022 [facility] DATE CREATED AUTHOR AUTHOR'S ORGANIZ ATION 10/19/2023 [facility] DATE CREATED AUTHOR AUTHOR'S ORGANIZ ATION 01/24/2024 [facility] DATE CREATED AUTHOR AUTHOR'S ORGANIZ ATION 01/29/2024 [facility] dical Specialists EPIC Care Team (unrecognized sect ion and content) Pathology Manager Relationship Specialty Start Date End Date Zeus Bonner DO [address] [place] [address] PCP - ACO Reach 08/08/22 Zeus Bonner DO [address] [place] [address] PCP - General Family Medicine 07/23/22 Pathology Manager Relationship Specialty Start Date End Date Zeus Bonner, DO [address] [place] [address] PCP - ACO Reach 08/08/22 Zeus Bonner, DO [address] [place] [address] PCP - General Family Medicine 07/23/22 Chelsey Daley NP [address] [place] [address] Nurse Practitioner Family Medicine 06/06/23 Pathology Manager Relationship Specialty Start Date End Date Zeus Bonner, DO [address] [place] [address] PCP - ACO Reach 08/08/22 Zeus Bonner, DO [address] [place] [address] PCP - General Family Medicine 07/23/22 Chelsey Daley NP [address] [place] [address] Nurse Practitioner Family Medicine 06/06/23 Pathology Manager Relationship Specialty Start Date End Date Zeus Bonner, [address] [place] [id number] PCP - ACO Reach 08/08/22 Zeus Bonner, [address] [place] [address] PCP - General Family Medicine 07/23/22 Chelsey Daley, ELECTROMECHANICAL TECHNOLOGIST [address] [place] [address] Nurse Practitioner Family Medicine 06/06/23 Pathology Manager Relationship Specialty Start Date End Date Zeus Bonner, [address] [place] [address] PCP - ACO Reach 08/08/22 Zeus Bonner, [address] [place] [address] PCP - General Family Medicine 07/23/22 Chelsey Daley, ELECTROMECHANICAL TECHNOLOGIST [address] [place] [address] Nurse Practitioner Family Medicine 06/06/23 Pathology Manager Relationship Specialty Start Date End Date Zeus Bonner, [address] [place] [address] PCP - ACO Reach 08/08/22 Zeus Bonner, [address] [place] [address] PCP - General Family Medicine 07/23/22 Chelsey Daley, ELECTROMECHANICAL TECHNOLOGIST [address] [place] [address] Nurse Practitioner Family Medicine 06/06/23 Pathology Manager Relationship Specialty Start Date End Date Zeus Bonner, [address] [place] [address] PCP - ACO Reach 08/08/22 Zeus Bonner, DO [address] [place] [address] PCP - General Family Medicine 07/23/22 Chelsey Daley ELECTROMECHANICAL TECHNOLOGIST [address] [place] [address] Nurse Practitioner Family Medicine 06/06/23 Pathology Manager Relationship Specialty Start Date End Date Zeus Bonner, DO [address] [place] [address] PCP - ACO Reach 08/08/22 Zeus Bonner, [address] [place] [address] PCP - General Family Medicine 07/23/22 Chelsey Daley, ELECTROMECHANICAL TECHNOLOGIST [address] [place] [address] Nurse Practitioner Family Medicine 06/06/23 Pathology Manager Relationship Specialty Start Date End Date Zeus Bonner, [address] [place] [address] PCP - ACO Reach 08/08/22 Zeus Bonner, [address] [place] [address] PCP - General Family Medicine 07/23/22 Chelsey Daley, ELECTROMECHANICAL TECHNOLOGIST [address] [place] [address] Nurse Practitioner Family Medicine 06/06/23 Pathology Manager Relationship Specialty Start Date End Date Zeus Bonner, [address] [place] [address] PCP - ACO Reach 08/08/22 Zeus Bonner DO [address] [place] [address] PCP - General Family Medicine 07/23/22 Chelsey Daley, ELECTROMECHANICAL TECHNOLOGIST [address] [place] [address] Nurse Practitioner Family Medicine 06/06/23 Pathology Manager Relationship Specialty Start Date End Date Zeus Bonner DO [address] [place] [address] PCP - ACO Reach 08/08/22 Zeus Bonner DO [address] [place] [address] PCP - General Family Medicine 07/23/22 Chelsey Daley, ELECTROMECHANICAL TECHNOLOGIST [address] [place] [address] Nurse Practitioner Family Medicine 06/06/23 Reason for Visit (unrecogniz ed section and content) Specialty Diagnoses / Procedures Referred By Contlexii t Referred To Contact Physical Therapy Diagnoses Low back pain, unspecified Procedures [facility] THER[facility] EVALUATION LOW COMPLEX 20 MINS Ajay Guido MD [address] [place] [address] [place] [address] Pratik Pepper PT Referral ID Status Reason Start Date Expiration Date V isits Requested Visits Authorized [id number] Authorized 12/03/2023 05/31/2024 30 30 Reason Comments [...] BE BASED ON THE PRIMARY CLINICAL RECORDS. [facility]. provides no warranty or guarantee of the accuracy or completeness of information in this document.
--- NOTE | 2024-02-02 18:16 | PM.CN ---
Consult Note: HPI Data of Consult Patient: known to practice within the last 3 years Consult date: 02/02/24 Requesting Physician: Jessica Murguia MD Primary Care Provider: VICTOR M BONNER Consult Narrative Reason for consult: bilateral hip pain Narrative: 79yom who presents for in office injection. continues to have pain over bilateral hip area, so would like to proceed with bilateral greater trochanteric bursa injection. cc:: CC: Jessica Murguia MD Review of Systems ROS Status of ROS 10 or more systems reviewed and unremarkable except as noted in history and below PFSH [facility] Medical History (Updated 01/28/24 @ 10:14 by Cira Zhou NP) Osteoarthritis ?M19.90 - Unspecified osteoarthritis, unspecified site (ICD-10) TMJ (dislocation of temporomandibular joint) ?S03.00XA - Dislocation of jaw, unspecified side, initial encounter (ICD-10) Kidney stone ?N20.0 - Calculus of kidney (ICD-10) Enlarged prostate ?N40.0 - Benign prostatic hyperplasia without lower urinary tract symptoms (ICD-10) Hepatomegaly ?R16.0 - Hepatomegaly, not elsewhere classified (ICD-10) High cholesterol ?E78.00 - Pure hypercholesterolemia, unspecified (ICD-10) HTN (hypertension) ?I10 - Essential (primary) hypertension (ICD-10) Surgical History History of transurethral resection of prostate ?Z98.890 - Other specified postprocedural states (ICD-10) ?Z90.79 - Acquired absence of other genital organ(s) (ICD-10) History of back surgery ?Z98.890 - Other specified postprocedural states (ICD-10) Meds Home Medications and Allergies Home Medications ?Medication ?Instructions ?Recorded ?Confirmed ?Type amlodipine 2.5 mg tablet 2.5 mg PO DAILY 10/22/22 01/19/24 History hydrochlorothiazide 12.5 mg tablet 12.5 mg PO DAILY 10/22/22 01/19/24 History lisinopril 20 mg tablet 20 mg PO DAILY 10/22/22 01/19/24 History potassium citrate 15 mEq (1,620 15 meq PO BID 08/08/23 11/04/24 History mg) tablet,extended release erythromycin with ethanol 2 % topical 12/22/23 History topical solution minocycline 50 mg capsule 50 mg PO 01/05/24 History Allergies Allergy/AdvReac Type Severity Reaction Status Date / Time No Known Drug Allergies Allergy Verified 01/19/24 10:15 Exam Narrative Exam Narrative: Psych-alert and oriented x 3.? Attentive and appropriate, constitutionally normal, displays normal mood and affect per situation.? There are no obvious deficits in memory, reasoning, or intellect.? Skin-no obvious rashes, bruising, erythema noted to the patient's area of pain. Extremities- extremities are warm with minimal edema and palpable pulses. Hip-tenderness to palpation is noted over the bilateral hip joint.? Pain is elicited with internal and external rotation of the hip.? Hip provocative maneuvers are positive and consistent with the patient's normal pain.? Coordination remains intact.? Gait remains antalgic. Assessment and Plan Assessment and Plan (1) Greater trochanteric bursitis of both hips: Plan 79yom who presents for in office injection. continues to have bilateral hip pain, so will proceed with bilateral trochanteric bursa injection. he is in agreement. Procedure: Bilateral trochanteric bursa injection Medications: Bupivacaine 0.25% 3cc, kenalog 40mg x2 I explained the details of the procedure to the patient including the risks, benefits and alternatives. We had an informed discussion and the patient verbalized understanding and signed the consent form. All questions were answered appropriately.? A time out was performed.? The skin overlying the left lateral hip was prepped with alcohol x3. A sterile syringe containing the above medication was attached to a 25 gauge, 3.5 inch needle under strict aseptic technique. The greater trochanter and point of tenderness was palpated. At this point, the needle was then advanced through the subcutaneous tissue down to os. The needle was withdrawn slightly and the contents of the syringe were gently injected without any resistance. The needle was removed and pressure was applied to the injection site to decrease the incidence of ecchymosis and hematoma formation.? A sterile bandage was applied. The same procedure was then completed on the opposite side. Post procedural instructions were given to the patient.
== END 2024-02-02 14:37 | disposition home or self-care (01) ==
LOC: PM 14:36
PROVIDERS: PCP Family Medicine; Visit Provider Anesthesiology
DX: M70.62 Trochanteric bursitis, left hip (principal); M70.61 Trochanteric bursitis, right hip
CPT/HCPCS: 20610; J0665; J3301

== ENCOUNTER 2024-02-07 14:01 | Emergency (ER) | payer MEDICARE, SELFPAY ==
[2024-02-07 14:07] VITALS: BP 158/86; PULSE 115; TEMP 37.1; O2SAT 98; BMI 23.5
--- NOTE | 2024-02-07 14:12 | ED_ITS ---
HPI HPI - General Adult General Chief complaint: Upper Respiratory Infection Stated complaint: SORE THROAT Time Seen by Provider: 02/07/24 14:03 Source: patient Mode of arrival: walk-in Limitations: no limitations History of Present Illness HPI narrative: 79-year-old male presents for hoarse voice of 5 days duration. He was concerned because he received cortisone injections. He has not had a significant cough and has not had a fever. Related Data Home Medications ?Medication ?Instructions ?Recorded ?Confirmed amlodipine 2.5 mg tablet 2.5 mg PO DAILY 10/22/22 02/07/24 hydrochlorothiazide 12.5 mg tablet 12.5 mg PO DAILY 10/22/22 02/07/24 lisinopril 20 mg tablet 20 mg PO DAILY 10/22/22 02/07/24 potassium citrate 15 mEq (1,620 15 meq PO BID 10/22/22 02/07/24 mg) tablet,extended release erythromycin with ethanol 2 % 1 applic topical Q12H PRN rosacea 12/22/23 02/07/24 topical solution minocycline 50 mg capsule 50 mg PO QDAY 01/05/24 02/07/24 Allergies Allergy/AdvReac Type Severity Reaction Status Date / Time No Known Drug Allergies Allergy Verified 02/07/24 14:12 Opioid HPI Opioid Management Most Recent Opioid Data: Last Pain Scale 6 01/19/24 10:14 01/19/24 Review of Systems ROS Narrative A ten point review of systems is negative except as noted above. [facility] Medical History (Updated 02/07/24 @ 14:43 by Sagar Ellington MD) Osteoarthritis ?M19.90 - Unspecified osteoarthritis, unspecified site (ICD-10) TMJ (dislocation of temporomandibular joint) ?S03.00XA - Dislocation of jaw, unspecified side, initial encounter (ICD-10) Kidney stone ?N20.0 - Calculus of kidney (ICD-10) Enlarged prostate ?N40.0 - Benign prostatic hyperplasia without lower urinary tract symptoms (ICD-10) Hepatomegaly ?R16.0 - Hepatomegaly, not elsewhere classified (ICD-10) High cholesterol ?E78.00 - Pure hypercholesterolemia, unspecified (ICD-10) HTN (hypertension) ?I10 - Essential (primary) hypertension (ICD-10) Surgical History History of transurethral resection of prostate ?Z98.890 - Other specified postprocedural states (ICD-10) ?Z90.79 - Acquired absence of other genital organ(s) (ICD-10) History of back surgery ?Z98.890 - Other specified postprocedural states (ICD-10) Social History Little interest or pleasure in doing things: not at all Feeling down, depressed, or hopeless: not at all Exam Narrative Exam Narrative: Nurses note and vital signs reviewed and patient is not hypoxic. General: The patient appears well and in no apparent distress. Patient is resting comfortably on cart. His voice is hoarse. Skin: Warm, dry, no pallor noted. There is no rash noted. Head: Normocephalic, atraumatic Eye: Normal conjunctiva, no drainage Ears, Nose, Mouth, and Throat: oral mucosa is moist. Nares patent. No pharyngeal erythema or exudate. No white plaque. Cardiovascular: Regular Rate and Rhythm Respiratory: Patient is in no distress, no accessory muscle use, lungs are clear to auscultation, no wheezing, rales or rhonchi Back: non-tender GI: Soft and nontender Musculoskeletal: The patient has no evidence of calf tenderness, no pitting edema, symmetrical pulses noted bilaterally Neurological: A&O, normal speech Psychiatric: Cooperative Constitutional Vital Signs, click to edit/add: Last Vital Signs Temp 98.8 F 02/07/24 14:07 Pulse 115 H 02/07/24 14:07 Resp 16 02/07/24 14:07 BP 158/86 H 02/07/24 14:07 Pulse Ox 98 02/07/24 14:07 O2 Del Method Room Air 02/07/24 14:07 Course Vital Signs Vital signs: Vital Signs Temperature 98.8 F 02/07/24 14:07 Pulse Rate 115 H 02/07/24 14:07 Respiratory Rate 16 02/07/24 14:07 Blood Pressure 158/86 H 02/07/24 14:07 Pulse Oximetry 98 02/07/24 14:07 Oxygen Delivery Method Room Air 02/07/24 14:07 Temperature 98.8 F 02/07/24 14:07 Pulse Rate 115 H 02/07/24 14:07 Respiratory Rate 16 02/07/24 14:07 Blood Pressure 158/86 H 02/07/24 14:07 Pulse Oximetry 98 02/07/24 14:07 Oxygen Delivery Method Room Air 02/07/24 14:07 Medical Decision Making MDM Narrative Medical decision making narrative: Strep test is negative. The patient was worried about a fungal infection because of the recent steroid injections. There are no physical findings to suggest fungal infection but a throat culture is pending. Treatment diagnosis and follow-up were discussed with the patient. Antibiotic is not indicated. Differential Diagnosis Differential Diagnosis: Strep throat, viral pharyngitis Lab Data Lab results reviewed: Yes I reviewed the patient's lab results Labs: Lab Results 02/07/24 Range/Units 14:16 Streptococcus Screen Negative Discharge Plan Discharge Chief Complaint: Upper Respiratory Infection Clinical Impression: Acute viral laryngitis Patient Disposition: Home, Self-Care Time of Disposition Decision: 14:42 Condition: Good Mode of Transportation: Private Vehicle Prescriptions / Home Meds: No Action amlodipine 2.5 mg tablet 2.5 mg PO DAILY hydrochlorothiazide 12.5 mg tablet 12.5 mg PO DAILY lisinopril 20 mg tablet 20 mg PO DAILY potassium citrate 15 mEq tablet extended release 15 meq PO BID erythromycin with ethanol 2 % solution 1 applic TOPICAL Q12H PRN (Reason: rosacea) minocycline 50 mg capsule 50 mg PO QDAY Print Language: Estonian Instructions: Laryngitis (ED) Referrals: VICTOR M BONNER [Primary Care Provider] - 1 week
--- OUTSIDE RECORDS SUMMARY | 2024-02-07 14:12 | XMS_ITS | CCD ---
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 Name Role Phone ZEUS BONNER Primary Care Physician KAILEY, DR DOW Primary Care Unavailable CELESTINA, DR GONZALES Admitting Unavailable CELESTINA, DR GONZALES Consulting Unavailable CELESTINA, DR GONZALES Attending Unavailable ZIDIAN, DR TANIA Zhang Consulting Unavailable CHELSEY DALEY Admitting Unavailable CHELSEY DALEY Consulting Unavailable CHELSEY DALEY Attending Unavailable KAILEY, DR DOW Primary Care Unavailable Christian Raymond Jr Admitting Unavailable Christian Raymond Jr Attending Unavailable Zeus Bonner Primary Care Unavailable Zeus Bonner DO Unavailable Zeus Bonner DO Primary Care Provider [phone] Buddy JACOBO Attending Unavailable Buddy JACOBO Attending Unavailable Ludmila RESIN COATER, Chelsey L Unavailable JR. RAYMOND GEORGE C [...] Attending Unavailable LUIS, SELVON F Referring Unavailable SHAYERKATHERINE Attending Unavailable EVGENY, PRATIK Attending Unavailable LUIS, SELVON F Referring Unavailable GUZIKKIMBERLY Attending Unavailable LUIS, SELVON F Referring Unavailable GUZIKKIMBERLY Attending Unavailable LUIS, SELVON F Referring Unavailable GUZIKIMBERLY Delgado Attending Unavailable LUIS, SELVON F Referring Unavailable EVGENY, PRATIK Attending Unavailable LUIS, SELVON F Referring Unavailable EMILKIMBERLY ONEILL Attending Unavailable LUIS, SELVON F Referring Unavailable EVGENY, RPATIK Attending Unavailable LUIS, SELVON F Referring Unavailable EVGENY, PRATIK Attending Unavailable LUIS, SELVON F Referring Unavailable Gieditis , Andkaty Casas Attending Unavailable Giedraitis , Andrius Casas Attending Unavailable Giedraitis , Andrius Juvencioytkay Attending Unavailable Giedraitis , Andrius Juvencioytkay Attending Unavailable Allergies Allergy Classification Reported Allergen(s) Allergy Type Date of Onset Reaction(s) Facility (1 source) Meperidine Drug Allergy 12-09-2013 [facility] (1 source) Nalbuphine Drug Allergy 12-09-2013 [facility] Medications Current Medications Medication Drug Class(es) [...] 0 Active erythromycin 20 mg/ml topical solution (20 sources) Macrolide, Macrolide Antimicrobial Start: 06-26-2023 End: [...] Status: Ordered minocycline 50 mg oral capsule (5 sources) Tetracycline-class Drug Start: 01-19-2024 take 1 capsule by mouth once daily minocycline 50 MG capsule Indications: Other rosacea Take 1 capsule, by mouth, once daily 90 capsule 1 01/19/2024 Active Start: 02-27-2023 take 1 capsule by [facility] once daily minocycline 50 MG capsule Indications: [...] BID, # 200 tab(s), Refills(s) 11, Pharmacy: [facility]), 170, cm, [...] 10-17-2023 Ambulatory Visit Summary Ambulatory Visit Summary ESTELITARAJD :1945 Visit Date:10/17/2023 Ambulatory Visit Instructions Your Diagnosis BPH with urinary obstruction Gross hematuria History of kidney stones Bladder stones Bilateral renal cysts Scrotal bleeding Tests Performed XR Abdomen 1 View -- Results Pending -- Please visit your patient portal for your results or contact your primary care physician. Your Care Team Attending Physician - CELESTINA VIDAL, Buddy Zhang Primary Care Physician - ZEUS BONNER DO [...] with CELESTINA VIDAL, MAYURI Knight When: Where: [address] [place] [address]- Medications What How Much When Instructions Unchanged [...] sound wav (more content not included)... Normal [facility] Urology Office/Clinic Noteon 10-17-2023 Urology Office/Clinic [...] Contact Information CELESTINA VIDAL, Buddy Zhang, URL [address] [place], [place] [id number]- Additional Instructions: 1 year w/ KUB Patient [...] RANDOM 41.74 mg/dL 20.00 - 300.00 mg/dL [facility] Interpretation and review of laboratory results Abnormal [facility] MICROALBUM CREATININE RATIO UR 31.1 mg/g High 0.0 - 29.9 mg/g [facility] Comment on above: NO MICROALBUMINURIA 0-29 MG/G CLINICAL MICROALBUMINURIA 30-300 MG/G MACROALBUMINURIA >300 MG/G MICROALBUMIN URINE RANDOM <1.3 NINF - 30.0 mg/dL [facility] XR pre/post mri xrayon 04-17 XR pre/post mri xray [facility] [address] MRI Report Signed Patient: Jd Rey MR#: [id number] : 1945 Acct:[id number] Age/Sex: 77 / M ADM Date: 04/17/22 Loc: [facility] Room: Type: [facility] Attending Dr: Christian Raymond Jr, DO Copies to: Christian Raymond Jr, DO Ordering Provider: Christian Raymond Jr, DO Date of Service: 04/17/22 MR/MR lumbar spine wo con: [id number] ([id number]) XR/XR pre/post mri xray: LUMBAR MRI MR [...] Baltazar Mcdermott M.D.04/17/2022 1:38 PM Dictation Location: [place] [address] Transcribed By: NIRAV 04/17/22 4138 Dictated By: Baltazar Mcdermott II, MD 04/17/22 1329 Signed By: 04/17/22 1338 Normal [facility] PSA, FREE AND TOTAL RATIOon 03-06-2022 % Free PSA 22.0 % Normal [facility] [place] Comment on above: Result Comment: The table [...] SAFREE #### [facility] [address] [place] [address] Dr. Magalie Ceron Prostate specific Ag [Mass/Vol] 1.0 ng/mL Normal 0.0-4.0 [facility] [place] Comment on above: Result Comment: Joseph woodard ECLIA methodology. . According to the [place] [employer], Serum PSA should decrease and [...] SAFREE #### [facility] [address] [address] [address] Magalie Ceron PSA, Free 0.22 ng/mL Normal N/A [facility] [place] Comment on above: Result Comment: Joseph woodard ECLIA methodology. Performed By: #### P SAFREE #### [facility] [address] [place] [address] Dr. Magalie Ceron CBC AUTO DIFFon 03-05-2022 BASO # 0.1 103/ul Normal 0.0-0.1 [facility] [place] Comment on above: Performed By: #### C BC #### [facility] [address] [address] [address] Magalie Ceron Basophils/100 WBC (Bld) 0.8 % Normal 0.2-2.0 [facility] [place] Comment on above: Performed By: #### C BC #### [facility] [address] [address] [address] Magalie Ceron EO # 0.1 103/ul Normal 0.0-0.7 [facility] Comment on above: Performed By: #### C BC #### [facility] [address] [address] [address] Magalie Ceron Eosinophils/100 WBC (Bld) 1.5 % Normal 0.9-7.0 [facility] [place] Comment on above: Performed By: #### C BC #### [facility] [address] [address] [address] Magalie Ceron Erythrocyte distribution width (RBC) [Ratio] 13.5 % Normal 11.0-15.0 [facility] [place] Comment on above: Performed By: #### C BC #### [facility] [address] [address] [address] Magalie Ceron Hematocrit (Bld) [Volume fraction] 43.7 % Normal 42.0-54.0 [facility] [place] Comment on above: Performed By: #### C BC #### [facility] [address] [address] [address] Magalie Ceron Hemoglobin (Bld) [Mass/Vol] 15.1 g/dL Normal 14.0-18.0 [facility] [place] Comment on above: Performed By: #### C BC #### [facility] [address] [address] [address] Magalie Ceron IG # 0.04 10e3/ul Critically high 0.00-0.[address] [facility] Comment on above: Performed By: #### C BC #### [facility] [address] [address] [address] Magalie Ceron IG % 0.6 % Critically high 0.0-0.5 [facility] Comment on above: Performed By: #### C BC #### [facility] [address] [place] [address] Dr. Magalei Ceron LYMPH # 2.6 103/ul Normal 1.2-3.8 [facility] [place] Comment on above: Performed By: #### C BC #### [facility] [address] [place] [address] Dr. Magalie Ceron Lymphocytes/100 WBC (Bld) 35.5 % Normal 20.5-60.0 [facility] [place] Comment on above: Performed By: #### C BC #### [facility] [address] [place] [address] Dr. Magalie Ceron MANUAL DIFF REQ NO Normal [facility] Comment on above: Performed By: #### C BC #### [facility] [address] [place] [address] Dr. Magalie Ceron MCH (RBC) [Entitic mass] 31.8 pg Normal 25.9-34.0 [facility] [place] Comment on above: Performed By: #### C BC #### [facility] [address] [place] [address] Dr. Magalie Ceron MCHC (RBC) [Mass/Vol] 34.6 g/dL Normal 29.9-35.2 [facility] [place] Comment on above: Performed By: #### C BC #### [facility] [address] [place] [address] Dr. Magalie Ceron MCV (RBC) [Entitic vol] 92.0 fL Normal 80.0-94.0 [facility] [place] Comment on above: Performed By: #### C BC #### [facility] [address] [place] [address] Dr. Magalie Ceron MONO # 0.7 103/ul Normal 0.3-0.8 [facility] Comment on above: Performed By: #### C BC #### [facility] [address] [place] [address] Dr. Magalie Ceron Monocytes/100 WBC (Bld) 9.3 % Normal 1.7-12.0 [facility] Comment on above: Performed By: #### C BC #### [facility] [address] [address] [address] Magalie Ceron NEUT # 3.8 103/ul Normal 1.4-6.5 [facility] [place] Comment on above: Performed By: #### C BC #### [facility] [address] [address] [address] Magalie Ceron Neutrophils/100 WBC (Bld) 52.3 % Normal 43.0-75.0 [facility] [place] Comment on above: Performed By: #### C BC #### [facility] [address] [address] [address] Magalie Ceron Platelet mean volume (Bld) [Entitic vol] 8.8 fL Critically low 9.5-13.5 [facility] [place] Comment on above: Performed By: #### C BC #### [facility] [address] [place] [address] Dr. Magalie Ceron PLT 308 103/ul Normal 150-450 [facility] Comment on above: Performed By: #### C BC #### [facility] [address] [address] [address] Magalie Ceron RBC 4.75 106/ul Normal 4.70-6.10 [facility] [place] Comment on above: Performed By: #### C BC #### [facility] [address] [address] [address] Magalie Ceron WBC 7.2 103/ul Normal 4.0-11.0 [facility] [place] Comment on above: Performed By: #### C BC #### [facility] [address] [place] [address] Dr. Magalie Ceron LIPID PROFILEon 03-05-2022 CHOL-HDL RATIO NORM SEE BELOW Normal [facility] Comment on above: Result Comment: 3.3 - 4.4 LOW RISK 4.4 - 7.1 AVERAGE RISK 7.1 - 11.0 MODERATE RISK >11.0 HIGH RISK Performed By: #### C MP, LIPID #### [facility] [address] [address] [address] Magalie Ceron Cholesterol [Mass/Vol] 216 mg/dL Critically high <=200 [facility] Comment on above: Performed By: #### C MP, LIPID #### [facility] [address] [address] [address] Magalie Ceron Cholesterol in HDL [Mass/Vol] 53 mg/dL Normal 40-60 [facility] [place] Comment on above: Performed By: #### C MP, LIPID #### [facility] [address] [address] [address] Magalie Ceron Cholesterol in LDL [Mass/Vol] 118.0 mg/dL Normal [facility] [place] Comment on above: Performed By: #### C MP, LIPID #### [facility] [address] [address] [address] Magalie Ceron Cholesterol.total/C holesterol in HDL [Mass ratio] 4.1 {ratio} Normal [facility] [place] Comment on above: Performed By: #### C MP, LIPID #### [facility] [address] [address] [address] Magalie Ceron HDL NORMAL > or = 60 mg/dl - LO W CARDIOVASCULAR RISK <40 mg/dl - HIGH CARDIOVASCULAR RISK Normal [facility] [place] Comment on above: Performed By: #### C MP, LIPID #### [facility] [address] [address] [address] Magalie Ceron LDL CALC NORMAL SEE BELOW Normal [facility] Comment on above: Result Comment: <100 mg/dl OPTIMAL 100 - 129 mg/dl NEAR OR ABOVE OPTIMAL 130 - 159 mg/dl BORDERLINE HIGH 160 - 189 mg/dl HIGH >190 mg/dl VERY HIGH Performed By: #### C MP, LIPID #### [facility] [address] [address] [address] Magalie Ceron Triglyceride [Mass/Vol] 225 mg/dL Critically high <=150 [facility] Comment on above: Performed By: #### C MP, LIPID #### [facility] [address] [address] [address] Magalie Ceron VLDL CALC 45.0 mg/dL Normal [facility] [place] Comment on above: Performed By: #### C MP, LIPID #### [facility] [address] [address] [address] Magalie Ceron MICROALB CREAT RATIO RANDOMo n 03-05-2022 mALB <1.3 Normal <=30.0 [facility] [place] Comment on above: Performed By: #### M CRR #### [facility] [address] [address] [address] Magalie Ceron MALB CR RATIO 13.5 mg/g Normal 0.0-29.9 [facility] Comment on above: Performed By: #### M CRR #### [facility] [address] [address] [address] Magalie Ceron MALB CR RATIO RANGE SEE BELOW Normal [facility] Comment on above: Result Comment: NO M ICROALBUMINURIA 0-29 MG/G CLINICAL MICROALBUMINURIA 30-300 MG/G MACROALBUMINURIA >300 MG/G Performed By: #### M CRR #### [facility] [address] [address] [address] Magalie Ceron URINE CREAT 96.12 mg/dL Normal 20.00-300.00 [facility] Comment on above: Performed By: #### M CRR #### [facility] [address] [address] [address] Magalie Ceron PROF 14(COMP METB)on 022 Albumin [Mass/Vol] 4.1 g/dL Normal 3.4-5.0 [facility] Comment on above: Performed By: #### C MP, LIPID #### [facility] [address] [address] [address] Magalie Ceron Albumin/Globulin [Mass ratio] 1.2 {ratio} Normal [facility] [place] Comment on above: Performed By: #### C MP, LIPID #### [facility] [address] [address] [address] Magalie Ceorn ALP [Catalytic activity/Vol] 73 U/L Normal 46-116 [facility] Comment on above: Performed By: #### C MP, LIPID #### [facility] [address] [address] [address] Magalie Ceron ALT [Catalytic activity/Vol] 34 U/L Normal 16-63 [facility] Comment on above: Performed By: #### C MP, LIPID #### [facility] [address] [address] [address] Magalie Ceron Anion gap [Moles/Vol] 9.2 mmol/L Normal [facility] [place] Comment on above: Performed By: #### C MP, LIPID #### [facility] [address] [address] [address] Magalie Ceron AST [Catalytic activity/Vol] 25 U/L Normal 15-37 [facility] [place] Comment on above: Performed By: #### C MP, LIPID #### [facility] [address] [address] [address] Magalie Ceron Bilirubin [Mass/Vol] 1.6 mg/dL Critically high 0.2-1.0 [facility] [place] Comment on above: Performed By: #### C MP, LIPID #### [facility] [address] [address] [address] Magalie Ceron Calcium [Mass/Vol] 8.9 mg/dL Normal 8.5-10.1 [facility] Comment on above: Performed By: #### C MP, LIPID #### [facility] [address] [address] [address] Magalie Ceron Chloride [Moles/Vol] 100 mmol/L Normal 98-107 [facility] [place] Comment on above: Performed By: #### C MP, LIPID #### [facility] [address] [address] [address] Magalie Ceron CO2 [Moles/Vol] 32.5 mmol/L Critically high 21.0-32.0 [facility] [place] Comment on above: Performed By: #### C MP, LIPID #### [facility] [address] [address] [address] Magalie Ceron Creatinine [Mass/Vol] 0.96 mg/dL Normal 0.70-1.30 [facility] [place] Comment on above: Performed By: #### C MP, LIPID #### [facility] [address] [address] [address] Magalie Ceron EGFR-AF IRAQI >60 Normal >=60 [facility] Comment on above: Performed By: #### C MP, LIPID #### [facility] [address] [address] [address] Magalie Ceron EGFR-NON AF IRAQI >60 Normal >=60 [facility] [place] Comment on above: Performed By: #### C MP, LIPID #### [facility] [address] [address] [address] Magalie Ceron Globulin (S) [Mass/Vol] 3.3 g/dL Normal [facility] [place] Comment on above: Performed By: #### C MP, LIPID #### [facility] [address] [address] [address] Magalie Ceron Glucose [Mass/Vol] 88 mg/dL Normal 74-106 [facility] Comment on above: Performed By: #### C MP, LIPID #### [facility] [address] [address] [address] Magalie Ceron Potassium [Moles/Vol] 3.7 mmol/L Normal 3.5-5.1 [facility] [place] Comment on above: Performed By: #### C MP, LIPID #### [facility] [address] [address] [address] Magalie Ceron Protein [Mass/Vol] 7.4 g/dL Normal 6.4-8.2 [facility] Comment on above: Performed By: #### C MP, LIPID #### [facility] [address] [address] [address] Magalie Ceron Sodium [Moles/Vol] 138 mmol/L Normal 136-145 [facility] Comment on above: Performed By: #### C MP, LIPID #### [facility] [address] [address] [address] Magalie Ceron Urea nitrogen [Mass/Vol] 11.0 mg/dL Normal 7.0-18.0 [facility] [place] Comment on above: Performed By: #### C MP, LIPID #### [facility] [address] [address] [address] Magalie Ceron Urea nitrogen/Creatinine [Mass ratio] 11.5 mg/mg Normal [facility] [place] Comment on above: Performed By: #### C MP, LIPID #### [facility] [address] [place], [place] [address] Dr. Magalie Ceron XR KUB 1 VIEWon [...] by: TANIA SAXENA Date: 2021-09-20 17:32 Normal [facility] Standardon 11-25-2019 eGFR Non AA >60 [facility] Comment on above: Performed By: #### 1 [id number], [id number], [id number] #### [facility] (DEFAULT) [address] [place] [address]3500 eGFR AA >60 [facility] Comment on above: Result Comment: Cementer ernesto Kidney disease could be indicated at eGFRs of less than 60 ml/min/1.73m2. Kidney Failure is indicated at less than 15 ml/min/1.73m2 Performed By: #### 1 [id number], [id number], [id number] #### [facility] (DEFAULT) [address] [place] [address] Anion gap [Moles/Vol] 15.0 mmol/L Normal 5.0-19.0 [facility] Comment on above: Performed By: #### 1 [id number], [id number], [id number] #### [facility] (DEFAULT) [address] [place] [address]609 Calcium [Mass/Vol] 8.8 mg/dL Low 8.9-10.3 [facility] Comment on above: Performed By: #### 1 [id number], [id number], [id number] #### [facility] (DEFAULT) [address] [place] [address] Chloride [Moles/Vol] 99 mmol/L Low 101-111 [facility] Comment on above: Performed By: #### 1 [id number], [id number], [id number] #### [facility] (DEFAULT) [address] [place] [address]2867 CO2 [Moles/Vol] 26 mmol/L Normal 21-32 [facility] Comment on above: Performed By: #### 1 [id number], [id number], [id number] #### [facility] (DEFAULT) [address] [place] [address]180 Creatinine [Mass/Vol] 0.81 mg/dL Low 0.90-1.30 [facility] Comment on above: Performed By: #### 1 [id number], [id number], [id number] #### [facility] (DEFAULT) [address] [place] [address] 42480 Glucose [Mass/Vol] 93.0 mg/dL Normal 74.0-118.0 [facility] Comment on above: Performed By: #### 1 [id number], [id number], [id number] #### [facility] (DEFAULT) [address] [place] [address] 28325 Osmolality [Osmolality] 274 mOsm/L [facility] Comment on above: Performed By: #### 1 [id number], [id number], [id number] #### [facility] (DEFAULT) [address] [place] [address] 57563 Potassium [Moles/Vol] 3.4 mmol/L Low 3.6-5.1 [facility] Comment on above: Performed By: #### 1 [id number], [id number], [id number] #### [facility] (DEFAULT) [address] [place] [address] 09443 Sodium [Moles/Vol] 137.0 mmol/L Normal 136.0-144.0 [facility] Comment on above: Performed By: #### 1 [id number], [id number], [id number] #### [facility] (DEFAULT) [address] [place] [address] 16731 Urea nitrogen [Mass/Vol] 13 mg/dL Normal 8-26 [facility] Comment on above: Performed By: #### 1 [id number], [id number], [id number] #### [facility] (DEFAULT) [address] [place] [address] 47165 Urea nitrogen/Creatinine [Mass ratio] 16.0 mg/mg Normal 4.6-16.2 [facility] Comment on above: Performed By: #### 1 [id number], [id number], [id number] #### [facility] (DEFAULT) [address] [place] [address] 17029 Lipid Panel Standardon 11-24 Cholesterol [Mass/Vol] 218.0 mg/dL High 66.0-200.0 [facility] Comment on above: Result Comment: Laura rable - Less than 200 mg/dL Borderline high risk - 200-239 mg/dL High risk - 240 mg/dL and over. Performed By: #### 1 [id number], [id number], [id number] #### [facility] (DEFAULT) [address] [place] [address] 33486 Cholesterol in HDL [Mass/Vol] 47 mg/dL Normal 40-71 [facility] Comment on above: Result Comment: High risk - <40 mg/dL. Performed By: #### 1 [id number], [id number], [id number] #### [facility] (DEFAULT) [address] [place] [address]0437 Cholesterol in LDL [Mass/Vol] 137 mg/dL High 1-100 [facility] Comment on above: Result Comment: Opti mal - Less than 100 mg/dL Borderline high risk - 130-159 mg/dL High risk - 160-189 mg/dL. Performed By: #### 1 [id number], [id number], [id number] #### [facility] (DEFAULT) [address] [place] [address] 25958 Cholesterol.total/C holesterol in HDL [Mass ratio] 4.6 {ratio} High 0.0-4.5 [facility] Comment on above: Performed By: #### 1 [id number], [id number], [id number] #### [facility] (DEFAULT) [address] [place] [address] Triglyceride [Mass/Vol] 172.0 mg/dL High 0.0-150.0 [facility] [facility] Comment on above: Performed By: #### 1 [id number], [id number], [id number] #### [facility] (DEFAULT) [address] [place] [address] VLDL. 34 mg/dL Normal 5-40 [facility] Comment on above: Performed By: #### 1 [id number], [id number], [id number] #### [facility] (DEFAULT) [address] [place] [address] SARS-CoV-2 (COVID-19) IgG An tibodies(No11-25-2019 Employed in healthcare? No [facility] Comment on above: Performed By: #### 1 [id number], [id number], [id number] #### [facility] (DEFAULT) [address] [place] [address] Group care resident? No [facility] Comment on above: Performed By: #### 1 [id number], [id number], [id number] #### [facility] (DEFAULT) [address] [place] [address] Hospitalized due to COVID-19? No [facility] Comment on above: Performed By: #### 1 [id number], [id number], [id number] #### [facility] (DEFAULT) [address] [place] [address] In ICU? No [facility] Comment on above: Performed By: #### 1 [id number], [id number], [id number] #### [facility] (DEFAULT) [address] [place] [address] status? Not [facility] Comment on above: Performed By: #### 1 [id number], [id number], [id number] #### [facility] (DEFAULT) [address] [place] [address] SARS-CoV-2 (COVID-19) IgG Abs Non-Reactive Normal Non-Reactive [facility] Comment on above: Result Comment: Test results should be interpreted in light of the total clinical presentation of the patient, including: symptoms, clinical history, data from additional tests, and other appropriate information. Detects IgG Abs 14-20 days post infection (varies by individual) Equivocal Results: retest in 1-2 weeks Positive Results may be due to past or present infection with xen-LTIB-RjL-2 coronavirus strains, such as coronavirus HKU1, NL63, OC43, or 229E. Performed By: #### 1 [id number], [id number], [id number] #### [facility] (DEFAULT) [address] [place] [address] Symptomatic as defined by [facility]? No [facility] Comment on above: Performed By: #### 1 [id number], [id number], [id number] #### [facility] (DEFAULT) [address] [place] [address] Vital Signs Date Time Vital Sign Value Performing Clinician Octavio jacques 10-17-2023 11:02-0400 Blood Pressure Location Buddy JACOBO [facility] 10-17-2023 11:02-0400 Diastolic blood pressure 81 mm[Hg] Buddy JACOBO [facility] 10-17-2023 11:02-0400 Heart rate 74 /min Buddy JACOBO [facility] 10-17-2023 11:02-0400 Respiratory rate 16 /min Buddy JACOBO [facility] 10-17-2023 11:02-0400 Systolic blood pressure 133 mm[Hg] Buddy JACOBO [facility] 10-15-2022 13:45-0400 Blood Pressure Location Buddy JACOBO [facility] 10-15-2022 13:45-0400 Diastolic blood pressure 87 mm[Hg] Buddy JACOBO [facility] 10-15-2022 13:45-0400 Heart rate 91 /min Buddyriley JACOBO [facility] 10-15-2022 13:45-0400 Systolic blood pressure 150 mm[Hg] Buddyriley JACOBO [facility] 09-28-2021 10:27-0400 Blood Pressure Location Buddyriley JACOBO [facility] 09-28-2021 10:27-0400 Diastolic blood pressure 81 mm[Hg] Buddyriley JACOBO [facility] 09-28-2021 10:27-0400 Heart rate 70 /min Buddyriley JACOBO [facility] 09-28-2021 10:27-0400 Respiratory rate 16 /min Buddy JACOBO [facility] 09-28-2021 10:27-0400 Systolic blood pressure 123 mm[Hg] Buddyriley JACOBO [facility] Encounters Encounter Date Encounter Type Care Provider Facility Start: 10-18-2024 ambulatory Buddy Suazo ty:[facility] Start: 02-02-2024 End: 02-02-2024 ambulatory Jessica [facility] Start: 01-27-2024 End: 01-27-2024 ambulatory PRATIK EVGENY Not Available Comment on above: Spinal stenosis of l umbar region without neurogenic claudication (Primary Dx) Start: 01-27-2024 End: 01-27-2024 Bamboo flowsheet Pratik Sandusky PT [facility] Start: 01-27-2024 End: 01-27-2024 Bamboo flowsheet Pratik Sandusky PT [facility] Start: 01-20-2024 End: 01-20-2024 Bamboo flowsheet Pratik Evgeny PT [facility] Start: 01-20-2024 End: 01-20-2024 Bamboo flowsheet Pratik Sandusky PT [facility] Start: 01-20-2024 End: 01-20-2024 ambulatory Pratik Sandusky PT [facility] Comment on above: Spinal stenosis of l umbar region without neurogenic claudication (Primary Dx) Start: 01-19-2024 End: 01-19-2024 ambulatory Jessica Murguia MD Facility:[facility] Start: 01-13-2024 End: 01-13-2024 Bamboo flowsheet Kimberly Guzik GRAPHICS EDITOR [facility] Start: 01-13-2024 End: 01-13-2024 Bamboo flowsheet Kimberly Guzik GRAPHICS EDITOR [facility] Start: 01-13-2024 End: 01-13-2024 ambulatory Kimberly Guzik GRAPHICS EDITOR [facility] Comment on above: Spinal stenosis of l umbar region without neurogenic claudication (Primary Dx) Start: 01-06-2024 End: 01-06-2024 Bamboo flowsheet Pratik Sandusky PT [facility] Start: 01-06-2024 End: 01-06-2024 Bamboo flowsheet Pratik Sandusky PT [facility] Start: 01-06-2024 End: 01-06-2024 ambulatory Pratik Sandusky PT [facility] Comment on above: Spinal stenosis of l umbar region without neurogenic claudication (Primary Dx) Start: 2024 End: 2024 ambulatory Jessica Murguia MD Facility:[facility] Start: 01-04-2024 End: 2024 Lady Bonner DO Work Phone: [phone] Comment on above: Primary hypertension (CMS/HCC) Start: 01-01-2024 End: 01-01-2024 ambulatory Kimberly Guzik GRAPHICS EDITOR [facility] Comment on above: Spinal stenosis of l umbar region without neurogenic claudication (Primary Dx) Start: 01-01-2024 End: 01-01-2024 Bamboo flowsheet Kimberly Guzik GRAPHICS EDITOR [facility] Start: 01-01-2024 End: 01-01-2024 Bamboo flowsheet Kimberly Guzik GRAPHICS EDITOR [facility] Start: 12-30-2023 End: 12-30-2023 ambulatory Kimberly Guzik GRAPHICS EDITOR [facility] Comment on above: Spinal stenosis of l umbar region without neurogenic claudication (Primary Dx) Start: 12-30-2023 End: 12-30-2023 Bamboo flowsheet Kimberly Guzik GRAPHICS EDITOR [facility] Start: 12-30-2023 End: 12-30-2023 Bamboo flowsheet Kimberly Guzik GRAPHICS EDITOR [facility] Start: 12-25-2023 End: 12-25-2023 Bamboo flowsheet Kimberly Guzik GRAPHICS EDITOR [facility] Start: 12-25-2023 End: 12-25-2023 Bamboo flowsheet Kimberly Guzik GRAPHICS EDITOR [facility] Start: 12-25-2023 End: 12-25-2023 ambulatory Kimberly Guzik GRAPHICS EDITOR [facility] Comment on above: Spinal [...] [place] Start: 12-18-2023 End: 12-18-2023 ambulatory Kimberly Cason GRAPHICS EDITOR [facility] Comment on above: Spinal stenosis of l umbar region without neurogenic claudication (Primary Dx) Start: 12-18-2023 End: 12-18-2023 Bamboo flowsheet Kimberly Gank GRAPHICS EDITOR [facility] Start: 12-18-2023 End: 12-18-2023 Bamboo flowsheet Kimberly Guzik GRAPHICS EDITOR [facility] Start: 12-16-2023 End: 12-16-2023 ambulatory Pratik Sandusky PT [facility] Comment on above: Spinal stenosis of l umbar region without neurogenic claudication (Primary Dx) Start: 12-16-2023 End: 12-16-2023 Bamboo flowsheet Pratik Sandusky PT [facility] Start: 12-16-2023 End: 12-16-2023 Bamboo flowsheet Pratik Evgeny PT [facility] Start: 12-10-2023 End: 12-10-2023 ambulatory PRATIK EVGENY Not Available Start: 10-29-2023 End: 10-29-2023 ambulatory .CHRISTIAN STEPANIC Not Available Start: 10-17-2023 End: 10-17-2023 ambulatory Buddy JACOBO Facility:[facility] Start: 10-17-2023 End: 10-17-2023 Patient encounter procedure Buddy JACOBO [facility] Start: 10-09-2023 End: 10-09-2023 ambulatory CHRISTIAN DE LA GARZA STEPANIC Not Available Start: 09-29-2023 End: 09-29-2023 ambulatory CHRISTAIN DE LA GARZA STEPCARLO Not Available Start: 06-26-2023 End: 06-26-2023 ambulatory ZEUS BONNER Not Available Start: 05-30-2023 End: 05-30-2023 ambulatory CHRISTIAN DE LA GARZA STEPANIC Not Available Start: 05-06-2023 End: 05-06-2023 [...] encounter procedure Buddy JACOBO [facility] Start: 04-17-2022 End: 04-17-2022 ambulatory Christian Raymond Jr Facility:[facility] Start: 03-05-2022 End: 03-06-2022 ambulatory CHELSEY DALEY Facility:[facility] Start: 09-28-2021 End: 09-28-2021 Patient encounter procedure Buddy JACOBO [facility] Start: 09-20-2021 End: 09-21-[address] ZEUS BONNER Facility:[facility] Procedures Date Procedure Procedure Detail Performing Clinician Start: 04-23-2023 [facility] [facility] MICROALB CREAT R ATIO RANDOM Zeus Bonner [...] [address] [place] [phone] Katherine Roth, DUPLIGRAPH OPERATOR-CHANGE OF ADDRESS CLERK [address] [place] [address] [facility] Start: 04-17-2024 Medicare Annual Well ness (AWV) Medicare Annual Wellness (AWV) [facility] Start: 01-27-2024 End: 01-27-2024 ambulatory 01/27/2024 2:30 PM EST Treatment [facility] [address] [place] [phone] Pratik Pepper, PT [facility] Start: 01-22-2024 End: 01-22-2024 ambulatory 01/22/2024 1:30 PM EST Treatment [facility] [address] [place] [address] Pratik Pepper, PT [facility] Start: 01-20-2024 End: 01-20-2024 ambulatory [facility] Comment on above: Arrived Start: 01-13-2024 End: 01-13-2024 ambulatory 01/13/2024 1:30 PM EDT Treatment [facility] [address] [place] [phone] Kimberly Cason, GRAPHICS EDITOR Spinal stenosis of lumbar region without neurogenic claudication (Primary Dx) [facility] Comment on above: Spinal stenosis of l umbar region without neurogenic claudication (Primary Dx) Start: 01-08-2024 End: 01-08-2024 ambulatory 01/08/2024 2:30 PM EDT Treatment [facility] [address] [place] [phone] Kimberly Cason, GRAPHICS EDITOR [facility] Start: 01-06-2024 End: 01-06-2024 [...] ambulatory 12/16/2023 2:30 PM EDT Treatment [facility] [address] [place] [phone] Pratik Pepper PT Arrived [facility] Comment on above: Arrived Start: 11-16-2023 Influenza vaccination Influenza Vacc ine (#1) [facility] Start: 05-30-2023 End: 05-30-2023 Patient encounter procedure 05/30/2023 10:30 AM EDT Office Visit [facility] [address] [place] [phone] Jr. Christian Raymond, DO [address] [place] [address] [facility] Start: 05-06-2023 End: 05-06-2023 Patient encounter procedure 05/06/2023 10:50 AM EST Office Visit [facility] [address] [place] [phone] ShayKatherine hoffRASHEED-CHANGE OF ADDRESS CLERK [address] [place] [address] [facility] Start: 03-04-2023 Medicare Annual Well ness (AWV) Medicare Annual Wellness (AWV) [facility] Start: 11-15-2022 Influenza vaccination Influenza Vacc ine (#1) [facility] Immunizations Immunization Date Immunization Notes Care Provider Fa cili 02-21-2022 Moderna Bivalent Coleman ster Vaccination Zeus Bonner DO Work Phone: [facility] 02-21-2022 SARS-CoV-2 (COVID-19 ) [id number] Buddy JACOBO [facility] 01-11-2021 SARS-CoV-2 (COVID-19 ) mRNA BNT-162b2 vax Buddy JACOBO [facility] 12-20-2020 influenza virus vacc ine, unspecified formulation Buddy JACOBO [facility] 12-20-2020 influenza, injectabl e, quadrivalent, contains preservative Zeus Bonner DO Work Phone: [facility] 05-03-2020 SARS-CoV-2 (COVID-19 ) mRNA BNT-162b2 vax Buddy JACOBO [facility] Comment on above: Result Comment: 2022: [id number] 04-12-2020 SARS-CoV-2 (COVID-19 ) mRNA BNT-162b2 vax Buddy JACOBO [facility] Comment on above: Result Comment: 2022: [id number] 12-20-2019 influenza virus vacc ine, unspecified formulation Buddy JACOBO [facility] 12-20-2019 Seasonal, quadrivale nt, recombinant, injectable influenza vaccine, preservative free Zeus Del Rosarioer DO Work Phone: [facility] 01-12-2018 influenza virus vacc ine, unspecified formulation RTF Logic [facility] 01-12-2018 influenza, injectabl e, quadrivalent, preservative free Zeus Kailey DO Work Phone: [facility] 01-08-2017 influenza, seasonal, injectable, preservative free Zeus Kailey DO Work Phone: [facility] 12-24-2016 influenza virus vacc ine, unspecified formulation RTF Logic [facility] 12-24-2016 seasonal influenza, intradermal, preservative free Zeus Kailey DO Work Phone: [facility] 01-29-2016 pneumococcal polysaccharide vaccine, 23 valent Zeus Kailey DO Work Phone: [facility] 12-20-2015 influenza virus vacc ine, unspecified formulation Buddy JACOBO [facility] 12-20-2015 influenza, injectabl e, quadrivalent, preservative free Zeus Kailey DO Work Phone: [facility] 02-01-2015 pneumococcal conjuga te vaccine, 13 valent Zeus Kailey DO Work Phone: [facility] 01-09-2015 influenza, seasonal, injectable, preservative free Zeus Kailey DO Work Phone: [facility] Payers Date Payer Category Payer Self-pay 2022 Private Health Insurance BHUMI chakraborty [id number] 2022 Unknown [id number] .[id number] 2009 Medicare [id number] .[id number] 2009 Unknown [id number] 1959 Medicare [id number] 1945 Unknown [id number] 2.16.840.1.361618.3.579.2 .593 1945 Unknown [id number] 2.16.840.1.568565.3.579.2 .593 1945 Unknown [id number] 2.16.840.1.661669.3.579.2 .727 1945 Unknown [id number] 2.16.840.1.425623.3.579.2 .727 1945 Unknown [id number] 2.16.840.1.405378.3.579.2 .1259 1945 Unknown [id number] 2.16.840.1.405421.3.579.2 .1259 1945 Unknown [id number] 2.16.840.1.320602.3.579.2 .1259 1945 Unknown [id number] 2.16.840.1.441962.3.579.2 .1259 1945 Unknown [id number] 2.16.840.1.582683.3.579.2 .1259 1945 Unknown [id number] 2.16.840.1.632460.3.579.2 .1259 1945 Unknown [id number] 2.16.840.1.036473.3.579.2 .1259 1945 Unknown [id number] 2.16.840.1.793246.3.579.2 .1259 1945 Unknown [id number] 2.16.840.1.808780.3.579.2 .1259 1945 Unknown [id number] 2.16.840.1.463592.3.579.2 .1259 1945 Unknown [id number] 2.16.840.1.461366.3.579.2 .1259 1945 Unknown [id number] 2.16.840.1.064217.3.579.2 .1259 1945 Unknown [id number] 2.16.840.1.189564.3.579.2 .125 1945 Unknown [id number] 2.16.840.1.543760.3.579.2 .125 1945 Unknown [id number] 2.16.840.1.551303.3.579.2 .1259 1945 Unknown [id number] 2.16.840.1.517612.3.579.2 .1259 1945 Unknown [id number] 2.16.840.1.812922.3.579.2 .1259 1945 Unknown [id number] 2.16.840.1.138659.3.579.2 .125 1945 Unknown [id number] 2.16.840.1.228900.3.579.2 .1259 1945 Unknown [id number] 2.16.840.1.583869.3.579.2 .1259 1945 Unknown [id number] 2.16.840.1.866804.3.579.2 .1259 1945 Unknown [id number] 2.16.840.1.883736.3.579.2 .1259 1945 Unknown [id number] 2.16.840.1.695944.3.579.2 .1259 1945 Unknown [id number] 2.16.840.1.839971.3.579.2 .196 1945 Unknown [id number] 2.16.840.1.456719.3.579.2 .196 1945 Unknown [id number] 2.16.840.1.821033.3.579.2 .196 1945 Unknown [id number] 2.16.840.1.786620.3.579.2 .196 Unknown [id number] 2.16.840.1.372740.3.579.2 .531 Social History Date Type Detail Facility Start: 09-29-2020 End: 04-17-2023 Tobacco smoking status Never smoked tobacco (finding) [facility] Start: 04-10-2023 End: 04-17-2023 Sex Assigned At Male [facility] Tobacco smoking status Never [facility] [place] Start: 04-17-2023 Tobacco use and exposure [...] Start: 08-22-2022 Sexual orientation Heterosexual (fin ding) [facility] NEGATED: Highlighted rowStart: NINF History of tobacco use Passive smoker [facility] Functional Status Date Assessment Result Facility 10-17-2023 Functional Status N/A [facility] 10-15-2022 Functional Status N/A [facility] 09-28-2021 Functional Status N/A [facility] Clinical Notes 09-28-2021 to 01-27-2024 Pratik Pepper, PT - 01/27/2024 2:30 PM Avi Pepper, PT - 01/20/2024 2:00 PM Avi Pepper, PT - 01/06/2024 2:30 PM EDTPratik Pepper, PT - 12/23/2023 2:30 PM EDT Note Date & Type Note Facility 01-27-2024 History of Present illness Narrative Physical Therapy Physical Therapy Treatment Visit Patient Name: Jd Rey Today's Date: 01/27/2024 Encounter Diagnoses Name Primary? Spinal stenosis of lumbar region without neurogenic claudication Yes Supervised Time: 38' Total Time: 51' Visit number: 02/13 Precautions: lower back surgery posterior decompression done in 2019. Subjective Pain: 2-3/10 in B sides of lateral pelvis. Overall progress: Pt says he felt fine after session. Overall he says his pain has been steady for the past week. Treatment: Therapeutic Exercise: x38' supervised per grid for improving lumbar/LE ROM, BLE strength, and core stability. (x13' unsupervised) Modalities: Declined ice/MHP post session will do at home if needed. Assessment/Plan Challenge with HL core rotations due to weakness. Was able to complete with smaller ROM. Continued with some standing strength exercises to improve his overall activity tolerance with standing tasks at home or when out in the community. Good form noted throughout with therex. Assess 24 hr response and continue POC as tolerated. Can keep adding more standing based exercises to work on core and LE strength. Plan: Will continue to work on hip and core stability for another 1-2 weeks. If no improvement, will discharge and have pt return to his doctor for a follow up. documented in this encounter [facility] 01-20-2024 History of Present illness Narrative Physical Therapy Physical Therapy Treatment Visit Patient Name: Jd Rey Today's Date: 01/20/2024 Supervised Time: 44' Total Time: 50' Visit number: 01/13 Started session 17' early Precautions: lower back surgery posterior decompression done in 2018. Subjective Pain: 3/10 in B sides of [...] a follow up. documented in this encounter [facility] 01-06-2024 History of Present illness Narrative Physical Therapy Physical Therapy Treatment Visit Patient Name: Jd Rey Today's Date: 01/06/2024 Supervised Time: 46' Total [...] so the pt can bend over to machine pecan picker objects off the floor without difficulty. Progressing. [...] a follow up. documented in this encounter [facility] 12-23-2023 History of Present illness Narrative Physical Therapy Physical Therapy Treatment Visit Patient Name: Jd Rey Today's Date: 12/23/2023 Supervised Time: 50' Total [...] progress as tolerated. documented in this encounter [facility] 12-16-2023 History of Present illness Narrative Images from the original note were not included. Physical Therapy Physical Therapy Treatment Visit Patient Name: Jd Rey Today's Date: 12/16/2023 Encounter Diagnoses Name Primary? [...] and hip strength. documented in this encounter [facility] 10-17-2023 Hospital Discharge instructions Patient Education [...] urethra. Follow these instructions at home: Take ndrk-sot-xvsoecf and prescription medicines only as told by [...] provider. Document Revised: 09/19/2021 Document Reviewed: 09/19/2021 [employer] Patient Education 2022 [employer]. Follow Up Care 10/15/2022 14:25:03 With:CELESTINA VIDAL, Buddy Zhang, URL Address: [address] [place] [address]- When: Unknown [facility] 10-17-2023 Note Patient Education Urology Benign [...] Follow these instructions at home: ? Take rtas-jww-gzkwkuy and prescription medicines only as told by [...] develop side effec (more content not included)... [facility] 10-15-2022 Hospital Discharge instructions Patient Education [...] include: ?8 oz (237 mL) of milk, vausjbf-xqmnoxghvmxp-yfcpm milk, and calcium-fortifiedfruit juice. Calcium-fortified means that [...] ?Spinach (cooked), rhubarb, beets, sweet potatoes, and Malaysian chard. ?Peanuts. ?Potato chips, romanian fries, and baked potatoes with skin on. ?Nuts and nut products. ?Chocolate. If you regularly take a diuretic medicine, make sure to eat at least 1 or 2 servings of fruits or vegetables that are high in potassium each day. These include: ?Avocado. ?Banana. ?Flushing, prune, carrot, or tomato juice. ?Baked potato. [...] magnesium, fish oil, or vitamin B6. Take eugf-ael-akwtlfh and prescription medicines only as told by [...] Casseroles. Pizza. Lasagna. Frozen meals. Potato chips. Kyrgyz fries. The items listed above may not [...] provider. Document Revised: 11/12/2021 Document Reviewed: 11/12/2021 [employer] Patient Education 2022 [employer]. Follow Up Care 10/08/2022 11:09:42 With:CELESTINA VIDAL, Buddy Zhang, URL Address: [facility] [address] [place] [address]- When: Unknown [facility] [place] 09-28-2021 Hospital Discharge instructions Patient Education 09/28/2021 10:58:48 Kidney Stones, Hlnt-uu-Mojw Kidney Stones Kidney stones are rock-like masses [...] Follow these instructions at home: Medicines Take xmwk-pvz-mvyulbl and prescription medicines only as told by [...] 08/19/2008 Document Revised: 07/20/2019 Document Reviewed: 07/20/2019 [employer] Patient Education 2020 [employer] 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 [facility] Covercake Evaluation + Plan note Future Appointments Appointment Date:10/04/2022 10:15:00 AM Scheduled Provider:Buddy JACOBO MD Location:[facility] Appointment Type:URO Office Visit [facility] Covercake Evaluation + Plan note Future Appointments Appointment Date:10/17/2023 11:00:00 AM Scheduled Provider:Buddy JACOBO MD Location:[facility] Appointment Type:URO Office Visit [facility] [place] Evaluation + Plan note Future Appointments Appointment Date:10/18/2024 10:45:00 AM Scheduled Provider:Buddy JACOBO MD Location:[facility] Appointment Type:URO Office Visit [facility] [place] Evaluation note Diagnosis Spinal stenosis of lumbar [...] Unspecified essential hypertension documented in this encounter [facility] HealthcareHospital course Narrative No data available for this section [facility] Hospital Discharge instructions No data available for this section [facility] Covercake progress note No data available for this section [facility] reason for visit Narrative* Rehabilitation - Outpatient (Routine) - Authorized Specialty Diagnoses / Procedures Referred By Contac t Referred To Contact Physical Therapy Diagnoses Low back pain, unspecified Procedures [place] PHYSICAL THERAPY EVALUATION LOW COMPLEX 20 MINS Ajay Guido MD [address] [place] [address] [place] [address] Phone: tel: fax: Pratik Pepper, PT Referral ID Status Reason Start Date Expiration Date V isits Requested Visits Authorized [id number] Authorized 12/03/2023 05/31/2024 30 30 [facility] [...] content) DATE CREATED AUTHOR 11/26/2019 [facility] DATE CREATED AUTHOR AUTHOR'S ORGANIZ ATION [facility]/29[facility]2022 [facility] DATE CREATED AUTHOR AUTHOR'S ORGANIZ ATION 05/25/2022 [facility] DATE CREATED AUTHOR AUTHOR'S ORGANIZ ATION 10/19/2023 [facility] DATE CREATED AUTHOR AUTHOR'S ORGANIZ ATION 01/29/2024 [facility] DATE CREATED AUTHOR AUTHOR'S ORGANIZ ATION 02/06/2024 [facility] Care Team (unrecognized sect ion and content) Senior Hardware Engineer Relationship Specialty Start Date End Date Zeus Bonner DO [address] [place] [address] PCP - ACO Reach 08/08/22 Zeus Bonner DO [address] [place] [address] PCP - General Family Medicine 07/23/22 Senior Hardware Engineer Relationship Specialty Start Date End Date Zeus Bonner, DO [address] [place] [address] PCP - ACO Reach 08/08/22 Zeus Bonner, DO [address] [place] [address] PCP - General Family Medicine 07/23/22 Chelsey Daley, RESIN COATER [address] [place] [address] Nurse Practitioner Family Medicine 06/06/23 Senior Hardware Engineer Relationship Specialty Start Date End Date Zeus Bonner, [address] [place] [address] PCP - ACO Reach 08/08/22 Zeus Bonner, [address] [place] [address] PCP - General Family Medicine 07/23/22 Chelsey Daley, RESIN COATER [address] [place] [address] Nurse Practitioner Family Medicine 06/06/23 Senior Hardware Engineer Relationship Specialty Start Date End Date Zeus Bonner, [address] [place] [address] PCP - ACO Reach 08/08/22 Zeus Bonner, DO [address] [place] [address] PCP - General Family Medicine 07/23/22 Chelsey Daley, RESIN COATER [address] [place] [address] Nurse Practitioner Family Medicine 06/06/23 Senior Hardware Engineer Relationship Specialty Start Date End Date Zeus Bonner, DO [address] [place] [address] PCP - ACO Reach 08/08/22 Zeus Bonner, DO [address] [place] [address] PCP - General Family Medicine 07/23/22 Chelsey Daley, RESIN COATER [address] [place] [address] Nurse Practitioner Family Medicine 06/06/23 Senior Hardware Engineer Relationship Specialty Start Date End Date Zeus Bonner, DO [address] [place] [address] PCP - ACO Reach 08/08/22 Zeus Bonner, DO [address] [place] [address] PCP - General Family Medicine 07/23/22 Chelsey Daley, RESIN COATER [address] [place] [address] Nurse Practitioner Family Medicine 06/06/23 Senior Hardware Engineer Relationship Specialty Start Date End Date Zeus Bonner, [address] [place] [address] PCP - ACO Reach 08/08/22 Zeus Bonner, DO [address] [place] [address] PCP - General Family Medicine 07/23/22 Chelsey Daley, RESIN COATER [address] [place] [address] Nurse Practitioner Family Medicine 06/06/23 Senior Hardware Engineer Relationship Specialty Start Date End Date Zeus Bonner, [address] [place] [address] PCP - ACO Reach 08/08/22 Zeus Bonner, [address] [place] [address] PCP - General Family Medicine 07/23/22 Chelsey Daley, RESIN COATER [address] [place] [address] Nurse Practitioner Family Medicine 06/06/23 Senior Hardware Engineer Relationship Specialty Start Date End Date Zeus Bonner, [address] [place] [address] PCP - ACO Reach 08/08/22 Zeus Bonner, [address] [place] [address] PCP - General Family Medicine 07/23/22 Chelsey Daley, RESIN COATER [address] [place] [address] Nurse Practitioner Family Medicine 06/06/23 Senior Hardware Engineer Relationship Specialty Start Date End Date Zeus Bonner, [address] [place] [address] PCP - ACO Reach 08/08/22 Zeus Bonner, DO [address] [place] [address] PCP - General Family Medicine 07/23/22 Chelsey Daley, RESIN COATER [address] [place] [address] Nurse Practitioner Family Medicine 06/06/23 Senior Hardware Engineer Relationship Specialty Start Date End Date Zeus Bonner DO [address] [place] [address] PCP - ACO Reach 08/08/22 Zeus Bonner DO [address] [place] [address] PCP - General Family Medicine 07/23/22 Chelsey Daley, RESIN COATER [address] [place] [address] Nurse Practitioner Family Medicine 06/06/23 Reason for Visit (unrecogniz ed section and content) Specialty Diagnoses / Procedures Referred By Contac t Referred To Contact Physical Therapy Diagnoses Low back pain, unspecified Procedures [place] PHYSICAL THERAPY EVALUATION LOW COMPLEX 20 MINS Ajay Guido MD [facility] [place] [address] Pratik Pepper, BILLY Referral ID Status Reason Start Date Expiration Date V isits Requested Visits Authorized [id number] Authorized 12/03/2023 05/31/2024 30 30 Reason Comments [...] BE BASED ON THE PRIMARY CLINICAL RECORDS. [facility]. provides no warranty or guarantee of the accuracy or completeness of information in this document.
[2024-02-07 14:30] LABS: Internal Control Within Normal Limits; Strep A Antigen Screen Negative
[2024-02-07 15:15] VITALS: PULSE 98; O2SAT 98
== END 2024-02-07 15:16 | disposition home or self-care (01) ==
PROVIDERS: Emergency Provider Emergency Medicine; PCP Family Medicine
DX: J04.0 Acute laryngitis (principal); B97.89 Other viral agents as the cause of diseases classified elsewhere
CPT/HCPCS: 87070; 87880; 99283

== ENCOUNTER 2024-04-28 10:16 | Outpatient (OUT) | payer MEDICARE, SELFPAY ==
--- OUTSIDE RECORDS SUMMARY | 2024-04-28 10:37 | XMS_ITS | CCD ---
Author Organization [facility] Care Team Providers Care Phlebotomy Technologist Name Role Phone ZEUS BONNER Primary Care Physician [phone] KAILEY, DR DOW Primary Care Unavailable CELESTINA, [...] JACOBO Attending Unavailable Buddy JACOBO Attending Unavailable Luby RIGHT OF WAY MAN, Chelsey L Unavailable Blade VIDAL, Jessica Csaas Attending Unavailable Blade VIDAL, Andrius Casas Attending Unavailable Blade VIDAL, Andrius Augusto Attending Unavailable Blade VIDAL, Andrius Vkath Attending Unavailable Lubbonnie RIGHT OF WAY MAN, Chelsey L Unavailable JR. RAYMOND GEORGE C Attending Unavaila ZEUS Judd Attending Unavailable EUGENIO ROTH Attending Unavailable JR. RAYMOND GEORGE C Attending Unavaila lor RAYMOND JR., CHRISTIAN Egan Referring Unavaila ZEUS Judd Attending Unavailable ZEUS BONNER Referring Unavailable JR. MARY, CHRISTIAN Egan Attending Unavaila lor RAYMOND JR., CHRISTIAN Egan Referring Unavaila lor RAYMOND JR., CHRISTIAN Egan Referring Unavaila lor RAYMOND JR., CHRISTIAN Egan Attending Unavaila ble EVGENY, JALYN Attending Unavailable LUISAJAY TANG F Referring Unavailable EVGENY, JALYN Attending Unavailable LUIS, SELVON F Referring Unavailable GUZIKKIMBERLY Attending Unavailable LUIS, SELVON F Referring Unavailable EVGENY, JALYN Attending Unavailable LUIS, SELVON F Referring Unavailable GUZIK, KIMBERLY Attending Unavailable LUIS, SELVON F Referring Unavailable GUZIK, KIMBERLY Attending Unavailable LUIS, SELVON F Referring Unavailable GUZIK, KIMBERLY Attending Unavailable LUIS, SELVON F Referring Unavailable EVGENY, JALYN Attending Unavailable LUIS, SELVON F Referring Unavailable GUZIK, KIMBERLY Attending Unavailable LUIS, SELVON F Referring Unavailable EVGENY, JALYN Attending Unavailable LUIS, SELVON F Referring Unavailable EVGENY, JALYN Attending Unavailable LUIS, SELVON F Referring Unavailable CHELSEY DALEY Attending Unavailable LÓPEZ ARMAS Attending Unavailable Allergies Allergy Classification Reported Allergen(s) Allergy Type Date of Onset Reaction(s) Facility (1 source) Meperidine Drug Allergy 12-09-2013 [facility] (1 source) Nalbuphine Drug Allergy 12-09-2013 [facility] Medications Current Medications Medication Drug Class(es) [...] day at the same time. 0 Active citric acid 66.8 mg/ml / potassium citrate 220 mg/ml oral solution (4 sources) Calculi Dissolution Agent, Anti-coagulant citric acid-potass ium citrate (Polycitra) 1100-334 MG/5ML solution Take by mouth 3 (three) times a day with meals Active erythromycin 20 mg/ml topical solution (20 sources) Macrolide, Macrolide Antimicrobial Start: 06-26-19 24 End: 06-26-19 25 erythromycin with Ethanol (Theramycin) 2 % external solution Indications: Rosacea Apply topically 2 (two) times a day 60 mL 2 06/26/2023 06/25/2024 Active gabapentin 300 mg oral capsule (3 sources) Anti-epileptic Agent Start: 03-27-19 24 take 1 capsule by mouth every eight [...] Refills(s) 0 Start Date: 09/27/19 Status: Ordered methylPREDNISolone (4 sources) Corticosteroid Start: 03-14-2024 End: 03-21-2024 methylPREDNISolone (Medrol Dospak) 4 MG tablets Indications: Rash and nonspecific skin eruption Follow schedule on package instructions 21 tablet 03/14/2024 03/21/2024 Active Start: 02-23-2024 End: 03-01-2024 methylPREDNISolone (Medrol D ospak) 4 MG tablets Indications: Viral laryngitis Follow schedule on package instructions 21 tablet 02/23/2024 03/01/2024 Active minocycline 50 mg oral capsule (11 sources) Tetracycline-class Drug Start: 01-19-2024 take 1 capsule by mouth once daily minocycline 50 MG capsule Indications: Other rosacea Take 1 capsule, by mouth, once daily 90 capsule 1 01/19/2024 Active Start: 02-27-2023 take 1 capsule by [facility] once daily minocycline 50 MG capsule Indications: Other rosacea Take 1 capsule, by mouth, once daily, 30 days 90 capsule 3 02/27/2023 Active nystatin 665615 unt/ml oral suspension (2 sources) Polyene Antifungal Start: 03-14-2024 End: 03-24-2024 take 5 mL by mouth in the morning, then take 5 mL by mouth in the evening, then take 5 mL by mouth at bedtime nystatin (Mycostatin) [id number] UNIT/ML suspension Indications: Oral candidiasis Take 5 mL (500,000 Units) by mouth in the morning and 5 mL (500,000 Units) in the evening and 5 mL (500,000 Units) before bedtime. Do all this for 10 days. 150 mL 03/14/2024 03/24/2024 Active triamcinolone acetonide 1 mg/ml topical cream (20 sources) Corticosteroid Start: 11-01-2021 triamcinolone (Kenalog) 0.1 % cream APPLY TO AFFECTED AREA TWICE A DAY NEEDED 11/01/2021 Active Completed/Discontinued Medications Medication Drug Class(es) Dates Sig (Normalized) Sig (Original) fluticasone propionate 0.05 mg/actuat metered dose nasal spray (4 sources) Corticosteroid Start: 02-23-2024 End: 02-22-2025 take 1-2 spray(s) nasal route once daily fluticasone (Flonase) 50 MCG/ACT nasal spray Indications: Dysfunction of both eustachian tubes , Viral laryngitis Administer 1-2 sprays into each nostril Daily Shake gently. Before first use, prime pump. After use, clean tip and replace cap. 16 g 02/23/2024 03/14/2024 Discontinued potassium citrate 15 meq extended release oral [...] BID, # 200 tab(s), Refills(s) 11, Pharmacy: [facility] 170, cm, [...] lower urinary tract symptoms] Onset: 09-24-2021 Chronic Mycoses (2 sources) Candidiasis of mouth; Translations: [Candidal stomatitis] 03-14-2024 Episodic Osteoarthritis (20 sources) Arthritis of left hip; [...] SCREEN MALIG NEOPLASM PROSTATE] Onset: 03-13-2022 Episodic Other skin disorders (2 sources) Eruption; Translations: [Rash and other nonspecific skin eruption] 03-14-2024 Episodic Other upper respiratory infections (2 sources) Viral laryngitis; Translations: [Acute laryngitis] 02-23-2024 Episodic Otitis media and related conditions (2 sources) Dysfunction of bilateral eustachian tubes; Translations: [Unspecified Eustachian tube disorder, bilateral] 02-23-2024 Episodic Spondylosis; intervertebral disc disorders; other back problems (20 sources) Cervical spondylosis; Translations: [Spondylosis without myelopathy or radiculopathy, cervical region] Onset: 11-25-2022 11-25-2022 Chronic Past or Other Problems Problem Classification Problem Date Documented Da te Episodic/Chronic Mood disorders (20 sources) Mood disorders Onset: 04-17-2023 04-17-2023 Spondylosis; intervertebral disc disorders; other back problems (20 sources) Radiculopathy, lumbar region; Translations: [Spinal stenosis of lumbar region] Onset: 04-17-2022 12-10-2023 Episodic Results Test Name Value Interpretation Reference Range Facility UPPER RESPIRATORY CULTUREon 02-11-2024 UPPER RESPIRATORY CULTURE Upper Respiratory Culture [facility] UPPER RESPIRATORY CULTURE Routine respiratory leonidas [facility] UPPER RESPIRATORY CULTURE Performed at: - [facility] UPPER RESPIRATORY CULTURE [address] [place], [place] [id number] [facility] UPPER RESPIRATORY CULTURE Economics Lecturer: Darvin Astudillo PhD, Phone: [phone] [facility] Ambulatory Visit Summaryon 0 10-17-2023 Ambulatory Visit [...] CELESTINA VIDAL, Buddy Zhang, URL When: Where: [address] [place] [address]- Medications What How Much When Instructions Unchanged [...] content not included)... Normal [facility] Urology Office/Clinic Noteon 10-17-2023 Urology Office/Clinic [...] hyperplasia with lower urinary tract symptoms) PSA: 2017.18 10/02/20 - 1.1 03/05/22 - 1.0 S/p [...] Contact Information CELESTINA VIDAL, Buddy Zhang, URL [address] [place] [address]- Additional Instructions: 1 year w/ KUB Patient [...] Daily hydrochl (more content not included)... Normal [facility] Comment on above: Result Comment: [...] BY: Solis Quinones DO Normal Not Available [facility] MICROALB CREAT RATIO RAN DOMon 04-23-2023 CREATININE URINE RANDOM 41.74 mg/dL 20.00 - 300.00 mg/dL [facility] Interpretation and review of laboratory results Abnormal [facility] MICROALBUM CREATININE RATIO UR 31.1 mg/g High 0.0 - 29.9 mg/g [facility] Comment on above: NO MICROALBUMINURIA 0-29 MG/G CLINICAL MICROALBUMINURIA 30-300 MG/G MACROALBUMINURIA >300 MG/G MICROALBUMIN URINE RANDOM <1.3 NINF - 30.0 mg/dL [facility] XR pre/post mri xrayon 04-17 XR pre/post mri xray [facility] [place] [address] MRI Report Signed Patient: Jd Apodaca MR#: [id number] : 1945 Acct:[id number] Age/Sex: 77 / M ADM Date: 04/17/22 [facility]: Type: [facility] Attending Dr: Christian Raymond Jr, DO Copies to: Christian Raymond Jr, DO Ordering Provider: Christian Raymond Jr, DO Date of Service: 04/17/22 MR/MR lumbar spine wo con: M54.16 ([id number]) XR/XR pre/post mri xray: LUMBAR MRI MR [...] Baltazar Mcdermott M.D.04/17/2022 1:38 PM Dictation Location: [place] [address] Transcribed By: [facility] 04/17/22 1338 Dictated By: Baltazar Mcdermott II, MD 04/17/22 1329 Signed By: 04/17/22 1338 Normal [facility] PSA, FREE AND TOTAL RATIOon 03-06-2022 % Free PSA 22.0 % Normal [facility] Comment on above: Result Comment: The [...] men. Performed By: #### P SAFREE #### Laboratory [address] [place] [address] Dr. Magalie Ceron Prostate specific Ag [Mass/Vol] 1.0 ng/mL Normal 0.0-4.0 [facility] Comment on above: Result Comment: Joseph PORTILLO methodology. . According to the [employer], Serum PSA should decrease and [...] disease. Performed By: #### P SAFREE #### Laboratory [address] [place] [address] Dr. Magalie Ceron PSA, Free 0.22 ng/mL Normal N/A [facility] Comment on above: Result Comment: Joseph woodard ECLIA methodology. Performed By: #### P SAFREE #### Laboratory [address] [place] [address] Dr. Magalie Ceron CBC AUTO DIFFon 03-05-2022 BASO # 0.1 103/ul Normal 0.0-0.1 [facility] Comment on above: Performed By: #### C BC #### Laboratory [address] [place] [address] Dr. Magalie Ceron Basophils/100 WBC (Bld) 0.8 % Normal 0.2-2.0 [facility] Comment on above: Performed By: #### C BC #### Laboratory [address] [place] [address] Dr. Magalie Ceron EO # 0.1 103/ul Normal 0.0-0.7 [facility] Comment on above: Performed By: #### C BC #### Laboratory [address] [place] [address] Dr. Magalie Ceron Eosinophils/100 WBC (Bld) 1.5 % Normal 0.9-7.0 [facility] Comment on above: Performed By: #### C BC #### Laboratory [address] [place] [address] Dr. Magalie Ceron Erythrocyte distribution width (RBC) [Ratio] 13.5 % Normal 11.0-15.0 [facility] Comment on above: Performed By: #### C BC #### Laboratory [address] [place] [address] Dr. Magalie Ceron Hematocrit (Bld) [Volume fraction] 43.7 % Normal 42.0-54.0 [facility] Comment on above: Performed By: #### C BC #### Laboratory [address] [place] [address] Dr. Magalie Ceron Hemoglobin (Bld) [Mass/Vol] 15.1 g/dL Normal 14.0-18.0 [facility] Comment on above: Performed By: #### C BC #### Laboratory [address] [place] [address] Dr. Magalie Ceron IG # 0.04 10e3/ul Critically high 0.00-0.03 [facility] Comment on above: Performed By: #### C BC #### Laboratory [address] [place] [address] Dr. Magalie Ceron IG % 0.6 % Critically high 0.0-0.5 [facility] Comment on above: Performed By: #### C BC #### Laboratory [address] [place] [address] Dr. Magalie Ceron LYMPH # 2.6 103/ul Normal 1.2-3.8 [facility] Comment on above: Performed By: #### C BC #### Laboratory [address] [place] [address] Dr. Magalie Ceron Lymphocytes/100 WBC (Bld) 35.5 % Normal 20.5-60.0 [facility] Comment on above: Performed By: #### C BC #### Laboratory [address] [place] [address] Dr. Magalie Ceron MANUAL DIFF REQ NO Normal The [facility] Comment on above: Performed By: #### C BC #### Laboratory [address] [place] [address] Dr. Magalie Ceron MCH (RBC) [Entitic mass] 31.8 pg Normal 25.9-34.0 The Comment on above: Performed By: #### C BC #### Laboratory [address] [place] [address] Dr. Magalie Ceron MCHC (RBC) [Mass/Vol] 34.6 g/dL Normal 29.9-35.2 The Comment on above: Performed By: #### C BC #### Laboratory [address] [place] [address] [address] Magalie Ceron MCV (RBC) [Entitic vol] 92.0 fL Normal 80.0-94.0 [facility] Comment on above: Performed By: #### C BC #### Laboratory [address] [place] [address] [address] Magalie Ceron MONO # 0.7 103/ul Normal 0.3-0.8 The Comment on above: Performed By: #### C BC #### Laboratory [address] [place] [address] Dr. Magalie Ceron Monocytes/100 WBC (Bld) 9.3 % Normal 1.7-12.0 [facility] Comment on above: Performed By: #### C BC #### Laboratory [address] [place] [address] Dr. Magalie Ceron NEUT # 3.8 103/ul Normal 1.4-6.5 [facility] Comment on above: Performed By: #### C BC #### Laboratory [address] [place] [address] Dr. Magalie Ceron Neutrophils/100 WBC (Bld) 52.3 % Normal 43.0-75.0 [facility] Comment on above: Performed By: #### C BC #### Laboratory [address] [place] [address] Dr. Magalie Ceron Platelet mean volume (Bld) [Entitic vol] 8.8 fL Critically low 9.5-13.5 The Comment on above: Performed By: #### C BC #### Laboratory [address] [place] [address] Dr. Magalie Ceron PLT 308 103/ul Normal 150-450 The Comment on above: Performed By: #### C BC #### Laboratory [address] [place] [address] Dr. Magalie Ceron RBC 4.75 106/ul Normal 4.70-6.10 The Comment on above: Performed By: #### C BC #### Laboratory [address] [place] [address] Dr. Magalie Ceron WBC 7.2 103/ul Normal 4.0-11.0 [facility] Comment on above: Performed By: #### C BC #### Laboratory [address] [place] [address] [address] Magalie Ceron LIPID PROFILEon 03-05-2022 CHOL-HDL RATIO NORM SEE BELOW Normal [facility] Comment on above: Result Comment: 3.3 - 4.4 LOW RISK 4.4 - 7.1 AVERAGE RISK 7.1 - 11.0 MODERATE RISK >11.0 HIGH RISK Performed By: #### C MP, LIPID #### Laboratory [address] [place] [address] [address] Magalie Ceron Cholesterol [Mass/Vol] 216 mg/dL Critically high <=200 [facility] Comment on above: Performed By: #### C MP, LIPID #### Laboratory [address] [place] [address] [address] Magalie Ceron Cholesterol in HDL [Mass/Vol] 53 mg/dL Normal 40-60 [facility] Comment on above: Performed By: #### C MP, LIPID #### Laboratory [address] [place] [address] [address] Magalie Ceron Cholesterol in LDL [Mass/Vol] 118.0 mg/dL Normal [facility] Comment on above: Performed By: #### C MP, LIPID #### Laboratory [address] [place] [address] [address] Magalie Ceron Cholesterol.total/C holesterol in HDL [Mass ratio] 4.1 {ratio} Normal [facility] Comment on above: Performed By: #### C MP, LIPID #### Laboratory [address] [place] [address] [address] Magalie Ceron HDL NORMAL > or = 60 mg/dl - LO W CARDIOVASCULAR RISK <40 mg/dl - HIGH CARDIOVASCULAR RISK Normal [facility] Comment on above: Performed By: #### C MP, LIPID #### Laboratory [address] [place] [address] [address] Magalie Ceron LDL CALC NORMAL SEE BELOW Normal [facility] Comment on above: Result Comment: <100 mg/dl OPTIMAL 100 - 129 mg/dl NEAR OR ABOVE OPTIMAL 130 - 159 mg/dl BORDERLINE HIGH 160 - 189 mg/dl HIGH >190 mg/dl VERY HIGH Performed By: #### C MP, LIPID #### Laboratory [address] [place] [address] Dr. Magalie Ceron Triglyceride [Mass/Vol] 225 mg/dL Critically high <=150 [facility] Comment on above: Performed By: #### C MP, LIPID #### Laboratory [address] [place] [address] [address] Magalie Ceron VLDL CALC 45.0 mg/dL Normal [facility] Comment on above: Performed By: #### C MP, LIPID #### Laboratory [address] [place] [address] [address] Magalie Ceron MICROALB CREAT RATIO RANDOMo n 03-05-2022 mALB <1.3 Normal <=30.0 [facility] Comment on above: Performed By: #### M CRR #### Laboratory [address] [place] [address] Dr. Magalie Ceron MALB CR RATIO 13.5 mg/g Normal 0.0-29.9 [facility] Comment on above: Performed By: #### M CRR #### Laboratory [address] [place] [address] Dr. Magalie Ceron MALB CR RATIO RANGE SEE BELOW Normal [facility] Comment on above: Result Comment: NO M ICROALBUMINURIA 0-29 MG/G CLINICAL MICROALBUMINURIA 30-300 MG/G MACROALBUMINURIA >300 MG/G Performed By: #### M CRR #### Laboratory [address] [place] [address] Dr. Magalie Ceron URINE CREAT 96.12 mg/dL Normal 20.00-300.00 [facility] Comment on above: Performed By: #### M CRR #### Laboratory [address] [place] [address] Dr. Magalie Ceron PROF 14(COMP METB)on 022 Albumin [Mass/Vol] 4.1 g/dL Normal 3.4-5.0 [facility] Comment on above: Performed By: #### C MP, LIPID #### Laboratory [address] [place] [address] [address] Magalie Ceron Albumin/Globulin [Mass ratio] 1.2 {ratio} Normal [facility] Comment on above: Performed By: #### C MP, LIPID #### Laboratory [address] [place] [address] [address] Magalie Ceron ALP [Catalytic activity/Vol] 73 U/L Normal 46-116 [facility] Comment on above: Performed By: #### C MP, LIPID #### Laboratory [address] [place] [address] [address] Magalie Ceron ALT [Catalytic activity/Vol] 34 U/L Normal 16-63 [facility] Comment on above: Performed By: #### C MP, LIPID #### Laboratory [address] [place] [address] [address] Magalie Ceron Anion gap [Moles/Vol] 9.2 mmol/L Normal [facility] Comment on above: Performed By: #### C MP, LIPID #### Laboratory [address] [place] [address] [address] Magalie Ceron AST [Catalytic activity/Vol] 25 U/L Normal 15-37 [facility] Comment on above: Performed By: #### C MP, LIPID #### Laboratory [address] [place] [address] [address] Magalie Ceron Bilirubin [Mass/Vol] 1.6 mg/dL Critically high 0.2-1.0 [facility] Comment on above: Performed By: #### C MP, LIPID #### Laboratory [address] [place] [address] [address] Magalie Ceron Calcium [Mass/Vol] 8.9 mg/dL Normal 8.5-10.1 [facility] Comment on above: Performed By: #### C MP, LIPID #### Laboratory [address] [place] [address] [address] Magalie Ceron Chloride [Moles/Vol] 100 mmol/L Normal 98-107 [facility] Comment on above: Performed By: #### C MP, LIPID #### Laboratory [address] [place] [address] [address] Magalie Ceron CO2 [Moles/Vol] 32.5 mmol/L Critically high 21.0-32.0 [facility] Comment on above: Performed By: #### C MP, LIPID #### Laboratory [address] [place] [address] [address] Magalie Ceron Creatinine [Mass/Vol] 0.96 mg/dL Normal 0.70-1.30 [facility] Comment on above: Performed By: #### C MP, LIPID #### Laboratory [address] [place] [address] [address] Magalie Ceron EGFR-AF FILIPINO >60 Normal >=60 [facility] Comment on above: Performed By: #### C MP, LIPID #### Laboratory [address] [place] [address] [address] Magalie Ceron EGFR-NON AF FILIPINO >60 Normal >=60 [facility] Comment on above: Performed By: #### C MP, LIPID #### Laboratory [address] [place] [address] [address] Magalie Ceron Globulin (S) [Mass/Vol] 3.3 g/dL Normal [facility] Comment on above: Performed By: #### C MP, LIPID #### Laboratory [address] [place] [address] [address] Magalie Ceron Glucose [Mass/Vol] 88 mg/dL Normal 74-106 [facility] Comment on above: Performed By: #### C MP, LIPID #### Laboratory [address] [place] [address] [address] Magalie Ceron Potassium [Moles/Vol] 3.7 mmol/L Normal 3.5-5.1 The Comment on above: Performed By: #### C MP, LIPID #### Laboratory [address] [place] [address] [address] Magalie Ceron Protein [Mass/Vol] 7.4 g/dL Normal 6.4-8.2 [facility] Comment on above: Performed By: #### C MP, LIPID #### Laboratory [address] [place], [place] [address] Dr. Magalie Ceron Sodium [Moles/Vol] 138 mmol/L Normal 136-145 [facility] Comment on above: Performed By: #### C MP, LIPID #### Laboratory [address] [place], [place] [address] Dr. Magalie Ceron Urea nitrogen [Mass/Vol] 11.0 mg/dL Normal 7.0-18.0 [facility] Comment on above: Performed By: #### C MP, LIPID #### Laboratory [address] [place], [place] [address] Dr. Magalie Ceron Urea nitrogen/Creatinine [Mass ratio] 11.5 mg/mg Normal [facility] Comment on above: Performed By: #### C MP, LIPID #### Laboratory [address] [place], [place] [address] Dr. Magalie Ceron XR KUB 1 VIEWon [...] by: TANIA SAXENA Date: 2021-09-20 17:32 Normal [facility] BMP Standardon 11-25-2019 eGFR Non AA >60 [facility] Comment on above: Performed By: #### 1 [id number], [id number], [id number] #### [facility] (DEFAULT) [address] [place] [address] eGFR AA >60 [facility] Comment on above: Result Comment: Correction Officer Supervisor ernesto Kidney disease could be indicated at eGFRs of less than 60 ml/min/1.73m2. Kidney Failure is indicated at less than 15 ml/min/1.73m2 Performed By: #### 1 [id number], [id number], [id number] #### [facility] (DEFAULT) [address] [place] [address] Anion gap [Moles/Vol] 15.0 mmol/L Normal 5.0-19.0 [facility] Comment on above: Performed By: #### 1 [id number], [id number], [id number] #### [facility] (DEFAULT) [address] [place] [address] Calcium [Mass/Vol] 8.8 mg/dL Low 8.9-10.3 [facility] Comment on above: Performed By: #### 1 [id number], [id number], [id number] #### [facility] (DEFAULT) [address] [place] [address] Chloride [Moles/Vol] 99 mmol/L Low 101-111 [facility] Comment on above: Performed By: #### 1 [id number], [id number], [id number] #### [facility] (DEFAULT) [address] [place] [address] CO2 [Moles/Vol] 26 mmol/L Normal 21-32 [facility] Comment on above: Performed By: #### 1 [id number], [id number], [id number] #### [facility] (DEFAULT) [address] [place] [address] Creatinine [Mass/Vol] 0.81 mg/dL Low 0.90-1.30 [facility] Comment on above: Performed By: #### 1 [id number], [id number], [id number] #### [facility] (DEFAULT) [address] [place] [address] Glucose [Mass/Vol] 93.0 mg/dL Normal 74.0-118.0 [facility] Comment on above: Performed By: #### 1 [id number], [id number], [id number] #### [facility] (DEFAULT) [address] [place] [address] Osmolality [Osmolality] 274 mOsm/L [facility] Comment on above: Performed By: #### 1 [id number], [id number], [id number] #### [facility] (DEFAULT) [address] [place] [address] Potassium [Moles/Vol] 3.4 mmol/L Low 3.6-5.1 [facility] Comment on above: Performed By: #### 1 [id number], [id number], [id number] #### [facility] (DEFAULT) [address] [place] [address] Sodium [Moles/Vol] 137.0 mmol/L Normal 136.0-144.0 [facility] Comment on above: Performed By: #### 1 [id number], [id number], [id number] #### [facility] (DEFAULT) [address] [place] [address] Urea nitrogen [Mass/Vol] 13 mg/dL Normal 8-26 [facility] Comment on above: Performed By: #### 1 [id number], [id number], [id number] #### [facility] (DEFAULT) [address] [place] [address]778 Urea nitrogen/Creatinine [Mass ratio] 16.0 mg/mg Normal 4.6-16.2 [facility] Comment on above: Performed By: #### 1 [id number], [id number], [id number] #### [facility] (DEFAULT) [address] [place] [address] 81341 Lipid Panel Standardon 11-24 Cholesterol [Mass/Vol] 218.0 mg/dL High 66.0-200.0 [facility] Comment on above: Result Comment: Laura rable - Less than 200 mg/dL Borderline high risk - 200-239 mg/dL High risk - 240 mg/dL and over. Performed By: #### 1 [id number], [id number], [id number] #### [facility] (DEFAULT) [address] [place] [address] 64652 Cholesterol in HDL [Mass/Vol] 47 mg/dL Normal 40-71 [facility] Comment on above: Result Comment: High risk - <40 mg/dL. Performed By: #### 1 [id number], [id number], [id number] #### [facility] (DEFAULT) [address] [place] [address] 34192 Cholesterol in LDL [Mass/Vol] 137 mg/dL High 1-100 [facility] Comment on above: Result Comment: Opti mal - Less than 100 mg/dL Borderline high risk - 130-159 mg/dL High risk - 160-189 mg/dL. Performed By: #### 1 [id number], [id number], [id number] #### [facility] (DEFAULT) [address] [place] [address] 65754 Cholesterol.total/C holesterol in HDL [Mass ratio] 4.6 {ratio} High 0.0-4.5 [facility] Comment on above: Performed By: #### 1 [id number], [id number], [id number] #### [facility] (DEFAULT) [address] [place] [address] Triglyceride [Mass/Vol] 172.0 mg/dL High 0.0-150.0 [facility] Comment on above: Performed By: #### 1 [id number], [id number], [id number] #### [facility] (DEFAULT) [address] [place] [address] VLDL. 34 mg/dL Normal 5-40 [facility] Comment on above: Performed By: #### 1 [id number], [id number], [id number] #### [facility] (DEFAULT) [address] [place] [address] SARS-CoV-2 (COVID-19) IgG An tibodies(No11-25-2019 Employed in healthcare? No [facility] Comment on above: Performed By: #### 1 [id number], [id number], [id number] #### [facility] (DEFAULT) [address] [place] [address] Group care resident? No [facility] Comment on above: Performed By: #### 1 [id number], [id number], [id number] #### [facility] (DEFAULT) [address] [place] [address] Hospitalized due to COVID-19? No [facility] Comment on above: Performed By: #### 1 [id number], [id number], [id number] #### [facility] (DEFAULT) [address] [place] [address] 92631 In ICU? No [facility] Comment on above: Performed By: #### 1 [id number], [id number], [id number] #### [facility] (DEFAULT) [address] [place] [address] 79127 status? Not [facility] Comment on above: Performed By: #### 1 [id number], [id number], [id number] #### [facility] (DEFAULT) [address] [place] [address] 02828 SARS-CoV-2 (COVID-19) IgG Abs Non-Reactive Normal Non-Reactive [facility] Comment on above: Result Comment: Test results should be interpreted in light of the total clinical presentation of the patient, including: symptoms, clinical history, data from additional tests, and other appropriate information. Detects IgG Abs 14-20 days post infection (varies by individual) Equivocal Results: retest in 1-2 weeks Positive Results may be due to past or present infection with [id number] coronavirus strains, such as coronavirus HKU1, NL63, OC43, or 229E. Performed By: #### 1 [id number], [id number], [id number] #### [facility] (DEFAULT) [address] [place] [address] 42751 Symptomatic as defined by CDC? No [facility] Comment on above: Performed By: #### 1 [id number], [id number], [id number] #### [facility] (DEFAULT) [address] [place] [address]879 Vital Signs Date Time Vital Sign Value Performing Clinician Facility 03-14-2024 10:23-0500 Body mass index (BMI) [Ratio] 22.24 kg/m2 López Armas [employer] [address] [employer] Work Phone: [facility] 03-14-2024 10:23-0500 Body temperature 97.81 [degF] López Armas [employer] [address] [employer] Work Phone: [facility] 03-14-2024 10:23-0500 Body weight 64.41 kg López Armas [employer] [address] [employer] Work Phone: [facility] 03-14-2024 10:23-0500 Diastolic blood pressure 60 mm[Hg] López Armas [employer] [address] [employer] Work Phone: [facility] 03-14-2024 10:23-0500 Heart rate 101 /min López Armas [employer] [address] [employer] Work Phone: [facility] 03-14-2024 10:23-0500 SaO2% (BldA) [Mass fraction] 97 % López Armas [employer] [address] [employer] Work Phone: [facility] 03-14-2024 10:23-0500 Systolic blood pressure 122 mm[Hg] López Armas [employer] [address] [employer] Work Phone: [facility] 02-23-2024 15:59-0500 Body height 170.2 cm Chelsey Ludmila [employer] [address] [employer] Work Phone: [facility] 02-23-2024 15:59-0500 Body mass index (BMI) [Ratio] 22.24 kg/m2 Chelsey Souzay [employer] [address] [employer] Work Phone: [facility] 02-23-2024 15:59-0500 Body temperature 98.01 [degF] Chelsey Libbyy [employer] [address] [employer] Work Phone: [facility] 02-23-2024 15:59-0500 Body weight 64.41 kg Chelsey Libbyy [employer] [address] [employer] Work Phone: [facility] 02-23-2024 15:59-0500 Diastolic blood pressure 80 mm[Hg] Chelsey Libbyy [employer] [address] [employer] Work Phone: [facility] 02-23-2024 15:59-0500 Heart rate 99 /min Chelsey Libbyy [employer] [address] [employer] Work Phone: [facility] 02-23-2024 15:59-0500 SaO2% (BldA) [Mass fraction] 97 % Chelsey Souzabonnie [employer] [address] [employer] Work Phone: [facility] 02-23-2024 15:59-0500 Systolic blood pressure 134 mm[Hg] Chelseymaral Souzay [employer] [address] [employer] Work Phone: [facility] 10-17-2023 11:02-0400 Blood Pressure Location Buddy JACOBO [facility] 10-17-2023 11:02-0400 Diastolic blood pressure 81 mm[Hg] Buddy JACOBO [facility] 10-17-2023 11:02-0400 Heart rate 74 /min Buddy JACOBO [facility] 10-17-2023 11:02-0400 Respiratory rate 16 /min Buddy JACOBO [facility] 10-17-2023 11:02-0400 Systolic blood pressure 133 mm[Hg] Buddy JACOBO [facility] 10-15-2022 13:45-0400 Blood Pressure Location Buddy JACOBO [facility] 10-15-2022 13:45-0400 Diastolic blood pressure 87 mm[Hg] Buddy JACOBO [facility] 10-15-2022 13:45-0400 Heart rate 91 /min Buddy JACOBO [facility] 10-15-2022 13:45-0400 Systolic blood pressure 150 mm[Hg] Buddy JACOBO [facility] 09-28-2021 10:27-0400 Blood Pressure Location Buddy JACOBO [facility] 09-28-2021 10:27-0400 Diastolic blood pressure 81 mm[Hg] Buddy JACOBO [facility] 09-28-2021 10:27-0400 Heart rate 70 /min Buddy JACOBO [facility] 09-28-2021 10:27-0400 Respiratory rate 16 /min Buddy JACOBO [facility] 09-28-2021 10:27-0400 Systolic blood pressure 123 mm[Hg] Buddy JACOBO [facility] Encounters Encounter Date Encounter Type Care Provider Facility Start: 10-18-2024 ambulatory Buddy JACOBO Facili ty:[facility] Start: 03-14-2024 End: 03-14-2024 Office outpatient visit 25 minutes López Armas [employer] [address] [employer] Work Phone: [facility] Comment on above: Oral candidiasis (Pr imary Dx); Rash and nonspecific skin eruption Start: 03-14-2024 End: 03-14-2024 ambulatory LÓPEZ ARMAS Not Available Start: 02-23-2024 End: 02-23-2024 Office outpatient visit 15 minutes Chelsey Daley [employer] [address] [employer] Work Phone: [facility] Comment on above: Dysfunction of both eustachian tubes (Primary Dx); Viral laryngitis Start: 02-23-2024 End: 02-23-2024 ambulatory CHELSEY DALEY Not Available Start: 02-23-2024 End: 02-23-2024 Bamboo flowsheet Chelsey Daley [employer] [address] [employer] Work Phone: [facility] Start: 02-23-2024 End: 02-23-2024 Bamboo flowsheet Chelsey Daley [employer] [address] [employer] Work Phone: [facility] Start: 02-07-2024 End: 02-11-2024 Clinisync Result Encounter Generic External Data Provider [facility] Unsolicited Start: 02-07-2024 End: 02-11-2024 Clinisync Result Encounter Generic External Data Provider [facility] Unsolicited Start: 02-02-2024 End: 02-02-2024 ambulatory Jessica Murguia MD Facility: [place] Start: 01-27-2024 End: 01-27-2024 ambulatory Jalyn Evgeny PT [facility] Comment on above: Spinal stenosis of l umbar region without neurogenic claudication (Primary Dx) Start: 01-27-2024 End: 01-27-2024 Bamboo flowsheet Jalyn Evgeny PT [facility] Start: 01-27-2024 End: 01-27-2024 Bamboo flowsheet Jalyn Ocheyedan PT [facility] Start: 01-20-2024 End: 01-20-2024 Bamboo flowsheet Jalyn Ocheyedan PT [facility] Start: 01-20-2024 End: 01-20-2024 Bamboo flowsheet Jalyn Ocheyedan PT [facility] Start: 01-20-2024 End: 01-20-2024 ambulatory Jalyn Ocheyedan PT [facility] Comment on above: Spinal stenosis of l umbar region without neurogenic claudication (Primary Dx) Start: 01-19-2024 End: 01-19-2024 ambulatory Jessica Murguia MD Facility: [place] Start: 01-13-2024 End: 01-13-2024 Bamboo flowsheet Kimberly Guzik [employer] [facility] Start: 01-13-2024 End: 01-13-2024 Bamboo flowsheet Kimberly Guzik [employer] [facility] Start: 01-13-2024 End: 01-13-2024 ambulatory Kimberly Guzik [employer] [facility] Comment on above: Spinal stenosis of l umbar region without neurogenic claudication (Primary Dx) Start: 01-06-2024 End: 01-06-2024 Bamboo flowsheet Jalyn Ocheyedan PT [facility] Start: 01-06-2024 End: 01-06-2024 Bamboo flowsheet Jalyn Evgeny PT [facility] Start: 01-06-2024 End: 01-06-2024 ambulatory Jalyn Evgeny PT [facility] Comment on above: Spinal stenosis of l umbar region without neurogenic claudication (Primary Dx) Start: 2024 End: 2024 ambulatory Jessica Murguia MD Facility:[facility] Start: 01-04-2024 End: 2024 Refill Zeus Bonner DO Work Phone: [facility] Comment on above: Primary hypertension (CMS/HCC) Start: 01-01-2024 End: 01-01-2024 ambulatory Kimberly Guzik [employer] [facility] Comment on above: Spinal stenosis of l umbar region without neurogenic claudication (Primary Dx) Start: 01-01-2024 End: 01-01-2024 Bamboo flowsheet Kimberly Guzik [employer] [facility] Start: 01-01-2024 End: 01-01-2024 Bamboo flowsheet Kimberly Guzik [employer] [facility] Start: 12-30-2023 End: 12-30-2023 ambulatory Kimberly Guzik [employer] [facility] Comment on above: Spinal stenosis of l umbar region without neurogenic claudication (Primary Dx) Start: 12-30-2023 End: 12-30-2023 Bamboo flowsheet Kimberly Guzik [employer] [facility] Start: 12-30-2023 End: 12-30-2023 Bamboo flowsheet Kimberly Guzik [employer] [facility] Start: 12-25-2023 End: 12-25-2023 Bamboo flowsheet Kimberly Guzik [employer] [facility] Start: 12-25-2023 End: 12-25-2023 Bamboo flowsheet Kimberly Guzik [employer] [facility] Start: 12-25-2023 End: 12-25-2023 ambulatory Kimberly Guzik [employer] [facility] Comment on above: Spinal stenosis of l umbar region without neurogenic claudication (Primary Dx) Start: 12-23-2023 End: 12-23-2023 ambulatory Jalyn Ocheyedan PT [facility] Comment on above: Spinal stenosis of l umbar region without neurogenic claudication (Primary Dx) Start: 12-23-2023 End: 12-23-2023 Bamboo flowsheet Jalyn Evgeny PT [facility] Start: 12-23-2023 End: 12-23-2023 Bamboo flowsheet Jalyn Ocheyedan PT [facility] Start: 12-22-2023 End: 12-22-2023 ambulatory Jessica Murguia MD Facility:[facility] Start: 12-18-2023 End: 12-18-2023 ambulatory Kimberly Guzik [employer] [facility] Comment on above: Spinal stenosis of l umbar region without neurogenic claudication (Primary Dx) Start: 12-18-2023 End: 12-18-2023 Bamboo flowsheet Kimberly Guzik [employer] [facility] Start: 12-18-2023 End: 12-18-2023 Bamboo flowsheet Kimberly Guzik [employer] [facility] Start: 12-16-2023 End: 12-16-2023 ambulatory Jalyn Evgeny PT [facility] Comment on above: Spinal stenosis of l umbar region without neurogenic claudication (Primary Dx) Start: 12-16-2023 End: 12-16-2023 Bamboo flowsheet Jalyn Ocheyedan PT [facility] Start: 12-16-2023 End: 12-16-2023 Bamboo flowsheet Jalyn Ocheyedan PT [facility] Start: 12-10-2023 End: 12-10-2023 Bamboo flowsheet Jalyn Ocheyedan PT [facility] Start: 12-10-2023 End: 12-10-2023 Bamboo flowsheet Jalyn Ocheyedan PT [facility] Start: 12-10-2023 End: 12-10-2023 ambulatory Jalyn Ocheyedan PT [facility] Comment on above: Spinal stenosis of l umbar region without neurogenic claudication (Primary Dx) Start: 10-29-2023 End: 10-29-2023 ambulatory CHRISTIAN DE LA GARZA Not Available Start: 10-17-2023 End: 10-17-2023 ambulatory Buddy JACOBO Facility:[facility] Start: 10-17-2023 End: 10-17-2023 Patient encounter procedure Buddy JACOBO [facility] Start: 10-09-2023 End: 10-09-2023 ambulatory CHRISTIAN DE LA GARZA Not Available Start: 09-29-2023 End: 09-29-2023 ambulatory .CHRISTIAN Not Available Start: 06-26-2023 End: 06-26-2023 ambulatory ZEUS BONNER Not Available Start: 05-30-2023 End: 05-30-2023 ambulatory .CHRISTIAN Not Available Start: 05-06-2023 End: 05-06-2023 ambulatory EUGENIO ROTH Not Available Start: 04-23-2023 Clinisync Result Encounter Zeus Bonner DO Work Phone: [facility] Unsolicited Start: 04-23-2023 Clinisync Result Encounter Zeus Bonner DO Work Phone: [facility] Unsolicited Start: 04-17-2023 End: 04-17-2023 ambulatory ZEUS BONNER Not Available Start: 03-24-2023 End: 03-24-2023 ambulatory CHRISTIAN DE LA GARZA Not Available Start: 10-15-2022 End: 10-15-2022 Patient encounter procedure Buddy JACOBO [facility] Start: 04-17-2022 End: 04-17-2022 ambulatory Christian Raymond Jr Facility:[facility] Start: 03-05-2022 End: 03-06-2022 ambulatory CHELSEY LIBBYBonnie Facility:[facility] Start: 09-28-2021 End: 09-28-2021 Patient encounter procedure Buddy JACOBO [facility] Start: 09-20-2021 End: 09-21-[address] ZEUS BONNER Facility:[facility] Procedures Date Procedure Procedure Detail Performing Clinician Start: 02-07-2024 UPPER RESPIRATORY CULTURE Generic External Data Provider Start: 04-23-2023 [facility] Zeus Bonner DO Work Phone: Start: [...] DERM [address] [place] [address] Eugenio Roth, MAINTENANCE SERVICES DISPATCHER-FRAME BENDER [address] [place] [address] [facility] Start: 04-17-2024 Medicare Annual Well ness (AWV) Medicare Annual Wellness (AWV) [facility] Start: 02-23-2024 End: 02-23-2024 Patient encounter procedure 02/23/2024 4:00 PM EST Office Visit [facility] [address] [place] [address] Luby, Chelsey L, [employer] [address] [employer] [address] [place] [address] Arrived [facility] Comment on above: Arrived Start: 01-27-2024 End: 01-27-2024 ambulatory 01/27/2024 2:30 PM EST Treatment [facility] [address] [place] [address] Jalyn Pepper, PT [facility] Start: 01-22-2024 End: 01-22-2024 ambulatory 01/22/2024 1:30 PM EST Treatment [facility] [address] [place] [address] Jalyn Pepper, PT [facility] Start: 01-20-2024 End: 01-20-2024 ambulatory [facility] Comment on above: Arrived Start: 01-13-2024 End: 01-13-2024 ambulatory 01/13/2024 1:30 PM EDT Treatment [facility] [address] [place] [address] Kimberly Cason, [employer] Spinal stenosis of lumbar region without neurogenic claudication (Primary Dx) [facility] Comment on above: Spinal stenosis of l umbar region without neurogenic claudication (Primary Dx) Start: 01-08-2024 End: 01-08-2024 ambulatory 01/08/2024 2:30 PM EDT Treatment [facility] [address] [place] [address] Kimberly Cason, [employer] [facility] Start: 01-06-2024 End: 01-06-2024 [...] Dx) Start: 12-18-2023 End: 12-18-2023 ambulatory [facility] Comment on above: Arrived Start: 12-16-2023 End: 12-16-2023 ambulatory [facility] PT Comment on above: Arrived Start: 12-10-2023 End: 12-10-2023 ambulatory 12/10/2023 10:00 AM EDT Evaluation [facility] [address] [place] [id number] Jalyn Pepper, PT Arrived [facility] Comment on above: Arrived Start: 11-16-2023 Influenza vaccination Influenza Vacc ine (#1) [facility] Start: 05-30-2023 End: 05-30-2023 Patient encounter procedure 05/30/2023 10:30 AM EDT Office Visit [facility] [address] [place] [address] Jr. Christian Raymond, DO [address] [place] [address] [facility] Start: 05-06-2023 End: 05-06-2023 Patient encounter procedure 05/06/2023 10:50 AM EST Office Visit [facility] [address] [place] [address] Eugenio Roth, MAINTENANCE SERVICES DISPATCHER-FRAME BENDER [address] [place], [place] [id number] [facility] Start: 03-04-2023 Medicare Annual Well ness (AWV) Medicare Annual Wellness (AWV) [facility] Start: 11-15-2022 Influenza vaccination Influenza Vacc ine (#1) [facility] Immunizations Immunization Date Immunization Notes Care Provider Fa cili 02-21-2022 Moderna Bivalent Coleman ster Vaccination Zeus Bonner DO Work Phone: [facility] 02-21-2022 SARS-CoV-2 (COVID-19 ) [id number] Buddy JACOBO [facility] 01-11-2021 SARS-CoV-2 (COVID-19 ) mRNA BNT-162b2 vax Buddyriley JACOBO [facility] 12-20-2020 influenza virus vacc ine, unspecified formulation Buddy JACOBO [facility] 12-20-2020 influenza, injectabl e, quadrivalent, contains preservative Zeus Bonner DO Work Phone: [facility] 05-03-2020 SARS-CoV-2 (COVID-19 ) mRNA BNT-162b2 vax Buddyriley JACOBO [facility] Comment on above: Result Comment: 2022: [id number] 04-12-2020 SARS-CoV-2 (COVID-19 ) mRNA BNT-162b2 vax Buddyriley JACOBO [facility] Comment on above: Result Comment: 2022: [id number] 12-20-2019 influenza virus vacc ine, unspecified formulation Buddy JACOBO [facility] 12-20-2019 Seasonal, quadrivale nt, recombinant, injectable influenza vaccine, preservative free Zeus Bonner DO Work Phone: [facility] 01-12-2018 influenza virus vacc ine, unspecified formulation Buddy JACOBO [facility] 01-12-2018 influenza, injectabl e, quadrivalent, preservative free Zeus Bonner DO Work Phone: [facility] 01-08-2017 influenza, seasonal, injectable, preservative free Zeus Bonner DO Work Phone: [facility] 12-24-2016 influenza virus vacc ine, unspecified formulation Buddy JACOBO [facility] 12-24-2016 seasonal influenza, intradermal, preservative free Zeus Bonner DO Work Phone: [facility] 01-29-2016 pneumococcal polysaccharide vaccine, 23 valent Zeus Bonner DO Work Phone: [facility] 12-20-2015 influenza virus vacc ine, unspecified formulation Buddy JACOBO [facility] 12-20-2015 influenza, injectabl e, quadrivalent, preservative free Zeus Bonner DO Work Phone: [facility] 02-01-2015 pneumococcal conjuga te vaccine, 13 valent Zeus Bonner DO Work Phone: [facility] 01-09-2015 influenza, seasonal, injectable, preservative free Zeus Bonner DO Work Phone: [facility] Payers Date Payer Category Payer Self-pay 2022 Private Health [place] [employer] [place] [id number] 2022 Unknown [id number] 2009 Medicare [id number] .[id number] 2009 Unknown [id number] 1959 Medicare [id number] 1945 Unknown [id number] 2.16.840.1.107401.3.579.2 .593 1945 Unknown [id number] 2.16.840.1.103205.3.579.2 .593 1945 Unknown [id number] 2.16.840.1.557539.3.579.2 .727 1945 Unknown [id number] 2.16.840.1.011025.3.579.2 .727 1945 Unknown [id number] 2.16.840.1.779699.3.579.2 .196 1945 Unknown [id number] 2.16.840.1.576399.3.579.2 .196 1945 Unknown [id number] 2.16.840.1.801294.3.579.2 .196 1945 Unknown [id number] 2.16.840.1.129024.3.579.2 .196 1945 Unknown [id number] 2.16.840.1.253471.3.579.2 .1259 1945 Unknown [id number] 2.16.840.1.038608.3.579.2 .1259 1945 Unknown [id number] 2.16.840.1.304179.3.579.2 .1259 1945 Unknown [id number] 2.16.840.1.904927.3.579.2 .1259 1945 Unknown [id number] 2.16.840.1.866855.3.579.2 .1259 1945 Unknown [id number] 2.16.840.1.627416.3.579.2 .1259 1945 Unknown [id number] 2.16.840.1.620785.3.579.2 .1259 1945 Unknown [id number] 2.16.840.1.513547.3.579.2 .1259 1945 Unknown [id number] 2.16.840.1.772836.3.579.2 .1259 1945 Unknown [id number] 2.16.840.1.719174.3.579.2 .1259 1945 Unknown [id number] 2.16.840.1.916975.3.579.2 .1259 1945 Unknown [id number] 2.16.840.1.386033.3.579.2 .1259 1945 Unknown [id number] 2.16.840.1.893800.3.579.2 .1259 1945 Unknown [id number] 2.16.840.1.954487.3.579.2 .1259 1945 Unknown [id number] 2.16.840.1.844456.3.579.2 .1259 1945 Unknown [id number] 2.16.840.1.957938.3.579.2 .1259 1945 Unknown [id number] 2.16.840.1.589369.3.579.2 .125 1945 Unknown [id number] 2.16.840.1.832457.3.579.2 .1259 1945 Unknown [id number] 2.16.840.1.004695.3.579.2 .1259 1945 Unknown [id number] 2.16.840.1.011552.3.579.2 .1259 1945 Unknown [id number] 2.16.840.1.194691.3.579.2 .1259 1945 Unknown [id number] 2.16.840.1.199575.3.579.2 .1259 1945 Unknown [id number] 2.16.840.1.809613.3.579.2 .1259 1945 Unknown [id number] 2.16.840.1.599399.3.579.2 .1259 Unknown [id number] 2.16.840.1.322460.3.579.2 .531 Social History Date Type Detail Facility Start: 09-29-2020 End: 04-17-2023 Tobacco smoking status Never smoked tobacco (finding) [facility] Start: 04-10-2023 End: 04-17-2023 Sex Assigned At Male [facility] Tobacco smoking status Never [facility] [place] Start: 04-17-2023 Tobacco use and exposure Smokeless tobacco non-user [facility] Start: 04-17-2023 End: 03-14-2024 Alcohol intake Lifetime non-drinker (finding) [facility] [...] Facility 10-17-2023 Functional Status N/A [facility] 10-15-2022 Functional Status N/A [facility] 09-28-2021 Functional Status N/A [facility] [place] Clinical Notes 09-28-2021 to 03-14-2024 López Armas, RIGHT OF WAY MAN - 03/14/2024 10:25 AM Clemente Daley, RIGHT OF WAY MAN - 02/23/2024 4:00 PM Owencamila Evgeny, PT - 01/27/2024 2:30 PM Avi Pepper, PT - 01/20/2024 2:00 PM EST Note Date & Type Note Facility 03-14-2024 History of Present illness Narrative Images from the original note were not included. [address], [address] [facility], [address] P: [phone] F: [phone] HPI Historian of HPI: patient Jd Apodaca is a 79 y.o. male who presents today to the Urgent Care with the following complaints and denials which have been present for 1 week(s) C/O Denies Symptom Comments [] [x] Lesion [x] [] Rash Neck, arms, armpits and groin area [] [x] Lump [] [x] Bump [] [x] Depression [] [x] abscess [] [x] cellulitis [x] [] itching [] [x] pain [] [x] burning [] [x] Sensation of insects crawling Additional Comments: pt has taken Terbenafine OTC medication without relief Started in groin area and spread. Pt states the rash on the groin area is turning purple-ana cristina . Pt may have thrush on tonuge as well. ROS A complete system ROS was performed and negative aside from the pertinent positives noted in the HPI and PE. Visit Vitals BP 122/60 Pulse 101 Temp 97.8 F Wt 142 lb SpO2 97% BMI 22.24 kg/m Smoking Status Never BSA 1.74 m PHYSICAL EXAM Physical Exam Vitals reviewed. Constitutional: General: He is not in acute distress. Appearance: Normal appearance. HENT: Head: Normocephalic and atraumatic. Right Ear: Hearing, tympanic membrane, ear canal and external ear normal. Left Ear: Hearing, tympanic membrane, ear canal and external ear normal. Nose: Nose normal. Mouth/Throat: Mouth: Mucous membranes are moist. Pharynx: Oropharynx is clear. Comments: White coating noted to tongue Eyes: Extraocular Movements: Extraocular movements intact. Conjunctiva/sclera: Conjunctivae normal. Pupils: Pupils are equal, round, and reactive to light. Cardiovascular: Rate and Rhythm: Normal rate and regular rhythm. Pulses: Normal pulses. Heart sounds: Normal heart sounds. Pulmonary: Effort: Pulmonary effort is normal. No respiratory distress. Breath sounds: No wheezing, rhonchi or rales. Musculoskeletal: General: Normal range of motion. Cervical back: Normal range of motion and neck supple. Skin: General: Skin is warm and dry. Capillary Refill: Capillary refill takes less than 2 seconds. Findings: Erythema and rash present. Neurological: General: No focal deficit present. Mental Status: He is alert and oriented to person, place, and time. Psychiatric: Mood and Affect: Mood normal. TREATMENT PLAN 1. Oral candidiasis (Primary) Dx and tx discussed. - nystatin (Mycostatin) [id number] UNIT/ML suspension; Take 5 mL (500,000 Units) by mouth in the morning and 5 mL (500,000 Units) in the evening and 5 mL (500,000 Units) before bedtime. Do all this for 10 days. Dispense: 150 mL; Refill: 0 2. Rash and nonspecific skin eruption Rash is pruritic and mildly erythematous in nature. Rash is spreading. This does not appear to be infectious or bug bites in nature. He denies any known changes to soaps, lotions, or detergents. Dx and tx discussed. Follow up with PCP if no improvement for possible Dermatology referral. - methylPREDNISolone (Medrol Dospak) 4 MG tablets; Follow schedule on package instructions Dispense: 21 tablet; Refill: 0 documented in this encounter [facility] 02-23-2024 History of Present illness Narrative Images from the original note were not included. SUBJECTIVE: Jd Apodaca is a 79 y.o. male presents with chief complaint of No chief complaint on file. Pt presents for persistent laryngitis for 3 weeks. States he lives alone so he does not talk much. Denies any cold symptoms. Pt notes that he did go to the ER about 3 weeks ago and was diagnosis with viral laryngitis. Pt was not given anything to help with this and was informed that it should clear up in about 2 weeks. Pt notes that this is still ongoing. He also notes that he is having some pressure in both of his ears coming from his jaw area for 3 weeks also. OTC treatment salt water gargle, Mucinex, hot tea. Review of Systems: Review of Systems All other systems reviewed and are negative. Current Medications: Current Outpatient Medications on File Prior to Visit Medication Sig Dispense Refill amLODIPine (Norvasc) 2.5 MG tablet TAKE 1 TABLET BY MOUTH ONCE DAILY 90 tablet 3 citric acid-potassium citrate (Polycitra) 1100-334 MG/5ML solution Take by mouth 3 (three) times a day with meals erythromycin with Ethanol (Theramycin) 2 % external solution Apply topically 2 (two) times a day 60 mL 2 hydroCHLOROthiazide (HYDRODiuril) 12.5 MG tablet TAKE 1 TABLET BY MOUTH ONCE DAILY 90 tablet 3 Ivermectin 0.5 % lotion lisinopril 20 MG tablet TAKE 1 TABLET BY MOUTH IN THE MORNING 90 tablet 3 minocycline 50 MG capsule Take 1 capsule, by mouth, once daily 90 capsule 1 triamcinolone (Kenalog) 0.1 % cream APPLY TO AFFECTED AREA TWICE A DAY NEEDED No current facility-administered medications on file prior to visit. I have reviewed and reconciled the history and medication list with the patient today. Problem List: Patient Active Problem List Diagnosis Arthritis of left hip Cervical myelopathy (CMS/HCC) Cervical osteoarthritis Essential hypertension (CMS/HCC) Hyperlipidemia (CMS/HCC) Rosacea Spinal stenosis of lumbar region without neurogenic claudication Past Medical History: Past Medical History: Diagnosis Date Acne rosacea Arthritis History of rectal polyps scope(2000) Hypercholesteremia (CMS/HCC) Hypertension (CMS/HCC) Kidney stone on right side 2019 Kidney stones Pneumonia Prostatic hypertrophy Family History: Family History Problem Relation Name Age of Onset Heart disease Mother Oralia Johnsonino Cancer Mother Oralia Apodaca Hearing loss Mother Oralia Apodaca Vision loss Mother Oralia Apodaca Stroke Father Fabian Apodaca Cancer Sister Margaritasa Guerin Lung Diabetes Sister Margarita Breest Cancer Sister Lizzette Powers Breast Heart disease Brother Sean Apodaca [place] at 25 Diabetes Brother Sean Apodaca Hearing loss Brother Sean Apodaca Hyperlipidemia Brother Sean Apodaca Hypertension Brother Sean Apodaca Brain Aneurysm Brother 60 [place] Heart disease Brother [place] at 64 Arthritis Sister Tanja Parson Hearing loss Sister Tanja Parson Arthritis Sister Chasity Natalee Cancer Sister Henrry Roddy Hearing loss Sister Margret Azul Heart disease Sister Margret Azul Melanoma Neg Hx Allergies: No Known Allergies Surgical History: Past Surgical History: Procedure Laterality Date BACK SURGERY 2018 PROSTATE SURGERY TONSILLECTOMY TURP / TRANSURETHRAL INCISION / DRAINAGE PROSTATE 2014 BPH Social History: Social Drivers of Health Tobacco Use: Low Risk (02/23/2024) Patient History Smoking Tobacco Use: Never Smokeless Tobacco Use: Never Passive Exposure: Never Alcohol Use: Not At Risk (04/10/2023) AUDIT-C Frequency of Alcohol Consumption: Never Average Number of Drinks: Patient does not drink Frequency of Binge Drinking: Never Financial Resource Strain: Low Risk (04/10/2023) Overall Financial Resource Strain (CARDIA) Difficulty of Paying Living Expenses: Not hard at all Food Insecurity: No Food Insecurity (04/10/2023) Hunger Vital Sign Worried About Running Out of Food in the Last Year: Never true Ran Out of Food in the Last Year: Never true Transportation Needs: No Transportation Needs (04/10/2023) PRAPARE - Transportation Lack of Transportation (Medical): No Lack of Transportation (Non-Medical): No Physical Activity: Inactive (04/10/2023) Exercise Vital Sign Days of Exercise per Week: 0 days Minutes of Exercise per Session: 0 min Stress: No Stress Concern Present (04/10/2023) [employer] - Occupational Stress Questionnaire Feeling of Stress : Not at all Social Connections: Moderately Isolated (04/10/2023) Social Connection and Isolation Panel [NHANES] Frequency of Communication with Friends and Family: Twice a week Frequency of Social Gatherings with Friends and Family: Once a week Attends Alevism Services: More than 4 times per year Active Member of Clubs or Organizations: No Attends Club or Organization Meetings: Never Marital Status: Never Intimate Partner Violence: Not At Risk (04/10/2023) Humiliation, Afraid, Rape, and Kick questionnaire Fear of Current or Ex-Partner: No Emotionally Abused: No Physically Abused: No Sexually Abused: No Depression: Not at risk (04/17/2023) PHQ-2 PHQ-2 Score: 0 Housing Stability: Low Risk (04/10/2023) Housing Stability Vital Sign Unable to Pay for Housing in the Last Year: No Number of Places Lived in the Last Year: 1 Unstable Housing in the Last Year: No Health Literacy: Not on file OBJECTIVE: Visit Vitals BP 134/80 Pulse 99 Temp 98 F Ht 5' 7 Wt 142 lb SpO2 97% BMI 22.24 kg/m Smoking Status Never BSA 1.74 m Physical Exam Vitals reviewed. Constitutional: Appearance: Normal appearance. HENT: Head: Normocephalic and atraumatic. Right Ear: Tympanic membrane is bulging. Left Ear: Tympanic membrane is bulging. Ears: Comments: A/f level visible bilaterally Nose: Nose normal. Mouth/Throat: Mouth: Mucous membranes are moist. Pharynx: Oropharynx is clear. No posterior oropharyngeal erythema. Eyes: Extraocular Movements: Extraocular movements intact. Cardiovascular: Rate and Rhythm: Normal rate and regular rhythm. Heart sounds: Normal heart sounds. Pulmonary: Effort: Pulmonary effort is normal. Breath sounds: Normal breath sounds. No wheezing, rhonchi or rales. Musculoskeletal: Cervical back: Neck supple. Lymphadenopathy: Cervical: No cervical adenopathy. Skin: General: Skin is warm and dry. Neurological: General: No focal deficit present. Mental Status: He is alert and oriented to person, place, and time. Psychiatric: Mood and Affect: Mood normal. Behavior: Behavior normal. Judgment: Judgment normal. Recent Results (from the past 4 weeks) UPPER RESPIRATORY CULTURE Collection Time: 02/07/24 2:16 PM Result Value Ref Range UPPER RESPIRATORY CULTURE Upper Respiratory Culture UPPER RESPIRATORY CULTURE Routine respiratory leonidas UPPER RESPIRATORY CULTURE Performed at: - [facility] UPPER RESPIRATORY CULTURE [address] [place], [place] [id number] UPPER RESPIRATORY CULTURE Economics Lecturer: Darvin Astudillo PhD, Phone: [phone] ASSESSMENT AND PLAN: Assessment/Plan Diagnoses and all orders for this visit: Dysfunction of both eustachian tubes - fluticasone (Flonase) 50 MCG/ACT nasal spray; Administer 1-2 sprays into each nostril Daily Shake gently. Before first use, prime pump. After use, clean tip and replace cap. Viral laryngitis - fluticasone (Flonase) 50 MCG/ACT nasal spray; Administer 1-2 sprays into each nostril Daily Shake gently. Before first use, prime pump. After use, clean tip and replace cap. - methylPREDNISolone (Medrol Dospak) 4 MG tablets; Follow schedule on package instructions New meds as directed. Advised vocal rest, salt water gargle. Advised patient to take steroid with food. Also advised patient of potential s/e. Do not take any other anti-inflammatories while on steroid. Follow up if symptoms worsen or fail to improve. documented in this encounter [facility] 01-27-2024 History of Present illness Narrative Physical Therapy Physical Therapy Treatment Visit Patient Name: Jd Apodaca Today's Date: 01/27/2024 Encounter Diagnoses Name Primary? [...] a follow up. documented in this encounter [facility] 01-20-2024 History of Present illness Narrative Physical [...] a follow up. documented in this encounter [facility] 01-06-2024 History of Present illness Narrative [...] so the pt can bend over to bead picker objects off the floor without difficulty. [...] a follow up. documented in this encounter [facility] 12-23-2023 History of Present illness Narrative [...] progress as tolerated. documented in this encounter [facility] 12-16-2023 History of Present illness Narrative [...] and hip strength. documented in this encounter [facility] 12-10-2023 History of Present illness Narrative Images from the original note were not included. Physical Therapy Physical Therapy Evaluation Visit Patient Name: Jd Apodaca Today's Date: 12/10/2023 Encounter Diagnoses Name Primary? Spinal stenosis of lumbar region with neurogenic claudication Yes Visit number: 1 Subjective Jd Apodaca 78 y.o. male presents to physical therapy w/ chief c/o back and hip pain. Says this has been going on for years. Pt saw Dr. Raymond for the hips and he was told they did not need replaced. Was also told that his back does not need surgery by Dr. Guido. No falls of recent. Denies any radicular pain. No N/T noted Mechanism of Onset: degenerative Current deficits: weakness, ROM, pain, bending over at the sink, going from sitting to standing and vice versa, poor posture, terminologist standing, limited activity tolerance, poor endurance, difficulty with transfers, poor gait, core instability, completing general ADLs, completing some housework chores. Pain: 4-5/10 Location: spans across entire low back and wraps around his hips. 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 Imaging: EXAM: MR LUMBAR SPINE WO CONTRAST [...] back surgery posterior decompression done in 2019. Objective Thoracolumbar Musculoskeletal Exam Gait Antalgic: left Limp: left Trendelenburg: left Assistive device: cane Gait additional comments: Slow gait speed, arms in high guard without use of cane, slight waddling noted as well Palpation Left Muscle tone: increased Range of Motion Flexion comment: 75% motion. Extension comment: 30% motion. Extension detail: pain. Right Lateral bendin%. Lateral bending detail: no pain. Lateral rotation: 50%. Lateral rotation detail: no pain. Left Lateral bendin%. Lateral bending detail: no pain. Lateral rotation: 50%. Lateral rotation detail: no pain. Range of motion additional comments: Hip ROM WNL Strength Right Quadriceps: 4+/5. Hamstrin+/5. Hip abductors: 4/5. Hip flexion: 4/5. Left Quadriceps: 4/5. Hamstrin/5. Hip abductors: 4-/5. Hip flexion: 4-/5. Sensory Thoracolumbar sensation is normal. Reflexes Right Quadriceps: normal Achilles: normal Clonus: normal Left Quadriceps: normal Achilles: normal Clonus: normal Special Tests Right KURT test: negative SLR: no back or leg pain Left KURT test: negative SLR: back pain Special tests additional comments: Claudy test: negative Slump test: + on the L Quadrant test: + on the L Functional Tests: 5x STS: 29.07 seconds with some pain. Retro lean upon standing Toes flair up Treatment Interventions: Education: HEP education with demonstration, Educated on Eval Findings and POC Manual Therapy: Passive ROM, Joint mobilization, Soft Tissue Mobilization, Myofascial Release, Muscle Energy Technique, Neural Mobilization, Myofascial Cupping, Dry Needling, IASTM Therapeutic Exercise: lumbar/ hip/ core Strength, Endurance, Flexibility, ROM, HEP, Neural Mobilization, and Core Stability Therapeutic Activity: Exercises to improve dynamic activities, functional tasks, functional mobility to return to prior activity level Gait Training: improve and normalize gait mechanics as appropriate Aquatic Therapy: if needed Neuromuscular re-education: Balance Training, Muscle Facilitation, Dynamic Stability, and Core Stabilization Modalities: Heat, Ice, Electrical Stimulation, and Ultrasound Prognosis: good Assessment/Plan Pt presents to outpatient physical therapy services with low back and hip pain. Pt has been having pain for years and is limiting the pt's ability to bead picker objects off the floor, transfer efficiently, do the dishes, complete general ADLs, and complete yard work tasks without increases in pain. Signs and symptoms taken from subjective/objective point to the potential diagnosis of lumbar stenosis. Pt had a lumbar decompression surgery back in 2019. Pt displays with limited lumbar ROM, decreased hip strength, decreased core stability, pain, reduced functional mobility/activity tolerance, and difficulty with transfers all contributing to the pt's pain and new limitations currently in his life. 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 PLAN FOR NEXT SESSION: Review HEP, warm up on bike, general lumbar FL based ROM exercises, hip strengthening exercises, core stabilization exercises, work on transfers/gait. Can do MHP post session GOALS: Pt to be compliant with HEP in order to make gains when not in therapy Pt to improve lumbar ROM to WNL in all planes in 4-6 weeks so the pt can bend over to bead picker objects off the floor without difficulty Pt to improve B hip MMT to 4+/5 or better in 4-6 weeks to improve overall stability when walking Pt to improve 5x STS score to 14 seconds or better in 4-6 weeks so the pt can improve efficiency with transfers Pt to report 1/10 resting pain in the next 4-6 weeks so the pt can complete all yardwork tasks with less difficulty. Today's Treatment EVAL: 20 minutes Therapeutic Exercise: 20 minutes educating on eval findings and plan for course of treatment. HEP demo (SKC, LTR, PPT, core marches, clams, bridges) Modalities: deferred Jd Apodaca will benefit from physical therapy 2-3 times per week for 4-6 weeks per above plan of care. documented in this encounter [facility] 10-17-2023 Hospital Discharge instructions Patient Education [...] urethra. Follow these instructions at home: Take pnvi-uyi-govprfd and prescription medicines only as told by [...] provider. Document Revised: 09/19/2021 Document Reviewed: 09/19/2021 [employer] Patient Education 2022 [employer]. Follow Up Care 10/15/2022 14:25:03 With:CELESTINA VIDAL, Buddy Zhang, URL Address: [address] [place] [address] [place] [address]- When: Unknown [facility] [place] 10-17-2023 Note Patient Education Urology Benign Prostatic [...] Follow these instructions at home: ? Take tkrz-mhp-zgwsaop and prescription medicines only as told by [...] develop side effec (more content not included)... [facility] 10-15-2022 Hospital Discharge instructions Patient [...] include: ?8 oz (237 mL) of milk, jvksvla-yndkghwhsdfq-luimo milk, and calcium-fortifiedfruit juice. Calcium-fortified means that [...] ?Spinach (cooked), rhubarb, beets, sweet potatoes, and New Zealander chard. ?Peanuts. ?Potato chips, chinese fries, and baked potatoes with skin on. ?Nuts and nut products. ?Chocolate. If you regularly take a diuretic medicine, make sure to eat at least 1 or 2 servings of fruits or vegetables that are high in potassium each day. These include: ?Avocado. ?Banana. ?Coke, prune, carrot, or tomato juice. ?Baked potato. [...] magnesium, fish oil, or vitamin B6. Take zhzm-qqu-pxbsgiy and prescription medicines only as told by [...] Casseroles. Pizza. Lasagna. Frozen meals. Potato chips. Slovak fries. The items listed above may not [...] provider. Document Revised: 11/12/2021 Document Reviewed: 11/12/2021 [employer] Patient Education 2022 [employer]. Follow Up Care 10/08/2022 11:09:42 With:CELESTINA VIDAL, Buddy Zhang, URL Address: [facility] [address] , [place] [address]- When: Unknown [facility] 09-28-2021 Hospital Discharge instructions Patient Education 09/28/2021 10:58:48 Kidney Stones, Mowa-ov-Dfsa Kidney Stones Kidney stones are rock-like masses [...] Follow these instructions at home: Medicines Take btol-ows-krtiizw and prescription medicines only as told by [...] 08/19/2008 Document Revised: 07/20/2019 Document Reviewed: 07/20/2019 [employer] Patient Education 2020 [employer] Follow Up Care 09/29/2020 11:24:43 With:Buddy JACOBO MD, URL Address: [address] [place] [address]- When:Within 1 Year(s) Comments:alejandra/ DAWSON [facility] Evaluation + Plan note Future Appointments Appointment Date:10/04/2022 10:15:00 AM Scheduled Provider:Buddy JACOBO MD Location:[facility] Appointment Type:URO Office Visit [facility] Evaluation + Plan note Future Appointments Appointment Date:10/17/2023 11:00:00 AM Scheduled Provider:Buddy JACOBO MD Location:[facility] Appointment Type:URO Office Visit [facility] Evaluation + Plan note Future Appointments Appointment Date:10/18/2024 10:45:00 AM Scheduled Provider:Buddy JACOBO MD Location:[facility] Appointment Type:URO Office Visit [facility] Evaluation note Diagnosis Spinal stenosis of lumbar region without neurogenic claudication- Primary documented in this encounter [facility] Healthcare[facility]* Diagnosis Spinal stenosis of lumbar region without neurogenic claudication- Primary documented in this encounter [facility]* Diagnosis Spinal stenosis of lumbar region without neurogenic claudication- Primary documented in this encounter [facility]* Diagnosis Spinal stenosis of lumbar region without neurogenic claudication- Primary documented in this encounter [facility] note* Diagnosis Primary hypertension (CMS/HCC) Unspecified essential hypertension documented in this encounter [facility] note* Diagnosis Dysfunction of both eustachian tubes- Primary Viral laryngitis documented in this encounter [facility] note* Diagnosis Spinal stenosis of lumbar region without neurogenic claudication- Primary documented in this encounter [facility]Evaluation note* Diagnosis Oral candidiasis- Primary Candidiasis of mouth Rash and nonspecific skin eruption Rash and other nonspecific skin eruption documented in this encounter [facility] HealthcareHospital course Narrative No data available for this section [facility] Hospital Discharge instructions No data available for this section [facility] progress note No data available for this section [facility] reason for visit Narrative* Rehabilitation - Outpatient (Routine) - Authorized Specialty Diagnoses / Procedures Referred By Contac t Referred To Contact Physical Therapy Diagnoses Low back pain, unspecified Procedures [place] PHYSICAL THERAPY EVALUATION LOW COMPLEX 20 MINS Ajay Guido MD [address] [place] [address] [place] [address] Phone: tel: fax: Jalyn Pepper, BILLY Referral ID Status Reason Start Date Expiration Date V isits Requested Visits Authorized [id number] Authorized 12/03/2023 05/31/2024 30 30 [facility] [...] section and content) DATE CREATED AUTHOR 11/26/2019 [facility] DATE CREATED AUTHOR AUTHOR'S ORGANIZ ATION 03/29/2022 [facility] [place] [facility] DATE CREATED AUTHOR AUTHOR'S ORGANIZ ATION 05/25/2022 [facility] DATE CREATED AUTHOR AUTHOR'S ORGANIZ ATION 10/19/2023 [facility] DATE CREATED AUTHOR AUTHOR'S ORGANIZ ATION 02/06/2024 [facility] DATE CREATED AUTHOR AUTHOR'S ORGANIZ ATION 03/15/2024 [facility] dical Specialists EPIC Care Team (unrecognized sect ion and content) Phlebotomy Technologist Relationship Specialty Start Date End Date Zeus Bonner DO [address] [place] [address] PCP - ACO Reach 08/08/22 Zeus Bonner DO [address] [place] [address] PCP - General Family Medicine 07/23/22 Phlebotomy Technologist Relationship Specialty Start Date End Date Zeus Bonner DO [address] [place] [address] PCP - ACO Reach 08/08/22 Zeus Bonner, [address] [place] [address] PCP - General Family Medicine 07/23/22 Chelsey Daley, RIGHT OF [address] MAN [address] [place] [address] Nurse Practitioner Family Medicine 06/06/23 Phlebotomy Technologist Relationship Specialty Start Date End Date Zeus Bonner DO [address] [place] [address] PCP - ACO Reach 08/08/22 Zeus Bonner, [address] [place] [address] PCP - General Family Medicine 07/23/22 Chelsey Daley, RIGHT OF WAY MAN [address] [place] [address] Nurse Practitioner Family Medicine 06/06/23 Phlebotomy Technologist Relationship Specialty Start Date End Date Zeus Bonner DO [address] [place] [address] PCP - ACO Reach 08/08/22 Zeus Bonner, [address] [place] [address] PCP - General Family Medicine 07/23/22 Chelsey Daley, RIGHT [employer] [address] MAN [address] [place] [address] Nurse Practitioner Family Medicine 06/06/23 Phlebotomy Technologist Relationship Specialty Start Date End Date Zeus Bonner, DO [address] [place] [address] PCP - ACO Reach 08/08/22 Zeus Bonner, DO [address] [place] [address] PCP - General Family Medicine 07/23/22 Chelsey Daley, RIGHT [employer] [address] MAN [address] [place] [address] Nurse Practitioner Family Medicine 06/06/23 Phlebotomy Technologist Relationship Specialty Start Date End Date Zeus Bonner, DO [address] [place] [address] PCP - ACO Reach 08/08/22 Zeus Bonner, DO [address] [place] [address] PCP - General Family Medicine 07/23/22 Chelsey Daley, RIGHT [employer] [address] MAN [address] [place] [address] Nurse Practitioner Family Medicine 06/06/23 Phlebotomy Technologist Relationship Specialty Start Date End Date Zeus Bonner, DO [address] [place] [address] PCP - ACO Reach 08/08/22 Zeus Bonner, DO [address] [place] [address] PCP - General Family Medicine 07/23/22 Chelsey Daley, RIGHT [employer] [address] MAN [address] [place] [address] Nurse Practitioner Family Medicine 06/06/23 Phlebotomy Technologist Relationship Specialty Start Date End Date Zeus Bonner, DO [address] [place] [address] PCP - ACO Reach 08/08/22 Zeus Bonner, DO [address] [place] [address] PCP - General Family Medicine 07/23/22 Chelsey Daley NP [address] [place] [address] Nurse Practitioner Family Medicine 06/06/23 Phlebotomy Technologist Relationship Specialty Start Date End Date Zeus Bonner, [address] [place] [address] PCP - ACO Reach 08/08/22 Zeus Bonner, [address] [place] [address] PCP - General Family Medicine 07/23/22 Chelsey Daley NP [address] [place] [address] Nurse Practitioner Family Medicine 06/06/23 Phlebotomy Technologist Relationship Specialty Start Date End Date Zeus Bonner, [address] [place] [address] PCP - ACO Reach 08/08/22 Zeus Bonner, DO [address] [place] [address] PCP - General Family Medicine 07/23/22 Chelsey Daley, RIGHT [employer] [address] MAN [address] [place] [address] Nurse Practitioner Family Medicine 06/06/23 Phlebotomy Technologist Relationship Specialty Start Date End Date Zeus Bonner, [address] [place] [address] PCP - ACO Reach 08/08/22 Zeus Bonner, [address] [place] [address] PCP - General Family Medicine 07/23/22 Chelsey Daley, RIGHT [employer] [address] MAN [address] [place] [address] Nurse Practitioner Family Medicine 06/06/23 Phlebotomy Technologist Relationship Specialty Start Date End Date eZus Bonner, [address] [place] [address] PCP - ACO Reach 08/08/22 Zeus Bonner, [address] [place] [address] PCP - General Family Medicine 07/23/22 Chelsey Daley, RIGHT [employer] [address] MAN [address] [place] [address] Nurse Practitioner Family Medicine 06/06/23 Chelsey Daley, RIGHT [employer] [address] MAN [address] [place] [address] Nurse Practitioner Family Medicine 02/23/24 Phlebotomy Technologist Relationship Specialty Start Date End Date Zeus Bonner, DO [address] [place] [address] PCP - ACO Reach 08/08/22 Zeus Bonner, [address] [place] [address] PCP - General Family Medicine 07/23/22 Chelsey Daley, RIGHT [employer] [address] MAN [address] [place] [address] Nurse Practitioner Family Medicine 06/06/23 Phlebotomy Technologist Relationship Specialty Start Date End Date Zeus Bonner, [address] [place] [address] PCP - ACO Reach 08/08/22 Zeus Bonner, [address] [place] [address] PCP - General Family Medicine 07/23/22 Chelsey Daley, RIGHT [employer] [address] MAN [address] [place] [address] Nurse Practitioner Family Medicine 06/06/23 Phlebotomy Technologist Relationship Specialty Start Date End Date Zeus Bonner, [address] [place] [address] PCP - ACO Reach 08/08/22 Zeus Bonner, [address] [place] [address] PCP - General Family Medicine 07/23/22 Chelsey Daley, [employer] [address] MAN [address] [place] [address] Nurse Practitioner Family Medicine 06/06/23 Chelsey Daley NP [address] [place] [address] Nurse Practitioner Family Medicine 02/23/24 Reason for Visit (unrecogniz ed section and content) Specialty Diagnoses / Procedures Referred By Contac t Referred To Contact Physical Therapy Diagnoses Low back pain, unspecified Procedures MI PHYSICAL THERAPY EVALUATION LOW COMPLEX 20 MINS Ajay Guido MD [address] [place] [address] [place] [address] Jalyn Pepper PT Referral ID Status Reason Start Date Expiration Date V isits Requested Visits Authorized [id number] Authorized 12/03/2023 05/31/2024 30 30 Reason Comments [...] BE BASED ON THE PRIMARY CLINICAL RECORDS. [email or web address] provides no warranty or guarantee of the accuracy or completeness of information in this document.
--- NOTE | 2024-04-28 10:49 | P.CN_ITS ---
Consult Note: HPI Data of Consult Patient: known to practice within the last 3 years Requesting Physician: Cira Zhou NP Primary Care Provider: VICTOR M BONNER Consult Narrative Reason for consult: f/u Narrative: Luisito Rey a 79 year old male presents for evaluation of chronic left SIJ and bilateral hip pain. Pain today 2/10 aching, increased with standing, stairs, activity. Pain improved with heat and rest. Overall improvement from last visit, >50% improvement ongoing from left SIJ injection and bilateral GTB injections. Pt developed horseness to his voice following the injection and a rash to chest/torso 2 weeks after injection which lasted 2 weeks. pt following with PCP and upcoming ENT appointment. utilizing tylenol and aleve PRN with benefit. denies falls. cc:: CC: Cira Zhou NP Review of Systems ROS Status of ROS 10 or more systems reviewed and unremark able except as noted in history and below Musculoskeletal Denies: back pain or joint pain PFSH PFS Medical History (Updated 02/07/24 @ 14:43 by Sagar Ellington MD) Osteoarthritis ?M19.90 - Unspecified osteoarthritis, unspecified site (ICD-10) TMJ (dislocation of temporomandibular joint) ?S03.00XA - Dislocation of jaw, unspecified side, initial encounter (ICD-10) Kidney stone ?N20.0 - Calculus of kidney (ICD-10) Enlarged prostate ?N40.0 - Benign prostatic hyperplasia without lower urinary tract symptoms (ICD-10) Hepatomegaly ?R16.0 - Hepatomegaly, not elsewhere classified (ICD-10) High cholesterol ?E78.00 - Pure hypercholesterolemia, unspecified (ICD-10) HTN (hypertension) ?I10 - Essential (primary) hypertension (ICD-10) Surgical History History of transurethral resection of prostate ?Z98.890 - Other specified postprocedural states (ICD-10) ?Z90.79 - Acquired absence of other genital organ(s) (ICD-10) History of back surgery ?Z98.890 - Other specified postprocedural states (ICD-10) Social History Little interest or pleasure in doing things: not at all Feeling down, depressed, or hopeless: not at all Meds Home Medications and Allergies Home Medications ?Medication ?Instructions ?Recorded ?Confirmed ?Type amlodipine 2.5 mg tablet 2.5 mg PO DAILY 10/22/22 02/07/24 History hydrochlorothiazide 12.5 mg tablet 12.5 mg PO DAILY 10/22/22 02/07/24 History lisinopril 20 mg tablet 20 mg PO DAILY 10/22/22 02/07/24 History potassium citrate 15 mEq (1,620 15 meq PO BID 10/22/22 02/07/24 History mg) tablet,extended release erythromycin with ethanol 2 % 1 applic topical Q12H PRN rosacea 12/22/23 02/07/24 History topical solution minocycline 50 mg capsule 50 mg PO QDAY 01/05/24 02/07/24 History Allergies Allergy/AdvReac Type Severity Reaction Status Date / Time No Known Drug Allergies Allergy Verified 02/07/24 14:12 Exam Back & Pelvis Lumbar spine/lower back: normal to inspection and lumbar ROM normal; no lumbar spinal tenderness Sacroiliac joints: SI joint(s) abnormal Other: left sij positive gil(patricks), gaenslens, thigh thrust, compression test Extremity Other: nontender bilateral GTB negative internal and external log roll of left hip Assessment and Plan Assessment and Plan (1) Sacroiliitis: (2) Greater trochanteric bursitis of both hips: Plan pain well controlled with interventional therapy and tylenol/aleve f/u PRN, as pain worsens
== END 2024-04-28 10:17 | disposition home or self-care (01) ==
LOC: PM 10:17
PROVIDERS: PCP Family Medicine; Visit Provider Nurse Practitioner
DX: M46.1 Sacroiliitis, not elsewhere classified (principal); M70.62 Trochanteric bursitis, left hip; M70.61 Trochanteric bursitis, right hip
CPT/HCPCS: G0463

== ENCOUNTER 2024-04-30 14:12 | Emergency (ER) | payer MEDICARE, SELFPAY ==
[2024-04-30] VITALS (21 sets, daily range): BP systolic 142–161; BP diastolic 77–91; PULSE 81–107; TEMP 36.8; O2SAT 96–98; BMI 22.9
--- NOTE | 2024-04-30 15:37 | ECG_ITS ---
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
[2024-04-30 15:47] LABS: Basophils Absolute Auto 0.1 10^3/uL (0.0-0.1); Basophils Percent Auto 0.6 % (0.2-2.0); Eosinophils Percent Auto 0.4 % (0.9-7.0); Hematocrit 42.4 % (42.0-54.0); Hemoglobin 14.5 g/dL (14.0-18.0); Immature Granulocytes Abs Auto 0.06 10^3/uL (0.00-0.03); Immature Granulocytes Pct Auto 0.8 % (0.0-0.5); Lymphocytes Absolute Auto 1.8 10^3/uL (1.2-3.8); Lymphocytes Percent Auto 22.8 % (20.5-60.0); Mean Corpuscular HGB Conc 34.2 g/dL (29.9-35.2); Mean Corpuscular Hemoglobin 32.8 pg (25.9-34.0); Mean Corpuscular Volume 95.9 fL (80.0-94.0); Mean Platelet Volume 8.8 fL (9.5-13.5); Monocytes Absolute Auto 0.6 10^3/uL (0.3-0.8); Monocytes Percent Auto 8.2 % (1.7-12.0); Neutrophils Absolute Auto 5.2 10^3/uL (1.4-6.5); Neutrophils Percent Auto 67.2 % (43.0-75.0); Platelet Count 348 10^3/uL (150-450); Red Blood Count 4.42 10^6/uL (4.70-6.10); Red Cell Distribution Width 14.4 % (11.0-15.0); White Blood Count 7.8 10^3/uL (4.0-11.0)
--- NOTE | 2024-04-30 15:53 | CT_ITS ---
[address] [address] Patient Name: JD APODACA MRN: [id number] date: 1945 Sex: M Assigned Patient Location: ER Current Patient Location: Accession/Order Number: [id number] Exam Date: 04/30/2024 16:40 Report Date: 04/30/2024 17:48 At the request of: ANJELICA RUBI Procedure: CT head/brain wo con EXAMINATION: CT head/brain wo con HISTORY: vertigo COMPARISON: None. TECHNIQUE: CT head without intravenous contrast. Dose reduction techniques were achieved by using: automated exposure control and/or adjustment of mA and /or kV according to patient size and/or use of iterative reconstruction technique. FINDINGS: There is mild prominence of the ventricles and sulci. There is no evidence for acute intracranial hemorrhage. There is mild hypoattenuation in the supratentorial white matter, most compatible with chronic microvascular ischemia. There is no mass effect or midline shift. There are no abnormal extraaxial fluid collections. CT/CT head/brain wo con IMPRESSION: Negative for acute intracranial hemorrhage or acute intracranial process. Electronically authenticated by: KATHIE STEARNS Date: 04/30/2024 17:48
[2024-04-30 15:54] LABS: Anion Gap 11.2; BUN Creatinine Ratio 10.2; Calcium 8.6 mg/dL (8.5-10.1); Carbon Dioxide 28.9 mmol/L (21.0-32.0); Chloride 99 mmol/L (98-107); Estimated GFR (African America >60 (>=60 mL/min/1.73m^2); Estimated GFR (Non-African Ame >60 (>=60 mL/min/1.73m^2); Glucose 98 mg/dL (74-106); Potassium 3.1 mmol/L (3.5-5.1); Sodium 136 mmol/L (136-145)
--- NOTE | 2024-04-30 15:57 | ED.GENADUL1 ---
HPI HPI - General Adult General Chief complaint: Dizziness Stated complaint: DIZZINESS [place]UE[place] WEAKNESS Time Seen by Provider: 04/30/24 15:39 Mode of arrival: walk-in History of Present Illness HPI narrative: Patient is a 79-year-old male who is presenting to the ER today with chief complaint of vertigo. Patient states when he is laying less than a 45 degree position or rotating his head this morning, it is causing vertigo. Patient has no nausea or vomiting. No trauma. Patient has not fallen, no head injury, no car accident. Patient stated he had vertigo 1 year ago, and there is no acute reason that they were able to find why that started. Patient has no headache or neck pain. No chest pain or shortness of breath. No abdominal pain nausea or vomiting. No other acute complaints. Patient is here with his sister. Patient lives at home by himself. Patient uses a 4 pronged cane. Patient has not felt unsteady with ambulation, but patient has vertigo with positional change. If patient is sitting up at 45 degree angle, and keeping his head still, vertigo is not present. No blurry vision double vision. All systems are negative except as noted/marked. All systems reviewed and otherwise negative. Nurses note and vital signs reviewed and patient is not hypoxic. General: The patient appears well and in no apparent distress. Patient is resting comfortably on cart. Patient is not toxic, lethargic, or listless Skin: Warm, dry, no pallor noted. There is no rash noted. No petechiae, purpura. Head: Normocephalic, atraumatic; patient has no carotid bruits bilateral. Eye: Normal conjunctiva, no drainage, EOMI. PERRL; no nystagmus, Ears, Nose, Mouth, and Throat: oral mucosa is moist. Bilateral TM shows no erythema, perforation or bulging. No wax noted. No hair noted next to bilateral TM. Nares patent. Mouth without vesicles. Cardiovascular: Regular Rate and Rhythm, no murmur, gallop, rub Respiratory: Patient is in no distress, no accessory muscle use, lungs are clear to auscultation, no wheezing, rales or rhonchi. Back: non-tender, no CVA tenderness bilaterally to percussion. No CT LS midline pain GI: no tenderness to palpation, no masses appreciated. No rebound, guarding, or rigidity noted. No distention Musculoskeletal: Patient has full range of motion of all of the extremities, no motor, sensory, or focal neurological deficits Neurological: A&O x4, normal speech Psychiatric: Cooperative Related Data Home Medications ?Medication ?Instructions ?Recorded ?Confirmed amlodipine 2.5 mg tablet 2.5 mg PO DAILY 10/22/22 04/30/24 hydrochlorothiazide 12.5 mg tablet 12.5 mg PO DAILY 10/22/22 04/30/24 lisinopril 20 mg tablet 20 mg PO DAILY 10/22/22 04/30/24 potassium citrate 15 mEq (1,620 15 meq PO BID 10/22/22 04/30/24 mg) tablet,extended release Previous Rx's ?Medication ?Instructions ?Recorded meclizine 25 mg chewable tablet 12.5 mg (1/2 x 25 mg) PO BID PRN 04/30/24 (Antivert) dizziness or vertigo #4 tabs Allergies Allergy/AdvReac Type Severity Reaction Status Date / Time No Known Drug Allergies Allergy Verified 02/07/24 14:12 Opioid HPI Opioid Management Most Recent Opioid Data: Last Pain Scale 6 01/19/24 10:14 01/19/24 [facility] Medical History (Updated 04/30/24 @ 17:55 by Sulaiman Staton MD) Osteoarthritis ?M19.90 - Unspecified osteoarthritis, unspecified site (ICD-10) TMJ (dislocation of temporomandibular joint) ?S03.00XA - Dislocation of jaw, unspecified side, initial encounter (ICD-10) Kidney stone ?N20.0 - Calculus of kidney (ICD-10) Enlarged prostate ?N40.0 - Benign prostatic hyperplasia without lower urinary tract symptoms (ICD-10) Hepatomegaly ?R16.0 - Hepatomegaly, not elsewhere classified (ICD-10) High cholesterol ?E78.00 - Pure hypercholesterolemia, unspecified (ICD-10) HTN (hypertension) ?I10 - Essential (primary) hypertension (ICD-10) Surgical History History of transurethral resection of prostate ?Z98.890 - Other specified postprocedural states (ICD-10) ?Z90.79 - Acquired absence of other genital organ(s) (ICD-10) History of back surgery ?Z98.890 - Other specified postprocedural states (ICD-10) Social History Little interest or pleasure in doing things: not at all Feeling down, depressed, or hopeless: not at all Exam Constitutional Vital Signs, click to edit/add: Last Vital Signs Temp 98.2 F 04/30/24 14:24 Pulse 96 H 04/30/24 17:50 Resp 19 04/30/24 17:10 BP 154/79 H 04/30/24 17:10 Pulse Ox 98 04/30/24 17:10 Course Vital Signs Vital signs: Vital Signs Temperature 98.2 F 04/30/24 14:24 Pulse Rate 99 H 04/30/24 14:24 Respiratory Rate 18 04/30/24 14:24 Blood Pressure 157/88 H 04/30/24 14:24 Pulse Oximetry 98 04/30/24 14:24 Temperature 98.2 F 04/30/24 14:24 Pulse Rate 96 H 04/30/24 17:50 Respiratory Rate 19 04/30/24 17:10 Blood Pressure 154/79 H 04/30/24 17:10 Pulse Oximetry 98 04/30/24 17:10 Medical Decision Making MDM Narrative Medical decision making narrative: With positional change, patient does elicit vertigo. No nausea or vomiting. Patient stated 25 mg Antivert tablet last year caused him to be too sedated, he is asking for 12.5 mg tablet. Cardiac strict stroke workup will be initiated. Patient has no history of TIA or stroke. He has no strokelike symptoms at this time besides benign positional vertigo. Patient vertigo has almost completely improved. Patient has walked to the bathroom several times with no ataxia, no significant vertigo or vertiginous signs or symptoms. CT of the brain showed no acute findings. Patient potassium was low, patient was given oral potassium to drink. Patient does not take a multivitamin daily, he was encouraged to do so. Patient has done vestibular physical therapy in the past. Patient was given a prescription for 12.5 mg Antivert to use if needed. Patient has a follow-up with PCP or return back to the ER if he is having intractable signs or symptoms of vertigo or any other acute concerns. Patient's had no strokelike signs or symptoms today. No questions at discharge Lab Data Lab results reviewed: Yes I reviewed the patient's lab results Labs: Lab Results 04/30/24 04/30/24 Range/Units 15:15 15:58 WBC 7.8 (4.0-11.0) 10^3/uL RBC 4.42 L (4.70-6.10) 10^6/uL Hgb 14.5 (14.0-18.0) g/dL Hct 42.4 (42.0-54.0) % MCV 95.9 H (80.0-94.0) fL MCH 32.8 (25.9-34.0) pg MCHC 34.2 (29.9-35.2) g/dL RDW 14.4 (11.0-15.0) % Plt Count 348 (150-450) 10^3/uL MPV 8.8 L (9.5-13.5) fL Neut % (Auto) 67.2 (43.0-75.0) % Lymph % (Auto) 22.8 (20.5-60.0) % [place] % (Auto) 8.2 (1.7-12.0) % Eos % (Auto) 0.4 L (0.9-7.0) % Baso % (Auto) 0.6 (0.2-2.0) % Neut # (Auto) 5.2 (1.4-6.5) 10^3/uL Lymph # (Auto) 1.8 (1.2-3.8) 10^3/uL [place] # (Auto) 0.6 (0.3-0.8) 10^3/uL Eos # (Auto) 0.0 (0.0-0.7) 10^3/uL Baso # (Auto) 0.1 (0.0-0.1) 10^3/uL Abs Immat Gran (auto) 0.06 H (0.00-0.03) 10^3/uL Imm/Tot Granulo (auto) 0.8 H (0.0-0.5) % Sodium 136 (136-145) mmol/L Potassium 3.1 L (3.5-5.1) mmol/L Chloride 99 (98-107) mmol/L Carbon Dioxide 28.9 (21.0-32.0) mmol/L Anion Gap 11.2 BUN 10.0 (7.0-18.0) mg/dL Creatinine 0.98 (0.70-1.30) mg/dL Est GFR ( Amer) >60 (>=60 mL/min/1.73m^2) Est GFR (Non-Af Amer) >60 (>=60 mL/min/1.73m^2) BUN/Creatinine Ratio 10.2 Glucose 98 (74-106) mg/dL Calcium 8.6 (8.5-10.1) mg/dL Troponin I High Sens 4.6 (4.0-76.1) pg/mL Urine Color Lt. yellow (YELLOW) Urine Clarity Clear (CLEAR) Urine pH 6.0 (5.0-9.0) Ur Specific [place] <=1.005 A (1.005-1.025) Urine Protein Negative (NEG/TRACE) mg/dL Urine Glucose (UA) Negative (NEGATIVE) mg/dL Urine Ketones Negative (NEGATIVE) mg/dL Urine Occult Blood Trace-i (NEGATIVE) Urine Nitrite Negative (NEGATIVE) Urine Bilirubin Negative (NEGATIVE) Urine Urobilinogen 0.2 (0.2-1.0) EU/dL Ur Leukocyte Esterase Trace A (NEGATIVE) Urine RBC 0-2 (0-2) #/HPF Urine WBC 0-2 A (NONE SEEN) #/HPF Ur Squamous Epith Cells None seen (NONE/RARE) #/LPF Urine Crystals None seen (None Seen) #/HPF Urine Bacteria Trace A (NONE SEEN) #/HPF Urine Casts None seen (NONE SEEN) #/LPF Urine Mucus None seen (NONE SEEN) Ur Culture Indicated? Yes-[facility] ECG Data Attestation: I personally reviewed and interpreted this ECG as follows: (EKG interpretation. Normal sinus rhythm at 90 beats a minute. Normal axis deviation. No acute ST elevation, no acute ectopy. QTc of 412.) Discharge Plan Discharge Chief Complaint: Dizziness Clinical Impression: Vertigo Patient Disposition: Home, Self-Care Time of Disposition Decision: 17:58 Condition: Fair Prescriptions / Home Meds: New meclizine [Antivert] 25 mg tablet,chewable 12.5 mg PO BID PRN (Reason: dizziness or vertigo) Qty: 4 0RF No Action amlodipine 2.5 mg tablet 2.5 mg PO DAILY hydrochlorothiazide 12.5 mg tablet 12.5 mg PO DAILY lisinopril 20 mg tablet 20 mg PO DAILY potassium citrate 15 mEq tablet extended release 15 meq PO BID Print Language: Sudanese Instructions: Vertigo (ED), Benign Paroxysmal Positional Vertigo (ED), Lightheadedness (ED), Dizziness (ED) Additional Instructions: Use Antivert if needed if vertigo returns. Use [id number] medication to help dry up sinuses that could be possibly contributing to vertigo. Follow-up with PCP for vestibular physical therapy if needed if vertigo becomes more persistent. Return back to the ER if you are having intractable vertigo, intractable nausea vomiting, or any other significant acute concerns. Increase fluids at home, Gatorade, Powerade, or water. Alternate using Claritin or Zyrtec, and Flonase. Add Mucinex as well as needed if needed for sinus congestion or coughing. Alternate Tylenol and Motrin every 4 hours to help with fever control, body aches or joint pain. Use [id number] vitamin C, vitamin D3, and zinc to help fight infection and help with her immune system. Referrals: VICTOR M BONNER [Primary Care Provider] - 1 week Discharge Date/Time: 04/30/24 18:07
[2024-04-30] MEDS: MECLIZINE HCL 12.5 MG TABLET PO (16:08)
[2024-04-30] MEDS: 0.9 % SODIUM CHLORIDE 500 ML IV (16:08)
[2024-04-30 16:10] LABS: Bilirubin Urine NEGATIVE (NEGATIVE); Blood Urine TRACE-I (NEGATIVE); Clarity Urine CLEAR (CLEAR); Color Urine LT. YELLOW (YELLOW); Glucose Urine UA NEGATIVE (NEGATIVE); Ketones Urine NEGATIVE (NEGATIVE); Leukocyte Esterase Urine TRACE (NEGATIVE); Nitrite Urine NEGATIVE (NEGATIVE); Protein Urine NEGATIVE (NEG/TRACE); Specific Gravity Urine <=1.005 (1.005-1.025); Urobilinogen Urine 0.2 EU/dL (0.2-1.0)
[2024-04-30 16:12] LABS: Troponin I High Sensitivity 4.6 pg/mL (4.0-76.1)
[2024-04-30 16:26] LABS: Bacteria Urine TRACE #/HPF (NONE SEEN); RBC Urine 0-2 #/HPF (0-2); WBC Urine 0-2 #/HPF (NONE SEEN)
[2024-04-30 16:27] LABS: Cast Seen? NONE SEEN #/LPF (NONE SEEN); Crystals Seen? None Seen #/HPF (None Seen); Mucus Urine NONE SEEN (NONE SEEN); Squamous Epithelial Cell Urine NONE SEEN #/LPF (NONE/RARE)
[2024-04-30 16:28] LABS: Urine Culture Indicated YES-FRMC
[2024-04-30] MEDS: POTASSIUM BICARBONATE/CIT 25 MEQ TABLET EFF 50 MEQ PO (17:37)
== END 2024-04-30 18:07 | disposition home or self-care (01) ==
PROVIDERS: Emergency Provider Emergency Medicine; PCP Family Medicine
DX: R42 Dizziness and giddiness (principal); R82.998 Other abnormal findings in urine
CPT/HCPCS: 36415; 70450; 80048; 81001; 84484; 85025; 87086; 93005; 99285

== ENCOUNTER 2024-08-05 09:31 | Outpatient (OUT) | payer MEDICARE, SELFPAY ==
--- OUTSIDE RECORDS SUMMARY | 2023-11-27 09:40 | XMS_ITS ---
Author Organization [facility] Address [address] [place] [address] Care Team Providers Care Hospital Liaison Name Role Phone Tex Raymond JR, DO Primary Care Provider Ursula vailable LataVolodymyr coxcherie Unavailable [phone] Valencia Roldan Unavailable [phone] Allergies No Known Allergies Reason For Referral Reason REFERRAL TO [facility] FOR SUSAN L5-S1 Diagnosis 1 Lumbar pain (M54.50) Diagnosis 2 DDD (degenerative di sc disease), lumbar (M51.36) Diagnosis 3 Lumbar stenosis with neurogenic claudication (M48.062) Diagnosis 4 HNP (herniated nucle us pulposus), lumbar (M51.26) Referral Organization [facility] Referring Provider First Name Ajay Referring Provider Last Name [facility] Burger Referring Provider Speciality Orthopedic Surgery Referred Organization Pain clinic General Notes Alina Vital 2023 02:27:23 PM >, Alina Vital 12/09/2023 03:30:01 PM >FAXED Referral Priority Routine REASON FOR VISIT Low Back Pain Medications Medication SIG (Take, Route, Fr equency, Duration) Notes Start Date End Date Status potassium citrate Ac tive amLODIPine Active lisinopril Active HCTZ Active Social History Tobacco Use: Social History Observation Description Date Details (start date - stop date) Never Smoker NA - NA AUDIT-C (Standard) Question Answer Notes Did you have a drink containing alcohol in the p ast year? No Points 0 Interpretation Negative Tobacco Control (Standard) Question Answer Notes Tobacco use: Nonsmoker Problems Problem Type SNOMED Code ICD Code Onset Dates Problem Status W/U Status Risk Notes Problem [id number] HNP (herniated nucleus pulposus), lumbar (M51.26) Active confirmed Problem 31178714 DDD (degenerativ e disc disease), lumbar (M51.36) Active confirmed Problem 45805110 Lumbar stenosis with neurogenic claudication (M48.062) Active confirmed Problem Displacement of intervertebral disc of lumbosacral region (M51.27) Active confirmed Problem Degeneration of lumbosacral intervertebral disc (20257835) DDD (degenerative disc disease), lumbosacral (M51.37) Active confirmed Encounters Encounter Location Date Provider Diagnosis [facility] Office [address] [place] [address] [place] [address] [facility] with neurogenic claudication M48.062 ; Displacement of intervertebral disc of lumbosacral region M51.27 and DDD (degenerative disc disease), lumbosacral M51.37 Assessments Encounter Date Diagnosis (ICD Code) Assessment Notes Treatment Notes Treatment Clinical Notes Section Notes 11/27/2023 Lumbar stenosis with neurogenic claudication (ICD-10 - M48.062) 1. L4-5 stenosis/NF S 2. L5-S1 HNP/DDD/NFS 11/27/2023 Displacement of intervertebral disc of lumbosacral region (ICD-10 - M51.27) 1. L4-5 stenosis/NF S 2. L5-S1 HNP/DDD/NFS 11/27/2023 DDD (degenerative disc disease), lumbosacral (ICD-10 - M51.37) 1. L4-5 stenosis/NF S 2. L5-S1 HNP/DDD/NFS 11/27/2023 Other Plan established by Dr. Nevarez. Patient evaluated by myself and Dr. Nevarez today. Dr. Nevarez reviewed patient's MRI results with him and is recommending an L5-S1 SUSAN. We will refer him to the [place] [facility] for this. I have also given him a prescription for physical therapy for his lumbar spine. We will see him back on an as-needed basis. The patient is very much in agreement with the treatment and/or diagnostic plan set forth and all questions were answered to the patient's satisfaction. Thanks once again. If we can be of further service to your patients with disorders of the spine, cervical, thoracic, or lumbar, please do not hesitate to contact Dr. Nevarez. Best regards, 1. L4-5 stenosis/NF S 2. L5-S1 HNP/DDD/NFS Plan Of Treatment Treatment Notes Assessment Notes Other Plan established by Dr. Nevarez. Patient evaluated by myself and Dr. Nevarez today. Dr. Nevarez reviewed patient's MRI results with him and is recommending an L5-S1 SUSAN. We will refer him to the [place] [facility] for this. I have also given him a prescription for physical therapy for his lumbar spine. We will see him back on an as-needed basis. The patient is very much in agreement with the treatment and/or diagnostic plan set forth and all questions were answered to the patient's satisfaction. Thanks once again. If we can be of further service to your patients with disorders of the spine, cervical, thoracic, or lumbar, please do not hesitate to contact Dr. Nevarez. Best regards, Pending Test Test Name Order Date Lumbar spine, 4v flex ext - 31135 2023 SFS - Lumbar Spine PT Order, Isometrics & Strenghening w/Modalities as needed, 2-3 times per week for 6 weeks 11/27/2023 Referrals Referral Date Details 11/27/2023 11/27/2023, REFERRAL TO [facility] FOR SUSAN L5-S1 Next Appt Details Follow Up: prn, Reason: Progress Notes * JD APODACA HDOB:1945 (79 yo M)Acc No.[id number]:11/27/2023 Patient: JD SHINE Provider: CALVIN Stauffer :1945 A ge:78 Y S ex:Male Date:11/27/2023 Address:[address] [place] [address] [id number] Pcp:Tex Raymond JR, DO Subjective: * Chief Complaints: * 1 . Low Back Pain. * HPI: G eneral Follow Up Information: Dictated by Valencia Roldan PA-C Thank you for referring your patient to see Dr. Nevarez in surgical spine consultation at the [facility]. Jd is a 78-year-old male that presents with complaints of low back pain for approximately 6 years. He will get pain into the bilateral buttock area, left greater than right. He has had a prior L5-S1 decompression in 2019. He has been trying Tylenol and Aleve with no relief of his pain. Aggravating factors for his pain are standing, leaning and bending forward, rising from sitting, and changing positions. Lying on his back relieves his pain. Patient is also tried nabumetone, Flexeril, ultrasound, and physical therapy with no relief of his pain. He has had steroid injections that were helpful for the SI joint and trochanteric bursa. Patient is a non-smoker. G eneral Info per Patient Report: Side affected is B ilateral. J oint or body part affected is l ower back, hip. D ate of Injury: 0 11/2017. S tart of Pain/Cause of Injury?sharp pain in left hip . W ork related: N o. M otor vehicle accident: N o. MVA N o. T hird democrat responsibility: N o. T ype of pain: p ain in both hips and lower back . * ROS: E yes: Glasses/ Contacts Y es. C hange in Vision Y es.? N ose/ Throat: Hoarseness Y es. N ose Bleeds Y es. ? G astrointestinal: Hemorrhoids Y es. H eartburn/Acid Stomach Y es.? S kin: Frequent Itchiness Y es. M usculoskeletal: Joint pain Y es. B ack Pain Y es. N nano Pain?Yes. J oint Swelling Y es. G enitourinary: Urinate at Night More Than Once Y es. * Medical History: H igh Blood Pressure, Kidney stones, Osteoarthritis. * Surgical History: B ack surgery 2019. * Family History: M other: diagnosed with Arthritis, Cancer, Heart disease, Hypertension. S iblings: diagnosed with Arthritis, Cancer, Diabetes, Heart disease, Hypertension. * Social History: W hat is your place of residence? W here do you live? P rivate home. A NNA-C (Standard) D id you have a drink containing alcohol in the past year? N o, P oints 0 , Interpretation N egative. T obacco Control (Standard) T obacco use: N onsmoker.? * Medications: T aking potassium citrate , Taking amLODIPine , Taking lisinopril , Taking HCTZ , Medication List reviewed and reconciled with the patient * Allergies: N .K.D.A. Objective: * Vitals: * Examination: G eneral examination: O n examination, the patient is well-developed, well-nourished, well-groomed, alert and oriented x3, normal mood. Well-healed midline lumbar incision. Patient walks with steady gait. Limited lumbar ROM. Midline tender over the lumbar spine and bilateral lumbar paraspinal musculature, left greater than right. 5/5 muscle strength bilateral lower extremities. Sensory intact lower extremities. Negative clonus bilaterally, positive SLR on the left and negative on the right. Impression: -L1-S1 small disc bulge Impression: -L4-5 mild facet arthropathy, mild spinal canal stenosis. Mild right and moderate left neuroforaminal stenosis. Impression: -L5-S1 disc bulge eccentric to the left with suspected left central/left foraminal disc retrusion. Moderate facet arthropathy. Postsurgical changes of posterior decompression. Mild right and severe left neural foraminal stenosis. Impression:. X -ray Imaging Studies: 4 view x-rays of the lumbar spine were reviewed from the [facility] from 11/26/2023 and interpreted by myself as negative for fracture or spondylolisthesis. Degenerative disc disease most notable at L5-S1. . M RI Imaging Studies: M UT Lumbar spine without contrast reviewed from [facility] from 10/09/2023. Assessment: * Assessment: 1. L umbar stenosis with neurogenic claudication - M48.062 (Primary) 2 . D isplacement of intervertebral disc of lumbosacral region - M51.27 3 . D DD (degenerative disc disease), lumbosacral - M51.37 1. L4-5 stenosis/NFS 2. L5-S1 HNP/DDD/NFS. Plan: * Treatment: 2. O thers L AB: SFS - Lumbar Spine PT Order, Isometrics & Strenghening w/Modalities as needed, 2-3 times per week for 6 weeks I maging: Lumbar spine, 4v flex ext - [id number] Notes: Plan established by Dr. Nevarez. Patient evaluated by myself and Dr. Nevarez today. Dr. Nevarez reviewed patient's MRI results with him and is recommending an L5-S1 SUSAN. We will refer him to the [place] [facility] clinic for this. I have also given him a prescription for physical therapy for his lumbar spine. We will see him back on an as-needed basis. The patient is very much in agreement with the treatment and/or diagnostic plan set forth and all questions were answered to the patient's satisfaction. Thanks once again. If we can be of further service to your patients with disorders of the spine, cervical, thoracic, or lumbar, please do not hesitate to contact Dr. Nevarez. Best regards, Referral To: Reason:REFERRAL TO [facility] FOR SUSAN L5-S1 * Procedure Codes: 7 2110 X-ray Lumbar Spine, 5 view complete 26, Modifiers: 26 , 47739 X-ray Lumbar Spine, 5 view complete TC, Modifiers: TC * Follow Up: p rn Forms: * Images: * Sign off status: Completed true * Provider: CALVIN Stauffer Date: 0 11/27/2023 Generated for Lorrie menjivar/Serena/Darekitting on: 0 08/05/2024 09:33 AM EDT History and Physical Notes * HPI (History of Present Illness) Category Sub-Category Detail Notes Category Not es General Follow Up Information Dictated by Valencia Roldan PA-C Thank you for referring your patient to see Dr. Nevarez in surgical spine consultation at the [facility]. Jd is a 78-year-old male that presents with complaints of low back pain for approximately 6 years. He will get pain into the bilateral buttock area, left greater than right. He has had a prior L5-S1 decompression in 2019. He has been trying Tylenol and Aleve with no relief of his pain. Aggravating factors for his pain are standing, leaning and bending forward, rising from sitting, and changing positions. Lying on his back relieves his pain. Patient is also tried nabumetone, Flexeril, ultrasound, and physical therapy with no relief of his pain. He has had steroid injections that were helpful for the SI joint and trochanteric bursa. Patient is a non-smoker. General Info per Patient Report Side affected is Bilateral Joint or body part affected is lower sheldon k, hip Work related: No Motor vehicle accident: No Type of pain: pain in both hips an d lower back Date of Injury: 11/2017 Start of Pain/Cause of Injury sharp pain in left hip Third democrat responsibility: No MVA No Examination Category Sub-Category Detail Notes Category Not es General examination On examination, the patient is well-developed, well-nourished, well-groomed, alert and oriented x3, normal mood. Well-healed midline lumbar incision. Patient walks with steady gait. Limited lumbar ROM. Midline tender over the lumbar spine and bilateral lumbar paraspinal musculature, left greater than right. 5/5 muscle strength bilateral lower extremities. Sensory intact lower extremities. Negative clonus bilaterally, positive SLR on the left and negative on the right. Impression: -L1-S1 small disc bulge Impression: -L4-5 mild facet arthropathy, mild spinal canal stenosis. Mild right and moderate left neuroforaminal stenosis. Impression: -L5-S1 disc bulge eccentric to the left with suspected left central/left foraminal disc retrusion. Moderate facet arthropathy. Postsurgical changes of posterior decompression. Mild right and severe left neural foraminal stenosis. Impression: X-ray Imaging Studies 4 view x-rays of the lumbar spine were reviewed from the [facility] from 11/26/2023 and interpreted by myself as negative for fracture or spondylolisthesis. Degenerative disc disease most notable at L5-S1. MRI Imaging Studies MRI Lumb ar spine without contrast reviewed from [facility] from 10/09/2023 Consultation Request Notes Referral Date Referring Provider Referred Provider Not es 11/27/2023 Ajay Guido , REFERRAL TO [facility] FOR SUSAN L5-S1
--- OUTSIDE RECORDS SUMMARY | 2023-12-05 06:10 | XMS_ITS ---
Author Organization [facility] Address [address] [place] [address] Care Team Providers Care Cable Armorer Name Role Phone Tex Raymond JR, DO Primary Care Provider Ursula vailable Ajay Guido Unavailable [phone] REASON FOR VISIT LUMBAR PAIN Encounters Encounter Location Date Provider Diagnosis [facility] Office [address] [place] [address] [place] [address] 12/05/2023 Ajay Guido Plan Of Treatment No Information Progress Notes * JD APODACA HDOB:1945 (79 yo M)Acc No.[id number]:12/05/2023 Patient: JD SHINE Provider: Kade Nevarez MD, PhD :1945 A ge:78 Y S ex:Male Date:12/05/2023 Address:[address] [place], [place] [id number] Pcp:Tex Raymond JR, DO Subjective: * Chief Complaints: * 1 . LUMBAR PAIN. * Medical History: Objective: * Vitals: Assessment: Plan: * Treatment: Forms: * Images: * Electronic signature of Johnna Guido MD, PHD on 08/05/2024 at 09:33 AM EDT Sign off status: Pending * Provider: Kade Nevarez MD, PhD Date: 0 12/05/2023 Generated for Printi ng/Fasophyg/eTransmitting on: 0 08/05/2024 09:33 AM EDT
--- OUTSIDE RECORDS SUMMARY | 2024-08-04 09:54 | XMS_ITS ---
Author Name Auto Generated Organization OHIP Support Name Relationship Address Phone CONCETTA APODACAO Next of Kin Unknown [phone] ARAUJO, DANIELITO Next of Kin Unknown + ~([phone] DIANA, MEDARDO Next of Kin Unknown + ARTINO, SEAN Next of Kin Unknown [phone] ARAUJO, DANIELITO Next of Kin Unknown + ~(419 DIANA, MEDARDO Next of Kin Unknown + ARTINO, SEAN Next of Kin Unknown [phone] ARAUJO, DANIELITO Next of Kin Unknown + ~(419 DIANA, MEDARDO Next of Kin Unknown + ARTINO, SEAN Next of Kin Unknown [phone]~([phone] ARAUJO, DANIELITO Next of Kin Unknown + ~(419 DIANA, MEDARDO Next of Kin Unknown + Artino, Sean Next of Kin [place], [place] [phone] Artino, [place] [address] [phone] ARTINO, SEAN Next of Kin Unknown [phone] ARAUJO, DANIELITO Next of Kin Unknown + ~(419 ARTINO, SEAN Next of Kin Unknown [phone]~([phone] ARAUJO, DANIELITO Next of Kin Unknown + ~(419 ARTINO, SEAN Next of Kin Unknown [phone]~([phone] ARAUJO, DANIELITO Next of Kin Unknown + ~(419 ARTINO, SEAN Next of Kin Unknown [phone]~([phone] ARAUJO, DANIELITO Next of Kin Unknown + ~(419 ARTINO, SEAN Next of Kin Unknown [phone]~([phone] ARAUJO, DANIELITO Next of Kin Unknown + ~(419 ARTINO, SEAN Next of Kin Unknown [phone]~([phone] ARAUJO, DANIELITO Next of Kin Unknown + ~(419 ARTINO, SEAN Next of Kin Unknown [phone]~(419 ARAUJO, DANIELITO Next of Kin Unknown + ~(419 ARTINO, SEAN Next of Kin Unknown [phone]~([phone] ARAUJO, DANIELITO Next of Kin Unknown + ~(419 ARTINO, SEAN Next of Kin Unknown [phone]~([phone] ARAUJO, DANIELITO Next of Kin Unknown + ~(419 ARTINO, SEAN Next of Kin Unknown [phone]~([phone] ARAUJO, DANIELITO Next of Kin Unknown + ~(419 ARTINO, SEAN Next of Kin Unknown [phone]~([phone] ARAUJO, DANIELITO Next of Kin Unknown + ~(419 ARTINO, ESAN Next of Kin Unknown [phone]~([phone] ARAUJO, DANIELITO Next of Kin Unknown + ~(419 ARTINO, SEAN Next of Kin Unknown [phone]~([phone] ARAUJO, DANIELITO Next of Kin Unknown + ~(419 ARTINO, SEAN Next of Kin Unknown [phone]~(419 ARAUJO, DANIELITO Next of Kin Unknown + ~(419 ARTINO, SEAN Next of Kin Unknown [phone]~([phone] ARAUJO, DANIELITO Next of Kin Unknown + ~(419 ARTINO, SEAN Next of Kin Unknown [phone]~([phone] ARAUJO, DANIELITO Next of Kin Unknown + ~(419 ARTINO, SEAN Next of Kin Unknown [phone]~([phone] ARAUJO, DANIELITO Next of Kin Unknown + ~(419 ARTINO, SEAN Next of Kin Unknown [phone]~([phone] ARAUJO, DANIELITO Next of Kin Unknown + ~(419 Care Team Providers Care Quantitative Developer Name Role Phone Blade VIDAL, Jessica Casas Attending Unavailable Blade VIDAL, Jessica Casas Attending Unavailable Blade VIDAL, Jessica Casas Attending Unavailable Blade VIDAL, Jessica Casas Attending Unavailable Buddy JACOBO Attending Unavailable Zeus Bonner Attending Unavailable Zeus Bonner Primary Care Unavailable Zeus Bonner Admitting Unavailable EUGENIO GARNER Attending Unavailable PAT JACKSON Attending Unavailable JR. MARY, CHRISTIAN Egan Attending Unavaila lor HERNANDEZ JR., CHRISTIAN Egan Referring Unavaila ZEUS Langley Attending Unavailable RUSSELL DALEY Referring Unavailable RUSSELL DALEY Attending Unavailable ZEUS BONNER Referring Unavailable JR. MARY, CHRISTIAN Egan Referring Unavaila ble JR. MARY, CHRISTIAN Egan Referring Unavaila lor HERNANDEZ JR., CHRISTIAN Egan Attending Unavaila ble MELISSA, JALYN Attending Unavailable LUIS, SELVON F Referring Unavailable MELISSA, JALYN Attending Unavailable LUIS, SELVON F Referring Unavailable GUZIKDAMIAN Attending Unavailable LUIS, SELVON F Referring Unavailable MELISSA, JALYN Attending Unavailable LUIS, SELVON F Referring Unavailable GUZIK DAMIAN Attending Unavailable ULIS, SELVON F Referring Unavailable GUZIK, DAMIAN Attending Unavailable LUIS, SELVON F Referring Unavailable GUZIK, DAMIAN Attending Unavailable LUIS, SELVON F Referring Unavailable MELISSA, JALYN Attending Unavailable LUIS, SELVON F Referring Unavailable GUZIK, DAMIAN Attending Unavailable LUIS, SELVON F Referring Unavailable MELISSA, JALYN Attending Unavailable BENJAMIN SMITH F Referring Unavailable JALYN TORRES Attending Unavailable BENJAMIN SMITH F Referring Unavailable CHANTALERUSSELL Saldana Attending Unavailable CHANDALÓPEZ Kojo Attending Unavailable PROBLEMS No Problem Records Found PROCEDURES No Procedure Records Found RESULTS URINE CULTURE Observed: 04/30/2024 4:29 PM Status: F Source: [facility] 15,000 colonies/ml mixed bacterial skin contaminants including mixed gram negative bacilli - 2 Days PERFORMED BY: [place] [address] PATHOLOGIST IT PROGRAMMER ROSELINE DAVILA M.D. Performed By: #### CUU #### [address] AMBULATORY VISIT SUMMARY Observed: 10/16 12:05 PM Status: F Source: [facility] Ambulatory Visit Summary JD APODACA :1945 Visit [...] with CELESTINA VIDAL, MAYURI Knight When: Where: [facility] [place] [id number]- Medications What How Much When Instructions Unchanged [...] Follow these instructions at home: ? Take gary-wig-mqesfyj and prescription medicines only as told by [...] better with treatment. ? You develop side effects from the medicine you are taking. ? Your urine becomes very dark or has a bad smell. ? Your lower abdomen becomes distended and you have trouble passing urine. Get help right away if: ? You have a fever or chills. ? You suddenly cannot urinate. ? You feel light-headed or very dizzy, or you faint. ? There are large amounts of blood or clots in your urine. ? Your urinary problems become hard to manage. ? You develop moderate to severe low back or flank pain. The flank is the side of your body between the ribs and the hip. These symptoms may be an emergency. Get help right away. Call 911. ? Do not wait to see if the symptoms will go away. ? Do not drive yourself to the hospital. Summary ? Benign prostatic hyperplasia (BPH) is an enlarged prostate that is caused by the normal aging process. It is not caused by cancer. ? An enlarged prostate can press on the urethra. This can make it hard to pass urine. ? This condition is more likely to develop in men older than 50 years. ? Get help right away if you suddenly cannot urinate. This information is not intended to replace advice given to you by your health care provider. Make sure you discuss any questions you have with your health care provider. Document Revised: 09/19/2021 Document Reviewed: 09/19/2021 [employer] Patient Education ? 2022 [employer]. UROLOGY OFFICE/CLINIC NOTE Observed: 04/2023 12:03 PM Status: F Source: [facility] Urology Office/Clinic Note Chief Complaint 1yr HPI [...] hyperplasia with lower urinary tract symptoms) PSA: 201718 10/02/20 - 1.1 03/05/22 - 1.0 S/p [...] Contact Information CELESTINA VIDAL, Buddy Zhang, [address] [place] [address]- Additional Instructions: 1 year w/ KUB Patient [...] Tonsillectomy. Medications amlodipine, 2.5 mg, Oral, Daily hydrochlorothiazide, 12.5 mg, Oral, Daily lisinopril 20 mg Tab, 20 mg= 1 tab(s), Oral, Daily potassium citrate 15 mEq oral tablet, extended release, 15 mEq= 1 tab(s), Oral, BID, 3 refills Allergies No Known Allergies Social History Alcohol - Denies Alcohol Use, 09/23/2019 Tobacco - Denies Tobacco Use, 09/23/2019 Never (less than 100 in lifetime) Tobacco Use:. Never Smokeless Tobacco Use:. Household tobacco concerns: No., 10/17/2023 Family History Atherosclerosis: Mother. CHF - Congestive heart failure: Mother. Immunizations Vaccine Date Status Comments SARS-CoV-2 (COVID-19) mRNAMUL.ORD![id number] 02/21/2022 Recorded SARS-CoV-2 (COVID-19) mRNA BNT-162b2 vax 01/11/2021 Recorded influenza virus vaccine, inactivated 12/20/2020 Recorded SARS-CoV-2 (COVID-19) mRNA BNT-162b2 vax 05/03/2020 Recorded 2022-10-04: [id number] SARS-CoV-2 (COVID-19) mRNA BNT-162b2 vax 04/12/2020 Recorded 2022-10-04: TPV75 influenza virus vaccine, inactivated 12/20/2019 Recorded influenza virus vaccine, inactivated 01/12/2018 Recorded influenza virus vaccine, inactivated 12/24/2016 Recorded influenza virus vaccine, inactivated 12/20/2015 Recorded Lab Results Ambulatory Point of Care Results Bilirubin Urine Dipstick: Negative (10/17/23 11:01:00) Blood Urine Dipstick: Negative (10/17/23 11:01:00) Glucose Urine Dipstick: Negative (10/17/23 11:01:00) Ketones Urine Dipstick: Negative (10/17/23 11:01:00) Leukocytes Urine Dipstick: Negative (10/17/23 11:01:00) Nitrite Urine Dipstick: Negative (10/17/23 11:01:00) Protein Urine Dipstick: Negative (10/17/23 11:01:00) Specific Rillito Urine Dipstick: 1.020 (10/17/23 11:01:00) Urine Appearance Urine Dipstick: Clear (10/17/23 11:01:00) Urine Color Urine Dipstick: Yellow (10/17/23 11:01:00) Urobilinogen Urine Dipstick: Normal 0.2-1 EU/dl (10/17/23 11:01:00) pH Urine Dipstick: 7 (10/17/23 11:01:00) Result Comment: Electronical ly Signed By: Buddy JACOBO MD\.br\Date and Time Signed: 10/17/23 12:04 EDT\.br\Electronically Co-Signed By: Marina Barclay.fior\Date and Time Co-Signed: 10/17/23 12:03 EDT PATIENT EDUCATION Observed: 10/17/2023 11:58 AM Status: F Source: [facility] Patient Education Urology Benign Prostatic Hyperplasia Benign [...] Follow these instructions at home: ? Take wghs-atn-mlpuzgd and prescription medicines only as told by [...] better with treatment. ? You develop side effects from the medicine you are taking. ? Your urine becomes very dark or has a bad smell. ? Your lower abdomen becomes distended and you have trouble passing urine. Get help right away if: ? You have a fever or chills. ? You suddenly cannot urinate. ? You feel light-headed or very dizzy, or you faint. ? There are large amounts of blood or clots in your urine. ? Your urinary problems become hard to manage. ? You develop moderate to severe low back or flank pain. The flank is the side of your body between the ribs and the hip. These symptoms may be an emergency. Get help right away. Call 911. ? Do not wait to see if the symptoms will go away. ? Do not drive yourself to the hospital. Summary ? Benign prostatic hyperplasia (BPH) is an enlarged prostate that is caused by the normal aging process. It is not caused by cancer. ? An enlarged prostate can press on the urethra. This can make it hard to pass urine. ? This condition is more likely to develop in men older than 50 years. ? Get help right away if you suddenly cannot urinate. This information is not intended to replace advice given to you by your health care provider. Make sure you discuss any questions you have with your health care provider. Document Revised: 09/19/2021 Document Reviewed: 09/19/2021 [employer] Patient Education ? 2022 [employer] MR LUMBAR SPINE WO CONTRAST Observed: 10:46 AM Status: F Source: [facility] EPIC EXAM: MR LUMBAR SPINE WO CON TRAST History: Low back pain with radiculopathy Technique: [...] Hepatomegaly. ELECTRONICALLY SIGNED BY: Solis Quinones DO ALLERGIES DATE TYPE / CODE NAME / CODE REACTION SEVERITY SOURCE 04/15/2018 Drug Allergy/[id number] 2(SNOMED CT) No Known Allergies/[id number] (RXNORM) [facility] /[id number](SNO MED CT) No Known Allergies [facility] ENCOUNTERS ADMIT/DISCHARGE ACCOUNT NUMBER ADMITTING ENCOUNTER CLASS LOCATION SOURCE 08/04/2024/08/05/19 [id number] Ambulatory Building:NOM S FAMMED [facility] 05/13/2024/05/13/19 25 [id number] Ambulatory Building:NOM S SH ENT [facility] 05/12/2024/05/12/19 25 [id number] Ambulatory Building:NOM S CI AUD [facility] 05/06/2024/05/06/19 25 [id number] [facility] 04/30/2024/04/30/19 [id number] [facility] 03/14/2024/03/14/20 24 [id number] Ambulatory Building:NOM S [facility] EPIC 02/23/2024/02/23/20 24 [id number] Ambulatory Building:NOM S [facility] 02/02/2024/02/02/20 24 [id number] [facility]/27/[facility]01/27/20 24 [id number] Ambulatory Building:NOM S SWS PT [facility] EPIC 01/20/2024/01/20/20 24 [id number] Ambulatory Building:NOM S SWS PT [facility] EPIC 01/19/2024/01/19/20 24 [id number] Ambulatory PM [facility]:PM [facility] 01/13/2024/01/13/20 24 [id number] Ambulatory Building:NOM S SWS PT [facility] EPIC 01/06/2024/01/06/20 24 [id number] Ambulatory Building:NOM S SWS PT [facility] 01/05/2024/01/05/20 24 [id number] Ambulatory PM [facility]:PM [facility] 01/01/2024/01/01/20 24 [id number] Ambulatory Building:NOM S SWS PT [facility] 12/30/2023/12/30/19 24 [id number] Ambulatory Building:NOM S SWS PT [facility] 12/25/2023/12/25/19 24 [id number] Ambulatory Building:NOM S SWS PT [facility] 12/23/2023/12/23/19 24 [id number] Ambulatory Building:NOM S SWS PT [facility] 12/22/2023/12/22/19 24 [id number] Ambulatory PM [facility]:PM [facility] 12/18/2023/12/18/19 24 [id number] Ambulatory Building:NOM S SWS PT [facility] EPIC 12/16/2023/12/16/19 24 [id number] Ambulatory Building:NOM S SWS PT [facility] EPIC 12/10/2023/12/10/19 24 [id number] Ambulatory Building:NOM S SWS PT [facility] EPIC 10/29/2023/10/29/19 24 [id number] Ambulatory Building:SWS ORTHO [facility] EPIC 10/17/2023/10/17/19 24 [id number] Ambulatory EU [facility]:EU [facility] : Exam 2 [facility] 10/09/2023/10/09/19 24 [id number] Ambulatory Building:NOM SSR [facility] EPIC 09/29/2023/09/29/19 24 [id number] Ambulatory Building:[facility] EPIC 09/29/2023/09/29/19 24 [id number] Ambulatory Building:[facility] EPIC 09/29/2023/09/29/19 24 [id number] Ambulatory Building:[facility] PAYERS ENCOUNTER GUARANTOR PAYER SUBSCRIBER SOURCE 08/04/2024 JD Baker SUZIB: [place] [address]Fpc: (HP) Primary Insurance:MEDICARE Policy Number: [id number] Date:3400-95-24Had n Name:Medicare JD JOHNSONELMAB: [id number] [place] [address] [facility] EPIC 08/04/2024 Secondary Insurance:AARPPoli cy Number: [id number] ve Date:2022-03-17 JD Olivia SUZIB: [id number] [place] [address] [facility] EPIC 05/13/2024 JD Olivia SUZIB: [place] [address]Xgn: (HP) Primary Insurance:MEDICARE Policy Number: [id number] ve Date:4556-26-70Kzg n Name:Medicare JD Baker PAULIEDOB: [id number] [place] [address] [facility] EPIC 05/13/2024 Secondary Insurance:AARPPoli cy Number: [id number] ve Date:2022-03-17 JD Olivia PAULIEDOB: [id number] [place] [address] [facility] EPIC 05/12/2024 JD Olivia SUZIB: [place] [address]Bha: (HP) Primary Insurance:MEDICARE Policy Number: [id number] Date:8580-86-67Xym n Name:Medicare JD APODACADOB: [id number] [place] [address] [facility] EPIC 05/12/2024 Secondary Insurance:AARANDRAoli cy Number: [id number] ve Date:2022-03-17 JD APODACADOB: [id number] [place] [address] [facility] EPIC 05/06/2024 JD APODACADOB: [place] [address]Snm: (HP) Primary Insurance:MEDICARE Policy Number: [id number] Date:5714-26-58Zmd n Name:Medicare JD APODACADOB: [id number] [place] [address] [facility] EPIC 05/06/2024 Secondary Insurance:MICHEALoli cy Number: [id number] ve Date:2022-03-17 JD APODACADOB: [id number] [place] [address] [facility] EPIC 04/30/2024 [place] [address]Odo: (HP) Primary Insurance:Self PayPolicy Number: Effective Date:2024-04-30 [facility]/14/2024 JD APODACADOB: [place] [address]Qyo: (HP) Primary Insurance:MEDICARE Policy Number: [id number] ve Date:1879-27-67Sfw n Name:Medicare JD APDOACADOB: [id number] [place] [address] [facility] EPIC 03/14/2024 Secondary Insurance:AARPPoli cy Number: [id number] ve Date:2022-03-17 JD APODACADOB: [id number] [place] [address] [facility] EPIC 02/23/2024 JD APODACADOB: [place] [address]Mwk: (HP) Primary Insurance:MEDICARE Policy Number: [id number] Date:9950-30-24Jig n Name:Medicare JD ARCHERB: [id number] [place] [address] [facility] 02/23/2024 Secondary Insurance:AARPPoli cy Number: [id number] ve Date:2022-03-17 JD ARCHERB: [id number] [place] [address] [facility] 02/02/2024 Jd ArcherB: [place] [address]Tty: (HP) Primary Insurance:Medicare Policy Number: Effective Date:1995-94-20Ikl n Name:MEDPO [id number], [place] [address]RG: Jd ApodacaDOB: [id number] [place] [address]Zdr: (HP) [facility] 02/02/2024 Secondary Insurance:AARPPoli cy Number: Effective Date:9431-42-76Efy n Name:COMP [address], [place] [address]CQ: Jd JohnsoninoDOB: [id number] [place] [address]Bqt: (HP) [facility] 01/27/2024 JD Baker ALEXRADOB: [place] [address]Vcs: (HP) Primary Insurance:MEDICARE Policy Number: [id number] ve Date:2654-77-59Knr n Name:Medicare JD APODACADOB: [id number] [place] [address] [facility] EPIC 01/27/2024 Secondary Insurance:AARPPoli cy Number: [id number] ve Date:2022-03-17 JD APODACADOB: [id number] [place] [address] [facility] EPIC 01/20/2024 JD Baker PAULIEDOB: [place] [address]Hrb: (HP) Primary Insurance:MEDICARE Policy Number: [id number] ve Date:3933-87-32Ekt n Name:Medicare JD APODACADOB: [id number] [place] [address] [facility] EPIC 01/20/2024 Secondary Insurance:AARPPoli cy Number: [id number] ve Date:2022-03-17 JD JOHNSONINODOB: [id number] [place] [address] [facility] EPIC 01/19/2024 Jd ApodacaDOB: [place] [address]Chl: (HP) Primary Insurance:Medicare Policy Number: Effective Date:3238-76-27Uum n Name:MED[address]fx[place] [address]PQ: Jd JohnsoninoDOB: [id number] [place] [address]Kmz: (HP) [facility] 01/19/2024 Secondary Insurance:AARPPoli cy Number: Effective Date:6563-27-52Sfd n Name:COMP [address], [place] [address]AI: Jd ApodacaDOB: [id number] [place] [address]Tkf: (HP) [facility] 01/13/2024 JD JOHNSONINODOB: [place] [address]Wdg: (HP) Primary Insurance:MEDICARE Policy Number: [id number] Date:4907-48-66Pbv n Name:Medicare JD JOHNSONINODOB: [id number] [place] [address] [facility] 01/13/2024 Secondary Insurance:Amy cy Number: [id number] ve Date:2022-03-17 JD Baker PAULIEDOB: [id number] [place] [address] [facility] 01/06/2024 JD JOHNSONINODOB: [place] [address]Bnc: (HP) Primary Insurance:MEDICARE Policy Number: [id number] ve Date:8824-66-09Mex n Name:Medicare JD JOHNSONINODOB: [id number] [place] [address] [facility] EPIC 01/06/2024 Secondary Insurance:AARPPoli cy Number: [id number] ve Date:2022-03-17 JD Baker ARTINODOB: [id number] [place] [address] [facility] EPIC 2024 Jd JohnsoninoDOB: [place] [address]Dbs: (HP) Primary Insurance:Medicare Policy Number: Effective Date:8013-87-18Qsf n Name:[address], [place] [address]FE: Jd Baker AlexinoDOB: [id number] [place] [address]Orx: (HP) [facility] 2024 Secondary Insurance:Amy cy Number: Effective Date:7954-60-07Hug n Name:FRANCHESCA [address], [place] [address]KJ: Jd Baker AlexinoDOB: [id number] [place] [address]Fzk: (HP) [facility] 01/01/2024 JD Baker ALEXINODOB: [place] [address]Zte: (HP) Primary Insurance:MEDICARE Policy Number: [id number] ve Date:0681-18-98Mjd n Name:Medicare JD JOHNSONINODOB: [id number] [place] [address] [facility] EPIC 01/01/2024 Secondary Insurance:Amy cy Number: [id number] ve Date:2022-03-17 JD Baker PAULIEDOB: [id number] [place] [address] [facility] EPIC 12/30/2023 JD Baker ALEXINODOB: [place] [address]Mqy: (HP) Primary Insurance:MEDICARE Policy Number: [id number] Date:2405-19-53Fyv n Name:Medicare JD JOHNSONINODOB: [id number] [place] [address] [facility] EPIC 12/30/2023 Secondary Insurance:MICHEALoli cy Number: [id number] ve Date:2022-03-17 JD APODACADOB: [id number] [place] [address] [facility] EPIC 12/25/2023 JD APODACADOB: [place] [address]Dtd: (HP) Primary Insurance:MEDICARE Policy Number: [id number] ve Date:7777-31-62Gze n Name:Medicare JD APODACADOB: [id number] [place] [address] [facility] EPIC 12/25/2023 Secondary Insurance:AARPPoli cy Number: [id number] ve Date:2022-03-17 JD APODACAB: [id number] [place] [address] [facility] EPIC 12/23/2023 JD APODACADOB: [place] [address]Fdj: (HP) Primary Insurance:MEDICARE Policy Number: [id number] ve Date:5663-83-02Mzf n Name:Medicare JD APODACADOB: [id number] [place] [address] [facility] EPIC 12/23/2023 Secondary Insurance:AARPPoli cy Number: [id number] ve Date:2022-03-17 JD APODACADOB: [id number] [place] [address] [facility] EPIC 12/22/2023 Jd oJhnsoninoDOB: [place] [address]Wyn: (HP) Primary Insurance:Medicare Policy Number: Effective Date:8751-41-58Qkz n Name:PLACIDO [address], [place] [address]GH: Jd Baker SuziB: [id number] [place] [address]Qga: (HP) [facility] 12/22/2023 Secondary Insurance:BONNIEANDRAkristyn cy Number: Effective Date:6656-13-63Vqx n Name:FRANCHESCA Parry [place], [place] [address]DQ: Jd ApodacaDOB: [id number] [place] [address]Ypp: (HP) [facility] 12/18/2023 JD APODACADOB: [place] [address]Zwr: (HP) Primary Insurance:MEDICARE Policy Number: [id number] ve Date:9665-81-54Vun n Name:Medicare JD ARCHERB: [id number] [place] [address] [facility] 12/18/2023 Secondary Insurance:Amy cy Number: [id number] ve Date:2022-03-17 JD APODACADOB: [id number] [place] [address] [facility] 12/16/2023 JD APODACADOB: [place] [address]Nmh: (HP) Primary Insurance:MEDICARE Policy Number: [id number] ve Date:8736-72-57Cax n Name:Medicare JD JOHNSONINODOB: [id number] [place] [address] [facility] 12/16/2023 Secondary Insurance:MICHEALoli cy Number: [id number] ve Date:2022-03-17 JD APODACADOB: [id number] [place] [address] [facility] 12/10/2023 JD APODACADOB: [place] [address]Huh: (HP) Primary Insurance:MEDICARE Policy Number: [id number] Date:7111-68-18Hil n Name:Medicare JD ARCHERB: [id number] [place] [address] [facility] 12/10/2023 Secondary Insurance:Amy cy Number: [id number] ve Date:2022-03-17 JD APODACADOB: [id number] [place] [address] [facility] 10/29/2023 JD ARCHERB: [place] [address]Xvc: (HP) Primary Insurance:MEDICARE Policy Number: [id number] Date:7865-16-99Tih n Name:Medicare JD ARCHERB: [id number] [place] [address] [facility] 10/29/2023 Secondary Insurance:Amy cy Number: [id number] ve Date:2022-03-17 JD APODACADOB: [id number] [place] [address] [facility] 10/17/2023 JD APODACAB: AMER[place] HUNTERTel: ~~(56 (HP) Primary Insurance:MEDICARE Policy Number: [id number] ve Date:6611-20-41HM [place], [place] [address]XH: JD PORRAS [facility] 10/17/2023 Secondary Insurance:BONNIEANDRAkristyn cy Number: [id number] ve Date:1616-65-00[address], [place] [address]CP: JD PORRAS [facility] 10/09/2023 JD APODACADOB: [place] [address]Wvr: (HP) Primary Insurance:MEDICARE Policy Number: [id number] ve Date:5106-34-47Mrg n Name:Medicare JD APODACADOB: [id number] [place] [address] [facility] 10/09/2023 Secondary Insurance:AARPPoli cy Number: [id number] ve Date:2022-03-17 JD ARCHERB: [id number] [place] [address] [facility] 09/29/2023 JD APODACADOB: [place] [address]Xqd: (HP) Primary Insurance:MEDICARE Policy Number: [id number] Date:8468-78-38Thz n Name:Medicare JD APODACADOB: [id number] [place] [address] [facility] 09/29/2023 Secondary Insurance:AARPPoli cy Number: [id number] ve Date:2022-03-17 JD APODACADOB: [id number] [place] [address] [facility] 09/29/2023 JD JOHNSONINODOB: [place] [address]Azd: (HP) Primary Insurance:MEDICARE Policy Number: [id number] Date:2800-22-52Gny n Name:Medicare JD APODACADOB: [id number] [place] [address] [facility] 09/29/2023 Secondary Insurance:AARPPoli cy Number: [id number] ve Date:2022-03-17 JD Baker YAMILE: [id number] [place] [address] [facility] 09/29/2023 JD Baker YAMILE: [place] [address]Dvi: (JN) Primary Insurance:MEDICARE Policy Number: [id number] ve Date:4343-25-78Wyp n Name:Medicare JD Baker YAMILE: [id number] [place] [address] [facility] 09/29/2023 Secondary Insurance:Amy cy Number: [id number] ve Date:2022-03-17 JD Baker YAMILE: [id number] [place] [address] [facility] EPIC
--- OUTSIDE RECORDS SUMMARY | 2024-08-04 10:00 | XMS_ITS | Encounter Summary ---
Author Organization [facility] Address [address] [place] [address] Care Team Providers Care Stage Producer Name Role Phone Zeus Damico DO Unavailable [phone] Zeus Damico DO Primary Care Provider [phone] Chelsey Keys SURGICAL ATTENDANT Unavailable Chelsey Keys NP Unavailable Katherine Roth APRN-DELIVERY SALES WORKER Unavailable Buddy Jacobo MD Unavailable [phone] Encounter Details Date Type Department Care Team (Latest Contact Info) Description 08/04/2024 10:00 AM EDT Office Visit [facility] [address] [facility] [address] [place] [address] Chelsey Keys, SURGICAL ATTENDANT [address] [facility] [address] [place] [address] Routine general medical examination at health care facility (Primary Dx); Primary hypertension (CMS/HCC); Rash; Rosacea; Impaired fasting glucose; Mixed hyperlipidemia (CMS/HCC) Social History Tobacco Use Types Packs/Day Years Used Date Smoking Tobacco: Never Passive Smoke Exposure: Never Smokeless Tobacco: Never Tobacco Cessation:Counseling Given: Yes Alcohol Use Standard Drinks/Week Comments Never 0 (1 standard drink = 0.6 oz pur e alcohol) caffeine: soda B1300 Health Literacy Answer Date Recor ded How often do you need to hav e someone help you when you read instructions, pamphlets, or other written material from your doctor or pharmacy? Never 08/03/2024 Humiliation, Afraid, Rape, and Kick questionnair e Answer Date Recorded Within the last year, have y ou been afraid of your partner or ex-partner? No 08/03/2024 Within the last year, have y ou been humiliated or emotionally abused in other ways by your partner or ex-partner? No Within the last year, have y ou been kicked, hit, slapped, or otherwise physically hurt by your partner or ex-partner? No 08/03/2024 Within the last year, have y ou been raped or forced to have any kind of sexual activity by your partner or ex-partner? No 08/03/2024 Social Connection and Isolat ion Panel [NHANES] Answer Date Recorded In a typical week, how many times do you talk on the phone with family, friends, or neighbors? Twice a week 08/03/2024 How often do you get togethe r with friends or relatives? Once a week 08/03/2024 How often do you attend chur or denominational services? More than 4 times per year 08/03/2024 Do you belong to any clubs o r organizations such as yazdanism groups, unions, fraternal or athletic groups, or school groups? No 08/03/2024 How often do you attend meet ings of the clubs or organizations you belong to? Never 08/03/2024 Are you , , di vorced, , never , or living with a partner? Never 08/03/2024 AUDIT-C Answer Date Recorded Q1: How often do you have a drink containing alcohol? Never 08/03/2024 Q2: How many drinks containi ng alcohol do you have on a typical day when you are drinking? Patient does not drink Q3: How often do you have si x or more drinks on one occasion? Never 08/03/2024 Overall Financial Resource Strain (CARDIA) Answe r Date Recorded How hard is it for you to pa y for the very basics like food, housing, medical care, and heating? Not hard at all 08/03/2024 PHQ-2 Answer Date Recorded Patient Health Questionnaire-2 Score 1 08/04/2024 [facility] - Occupational Stress Questionnaire Answer Date Recorded Do you feel stress - tense, restless, nervous, or anxious, or unable to sleep at night because your mind is troubled all the time - these days? Only a little 08/03/2024 Exercise Vital Sign Answer Date Recorde d On average, how many days pe r week do you engage in moderate to strenuous exercise (like a brisk walk)? 0 days 08/03/2024 On average, how many minutes do you engage in exercise at this level? 0 min 08/03/2024 Hunger Vital Sign Answer Date Recorded Within the past 12 months, y ou worried that your food would run out before you got the money to buy more. Never true 08/04/19 Within the past 12 months, t he food you bought just didn't last and you didn't have money to get more. Never true 08/03/2024 PRAPARE - Transportation Answer Date Re corded In the past 12 months, has l ack of transportation kept you from medical appointments or from getting medications? No 07/16 In the past 12 months, has l ack of transportation kept you from meetings, work, or from getting things needed for daily living? No 08/03/2024 Housing Stability Vital Sign Answer Brent e Recorded In the last 12 months, was t here a time when you were not able to pay the mortgage or rent on time? No 04/10/2023 In the last 12 months, how many places have you lived? 1 04/10/2023 In the last 12 months, was t here a time when you did not have a steady place to sleep or slept in a chcf (including now)? No 04/10/2023 Housing Stability Vital Sign Answer Brent e Recorded In the last 12 months, was t here a time when you were not able to pay the mortgage or rent on time? No 08/03/2024 Number of Times Moved in the Last Year Not on fi le 08/03/2024 At any time in the past 12 m [facility], were you homeless or living in a chcf (including now)? No 08/03/2024 Sex and Gender Information Value Date Recorded Sex Assigned at Male 08/22/2022 9:46 PM EDT Legal Sex Male 7:17 PM EDT Gender Identity Male 08/22/2022 9:46 PM EDT Sexual Orientation Straight 08/22/2022 9: 46 PM EDT documented as of this encounter Last Filed Vital Signs Vital Sign Reading Time Taken Comments Blood Pressure 130/72 08/04/2024 9:56 AM EDT Pulse 92 08/04/2024 9:56 AM EDT Temperature 36.6 C (97.8 F) 08/04/2024 9:56 AM EDT Respiratory Rate - - Oxygen Saturation 96% 08/04/2024 9:56 AM EDT Inhaled Oxygen Concentration - - Weight 68 kg (150 lb) 08/04/2024 9:56 AM EDT Height 170.2 cm (5' 7 ) 08/04/2024 9:56 AM EDT Body Mass Index 23.49 08/04/2024 9:56 AM EDT documented in this encounter Functional Status * Over the past 2 weeks, how often have you been bothered by any of the following problems? Question Answer Date of Assessment Author Little interest or pleasure in doing things Several days 08/04/2024 10:00 AM EDT Mary Rivera MA Feeling down, depressed, or hopeless Not at all 08/04/2024 10:00 AM EDT Mary Rivera MA Patient Health Questionnaire-2 Score 1 08/04/2024 10:00 AM EDT Rae Rivera sa, MA * Question Answer Date of Assessment Author Trouble falling or staying asleep, or sleeping too much Several days 08/04/2024 10:00 AM EDT Mary Rivera MA Feeling tired or having little energy Several days 08/04/2024 10:00 AM EDT Mary Rivera MA Poor appetite or overeating Not at all 08/04/2024 10 :00 AM EDT Mary Rivera MA Feeling bad about yourself - or that you are a failure or have let yourself or your family down Not at all 08/04/2024 10:00 AM EDT Mary Rivera MA Trouble concentrating on things, such as reading the newspaper or watching television Not at all 08/04/2024 10:00 AM EDT Mary Rivera MA Moving or speaking so slowly that other people could have noticed? Or the opposite - being so fidgety or restless that you have been moving around a lot more than usual. Not at all 08/04/2024 10:00 AM Mary Eagle MA Thoughts that you would be better off or hurting yourself in some way Not at all 08/04/2024 10:00 AM Angus Eagle MA Patient Health Questionnaire-9 Score 3 08/04/2024 10:00 AM EDT Rae Rivera sa, MA documented as of this encounter Progress Notes * Chelsey Keys NP - 08/04/2024 10:00 AM EDT Images from the original note were not included. Subjective : Chief Complaint: Luisito Rey is an 79 y.o. male here for an annual wellness visit. I have reviewed and reconciled the history and medication list with the patient today. Current Outpatient Medications Medication Sig Dispense Refill Ivermectin 0.5 % lotion potassium citrate CR (Urocit-K-15) 15 mEq ER tablet amLODIPine (Norvasc) 2.5 MG tablet Take 1 tablet (2.5 mg) by mouth Daily 90 tablet 3 erythromycin with Ethanol (Theramycin) 2 % external solution Apply topically Daily 60 mL 0 hydroCHLOROthiazide (HYDRODiuril) 12.5 MG tablet Take 1 tablet (12.5 mg) by mouth Daily 90 tablet 3 lisinopril 20 MG tablet Take 1 tablet (20 mg) by mouth in the morning. 90 tablet 3 triamcinolone (Kenalog) 0.1 % cream Apply topically in the morning and before bedtime. 30 g 0 No current facility-administered medications for this visit. Review of Systems All other systems reviewed and are negative. List of current healthcare providers: Patient Care Team: Zeus Damico DO as PCP - General (Family Medicine) Zeus Damico DO as PCP - ACO Reach Chelsey Keys NP as Nurse Practitioner (Family Medicine) Chelsey Keys NP as Nurse Practitioner (Family Medicine) Katherine Roth APRN-DELIVERY SALES WORKER as Nurse Practitioner (Dermatology) Buddy Jacobo MD as Referring Physician (Urology) Medicare Annual Visit Over the past 2 weeks, how often have you been bothered by any of the following problems? Little interest or pleasure in doing things: Several days Feeling down, depressed, or hopeless: Not at all Patient Health Questionnaire-2 Score: 1 Over the past 2 weeks, how often have you been bothered by any of the following problems? Trouble falling or staying asleep, or sleeping too much: Several days Feeling tired or having little energy: Several days Poor appetite or overeating: Not at all Feeling bad about yourself - or that you are a failure or have let yourself or your family down: Not at all Trouble concentrating on things, such as reading the newspaper or watching television: Not at all Moving or speaking so slowly that other people could have noticed? Or the opposite - being so fidgety or restless that you have been moving around a lot more than usual.: Not at all Thoughts that you would be better off or hurting yourself in some way: Not at all Patient Health Questionnaire-9 Score: 3 Guzman Fall Risk History of Falling, Immediate or Within 3 Months: No Secondary Diagnosis: No Ambulatory Aid: Crutches/cane/walker Intravenous Therapy/Heparin Lock: No Gait/Transferring: Normal/bedrest/immobile Mental Status: Oriented to own ability Guzman Fall Risk Score: 15 Health Risk Assessment Form Do you need help eating, bathing, using the toilet, dressing, or getting around your home?: No Can you prepare your own meals?: Yes Can you do your own housework without help?: Yes Can you shop for groceries or clothes without help?: Yes Do you exercise for about 20 minutes 3 or more days a week?: No How confident are you that you can control and manage most of your health problems?: Very confident Can you mange your money, credit cards and accounts, pay bills and taxes?: Yes Vision Screening: Yes, patient was advised to have yearly eye exam Hearing Screening: Yes, no gross abnormalities Cognitive Screening Self Assessment: No overt cognitive deficiency is apparent by direct observation Three Word Registration: Debbie Rawls, Finger Clock Drawing: Normal Clock - 2 Three Word Recall: All 3 words correct - 3 Total Score (0-5 Points): 5 Pain Assessment Pain Score: 5 - Moderate pain Advance Care Planning Do you have a living will?: No Do you have a medical power of nail assembly machine operator?: (Patient-Rptd) (P) No Objective : BP 130/72 Pulse 92 Temp 97.8 ??F Ht 5' 7 Wt 150 lb SpO2 96% BMI 23.49 kg/m?? No results found. Physical Exam Vitals reviewed. Constitutional: Appearance: Normal appearance. HENT: Head: Normocephalic and atraumatic. Right Ear: Tympanic membrane normal. Left Ear: Tympanic membrane normal. Nose: Nose normal. Mouth/Throat: Mouth: Mucous membranes are moist. Pharynx: Oropharynx is clear. Eyes: Extraocular Movements: Extraocular movements intact. Neck: Vascular: No carotid bruit. Cardiovascular: Rate and Rhythm: Normal rate and [...] normal. Behavior: Behavior normal. Judgment: Judgment normal. Assessment/Plan : The following health maintenance schedule was reviewed with the patient and provided in printed form in the after visit summary: Health Maintenance Topic Date Due Medicare Annual Wellness (AWV) 08/04/2025 Influenza Vaccine Completed Pneumococcal Vaccine: 65+ Years Completed Advance Care Planning Sent with papers Diagnoses and all orders for this visit: Routine general medical examination at health care facility (Primary) - Comprehensive metabolic panel - CBC - Lipid panel - Microalbumin / creatinine urine ratio - Hemoglobin A1c Primary hypertension (CMS/HCC) - amLODIPine (Norvasc) 2.5 MG tablet; Take 1 tablet (2.5 mg) by mouth Daily - hydroCHLOROthiazide (HYDRODiuril) 12.5 MG tablet; Take 1 tablet (12.5 mg) by mouth Daily - lisinopril 20 MG tablet; Take 1 tablet (20 mg) by mouth in the morning. - Comprehensive metabolic panel - CBC - Lipid panel - Microalbumin / creatinine urine ratio - Hemoglobin A1c Rash - triamcinolone (Kenalog) 0.1 % cream; Apply topically in the morning and before bedtime. Rosacea - erythromycin with Ethanol (Theramycin) 2 % external solution; Apply topically Daily Impaired fasting glucose - Comprehensive metabolic panel - CBC - Lipid panel - Microalbumin / creatinine urine ratio - Hemoglobin A1c Mixed hyperlipidemia (CMS/HCC) Patient here for annual Medicare Wellness visit. Demographics were updated. Self-assessment was completed. Past medical, family and social history were updated. The medication list, including supplements being taken, was updated. A list of other current medical providers was established/updated. Time was spent discussing health maintenance issues, ordering proper testing, and schedule was provided regarding recommended screening. We discussed safety issues and fall risk. Depression screening was completed and addressed. Cognitive function was assessed by direct observation and assessment of ability to perform ADL's and IADL's was done. We also discussed Advanced Directives and code status. The current BMI was provided along with an education packet regarding healthy living and maintenanceof a healthy weight. The BMI will cont to be monitored at routine office visits as well. Major riskfactors for chronic disease including family history were discussed . Orders Placed This Encounter Procedures Comprehensive metabolic panel Print requisition?: Yes CBC Print requisition?: Yes Lipid panel Print requisition?: Yes Microalbumin / creatinine urine ratio Print requisition?: Yes Hemoglobin A1c Print requisition?: Yes Electronically signed by Chelsey Keys NP on August 04, 2024 documented in this encounter Plan of Treatment Upcoming Encounters Date Type Department Care Team (Late st Contact Info) Description 05/26/2025 1:35 PM EDT Office Visit [facility] [address] [place] [id number] Katherine Roth APRN-VITALIY [address] [place] [address] Scheduled Orders Name Type Priority Associated Diagnoses Orde r Schedule Comprehensive metabolic panel Lab Routine Routine general medical examination at health care facility Primary hypertension (CMS/HCC) Impaired fasting glucose Ordered: 08/04/2024 CBC Lab Routine Routine general medical examination at health care facility Primary hypertension (CMS/HCC) Impaired fasting glucose Ordered: 08/04/2024 Lipid panel Lab Routine Routine general medical examination at health care facility Primary hypertension (CMS/HCC) Impaired fasting glucose Ordered: 08/04/2024 Microalbumin / creatinine urine ratio Lab Routine Routine general medical examination at health care facility Primary hypertension ([facility]) Impaired fasting glucose Ordered: 08/04/2024 Hemoglobin A1c Lab Routine Routine general medical examination at health care facility Primary hypertension ([facility]) Impaired fasting glucose Ordered: 08/04/2024 documented as of this encounter Visit Diagnoses Diagnosis Routine general medical examination at health care facility- Primary Routine general medical examination at a health care facility Primary hypertension ([facility]) Unspecified essential hypertension Rash Rash and other nonspecific skin eruption Rosacea Impaired fasting glucose Mixed hyperlipidemia ([facility]) Mixed hyperlipidemia documented in this encounter Additional Health Concerns Assessment Noted Time PHQ-9 Depression Total Score: 3 08/05/19 25 10:00 AM EDT documented as of this encounter Care Teams Stage Producer Relationship Specialty Start Date End Date Zeus Damico DO [address] [place] [address] PCP - ACO Reach 08/08/22 Zeus Damico DO [address] [place] [address] PCP - General Family Medicine 07/23/22 Chelsey Keys NP [address] [place] [address] Nurse Practitioner Family Medicine 06/06/23 Chelsey eKys NP [address] [place] [address] Nurse Practitioner Family Medicine 02/23/24 Katherine Roth APRN-DELIVERY SALES WORKER [address] [place] [address] Nurse Practitioner Dermatology 08/04/24 Buddy Jacobo MD [address] [place] [address] Referring Physician Urology 08/04/24 documented as of this encounter
--- OUTSIDE RECORDS SUMMARY | 2024-08-05 09:33 | XMS_ITS | Clinical Summary ---
Author Organization [facility] Address [address] [place] [address] Care Team Providers Care Scheduling Coordinator Name Role Phone Zeus Damico DO Unavailable [phone] Zeus Damico DO Primary Care Provider [phone] Chelsey Keys TREE PLANTER Unavailable Chelsey Keys TREE PLANTER Unavailable Katherine Roth CRAFT DEMONSTRATOR-WARD SUPERVISOR Unavailable Buddy Jacobo MD Unavailable [phone] Allergies No known active allergies Medications Ivermectin 0.5 % lotion 3 Active potassium citrate CR (Urocit-K-15) 15 mEq ER tablet Active amLODIPine (Norvasc) 2.5 MG tabletIndication s:Primary hypertension (CMS/HCC) Take 1 tablet (2.5 mg) by mouth Daily 90 tablet 3 5 Active hydroCHLOROthiaz latasha (HYDRODiuril) 12.5 MG tabletIndication s:Primary hypertension (CMS/HCC) Take 1 tablet (12.5 mg) by mouth Daily 90 tablet 3 5 Active lisinopril 20 MG tabletIndication s:Primary hypertension (CMS/HCC) Take 1 tablet (20 mg) by mouth in the morning. 90 tablet 3 5 Active triamcinolone (Kenalog) 0.1 % creamIndications :Rash Apply topically in the morning and before bedtime. 30 g 5 09/04/19 25 Active erythromycin with Ethanol (Theramycin) 2 % external solutionIndicati ons:Rosacea Apply topically Daily 60 mL 5 Active triamcinolone (Kenalog) 0.1 % cream APPLY TO AFFECTED AREA TWICE A DAY NEEDED 2 08/05/19 25 Discontin ued(Reord er) hydroCHLOROthiaz latasha (HYDRODiuril) 12.5 MG tabletIndication s:Primary hypertension (CMS/HCC) TAKE 1 TABLET BY MOUTH ONCE DAILY 90 tablet 3 4 08/05/19 25 Discontin ued(Reord er) lisinopril 20 MG tabletIndication s:Primary hypertension (CMS/HCC) TAKE 1 TABLET BY MOUTH IN THE MORNING 90 tablet 3 4 08/05/19 25 Discontin ued(Reord er) amLODIPine (Norvasc) 2.5 MG tabletIndication s:Primary hypertension (CMS/HCC) TAKE 1 TABLET BY MOUTH ONCE DAILY 90 tablet 3 4 08/05/19 25 Discontin ued(Reord er) citric acid-potassium citrate (Polycitra) 1100-334 MG/5ML solution Take by mouth 3 (three) times a day with meals 08/05/19 25 Discontin ued(Thera py completed ) ciprofloxacin (Cipro) 250 MG tabletIndication s:Acute cystitis without hematuria 1 tablet orally bid x 3 days 6 tablet 5 08/05/19 25 Discontin ued(Thera py completed ) erythromycin with Ethanol (Theramycin) 2 % external solution Apply topically Daily 08/05/19 25 Discontin ued(Reord er) Active Problems Problem Noted Date Diagnosed Date Spinal stenosis of lumbar re gion without neurogenic claudication 12/10/2023 Arthritis of left hip 11/25/2022 Cervical myelopathy 11/25/2022 Cervical osteoarthritis 11/25/2022 Essential hypertension 11/25/2022 Hyperlipidemia 11/25/2022 Rosacea 11/25/2022 Resolved Problems Problem Noted Date Diagnosed Date Resolved Date Bladder stones 05/12/2024 05/12/2024 BPH with urinary obstruction 05/12/2024 05/12/2024 Hematuria 05/12/2024 05/12/2024 History of kidney stones 05/12/2024 DDD (degenerative disc disease), lumbar 05/12/2024 05/12/2024 Bilateral renal cysts 05/12/20242024 Gross hematuria 05/12/2024 05/12/2024 Scrotal bleeding 05/12/2024 05/12/2024 Urethral stricture 05/12/2024 Weak urinary stream 05/12/2024 05/12/19 Vertigo 06/19/2023 05/12/2024 Encounters Date Type Department Care Team Description 08/04/2024 10:00 AM EDT Office Visit [facility] [address] [place] [address] Chelsey Keys, MAICOL Routine general medical examination at health care facility (Primary Dx); Primary hypertension (CMS/HCC); Rash; Rosacea; Impaired fasting glucose; Mixed hyperlipidemia (CMS/HCC) 08/04/2024 Bamboo flowsheet [facility] [address] [place] [address] Chelsey Keys NP 08/04/2024 Travel 08/03/2024 Travel 05/13/2024 10:00 AM EST Office Visit [facility] [place] [address] [place] [address] Zeus Kenney, Nasal septal deviation (Primary Dx); Dysfunction of both eustachian tubes; Laryngitis; Presbycusis of both ears 05/13/2024 Travel 05/12/2024 10:15 AM EST Clinical Support [facility] [address] [facility] [address] [place] [address] Elisa Posadas CCC-A Sensorineural hearing loss (SNHL) of both ears (Primary Dx); Eustachian tube dysfunction, bilateral; Dizziness 05/12/2024 Bamboo flowsheet [facility] [address] [facility] [address] [place] [address] Elisa Posadas CCC-A from Last 3 Months Immunizations Immunization Administration Dates Next Due Influenza, High Dose Seasona l, Preservative Free 12/26/2023 Influenza, Injectable, MDCK, preservative free 01/08/2017 Influenza, Unspecified 12/20/2020,2019,01/12/2018,12/24 Influenza, injectable, quadrivalent 12/20/2020,1 Influenza, injectable, quadr ivalent, preservative free 01/12/2018,12/20/2015 Influenza, recombinant, quad rivalent, injectable, preservative free 12/20/2019 Influenza, seasonal, injecta ble, preservative free 01/08/2017,01/09/2015 Influenza, seasonal, intrade rmal, preservative free 12/24/2016 Moderna Bivalent Booster Vaccination 02/21/2022 Pneumococcal Conjugate PCV 13 02/01/2015 Pneumococcal Polysaccharide PPSV23 01/29/2016 Family History Medical History Relation Name Comments Diabetes Brother 1 Sean Artino Hearing loss Brother 1 Sean Artino Heart disease Brother 1 Sean Artino [place] at 25 Hyperlipidemia Brother 1 Sean Artino Hypertension Brother 1 Sean Artino Brain Aneurysm Brother 2 Rupture Heart disease Brother 3 [place] at 64 Stroke Father Fabian Artino Cancer Mother [place] Artino Hearing loss Mother [place] Artino Heart disease Mother [place] Artino Vision loss Mother Oralia Artino Cancer Sister 1 Margarita Breest Lung Diabetes Sister 1 Margarita Breest Cancer Sister 2 Lizzette Gee-Crawley Breast Arthritis Sister 3 Tanja Parson Hearing loss Sister 3 Tanja Parson Heart disease Sister 3 Tanja Parson Arthritis Sister 4 Chasity Natalee Cancer Sister 5 Henrry Roddy Hearing loss Sister 5 Henrry Roddy Heart disease Sister 5 Henrry Roddy Hearing loss Sister 6 Margret Moomaw Heart disease Sister 6 Margret Moomaw Melanoma Neg Hx Relation Name Status Comments Brother 1 Sean Artino Patient has 7 brothers Brother 2 Brother 3 Father Fabian Artino Mother [place] Artino Sister 1 Margarita Breest Patient has 8 sisters Sister 2 Lizzette Flynn-Crawley Sister 3 Tanja Parson Sister 4 Chasity Natalee Sister 5 Henrry Roddy Sister 6 Margret Moomaw Social History Tobacco Use Types Packs/Day Years [...] How often do you attend chur or rastafari services? More than 4 times per year 08/03/2024 Do you belong to any clubs o r organizations such as rastafari groups, unions, fraternal or athletic groups, or [...] Recorded Patient Health Questionnaire-2 Score 1 08/04/2024 [facility] - Occupational Stress Questionnaire Answer Date Recorded [...] place to sleep or slept in a skilled nursing (including now)? No 04/10/2023 Housing Stability Vital Sign Answer Brent e Recorded In the last 12 months, was t here a time when you were not able to pay the mortgage or rent on time? No 08/03/2024 Number of Times Moved in the Last Year Not on fi le 08/03/2024 At any time in the past 12 m [facility], were you homeless or living in a skilled nursing (including now)? No 08/03/2024 Sex and Gender Information Value Date Recorded Sex Assigned at Male 08/22/2022 9:46 PM EDT Legal Sex Male 7:17 PM EDT Gender Identity Male 08/22/2022 9:46 PM EDT Sexual Orientation Straight 08/22/2022 9: 46 PM EDT Last Filed Vital Signs Vital Sign Reading [...] Mass Index 23.49 08/04/2024 9:56 AM EDT Plan of Treatment Upcoming Encounters Date Type Department Care Team (Late st Contact Info) Description 05/26/2025 1:35 PM EDT Office Visit [facility] [address] [place] [address] Katherine Roth APRN-WARD SUPERVISOR [address] [place] [address] Health Maintenance Due Date Last Done Comments Medicare Annual Wellness (AWV) 08/04/2025 0 08/04/2024, 04/17/2023, 03/04/2022, Additional history exists Pneumococcal Vaccine: 65+ Years Completed 6, 02/01/2015 Influenza Vaccine Completed 12/26/2023, , 12/20/2020, Additional history exists Procedures Procedure Name Priority Date/Time Associated Diagnosis Comments AUDITORY FUNCTION TESTS Routine 05/12/2024 10:52 AM EST from Last 3 Months Results * Auditory function tests (05/12/2024 10:52 AM EST) Narrative Elisa Posadas, CCC-A - 05/12/2024 10:52 AM EST Right Ear: Mild sloping to severe sensorineural hearing loss above 1K Hz Left Ear: Mild sloping to moderate sensorineural hearing loss above 1K Hz Hallpike: Negative head right and head left Elisa Posadas CCC-A AUDIOLOGY SERVICES ORDERA BLES Final Result from Last 3 Months Insurance MEDICARE [facility] Care Teams Scheduling Coordinator Relationship Specialty Start Date End Date Zeus Damico DO [address] [place] [address] PCP - ACO Reach 08/08/22 Zues Damico DO [address] [place] [address] PCP - General Family Medicine 07/23/22 Chelsey Keys NP [address] [place] [address] Nurse Practitioner Family Medicine 06/06/23 Chelsey Keys NP [address] [place] [address] Nurse Practitioner Family Medicine 02/23/24 Katherine Roth APRN-WARD SUPERVISOR [address] [place] [address] Nurse Practitioner Dermatology 08/04/24 Buddy Jacobo MD [address] [place] [address] Referring Physician Urology 08/04/24
--- OUTSIDE RECORDS SUMMARY | 2024-08-05 09:33 | XMS_ITS | Encounter Summary ---
Author Organization [facility] Address [address] [place] [address] Care Team Providers Care Property Maintenance Supervisor Name Role Phone Zeus Damico DO Unavailable [phone] Zeus Damico DO Primary Care Provider [phone] Chelsey Keys PLANNING MANAGER Unavailable Chelsey Keys PLANNING MANAGER Unavailable Katherine Roth FINGERER-COOK MORNING Unavailable Buddy Jacobo MD Unavailable [phone] Encounter Details Date Type Department Care Team (Late st Contact Info) Description 10/10/2022 Orders Only [facility] [address] [place] [id number] A, Unknown Practice [address] [place], [place] [phone] Social History Tobacco Use Types Packs/Day Years Used Date Smoking Tobacco: Never Assessed Sex and Gender Information Value Date Recorded Sex Assigned at Male 08/22/2022 9:46 PM EDT Legal Sex Male 7:17 PM EDT Gender Identity Male 08/22/2022 9:46 PM EDT Sexual Orientation Straight 08/22/2022 9: 46 PM EDT documented as of this encounter Plan of Treatment Upcoming Encounters Date Type Department Care Team (Late st Contact Info) Description 05/26/2025 1:35 PM EDT Office Visit [facility] [address] [place] [address] Katherine Roth APRN-COOK MORNING [address] [place] [address] documented as of this encounter Procedures Procedure Name Priority Date/Time Associated Diagnosis Comments CT ABDOMEN & PELVIS WO & W Routine 10/09/2022 11:27 AM EDT documented in this encounter Results * CT ABDOMEN & PELVIS WO & W (10/09/2022 11:27 AM EDT) Anatomical Region Laterality Modality Radiographic Jena ging us Unknown Practice A IMG XR PROCEDURES Final Resul t documented in this encounter Visit Diagnoses Not on filedocumented in this encounter Care Teams Property Maintenance Supervisor Relationship Specialty Start Date End Date Zeus Damico DO [address] [place] [address] PCP - ACO Reach 08/08/22 Zeus Damico DO [address] [place] [address] PCP - General Family Medicine 07/23/22 Chelsey Keys NP [address] [place] [address] Nurse Practitioner Family Medicine 06/06/23 Chelsey Keys NP [address] [place] [address] Nurse Practitioner Family Medicine 02/23/24 Katherine Roth, RASHEED-COOK MORNING [address] [place] [address] Nurse Practitioner Dermatology 08/04/24 Buddy Jacobo MD [address] [place] [address] Referring Physician Urology 08/04/24 documented as of this encounter
--- OUTSIDE RECORDS SUMMARY | 2024-08-05 09:33 | XMS_ITS | Encounter Summary ---
Author Organization [facility] Address [address] [place] [address] Care Team Providers Care Global Technical Writer Name Role Phone Zeus Damico DO Unavailable [phone] Zeus Damico DO Primary Care Provider Chelsey Keys TRANSACTION ADVISORY SERVICES MANAGER Unavailable Chelsey Keys TRANSACTION ADVISORY SERVICES MANAGER Unavailable Katherine Roth FOOD SERVICE AMBASSADOR-WINDOWS APPLICATION DEVELOPER Unavailable Buddy Jacobo MD Unavailable [phone] Reason for Visit * Reason Onset Date Comments Med Refill 08/22/2022 Encounter Details Date Type Department Care Team (Late st Contact Info) Description 08/22/2022 Refill [facility] [address] [facility] [address] [place] [address] Jr. Tex Raymond DO [address] [facility] [address] [place] [address] Social History Tobacco Use Types Packs/Day Years Used Date Smoking Tobacco: Never Assessed Sex and Gender Information Value Date Recorded Sex Assigned at Male 08/22/2022 9:46 PM EDT Legal Sex Male 7:17 PM EDT Gender Identity Male 08/22/2022 9:46 PM EDT Sexual Orientation Straight 08/22/2022 9: 46 PM EDT documented as of this encounter Miscellaneous Notes * Telephone Encounter - Ishmael Lagunas DO - 09/23/2022 8:13 PM EDTFrom: Luisito Rey To: Office of Dr. Jr. Tex Raymond Sent: 08/22/2022 10:00 PM EDT Subject: Medication Renewal Request Refills have been requested for the following medications: Other - Hctz 12.5mg [facility]/90 days supply Preferred pharmacy: [facility] - [place] [id number] Delivery method: Mail documented in this encounter Plan of Treatment Upcoming Encounters Date Type Department Care Team (Late st Contact Info) Description 05/26/2025 1:35 PM EDT Office Visit [facility] [address] [place] [address] Katherine Roth APRN-CNP [address] [place] [address] documented as of this encounter Visit Diagnoses Not on filedocumented in this encounter Care Teams Global Technical Writer Relationship Specialty Start Date End Date Zeus Damico DO [address] [place] [address] PCP - ACO Reach 08/08/22 Zeus Damico DO [address] [place] [address] PCP - General Family Medicine 07/23/22 Chelsey Keys NP [address] [place] [address] Nurse Practitioner Family Medicine 06/06/23 Chelsey Keys NP [address] [place] [address] Nurse Practitioner Family Medicine 02/23/24 Katherine Roth APRN-CNP [address] [place] [address] Nurse Practitioner Dermatology 08/04/24 Buddy Jacobo MD [address] [place] [address] Referring Physician Urology 08/04/24 documented as of this encounter
--- OUTSIDE RECORDS SUMMARY | 2024-08-05 09:33 | XMS_ITS | Encounter Summary ---
Author Organization [facility] Address [address] [place] [address] Care Team Providers Care Alliance Manager Name Role Phone Zeus Damico DO Unavailable [phone] Zeus Damico DO Primary Care Provider [phone] Chelsey Keys BLOOD BANK ORDER CONTROL CLERK Unavailable Chelsey Keys BLOOD BANK ORDER CONTROL CLERK Unavailable Encounter Details Date Type Department Care Team (Latest Contact Info) Description 08/03/2024 Travel Social History Tobacco Use Types Packs/Day Years Used Date Smoking Tobacco: Never Passive Smoke Exposure: Never Smokeless Tobacco: Never Alcohol Use Standard Drinks/Week Comments Never 0 [...] How often do you attend chur or jehovah's witness services? More than 4 times per year 08/03/2024 Do you belong to any clubs o r organizations such as episcopal groups, unions, fraternal or athletic groups, or [...] Recorded Patient Health Questionnaire-2 Score 1 08/04/2024 [facility]ational Stress Questionnaire Answer [...] place to sleep or slept in a penitentiary (including now)? No 04/10/2023 Housing Stability Vital Sign Answer Brent e Recorded In the last 12 months, was t here a time when you were not able to pay the mortgage or rent on time? No 08/03/2024 Number of Times Moved in the Last Year Not on fi le 08/03/2024 At any time in the past 12 m [facility], were you homeless or living in a penitentiary (including now)? No 08/03/2024 Sex and Gender Information Value Date Recorded Sex Assigned at Male 08/22/2022 9:46 PM EDT Legal Sex Male 7:17 PM EDT Gender Identity Male 08/22/2022 9:46 PM EDT Sexual Orientation Straight 08/22/2022 9: 46 PM EDT documented as of this encounter Functional Status * Audit-C Score Answer Date of Assessment Author 0 08/03/2024 1:02 PM EDT Jeet, Generic * Q1: How often do you have a drink containing alcohol? Answer Date of Assessment Author Never 08/03/2024 1:02 PM EDT Jeet, Generic * Q2: How many drinks containing alcohol do you have on a typical day when you are drinking? Answer Date of Assessment Author Patient does not drink 08/03/2024 1:02 PM EDT My chart, Generic * Q3: How often do you have six or more drinks on one occasion? Answer Date of Assessment Author Never 08/03/2024 1:02 PM EDT Mychart, Generic * Over the past 2 weeks, how often have you been bothered by any of the following problems? Question Answer Date of Assessment Author Patient Health Questionnaire-2 Score 1 07/16 1:06 PM EDT Mychart, Generic * Little interest or pleasure in doing things Answer Date of Assessment Author Several days 08/03/2024 1:06 PM EDT Mychart, Generic * Feeling down, depressed, or hopeless Answer Date of Assessment Author Not at all 08/03/2024 1:06 PM EDT Mychart, Generic * Question Answer Date of Assessment Author Patient Health Questionnaire-9 Score 3 07/16 1:06 PM EDT Mychart, Generic * Trouble falling or staying asleep, or sleeping too much Answer Date of Assessment Author Several days 08/03/2024 1:06 PM EDT Mychart, Generic * Feeling tired or having little energy Answer Date of Assessment Author Several days 08/03/2024 1:06 PM EDT Mychart, Generic * Poor appetite or overeating Answer Date of Assessment Author Not at all 08/03/2024 1:06 PM EDT Mychart, Generic * Feeling bad about yourself - or that you are a failure or have let yourself or your family down Answer Date of Assessment Author Not at all 08/03/2024 1:06 PM EDT Mychart, Generic * Trouble concentrating on things, such as reading the newspaper or watching television Answer Date of Assessment Author Not at all 08/03/2024 1:06 PM EDT Mychart, Generic * Moving or speaking so slowly that other people could have noticed? Or the opposite - being so fidgety or restless that you have been moving around a lot more than usual. Answer Date of Assessment Author Not at all 08/03/2024 1:06 PM EDT Mychart, Generic * Thoughts that you would be better off or hurting yourself in some way Answer Date of Assessment Author Not at all 08/03/2024 1:06 PM EDT Mychart, Generic documented as of this encounter Plan of Treatment Upcoming Encounters Date Type Department Care Team (Late st Contact Info) Description 05/26/2025 1:35 PM EDT Office Visit [facility] [address] [place] [address] Katherine Roth, RASHEED-DYE HOUSE WORKER [address] [place] [address] documented as of this encounter Visit Diagnoses Not on filedocumented in this encounter Additional Health Concerns Assessment Noted Time PHQ-9 Depression Total Score: 0 04/17/19 24 5:00 PM EST documented as of this encounter Care Teams Alliance Manager Relationship Specialty Start Date End Date Zeus Damico DO [address] [place] [address] PCP - ACO Reach 08/08/22 Zeus Damico DO [address] [place] [address] PCP - General Family Medicine 07/23/22 Chelsey Keys, MAICOL [address] [place] [address] Nurse Practitioner Family Medicine 06/06/23 Chelsey Keys BLOOD BANK ORDER CONTROL CLERK [address] [place] [address] Nurse Practitioner Family Medicine 02/23/24 documented as of this encounter
--- OUTSIDE RECORDS SUMMARY | 2024-08-05 09:33 | XMS_ITS | Encounter Summary ---
Author Organization [facility] Address [address] [place] [address] Care Team Providers Care Lure Maker Name Role Phone Zeus Damico DO Unavailable [phone] Zeus Damico DO Primary Care Provider [phone] Chelsey Keys ENGINE TURNER Unavailable Chelsey Keys ENGINE TURNER Unavailable Katherine Roth PROFESSIONAL BONDSMAN-REMOTE SENSING ADVISOR Unavailable Buddy Jacobo MD Unavailable [phone] Encounter Details Date Type Department Care Team (Late st Contact Info) Description 09/26/2022 Orders Only [facility] [address] [place] [address] Provider, MD Donna [address] [place], [place] [id number] Social History Tobacco Use Types Packs/Day Years [...] 05/26/2025 1:35 PM EDT Office Visit [facility] [address] [place] [address] Katherine Roth, PROFESSIONAL BONDSMAN-REMOTE SENSING ADVISOR [address] [place] [address] documented as of this encounter Procedures Procedure Name Priority Date/Time Associated Diagnosis Comments X ABDOMEN (KUB) Routine 09/26/2022 8:14 AM EDT documented in this encounter Results * X ABDOMEN (KUB) (09/26/2022 8:14 AM EDT) Anatomical Region Laterality Modality Radiographic Jena ging us Historical Provider MD GALINDO XR PROCEDURES Final R esult documented in this encounter Visit Diagnoses Not on filedocumented in this encounter Care Teams Lure Maker Relationship Specialty Start Date End Date Zeus Damico DO [address] [place] [address] PCP - ACO Reach 08/08/22 Zeus Damico DO [address] [place] [address] PCP - General Family Medicine 07/23/22 Chelsey Keys NP [address] [place] [address] Nurse Practitioner Family Medicine 06/06/23 Chelsey Keys NP [address] [place] [address] Nurse Practitioner Family Medicine 02/23/24 Katherine Roth, RASHEED-REMOTE SENSING ADVISOR [address] [place] [address] Nurse Practitioner Dermatology 08/04/24 Buddy Jacobo MD [address] [place] [address] Referring Physician Urology 08/04/24 documented as of this encounter
--- OUTSIDE RECORDS SUMMARY | 2024-08-05 09:33 | XMS_ITS | Encounter Summary ---
Author Organization [facility] Address [address] [place] [address] Care Team Providers Care Edger Machine Operator Name Role Phone Zeus Damico DO Unavailable [phone] Zeus Damico DO Primary Care Provider [phone] Chelsey Keys MILL LABOR SUPERVISOR Unavailable Chelsey Keys MILL LABOR SUPERVISOR Unavailable Katherine Roth APRN-SECURITY ESCORT Unavailable Buddy Jacobo MD Unavailable [phone] Encounter Details Date Type Department Care Team (Late st Contact Info) Description 08/04/2024 Bamboo flowsheet [facility] [address] [facility] [address] [place] [address] Chelsey Keys, MILL LABOR SUPERVISOR [address] [facility] [address] [place] [address] Social History Tobacco Use Types Packs/Day Years [...] week 08/03/2024 How often do you attend [facility] or amish services? More than 4 times per year 08/03/2024 Do you belong to any clubs o r organizations such as roman catholic groups, unions, fraternal or athletic groups, or [...] Recorded Patient Health Questionnaire-2 Score 1 08/04/2024 [facility] of Occupat ional Health - Occupational Stress [...] place to sleep or slept in a half-way (including now)? No 04/10/2023 Housing Stability Vital Sign Answer Brent e Recorded In the last 12 months, was t here a time when you were not able to pay the mortgage or rent on time? No 08/03/2024 Number of Times Moved in the Last Year Not on fi le 08/03/2024 At any time in the past 12 m [facility], were you homeless or living in a half-way (including now)? No 08/03/2024 Sex and Gender [...] [address] [place] [address] Katherine Roth APRN-SECURITY ESCORT [address] [place] [address] documented as of this encounter Visit Diagnoses Not on filedocumented in this encounter Additional Health Concerns Assessment Noted Time PHQ-9 Depression Total Score: 3 08/05/19 25 10:00 AM EDT documented as of this encounter Care Teams Edger Machine Operator Relationship Specialty Start Date End Date Zeus Damico DO [address] [place] [address] PCP - ACO Reach 08/08/22 Zeus Damico DO [address] [place] [address] PCP - General Family Medicine 07/23/22 Chelsey Keys NP [address] [place] [address] Nurse Practitioner Family Medicine 06/06/23 Chelsey Keys NP [address] [place] [address] Nurse Practitioner Family Medicine 02/23/24 Katherine Roth, EDUCATION COUNSELOR-SECURITY ESCORT [address] [place] [address] Nurse Practitioner Dermatology 08/04/24 Buddy Jacobo MD [address] [place] [address] Referring Physician Urology 08/04/24 documented as of this encounter
--- OUTSIDE RECORDS SUMMARY | 2024-08-05 09:33 | XMS_ITS | Encounter Summary ---
Author Organization [facility] Address [address] [place] [address] Care Team Providers Care Oracle Webcenter Consultant Name Role Phone Zeus Damico DO Unavailable [phone] Zeus Damico DO Primary Care Provider [phone] Chelsey Keys YOUTUBER Unavailable Chelsey Keys YOUTUBER Unavailable Katherine Roth APRN-MODEL BUILDER Unavailable Buddy Jacobo MD Unavailable [phone] Encounter Details Date Type Department Care Team (Late st Contact Info) Description 01/07/2024 Abstract [facility] [address] [facility] [address] [place] [phone] Zeus Damico, DO [address] [facility] [address] [place] [address] Social History Tobacco Use Types Packs/Day Years Used Date Smoking Tobacco: Never Passive Smoke Exposure: Never Smokeless Tobacco: Never Alcohol Use Standard Drinks/Week Comments Never 0 (1 standard drink = 0.6 oz pur e alcohol) caffeine: soda Humiliation, Afraid, Rape, and Kick questionnair e Answer Date Recorded Within the last year, have y ou been afraid of your partner or ex-partner? No 04/10/2023 Within the last year, have y ou been humiliated or emotionally abused in other ways by your partner or ex-partner? No Within the last year, have y ou been kicked, hit, slapped, or otherwise physically hurt by your partner or ex-partner? No 04/10/2023 Within the last year, have y ou been raped or forced to have any kind of sexual activity by your partner or ex-partner? No 04/10/2023 Social Connection and Isolat ion Panel [NHANES] Answer Date Recorded In a typical week, how many times do you talk on the phone with family, friends, or neighbors? Twice a week 04/10/2023 How often do you get togethe r with friends or relatives? Once a week 04/10/2023 How often do you attend chur or jain services? More than 4 times per year 04/10/2023 Do you belong to any clubs o r organizations such as orthodoxy groups, unions, fraternal or athletic groups, or school groups? No 04/10/2023 How often do you attend meet ings of the clubs or organizations you belong to? Never 04/10/2023 Are you , , di vorced, , never , or living with a partner? Never 04/10/2023 AUDIT-C Answer Date Recorded Q1: How often do you have a drink containing alcohol? Never 04/10/2023 Q2: How many drinks containi ng alcohol do you have on a typical day when you are drinking? Patient does not drink Q3: How often do you have si x or more drinks on one occasion? Never 04/10/2023 Overall Financial Resource Strain (CARDIA) Answe r Date Recorded How hard is it for you to pa y for the very basics like food, housing, medical care, and heating? Not hard at all 04/10/2023 [facility] of Occupat ional Health - Occupational Stress Questionnaire Answer Date Recorded Do you feel stress - tense, restless, nervous, or anxious, or unable to sleep at night because your mind is troubled all the time - these days? Not at all 04/10/2023 Exercise Vital Sign Answer Date Recorde d On average, how many days pe r week do you engage in moderate to strenuous exercise (like a brisk walk)? 0 days 04/10/2023 On average, how many minutes do you engage in exercise at this level? 0 min 04/10/2023 Hunger Vital Sign Answer Date Recorded Within the past 12 months, y ou worried that your food would run out before you got the money to buy more. Never true 04/10/19 Within the past 12 months, t he food you bought just didn't last and you didn't have money to get more. Never true 04/10/2023 PRAPARE - Transportation Answer Date Re corded In the past 12 months, has l ack of transportation kept you from medical appointments or from getting medications? No 03/18 In the past 12 months, has l ack of transportation kept you from meetings, work, or from getting things needed for daily living? No 04/10/2023 Housing Stability Vital Sign Answer [...] place to sleep or slept in a mcfp (including now)? No 04/10/2023 Sex and Gender Information Value Date Recorded [...] DERM [address] [place] [phone] Katherine Roth APRN-VITALIY [address] [place] [address] documented as of this encounter Visit Diagnoses Not on filedocumented in this encounter Additional Health Concerns Assessment Noted Time PHQ-9 Depression Total Score: 0 04/17/19 5:00 PM EST documented as of this encounter Care Teams Oracle Webcenter Consultant Relationship Specialty Start Date End Date Zeus Damico, DO [address] [place] [address] PCP - ACO Reach 08/08/22 Zeus Damico DO [address] [place] [address] PCP - General Family Medicine 07/23/22 Chelsey Keys YOUTUBER [address] [place] [address] Nurse Practitioner Family Medicine 06/06/23 Chelsey Keys NP [address] [place] [address] Nurse Practitioner Family Medicine 02/23/24 Katherine Roth APRN-MODEL BUILDER [address] [place] [address] Nurse Practitioner Dermatology 08/04/24 Buddy Jacobo MD [address] [place] [address] Referring Physician Urology 08/04/24 documented as of this encounter
--- OUTSIDE RECORDS SUMMARY | 2024-08-05 09:33 | XMS_ITS | Encounter Summary ---
Author Organization [facility] Address [address] [place] [address] Care Team Providers Care Underwear Welter Name Role Phone Zeus Damico DO Unavailable [phone] Zeus Damico DO Primary Care Provider [phone] Chelsey Keys SERVICE PARTS DRIVER Unavailable Chelsey Keys SERVICE PARTS DRIVER Unavailable Katherine Roth OUTBOUND SUPERVISOR-SOCIETY REPORTER Unavailable Buddy Jacobo MD Unavailable [phone] Encounter Details Date Type Department Care Team (Latest Contact Info) Description 08/04/2024 Travel Social History Tobacco Use Types Packs/Day [...] How often do you attend chur or spiritism services? More than 4 times per year 08/03/2024 Do you belong to any clubs o r organizations such as yazidism groups, unions, fraternal or athletic groups, or [...] Recorded Patient Health Questionnaire-2 Score 1 08/04/2024 [facility] of Occupat ionmt Health - Occupational Stress Questionnaire Answer Date [...] place to sleep or slept in a mcc (including now)? No 04/10/2023 Housing Stability Vital Sign Answer Brent e Recorded In the last 12 months, was t here a time when you were not able to pay the mortgage or rent on time? No 08/03/2024 Number of Times Moved in the Last Year Not on fi le 08/03/2024 At any time in the past 12 m [facility], were you homeless or living in a mcc (including now)? No 08/03/2024 Sex and Gender Information Value Date Recorded Sex Assigned at Male 08/22/2022 9:46 PM EDT Legal Sex Male 7:17 PM EDT Gender Identity Male 08/22/2022 9:46 PM EDT Sexual Orientation Straight 08/22/2022 9: 46 PM EDT documented as of this encounter Functional Status * Over the [...] usual. Not at all 08/04/2024 10:00 AM EDT Mary Rivera MA Thoughts that you would be better off or hurting yourself in some way Not at all 08/04/2024 10:00 AM EDT Angus Rivera MA Patient Health Questionnaire-9 Score 3 08/04/2024 10:00 AM EDT Rae Rivera sa, MA documented as of this encounter Plan of Treatment Upcoming Encounters Date Type Department Care Team (Late st Contact Info) Description 05/26/2025 1:35 PM EDT Office Visit [facility] [address] [place] [address] Katherine Roth APRN-VITALIY [address] [place] [address] documented as of this encounter Visit Diagnoses Not on filedocumented in this encounter Additional Health Concerns Assessment Noted Time PHQ-9 Depression Total Score: 3 08/05/19 25 10:00 AM EDT documented as of this encounter Care Teams Underwear Welter Relationship Specialty Start Date End Date Zeus Damico, DO [address] [place] [address] PCP - ACO Reach 08/08/22 Zeus Damico, [address] [place] [address] PCP - General Family Medicine 07/23/22 Chelsey Keys SERVICE PARTS DRIVER [address] [place] [address] Nurse Practitioner Family Medicine 06/06/23 Chelsey Keys SERVICE PARTS DRIVER [address] [place] [address] Nurse Practitioner Family Medicine 02/23/24 Katherine Roth APRN-SOCIETY REPORTER [address] [place] [address] Nurse Practitioner Dermatology 08/04/24 Buddy Jacobo MD [address] [place] [address] Referring Physician Urology 08/04/24 documented as of this encounter
--- OUTSIDE RECORDS SUMMARY | 2024-08-05 09:33 | XMS_ITS | Encounter Summary ---
Author Organization [facility] Address [address] [place] [address] Care Team Providers Care Ward Clerk Name Role Phone Zeus Damico DO Unavailable [phone] Zeus Damico DO Primary Care Provider [phone] Chelsey Keys STATEMENT CLERKS SUPERVISOR Unavailable Chelsey Keys STATEMENT CLERKS SUPERVISOR Unavailable Katherine Roth POSTMASTER-RISK ASSESSMENT ANALYST Unavailable Buddy Jacobo MD Unavailable [phone] Encounter Details Date Type Department Care Team (Late st Contact Info) Description 04/23/2023 Orders Only [facility] FM [address] [facility] [address] [place] [address] Zeus Damico, DO [address] [facility] [address] [place] [address] Social History Tobacco Use Types [...] How often do you attend chur or zoroastrian services? More than 4 times per year 04/10/2023 Do you belong to any clubs o r organizations such as voodoo groups, unions, fraternal or athletic groups, or [...] and heating? Not hard at all 04/10/2023 [facility] of Occupat ional Health - Occupational Stress [...] money to buy more. Never true 04/10/19 24 Within the past 12 months, t he [...] in a chcf (including now)? No 04/10/2023 Sex and Gender [...] DERM [address] [place] [address] Katherine Roth APRN-RISK ASSESSMENT ANALYST [address] [place] [address] documented as of this encounter Procedures Procedure Name Priority Date/Time Associated Diagnosis Comments ALBUMIN, URINE, RANDOM Routine 04/23/2023 1:14 PM EST documented in this encounter Results * Albumin, urine, random (04/23/2023 1:14 PM EST) Urine Urine specimen obtained by clean catch procedure / Unknown Zeus Damico DO LAB URINE ORDERABLES Final Resu lt documented in this encounter Visit Diagnoses Not on filedocumented in this encounter Additional Health Concerns Assessment Noted Time PHQ-9 Depression Total Score: 0 04/17/19 24 5:00 PM EST documented as of this encounter Care Teams Ward Clerk Relationship Specialty Start Date End Date Zeus Damico DO [address] [place] [address] PCP - ACO Reach 08/08/22 Zeus Damico DO [address] [place] [address] PCP - General Family Medicine 07/23/22 Chelsey Keys NP [address] [place] [address] Nurse Practitioner Family Medicine 06/06/23 Chelsey Keys NP [address] [place] [address] Nurse Practitioner Family Medicine 02/23/24 Katherine Roth APRN-RISK ASSESSMENT ANALYST [address] [place] [address] Nurse Practitioner Dermatology 08/04/24 Buddy Jacobo MD [address] [place] [address] Referring Physician Urology 08/04/24 documented as of this encounter
--- OUTSIDE RECORDS SUMMARY | 2024-08-05 09:33 | XMS_ITS | Encounter Summary ---
Author Organization [facility] Address [address] [place] [address] Care Team Providers Care Reeling Machine Setup Operator Name Role Phone Zeus Damico DO Unavailable [phone] Zeus Damico DO Primary Care Provider Chelsey Keys BUSINESS PARTNER Unavailable Chelsey Keys BUSINESS PARTNER Unavailable Katherine Roth [employer] DYNAM[employer] MANAGER ARCHITECT-COOKING APPLIANCE REPAIR TECHNICIAN Unavailable Buddy Jacobo MD Unavailable [phone] Reason for Visit * Reason Onset Date Comments Med Refill 08/22/2022 Encounter Details Date Type Department Care Team (Late st Contact Info) Description 08/22/2022 Refill [facility]O [address] [facility] [address] [place] [address] Jr. Tex Raymond DO [address] [facility] [address] [place] [address] Social History Tobacco Use Types Packs/Day Years [...] Encounter - Ishmael Lagunas DO - 09/23/2022 8:14 PM EDTFrom: Luisito Rey To: Office of Dr. Jr. Tex Raymond Sent: 08/22/2022 9:57 PM EDT Subject: Medication Renewal Request Refills have been requested for the following medications: Other - Lisinopril 20mg to [facility]/90days supply Preferred pharmacy: [facility] - [facility] [address] Delivery method: Mail documented in this encounter Plan of Treatment Upcoming Encounters Date Type Department Care Team (Late st Contact Info) Description 05/26/2025 1:35 PM EDT Office Visit [facility] [address] [place] [address] Katherine Roth APRN-CNP [address] [place] [address] documented as of this encounter Visit Diagnoses Not on filedocumented in this encounter Care Teams Reeling Machine Setup Operator Relationship Specialty Start Date End Date Zeus Damico DO [address] [place] [address] PCP - ACO Reach 08/08/22 Zeus Damico DO [address] [place] [address] PCP - General Family Medicine 07/23/22 Chelsey Keys BUSINESS PARTNER [address] [place] [address] Nurse Practitioner Family Medicine 06/06/23 Chelsey Keys NP [address] [place] [address] Nurse Practitioner Family Medicine 02/23/24 Katherine Roth APRN-CNP [address] [place] [address] Nurse Practitioner Dermatology 08/04/24 Buddy Jacobo MD [address] [place] [address] Referring Physician Urology 08/04/24 documented as of this encounter
--- OUTSIDE RECORDS SUMMARY | 2024-08-05 09:33 | XMS_ITS | Encounter Summary ---
Author Organization [facility] Address [address] [place] [address] Care Team Providers Care Caisson Worker Name Role Phone Zeus Damico DO Unavailable [phone] Zeus Damico DO Primary Care Provider [phone] Chelsey Keys TAG WRITER Unavailable Chelsey Keys TAG WRITER Unavailable Katherine Roth GROOVING MACHINE OPERATOR-ACCOUNT INFORMATION CLERK Unavailable Buddy Jacobo MD Unavailable [phone] Encounter Details Date Type Department Care Team (Late st Contact Info) Description 11/28/2023 Clinisync Result Encounter [facility] External Department Unsolicited Provider, Generic External Data Social History Tobacco Use Types Packs/Day Years [...] week 04/10/2023 How often do you attend [facility] or druze services? More than 4 times per year 04/10/2023 Do you belong to any clubs o r organizations such as sabianist groups, unions, fraternal or athletic groups, or [...] and heating? Not hard at all 04/10/2023 [facility] of Occupat ional Health - Occupational [...] DERM [address] [place] [address] Katherine Roth APRN-ACCOUNT INFORMATION CLERK [address] [place] [address] documented as of this encounter Procedures Procedure Name Priority Date/Time Associated Diagnosis Comments XR LUMBAR SPINE MIN 4V 11/28/2023 4:45 AM EDT documented in this encounter Results * XR LUMBAR SPINE MIN 4V (11/28/2023 4:45 AM EDT) Anatomical Region Laterality Modality Other 11/28/2023 4:45 AM EDT Narrative 11/28/2023 4:48 AM EDT [facility] [place] [id number] XRay Report Signed Patient: JD REY MR#: [id number] : 1945 Acct:[id number] Age/Sex: 78 / M ADM Date: 11/26/23 Loc: RAD Attending Dr: Non-Staff Physician Haider Ordering Physician: Physician,Non-Staff Haider Date of Service: 11/26/23 Procedure(s): XR lumbar spine min 4V Accession Number(s): [id number] cc: ZEUS DAMICO ; Physician,NonQuinStaff Haider The [address] [address] Patient Name: JD REY MRN: [id number] date: 1945 Sex: M Assigned Patient Location: [facility] [employer] Current Patient Location: Accession/Order Number: [id number] Exam Date: 11/26/2023 13:33 Report Date: 11/28/2023 04:45 At the request of: NON-STAFF PHYSICIAN Procedure: XR lumbar spine min 4V EXAMINATION: XR lumbar spine min 4V HISTORY: Lumbar pain, M54.50 COMPARISON: CT abdomen pelvis 10/09/2022 FINDINGS: BONES: Mild left convex curvature lumbar spine. No fracture or spondylolisthesis; no change in alignment during flexion and extension. DISC SPACES: L5-S1 moderate-marked narrowing. PARASPINOUS: Negative. No paraspinous abnormality is seen. OTHER: Negative. XR/XR lumbar spine min 4V IMPRESSION: 1. L5-S1 moderate to marked degenerative disc disease, stable to minimally progressed. Electronically authenticated by: NIMESH WU Date: 11/28/2023 04:45 Dictated By: Nimesh Wu M.D. Signed By: 11/28/23447 DD/ 4 TD/TT: Road Consultant: Procedure Note Radiology, Radiologist, - 11/28/2023 [facility] [place] [id number] XRay Report Signed Patient: JD REY HMR#: [id number] : 5Acct:[id number] Age/Sex: 78 / MADM Date: 11/26/23 Loc: RAD Attending Dr: Non-Staff Physician Haider Ordering Physician: PhysicianJacob M.D. Date of Service: 11/26/23 Procedure(s): XR lumbar spine min 4V Accession Number(s): [id number] cc: ZEUS DAMICO ; PhysicianJacob M.D. [place] [address] Patient Name: JD REY MRN: [id number] date: 1945 Sex: M Assigned Patient Location: RAD Current Patient Location: Accession/Order Number: [id number] Exam Date: 11/26/2023 13:33 Report Date: 11/28/2023 04:45 At the request of: NON-STAFF PHYSICIAN Procedure: XR lumbar spine min 4V EXAMINATION: XR lumbar spine min 4V HISTORY: Lumbar pain, M54.50 COMPARISON: CT abdomen pelvis 10/09/2022 FINDINGS: BONES: Mild left convex curvature lumbar spine. No fracture or spondylolisthesis; no change in alignment during flexion and extension. DISC SPACES: L5-S1 moderate-marked narrowing. PARASPINOUS: Negative. No paraspinous abnormality is seen. OTHER: Negative. XR/XR lumbar spine min 4V IMPRESSION: 1. L5-S1 moderate to marked degenerative disc disease, stable to minimally progressed. Electronically authenticated by: NIMESH WU Date: 11/28/2023 04:45 Dictated By: Nimesh Wu M.D. Signed By:11/28/238 DD/ 4 TD/TT: Road Consultant: us Generic External Data Provider [facility] Final Result documented in this encounter Visit Diagnoses Not on filedocumented in this encounter Additional Health Concerns Assessment Noted Time PHQ-9 Depression Total Score: 0 04/17/19 24 5:00 PM EST documented as of this encounter Care Teams Caisson Worker Relationship Specialty Start Date End Date Zeus Damico DO [address] [place] [address] PCP - ACO Reach 08/08/22 Zeus Damico DO [address] [place] [address] PCP - General Family Medicine 07/23/22 Chelsey Keys TAG WRITER [address] [place] [address] Nurse Practitioner Family Medicine 06/06/23 Chelsey Keys NP [address] [place] [address] Nurse Practitioner Family Medicine 02/23/24 Katherine Roth APRN-ACCOUNT INFORMATION CLERK [address] [place] [address] Nurse Practitioner Dermatology 08/04/24 Buddy Jacobo MD [address] [place] [address] Referring Physician Urology 08/04/24 documented as of this encounter
--- OUTSIDE RECORDS SUMMARY | 2024-08-05 09:34 | XMS_ITS | Encounter Summary ---
Author Organization [facility] Address [address] [place] [address] Care Team Providers Care Stretcher Operator Name Role Phone Zeus Damico DO Unavailable [phone] Zeus Damico DO Primary Care Provider [phone] Chelsey Keys CHASSIS WIRER Unavailable Chelsey Keys CHASSIS WIRER Unavailable Katherine Roth SNELLER HAND-WET PROCESS MILLER Unavailable Buddy Jacobo MD Unavailable [phone] Reason for Visit * Reason Onset Date Comments Med Refill 01/19/2024 Encounter Details Date Type Department Care Team (Late st Contact Info) Description 01/19/2024 Refill [facility] [address] [facility] [address] [place] [address] Zeus Damico DO [address] [facility] [address] [place], [place] [id number] Other rosacea Social History Tobacco Use Types Packs/Day Years [...] How often do you attend chur or synagogue services? More than 4 times per year 04/10/2023 Do you belong to any clubs o r organizations such as moravian groups, unions, fraternal or athletic groups, or [...] and heating? Not hard at all 04/10/2023 [facility] [place] of Occupat ional Health - Occupational Stress [...] place to sleep or slept in a detention (including now)? No 04/10/2023 Sex and Gender [...] DERM [address] [place] [address] Katherine Roth APRN-WET PROCESS MILLER [address] [place] [address] documented as of this encounter Visit Diagnoses Diagnosis Other rosacea documented in this encounter Additional Health Concerns Assessment Noted Time PHQ-9 Depression Total Score: 0 04/17/19 5:00 PM EST documented as of this encounter Care Teams Stretcher Operator Relationship Specialty Start Date End Date Zeus Damico DO [address] [place] [address] PCP - ACO Reach 08/08/22 Zeus Damico DO [address] [place] [address] PCP - General Family Medicine 07/23/22 Chelsey Keys, CHASSIS WIRER [address] [place] [address] Nurse Practitioner Family Medicine 06/06/23 Chelsey Keys, CHASSIS WIRER [address] [place] [address] Nurse Practitioner Family Medicine 02/23/24 Katherine Roth APRN-WET PROCESS MILLER [address] [place] [address] Nurse Practitioner Dermatology 08/04/24 Buddy Jacobo MD [address] [place] [address] Referring Physician Urology 08/04/24 documented as of this encounter
--- OUTSIDE RECORDS SUMMARY | 2024-08-05 09:34 | XMS_ITS | Encounter Summary ---
Author Organization [facility] Address [address] [place] [address] Care Team Providers Care Smash Fixer Name Role Phone Zeus Damico DO Unavailable [phone] Zeus Damico DO Primary Care Provider [phone] Chelsey Keys WIRE WEAVER Unavailable Chelsey Keys WIRE WEAVER Unavailable Katherine Roth APRN-FIRST AID TEACHER Unavailable Buddy Jacobo MD Unavailable [phone] Encounter Details Date Type Department Care Team (Late st Contact Info) Description 01/28/2024 Abstract [facility] [address] [facility] [address] [place] [phone] Zeus Damico, DO [address] [facility] [address] [place] [address] Social History Tobacco Use Types [...] How often do you attend chur or confucianist services? More than 4 times per year 04/10/2023 Do you belong to any clubs o r organizations such as congregation groups, unions, fraternal or athletic groups, or [...] and heating? Not hard at all 04/10/2023 [facility] [place] of Occupat ional Health - Occupational Stress [...] place to sleep or slept in a residential (including now)? No 04/10/2023 Sex and Gender [...] DERM [address] [place] [phone] Katherine Roth APRN-VITALIY [address] [place] [address] documented as of this encounter Visit Diagnoses Not on filedocumented in this encounter Additional Health Concerns Assessment Noted Time PHQ-9 Depression Total Score: 0 04/17/19 5:00 PM EST documented as of this encounter Care Teams Smash Fixer Relationship Specialty Start Date End Date Zeus Damico, DO [address] [place] [address] PCP - ACO Reach 08/08/22 Zeus Damico DO [address] [place] [address] PCP - General Family Medicine 07/23/22 Chelsey Keys WIRE WEAVER [address] [place] [address] Nurse Practitioner Family Medicine 06/06/23 Chelsey Keys NP [address] [place] [address] Nurse Practitioner Family Medicine 02/23/24 Katherine Roth APRN-FIRST AID TEACHER [address] [place] [address] Nurse Practitioner Dermatology 08/04/24 Buddy Jacobo MD [address] [place] [address] Referring Physician Urology 08/04/24 documented as of this encounter
[2024-08-05 09:51] LABS: Basophils Percent Auto 0.6 % (0.2-2.0); Eosinophils Absolute Auto 0.1 10^3/uL (0.0-0.7); Eosinophils Percent Auto 1.6 % (0.9-7.0); Hematocrit 44.4 % (42.0-54.0); Hemoglobin 15.5 g/dL (14.0-18.0); Immature Granulocytes Abs Auto 0.05 10^3/uL (0.00-0.03); Immature Granulocytes Pct Auto 0.7 % (0.0-0.5); Lymphocytes Absolute Auto 2.5 10^3/uL (1.2-3.8); Lymphocytes Percent Auto 35.1 % (20.5-60.0); Mean Corpuscular HGB Conc 34.9 g/dL (29.9-35.2); Mean Corpuscular Hemoglobin 32.5 pg (25.9-34.0); Mean Corpuscular Volume 93.1 fL (80.0-94.0); Mean Platelet Volume 9.1 fL (9.5-13.5); Monocytes Absolute Auto 0.6 10^3/uL (0.3-0.8); Monocytes Percent Auto 8.8 % (1.7-12.0); Neutrophils Absolute Auto 3.7 10^3/uL (1.4-6.5); Neutrophils Percent Auto 53.2 % (43.0-75.0); Platelet Count 259 10^3/uL (150-450); Red Blood Count 4.77 10^6/uL (4.70-6.10); Red Cell Distribution Width 14.2 % (11.0-15.0)
[2024-08-05 10:16] LABS: Creatinine Urine Random 115.81 mg/dL (20.00-300.00); Microalbumin Urine Random <1.3 mg/dL (<=30.0)
[2024-08-05 10:20] LABS: Alanine Aminotransferase 39 U/L (16-63); Albumin Globulin Ratio 1.3; Alkaline Phosphatase 69 U/L (46-116); Aspartate Amino Transferase 27 U/L (15-37); BUN Creatinine Ratio 15.7; Bilirubin Total 2.5 mg/dL (0.2-1.0); Calcium 8.7 mg/dL (8.5-10.1); Carbon Dioxide 29.5 mmol/L (21.0-32.0); Chloride 100 mmol/L (98-107); Chol HDL Ratio 3.6; Cholesterol 216 mg/dL (<=200); Estimated GFR (African America >60 (>=60 mL/min/1.73m^2); Estimated GFR (Non-African Ame >60 (>=60 mL/min/1.73m^2); Globulin 3.1 g/dL; Glucose 102 mg/dL (74-106); HDL Cholesterol 60 mg/dL (40-60); Potassium 3.5 mmol/L (3.5-5.1); Sodium 140 mmol/L (136-145); Total Protein 7.1 g/dL (6.4-8.2); Triglycerides 145 mg/dL (<=150)
[2024-08-05 10:26] LABS: Estimated Average Glucose 117 mg/dL; Glycohemoglobin A1C 5.7 % (4.5-6.2)
== END 2024-08-05 09:32 | disposition home or self-care (01) ==
LOC: LAB 09:31
PROVIDERS: PCP Family Medicine
DX: Z00.00 Encounter for general adult medical examination without abnormal findings (principal); I10 Essential (primary) hypertension; R73.01 Impaired fasting glucose
CPT/HCPCS: 36415; 80053; 80061; 82043; 82570; 83036; 85025

== ENCOUNTER 2024-10-05 10:51 | Outpatient (OUT) | payer MEDICARE, SELFPAY ==
--- NOTE | 2024-10-05 11:20 | XR_ITS ---
The [address] [address] Patient Name: JD APODACA MRN: [id number] date: 1945 Sex: M Assigned Patient Location: RAD Current Patient Location: [facility] Accession/Order Number: [id number] Exam Date: 10/05/2024 11:46 Report Date: 10/05/2024 11:46 At the request of: JANET OSCAR MD Procedure: XR abdomen 1V KUB: CLINICAL INFORMATION: Kidney stone follow-up COMPARISON: CT abdomen and pelvis 10/09/2022 FINDINGS: No suspicious urinary tract calcification. No bowel obstruction or free air. Osseous structures demonstrate degenerative change. XR/XR abdomen 1V IMPRESSION: NO SUSPICIOUS URINARY TRACT CALCULUS. Impression dictated by: Damien Zuleta Jr., D.O. 10/05/2024 11:46 AM Dictation Location: [place] [address] Electronically authenticated by: [id number] Y Date: 10/05/2024 11:46
== END 2024-10-05 10:52 | disposition home or self-care (01) ==
LOC: RAD 10:58
PROVIDERS: PCP Family Medicine; Visit Provider Urology
DX: Z87.442 Personal history of urinary calculi (principal)
CPT/HCPCS: 74018